=== PATIENT | female | born 1965 | race American Indian/Alaskan Native ===

== ENCOUNTER 2018-01-20 13:07 | Emergency (ER) | payer MEDICAID ==
[2018-01-20 13:16] VITALS: BP 120/81
--- NOTE | 2018-01-20 14:34 | Emergency Department Report ---
ED Recheck HPI - General Chief Complaint: Medical Clearance Stated Complaint: TRIMMERS/DIABETIC Time Seen by Provider: 01/20/18 14:18 Source: patient Mode of arrival: Ambulatory Limitations: No Limitations - History of Present Illness Initial Comments: This is a 52-year-old female who presents for medication refills. Past medical history is COPD, diabetes type 2, hypertension, and AMI. Patient states she ran out of medication and lost ID to follow-up with primary care provider. Patient states she is waiting on [facility] ID via mail. She is living in a assisted living facility and to follow-up in emergency room for refills. Patient denies suicidal ideation or homicidal ideation, chest pain, shortness of breath, visual changes, headache, or hearing voices. MD Complaint: medication refill request Onset/Timin -: days(s) Returns Today for: request for prescription Symptoms Since Prior Visit: no new symptoms Context: ran out of medication Associated Symptoms: none - Related Data Previous Rx's Medication Instructions Recorded Last Taken Type ALBUTEROL NEB's [Proventil 0.083% 2.5 mg IH Q4HRT PRN #30 nebu 12/25/17 Unknown Rx NEBS] Arformoterol Nebu [Brovana Nebu] 15 mcg IH Q12HRT #60 ml 12/25/17 Unknown Rx Budesonide [Pulmicort Respules] 0.5 mg IH Q12HRT #60 nebu 12/25/17 Unknown Rx Butalb/Acetamin/Caff 50-325-40 1 tab PO Q4H PRN #14 tablet 12/25/17 Unknown Rx [Fioricet] Ipratropium/Albuterol Sulfate 1 ampul IH Q6HRT #60 ampul.neb 12/25/17 Unknown Rx [DUONEB *Not for PRN Use*] Pantoprazole [Protonix TAB] 40 mg PO QDAY #30 tablet 12/25/17 Unknown Rx Prednisone [predniSONE 10 mg 10 mg PO .TAPER #1 tab.ds.pk 12/25/17 Unknown Rx (6-Day Pack, 21 Tabs)] FLUoxetine HCL [FLUoxetine] 60 mg PO QDAY #7 tablet 01/20/18 Unknown Rx FLUoxetine [PROzac] 10 mg PO QDAY #10 tablet 01/20/18 Unknown Rx metFORMIN [Glucophage] 500 mg PO BID #30 tablet 01/20/18 Unknown Rx risperiDONE [RisperDAL] 1 mg PO HS #7 tablet 01/20/18 Unknown Rx Allergies Allergy/AdvReac Type Severity Reaction Status Date / Time clonazepam [From Klonopin] Allergy Unknown Verified 12/07/17 20:27 quetiapine [From Seroquel] Allergy Unknown Verified 12/07/17 20:27 ED Review of Systems ROS: Stated complaint: TRIMMERS/DIABETIC Other details as noted in HPI Constitutional: denies: chills, fever Respiratory: denies: cough, shortness of breath, wheezing Cardiovascular: denies: chest pain, palpitations Gastrointestinal: denies: abdominal pain, nausea, diarrhea Neurological: denies: headache, weakness, paresthesias Psychiatric: denies: anxiety, depression Hematological/Lymphatic: denies: easy bleeding, easy bruising ED Past Medical Hx - Past Medical History Hx Hypertension: Yes Hx Heart Attack/AMI: Yes (No stents) Hx Congestive Heart Failure: No Hx Diabetes: Yes Hx Sickle Cell Disease: No Hx Asthma: No Hx COPD: Yes Hx HIV: No - Surgical History Additional Surgical History: heart, - Social History Smoking Status: Current Some Day Smoker Substance Use Type: None - Medications Home Medications: Home Medications Medication Instructions Recorded Confirmed Last Taken Type ALBUTEROL NEB's [Proventil 0.083% 2.5 mg IH Q4HRT PRN #30 nebu 12/25/17 Unknown Rx NEBS] Arformoterol Nebu [Brovana Nebu] 15 mcg IH Q12HRT #60 ml 12/25/17 Unknown Rx Budesonide [Pulmicort Respules] 0.5 mg IH Q12HRT #60 nebu 12/25/17 Unknown Rx Butalb/Acetamin/Caff 50-325-40 1 tab PO Q4H PRN #14 tablet 12/25/17 Unknown Rx [Fioricet] Ipratropium/Albuterol Sulfate 1 ampul IH Q6HRT #60 ampul.neb 12/25/17 Unknown Rx [DUONEB *Not for PRN Use*] Pantoprazole [Protonix TAB] 40 mg PO QDAY #30 tablet 12/25/17 Unknown Rx Prednisone [predniSONE 10 mg 10 mg PO .TAPER #1 tab.ds.pk 12/25/17 Unknown Rx (6-Day Pack, 21 Tabs)] FLUoxetine HCL [FLUoxetine] 60 mg PO QDAY #7 tablet 01/20/18 Unknown Rx FLUoxetine [PROzac] 10 mg PO QDAY #10 tablet 01/20/18 Unknown Rx metFORMIN [Glucophage] 500 mg PO BID #30 tablet 01/20/18 Unknown Rx risperiDONE [RisperDAL] 1 mg PO HS #7 tablet 01/20/18 Unknown Rx ED Physical Exam - General Limitations: No Limitations General appearance: alert, in no apparent distress - Cardiovascular Cardiovascular Exam: Present: regular rate, normal rhythm. Absent: systolic murmur, diastolic murmur, rubs, gallop - GI/Abdominal GI/Abdominal exam: Present: soft, normal bowel sounds - Neurological Exam Neurological exam: Present: alert, oriented X3 - Psychiatric Psychiatric exam: Present: normal affect, normal mood - Skin Skin exam: Present: warm, dry, intact, normal color. Absent: rash ED Course Vital Signs 01/20/18 13:09 Temperature 99.3 F Pulse Rate 113 H Respiratory 18 Rate Blood Pressure 120/81 O2 Sat by Pulse 98 Oximetry ED Recheck MDM - Differential Diagnosis Prescription Refill(s) - Medical Decision Making Patient was examined by this provider in fast track. Vitals are normal and patient is in no acute distress. Consulted with attending. Refilled Risperdal and Prozac for 7 days. Refilled metformin for 30 days. Referral to mental health for further management of Patient discharged home in stable condition. Follow up with PCP in 2-3 days. Critical care attestation.: If time is entered above; I have spent that time in minutes in the direct care of this critically ill patient, excluding procedure time. ED Disposition Clinical Impression: Mood disorder, Medication refill Diabetes type 2, controlled Qualifiers: Diabetes mellitus termite technician insulin use: without termite technician use Diabetes mellitus complication status: without complication Qualified Code(s): E11.9 - Type 2 diabetes mellitus without complications Disposition: DC-01 TO HOME OR SELFCARE Is pt being admited?: No Does the pt Need Aspirin: No Condition: Stable Instructions: Diabetes Mellitus Type 2 in Adults (ED) Additional Instructions: Follow up with your primary care provider for further refills. Follow up with [facility] for refills of mood disorder medication. Prescriptions: FLUoxetine [PROzac] 10 mg PO QDAY #10 tablet FLUoxetine HCL [FLUoxetine] 60 mg PO QDAY #7 tablet metFORMIN [Glucophage] 500 mg PO BID #30 tablet risperiDONE [RisperDAL] 1 mg PO HS #7 tablet Referrals: [facility] [Outside] - 3-5 Days [facility] [Outside] - 3-5 Days Time of Disposition: 14:50
== END 2018-01-20 15:06 | disposition home or self-care (01) ==
LOC: ED 13:07
DX: E11.9 Type 2 diabetes mellitus without complications (principal); F39 Unspecified mood [affective] disorder; Z76.0 Encounter for issue of repeat prescription; I10 Essential (primary) hypertension; J44.9 Chronic obstructive pulmonary disease, unspecified; F17.200 Nicotine dependence, unspecified, uncomplicated; I25.2 Old myocardial infarction; Z88.8 Allergy status to other drugs, medicaments and biological substances
CPT/HCPCS: 99283

== ENCOUNTER 2018-04-12 13:28 | Emergency (ER) | payer MEDICAID ==
[2018-04-12 13:47] VITALS: BP 132/80
[2018-04-12 14:13] LABS: Hematocrit 32.6 % (30.3-42.9); Hemoglobin 10.4 gm/dl (10.1-14.3); Mean Corpuscular HGB Conc 32 % (30-34); Mean Corpuscular Volume 80 fl (79-97); Platelet Count 367 K/mm3 (140-440); Red Cell Distribution Width 19.4 % (13.2-15.2)
[2018-04-12 14:30] LABS: Alanine Aminotransferase 13 units/L (7-56); Albumin 4.5 g/dL (3.9-5); BUN/Creatinine Ratio 47; Blood Urea Nitrogen 14 mg/dL (7-17); Calcium 9.4 mg/dL (8.4-10.2); Hemolysis Index 34
--- NOTE | 2018-04-12 15:08 | Emergency Department Report ---
ED General Adult HPI - General Chief complaint: Dyspnea/Respdistress Stated complaint: COPD/DIABETIC Time Seen by Provider: 04/12/18 14:44 Source: patient Mode of arrival: Ambulatory Limitations: No Limitations - History of Present Illness Initial comments: This is a 53-year-old female who presents with multiple complaints. Patient states her personal care provider is no longer allow her to wear home oxygen. Has a history of COPD, diabetes, and hypertension. She is currently complaining of shortness of breath and requesting refills of metformin. Patient states her living situation has changed over the past few weeks. The personal care provider has taken oxygen away for the past 3-4 days. She denies chest pain, fever, congestion, myalgia, cough, wheezing, diaphoresis, SI/HI. Onset/Timin -: days(s) Severity scale (0 -10): 4 Consistency: intermittent Improves with: none Worsens with: movement Associated Symptoms: shortness of breath. denies: confusion, chest pain, cough, diaphoresis, fever/chills, headaches, loss of appetite, malaise, nausea/vomi ting, rash, seizure, syncope, weakness Treatments Prior to Arrival: none - Related Data Home Medications Medication Instructions Recorded Confirmed Last Taken metFORMIN 500 mg PO DAILY 02/04/18 02/23/18 02/20/18 Previous Rx's Medication Instructions Recorded Last Taken Type ALBUTEROL NEB's [Proventil 0.083% 2.5 mg IH Q4HRT PRN #30 nebu 12/25/17 02/20/18 Rx NEBS] Arformoterol Nebu [Brovana Nebu] 15 mcg IH Q12HRT #60 ml 12/25/17 02/20/18 Rx Budesonide [Pulmicort Respules] 0.5 mg IH Q12HRT #60 nebu 12/25/17 02/20/18 Rx Butalb/Acetamin/Caff 50-325-40 1 tab PO Q4H PRN #14 tablet 12/25/17 Unknown Rx [Fioricet] Ipratropium/Albuterol Sulfate 1 ampul IH Q6HRT #60 ampul.neb 12/25/17 02/20/18 Rx [DUONEB *Not for PRN Use*] Pantoprazole [Protonix TAB] 40 mg PO QDAY #30 tablet 12/25/17 02/20/18 Rx FLUoxetine HCL [FLUoxetine] 60 mg PO QDAY #7 tablet 01/20/18 02/20/18 Rx risperiDONE [RisperDAL] 1 mg PO HS #7 tablet 01/20/18 02/20/18 Rx metFORMIN [Glucophage] 500 mg PO BID #60 tablet 04/12/18 Unknown Rx Allergies Allergy/AdvReac Type Severity Reaction Status Date / Time clonazepam [From Klonopin] Allergy Unknown Verified 12/07/17 20:27 quetiapine [From Seroquel] Allergy Unknown Verified 12/07/17 20:27 ED Review of Systems ROS: Stated complaint: COPD/DIABETIC Other details as noted in HPI Constitutional: denies: chills, fever ENT: denies: ear pain, throat pain Respiratory: SOB with exertion. denies: cough, wheezing Cardiovascular: denies: chest pain, palpitations Gastrointestinal: denies: abdominal pain, nausea, diarrhea Neurological: denies: headache, weakness, paresthesias Psychiatric: denies: anxiety, depression ED Past Medical Hx - Past Medical History Previous Medical History?: Yes Hx Hypertension: Yes Hx Heart Attack/AMI: Yes (No stents) Hx Congestive Heart Failure: No Hx Diabetes: Yes Hx Sickle Cell Disease: No Hx Asthma: No Hx COPD: Yes Hx HIV: No - Surgical History Additional Surgical History: heart, - Social History Smoking Status: Former Smoker Substance Use Type: None - Medications Home Medications: Home Medications Medication Instructions Recorded Confirmed Last Taken Type ALBUTEROL NEB's [Proventil 0.083% 2.5 mg IH Q4HRT PRN #30 nebu 12/25/17 02/23/18 02/20/18 Rx NEBS] Arformoterol Nebu [Brovana Nebu] 15 mcg IH Q12HRT #60 ml 12/25/17 02/23/1802/03 Rx Budesonide [Pulmicort Respules] 0.5 mg IH Q12HRT #60 nebu 12/25/17 02/23/18 02/20/18 Rx Butalb/Acetamin/Caff 50-325-40 1 tab PO Q4H PRN #14 tablet 12/25/17 02/23/18 Unknown Rx [Fioricet] Ipratropium/Albuterol Sulfate 1 ampul IH Q6HRT #60 ampul.neb 12/25/17 02/23/18 02/20/18 Rx [DUONEB *Not for PRN Use*] Pantoprazole [Protonix TAB] 40 mg PO QDAY #30 tablet 12/25/17 02/23/18 02/20/18 Rx FLUoxetine HCL [FLUoxetine] 60 mg PO QDAY #7 tablet 01/20/18 02/23/18 02/20/18 Rx risperiDONE [RisperDAL] 1 mg PO HS #7 tablet 01/20/18 02/23/18 02/20/18 Rx metFORMIN 500 mg PO DAILY 02/04/18 02/23/18 02/20/18 History metFORMIN [Glucophage] 500 mg PO BID #60 tablet 04/12/18 Unknown Rx ED Physical Exam - General Limitations: No Limitations General appearance: alert, in no apparent distress - Respiratory Respiratory exam: Present: normal lung sounds bilaterally. Absent: respiratory distress - Cardiovascular Cardiovascular Exam: Present: regular rate, normal rhythm. Absent: systolic murmur, diastolic murmur, rubs, gallop - GI/Abdominal GI/Abdominal exam: Present: soft, normal bowel sounds - Neurological Exam Neurological exam: Present: alert, oriented X3 - Psychiatric Psychiatric exam: Present: normal affect, normal mood - Skin Skin exam: Present: warm, dry, intact, normal color. Absent: rash ED Course Vital Signs 04/12/18 13:44 Temperature 98.9 F Pulse Rate 98 H Respiratory 22 Rate Blood Pressure 132/80 O2 Sat by Pulse 96 Oximetry ED Medical Decision Making - Lab Data Result diagrams: 04/12/18 13:54 04/12/18 13:54 Lab Results 04/12/18 04/12/18 04/12/18 Range/Units 13:38 13:54 13:54 WBC 7.8 (4.5-11.0) K/mm3 RBC 4.10 (3.65-5.03) M/mm3 Hgb 10.4 (10.1-14.3) gm/dl Hct 32.6 (30.3-42.9) % MCV 80 (79-97) fl MCH 26 L (28-32) pg MCHC 32 (30-34) % RDW 19.4 H (13.2-15.2) % Plt Count 367 (140-440) K/mm3 Sodium 143 (137-145) mmol/L Potassium 4.1 (3.6-5.0) mmol/L Chloride 101.8 (98-107) mmol/L Carbon Dioxide 29 (22-30) mmol/L Anion Gap 16 mmol/L BUN 14 (7-17) mg/dL Creatinine 0.3 L (0.7-1.2) mg/dL Estimated GFR > 60 ml/min BUN/Creatinine Ratio 47 % Glucose 111 H (65-100) mg/dL POC Glucose 78 (70-105) Calcium 9.4 (8.4-10.2) mg/dL Total Bilirubin < 0.20 (0.1-1.2) mg/dL AST 14 (5-40) units/L ALT 13 (7-56) units/L Alkaline Phosphatase 48 (35-129) units/L Total Protein 6.4 (6.3-8.2) g/dL Albumin 4.5 (3.9-5) g/dL Albumin/Globulin Ratio 2.4 % - Medical Decision Making Patient was examined by me. Vitals are normal and patient is in no acute distress. Obtained CMP and CBC. All labs are unremarkable. Patient is on home oxygen 3 L, currently on room air, sats 96%. 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 Patient informed of results. Start metformin 500 mg po bid x 30 days. Patient discharged home in stable condition. Follow up with PCP in 2-3 days. Critical care attestation.: If time is entered above; I have spent that time in minutes in the direct care of this critically ill patient, excluding procedure time. ED Disposition Clinical Impression: Shortness of breath Diabetes Qualifiers: Diabetes mellitus type: type 2 Diabetes mellitus alf insulin use: without alf use Diabetes mellitus complication status: without complication Qualified Code(s): E11.9 - Type 2 diabetes mellitus without complications Disposition: DC- TO HOME OR SELFCARE Is pt being admited?: No Does the pt Need Aspirin: No Condition: Stable Instructions: Diabetes Mellitus Type 2 in Adults (ED), Chronic Obstructive Pulmonary Disease (ED) Prescriptions: metFORMIN [Glucophage] 500 mg PO BID #60 tablet Referrals: [facility]] - 3-5 Days [facility] [Outside] - 3-5 Days [facility] [Outside] - 3-5 Days Time of Disposition: 16:19
== END 2018-04-12 16:50 | disposition home or self-care (01) ==
LOC: ED 13:28
DX: R06.02 Shortness of breath (principal); E11.9 Type 2 diabetes mellitus without complications; I10 Essential (primary) hypertension; J44.9 Chronic obstructive pulmonary disease, unspecified; I25.2 Old myocardial infarction; Z87.891 Personal history of nicotine dependence
CPT/HCPCS: 36415; 80053; 82962; 85027; 99283

== ENCOUNTER 2018-04-15 15:15 | Inpatient (IN) | payer MEDICAID ==
[2018-04-15] MEDS ORDERED: XANAX PO ONE (19:28)
[2018-04-15] MEDS ORDERED: NACL 0.9% 1000 ML 1,000 ML IV ONE ×2 (19:28→23:21)
--- NOTE | 2018-04-15 19:31 | Emergency Department Report ---
ED Anxiety HPI - General Chief Complaint: Anxiety Stated Complaint: ANXIETY Time Seen by Provider: 04/15/18 18:31 Source: patient, EMS Mode of arrival: Ambulatory - History of Present Illness MD Complaint: anxiety -: Sudden Symptoms: palpitations Place: home Previous History of Same: Yes Severity: mild Quality: constant Provoking factors: emotional stress Improves With: medication Worsens With: nothing Associated symptoms: palpitations - Related Data Home Medications: Home Medications Medication Instructions Recorded Confirmed Last Taken Butalb/Acetamin/Caff 50-325-40 1 each PO Q4H PRN 04/15/18 04/15/18 Unknown [Fioricet] metFORMIN [Glucophage] 1,000 mg PO QDAY 04/15/18 04/15/18 Unknown Previous Rx's Medication Instructions Recorded Last Taken Type Pantoprazole [Protonix TAB] 40 mg PO QDAY #30 tablet 12/25/17 02/20/18 Rx FLUoxetine HCL [FLUoxetine] 60 mg PO QDAY #7 tablet 01/20/18 02/20/18 Rx risperiDONE [RisperDAL] 1 mg PO HS #7 tablet 01/20/18 02/20/18 Rx Allergies/Adverse Reactions: Allergies Allergy/AdvReac Type Severity Reaction Status Date / Time clonazepam [From Klonopin] Allergy Unknown Verified 04/15/18 15:19 quetiapine [From Seroquel] Allergy Unknown Verified 04/15/18 15:19 ED Review of Systems ROS: Stated complaint: ANXIETY Other details as noted in HPI Comment: All other systems reviewed and negative Constitutional: denies: chills, fever Eyes: denies: eye pain, eye discharge, vision change ENT: denies: ear pain, throat pain Respiratory: shortness of breath, SOB with exertion. denies: cough, wheezing Cardiovascular: palpitations. denies: chest pain Endocrine: no symptoms reported Gastrointestinal: denies: abdominal pain, nausea, diarrhea Genitourinary: denies: urgency, dysuria, discharge Musculoskeletal: denies: back pain, joint swelling, arthralgia Skin: denies: rash, lesions Neurological: denies: headache, weakness, paresthesias Psychiatric: anxiety. denies: depression, auditory hallucinations, visual hallucinations, homicidal thoughts, suicidal thoughts Hematological/Lymphatic: denies: easy bleeding, easy bruising ED Past Medical Hx - Past Medical History Hx Hypertension: Yes Hx Heart Attack/AMI: Yes Hx Congestive Heart Failure: No Hx Diabetes: Yes Hx Sickle Cell Disease: No Hx Asthma: No Hx COPD: Yes Hx HIV: No - Surgical History Additional Surgical History: heart, - Social History Smoking Status: Never Smoker Substance Use Type: None - Medications Home Medications: Home Medications Medication Instructions Recorded Confirmed Last Taken Type Pantoprazole [Protonix TAB] 40 mg PO QDAY #30 tablet 12/25/17 04/15/18 02/20/18 Rx FLUoxetine HCL [FLUoxetine] 60 mg PO QDAY #7 tablet 01/20/18 04/15/18 02/20/18 Rx risperiDONE [RisperDAL] 1 mg PO HS #7 tablet 01/20/18 04/15/18 02/20/18 Rx Butalb/Acetamin/Caff 50-325-40 1 each PO Q4H PRN 04/15/18 04/15/18 Unknown History [Fioricet] metFORMIN [Glucophage] 1,000 mg PO QDAY 04/15/18 04/15/18 Unknown History ED Physical Exam - General Limitations: No Limitations General appearance: alert, in no apparent distress - Head Head exam: Present: atraumatic, normocephalic - Eye Eye exam: Present: normal appearance, PERRL, EOMI Pupils: Present: normal accommodation - ENT ENT exam: Present: normal exam, mucous membranes moist - Neck Neck exam: Present: normal inspection, tenderness, full ROM - Respiratory Respiratory exam: Present: normal lung sounds bilaterally. Absent: respiratory distress, wheezes, rales, rhonchi - Cardiovascular Cardiovascular Exam: Present: regular rate, tachycardia, normal heart sounds. Absent: systolic murmur, diastolic murmur, rubs, gallop - GI/Abdominal GI/Abdominal exam: Present: soft, normal bowel sounds - Extremities Exam Extremities exam: Present: normal inspection, full ROM, normal capillary refill. Absent: tenderness - Back Exam Back exam: Present: normal inspection, full ROM. Absent: tenderness - Neurological Exam Neurological exam: Present: alert, oriented X3, CN II-XII intact - Psychiatric Psychiatric exam: Present: normal affect, anxious - Skin Skin exam: Present: warm, dry, intact, normal color. Absent: rash ED Course Vital Signs 04/15/18 04/15/18 04/15/18 15:19 18:15 19:20 Temperature 98.6 F 98.9 F 98.8 F Pulse Rate 120 H 98 H 92 H Respiratory 20 18 18 Rate Blood Pressure 146/108 Blood Pressure 119/58 125/89 [Left] O2 Sat by Pulse 96 95 95 Oximetry 04/15/18 23:30 Temperature 97.7 F Pulse Rate 69 Respiratory 18 Rate Blood Pressure Blood Pressure 122/88 [Left] O2 Sat by Pulse 94 Oximetry - Consultations Consultation #1: 04/16/18 02:01 Dr Lucita Gunn to admit patient. ED Medical Decision Making - Lab Data Result diagrams: 04/15/18 19:36 04/15/18 19:36 Lab Results 04/15/18 04/15/18 04/15/18 Range/Units 19:36 19:36 19:36 WBC 7.1 (4.5-11.0) K/mm3 RBC 4.11 (3.65-5.03) M/mm3 Hgb 10.5 (10.1-14.3) gm/dl Hct 32.4 (30.3-42.9) % MCV 79 (79-97) fl MCH 26 L (28-32) pg MCHC 33 (30-34) % RDW 19.3 H (13.2-15.2) % Plt Count 399 (140-440) K/mm3 Lymph % (Auto) 19.4 (13.4-35.0) % [place] % (Auto) 7.3 (0.0-7.3) % Eos % (Auto) 2.9 (0.0-4.3) % Baso % (Auto) 0.8 (0.0-1.8) % Lymph # 1.4 (1.2-5.4) K/mm3 [place] # 0.5 (0.0-0.8) K/mm3 Eos # 0.2 (0.0-0.4) K/mm3 Baso # 0.1 (0.0-0.1) K/mm3 Seg Neutrophils % 69.6 (40.0-70.0) % Seg Neutrophils # 5.0 (1.8-7.7) K/mm3 Sodium 141 (137-145) mmol/L Potassium 4.0 (3.6-5.0) mmol/L Chloride 99.9 (98-107) mmol/L Carbon Dioxide 28 (22-30) mmol/L Anion Gap 17 mmol/L BUN 19 H (7-17) mg/dL Creatinine 0.5 L D (0.7-1.2) mg/dL Estimated GFR > 60 ml/min BUN/Creatinine Ratio 38 % Glucose 99 (65-100) mg/dL POC Glucose (70-105) Calcium 9.5 (8.4-10.2) mg/dL Total Bilirubin < 0.20 (0.1-1.2) mg/dL AST 15 (5-40) units/L ALT 13 (7-56) units/L Alkaline Phosphatase 49 (35-129) units/L Troponin T < 0.010 (0.00-0.029) ng/mL Total Protein 6.6 (6.3-8.2) g/dL Albumin 4.4 (3.9-5) g/dL Albumin/Globulin Ratio 2.0 % TSH 1.220 (0.270-4.200) mlU/mL Urine Color (Yellow) Urine Turbidity (Clear) Urine pH (5.0-7.0) Ur Specific [place] (1.003-1.030) Urine Protein (Negative) mg/dL Urine Glucose (UA) (Negative) mg/dL Urine Ketones (Negative) mg/dL Urine Blood (Negative) Urine Nitrite (Negative) Urine Bilirubin (Negative) Urine Urobilinogen (<2.0) mg/dL Ur Leukocyte Esterase (Negative) Urine WBC (Auto) (0.0-6.0) /HPF Urine RBC (Auto) (0.0-6.0) /HPF U Epithel Cells (Auto) (0-13.0) /HPF Urine Bacteria (Auto) (Negative) /HPF Urine WBC Clumps /HPF Urine Mucus /HPF Urine Yeast (Budding) /HPF Salicylates (2.8-20.0) mg/dL Urine Opiates Screen Urine Methadone Screen Acetaminophen (10.0-30.0) ug/mL Ur Barbiturates Screen Ur Phencyclidine Scrn Ur Amphetamines Screen U Benzodiazepines Scrn Urine Cocaine Screen U Marijuana (THC) Screen Drugs of Abuse Note Plasma/Serum Alcohol (0-0.07) % 04/15/18 04/15/18 04/15/18 Range/Units 19:36 19:36 19:36 WBC (4.5-11.0) K/mm3 RBC (3.65-5.03) M/mm3 Hgb (10.1-14.3) gm/dl Hct (30.3-42.9) % MCV (79-97) fl MCH (28-32) pg MCHC (30-34) % RDW (13.2-15.2) % Plt Count (140-440) K/mm3 Lymph % (Auto) (13.4-35.0) % [place] % (Auto) (0.0-7.3) % Eos % (Auto) (0.0-4.3) % Baso % (Auto) (0.0-1.8) % Lymph # (1.2-5.4) K/mm3 [place] # (0.0-0.8) K/mm3 Eos # (0.0-0.4) K/mm3 Baso # (0.0-0.1) K/mm3 Seg Neutrophils % (40.0-70.0) % Seg Neutrophils # (1.8-7.7) K/mm3 Sodium (137-145) mmol/L Potassium (3.6-5.0) mmol/L Chloride (98-107) mmol/L Carbon Dioxide (22-30) mmol/L Anion Gap mmol/L BUN (7-17) mg/dL Creatinine (0.7-1.2) mg/dL Estimated GFR ml/min BUN/Creatinine Ratio % Glucose (65-100) mg/dL POC Glucose (70-105) Calcium (8.4-10.2) mg/dL Total Bilirubin (0.1-1.2) mg/dL AST (5-40) units/L ALT (7-56) units/L Alkaline Phosphatase (35-129) units/L Troponin T (0.00-0.029) ng/mL Total Protein (6.3-8.2) g/dL Albumin (3.9-5) g/dL Albumin/Globulin Ratio % TSH (0.270-4.200) mlU/mL Urine Color (Yellow) Urine Turbidity (Clear) Urine pH (5.0-7.0) Ur Specific [place] (1.003-1.030) Urine Protein (Negative) mg/dL Urine Glucose (UA) (Negative) mg/dL Urine Ketones (Negative) mg/dL Urine Blood (Negative) Urine Nitrite (Negative) Urine Bilirubin (Negative) Urine Urobilinogen (<2.0) mg/dL Ur Leukocyte Esterase (Negative) Urine WBC (Auto) (0.0-6.0) /HPF Urine RBC (Auto) (0.0-6.0) /HPF U Epithel Cells (Auto) (0-13.0) /HPF Urine Bacteria (Auto) (Negative) /HPF Urine WBC Clumps /HPF Urine Mucus /HPF Urine Yeast (Budding) /HPF Salicylates < 0.3 L (2.8-20.0) mg/dL Urine Opiates Screen Urine Methadone Screen Acetaminophen < 5.0 L (10.0-30.0) ug/mL Ur Barbiturates Screen Ur Phencyclidine Scrn Ur Amphetamines Screen U Benzodiazepines Scrn Urine Cocaine Screen U Marijuana (THC) Screen Drugs of Abuse Note Plasma/Serum Alcohol < 0.01 (0-0.07) % 04/15/18 04/15/18 04/15/18 Range/Units 20:00 21:40 21:40 WBC (4.5-11.0) K/mm3 RBC (3.65-5.03) M/mm3 Hgb (10.1-14.3) gm/dl Hct (30.3-42.9) % MCV (79-97) fl MCH (28-32) pg MCHC (30-34) % RDW (13.2-15.2) % Plt Count (140-440) K/mm3 Lymph % (Auto) (13.4-35.0) % [place] % (Auto) (0.0-7.3) % Eos % (Auto) (0.0-4.3) % Baso % (Auto) (0.0-1.8) % Lymph # (1.2-5.4) K/mm3 [place] # (0.0-0.8) K/mm3 Eos # (0.0-0.4) K/mm3 Baso # (0.0-0.1) K/mm3 Seg Neutrophils % (40.0-70.0) % Seg Neutrophils # (1.8-7.7) K/mm3 Sodium (137-145) mmol/L Potassium (3.6-5.0) mmol/L Chloride (98-107) mmol/L Carbon Dioxide (22-30) mmol/L Anion Gap mmol/L BUN (7-17) mg/dL Creatinine (0.7-1.2) mg/dL Estimated GFR ml/min BUN/Creatinine Ratio % Glucose (65-100) mg/dL POC Glucose 91 (70-105) Calcium (8.4-10.2) mg/dL Total Bilirubin (0.1-1.2) mg/dL AST (5-40) units/L ALT (7-56) units/L Alkaline Phosphatase (35-129) units/L Troponin T (0.00-0.029) ng/mL Total Protein (6.3-8.2) g/dL Albumin (3.9-5) g/dL Albumin/Globulin Ratio % TSH (0.270-4.200) mlU/mL Urine Color Anya (Yellow) Urine Turbidity Turbid (Clear) Urine pH 5.0 (5.0-7.0) Ur Specific [place] 1.021 (1.003-1.030) Urine Protein 30 mg/dl (Negative) mg/dL Urine Glucose (UA) Neg (Negative) mg/dL Urine Ketones Neg (Negative) mg/dL Urine Blood Mod (Negative) Urine Nitrite Pos (Negative) Urine Bilirubin Neg (Negative) Urine Urobilinogen < 2.0 (<2.0) mg/dL Ur Leukocyte Esterase Lg (Negative) Urine WBC (Auto) > 182.0 H (0.0-6.0) /HPF Urine RBC (Auto) 175.0 (0.0-6.0) /HPF U Epithel Cells (Auto) 3.0 (0-13.0) /HPF Urine Bacteria (Auto) 2+ (Negative) /HPF Urine WBC Clumps 3+ /HPF Urine Mucus 1+ /HPF Urine Yeast (Budding) 3+ /HPF Salicylates (2.8-20.0) mg/dL Urine Opiates Screen Presumptive negative Urine Methadone Screen Presumptive negative Acetaminophen (10.0-30.0) ug/mL Ur Barbiturates Screen Presumptive negative Ur Phencyclidine Scrn Presumptive negative Ur Amphetamines Screen Presumptive negative U Benzodiazepines Scrn Presumptive negative Urine Cocaine Screen Presumptive negative U Marijuana (THC) Screen Presumptive negative Drugs of Abuse Note Disclamer Plasma/Serum Alcohol (0-0.07) % - Radiology Data Radiology results: report reviewed, image reviewed CT chest showed COPD, no PE or aneurysm. - Medical Decision Making COPD exacerbation. Hypoxia on room air. Patient will need home oxygen. Will admit for further management. Critical care attestation.: If time is entered above; I have spent that time in minutes in the direct care of this critically ill patient, excluding procedure time. ED Disposition Clinical Impression: COPD exacerbation, Hypoxia, Anxiety Dyspnea Qualifiers: Dyspnea type: shortness of breath Qualified Code(s): R06.02 - Shortness of nghia th Respiratory failure Qualifiers: Chronicity: acute on chronic Respiratory failure complication: hypoxia Qual ified Code(s): J96.21 - Acute and chronic respiratory failure with hypoxia Acute and chronic respiratory failure Qualifiers: Respiratory failure complication: hypoxia Qualified Code(s): J96.21 - Acute and chronic respiratory failure with hypoxia UTI (urinary tract infection) Qualifiers: Urinary tract infection type: acute cystitis Hematuria presence: without hematuria Qualified Code(s): N30.00 - Acute cystitis without hematuria Disposition: OP ADMIT IP TO THIS HOSP Is pt being admited?: Yes Does the pt Need Aspirin: No Condition: Stable Instructions: Chronic Obstructive Pulmonary Disease (ED) Referrals: PRIMARY CAREMD [Primary Care Provider] - 3-5 Days Time of Disposition: :02
[2018-04-15 20:12] LABS: Basophils # (Auto) 0.1 K/mm3 (0.0-0.1); Basophils % (Auto) 0.8 % (0.0-1.8); Eosinophils # (Auto) 0.2 K/mm3 (0.0-0.4); Eosinophils % (Auto) 2.9 % (0.0-4.3); Hematocrit 32.4 % (30.3-42.9); Hemoglobin 10.5 gm/dl (10.1-14.3); Lymphocytes # (Auto) 1.4 K/mm3 (1.2-5.4); Lymphocytes % (Auto) 19.4 % (13.4-35.0); Mean Corpuscular HGB Conc 33 % (30-34); Mean Corpuscular Volume 79 fl (79-97); Monocytes # (Auto) 0.5 K/mm3 (0.0-0.8); Monocytes % (Auto) 7.3 % (0.0-7.3); Platelet Count 399 K/mm3 (140-440); Red Blood Count 4.11 M/mm3 (3.65-5.03); Red Cell Distribution Width 19.3 % (13.2-15.2)
[2018-04-15 20:34] LABS: Alanine Aminotransferase 13 units/L (7-56); Albumin 4.4 g/dL (3.9-5); BUN/Creatinine Ratio 38; Blood Urea Nitrogen 19 mg/dL (7-17); Calcium 9.5 mg/dL (8.4-10.2); Hemolysis Index 10
--- NOTE | 2018-04-15 20:59 | XRay Report ---
FINAL REPORT EXAM: XR CHEST 1V AP HISTORY: Anxiety, hx htn, copd TECHNIQUE: Frontal portable view of the chest Comparison: Chest x-ray dated February 03, 2018 FINDINGS: There is no evidence of focal infiltrate, pneumothorax or pleural fluid collection. Cardiac silhouette appears to be normal size. There is the appearance of prominence of the ascending thoracic aorta which may represent aneurysmal dilatation of the ascending thoracic aorta. This appears to be increased in degree in the interval. The bony structures are osteopenic in appearance. Visualization detail of the thoracic spine is limit ed. There is deformity of the posterior aspect of the left 7th rib consistent with sequela of previous fr acture. IMPRESSION: 1. No plain film evidence of an acute pulmonary process. 2. Appearance of prominence of the ascending thoracic aorta which may represent aneurysmal dilatation of the ascending thoracic aorta. This appears to of increased in degree in the interval. CT chest would be helpful for further evaluation.
[2018-04-15 22:02] LABS: Bacteria,Urine 2+ /HPF (Negative); Bilirubin,Urine NEG (Negative); Blood,Urine MOD (Negative); Color,Urine Amber (Yellow); Mucus,Urine 1+ /HPF; Urobilinogen,Urine < 2.0 mg/dL (<2.0)
[2018-04-15 22:03] LABS: Amphetamine Screen,Urine PRESUMPTIVE NEGATIVE; Benzodiazepines Screen,Urine PRESUMPTIVE NEGATIVE; Cannabinoid Screen,Urine PRESUMPTIVE NEGATIVE; Cocaine Screen,Urine PRESUMPTIVE NEGATIVE; Methadone Screen,Urine PRESUMPTIVE NEGATIVE; Opiate Screen,Urine PRESUMPTIVE NEGATIVE; WBC,Urine > 182.0 /HPF (0.0-6.0)
[2018-04-15] MEDS ORDERED: ROCEPHIN/NS 1 GM/50 ML 1 GM/50 ML BAG IV ONE (22:21)
--- NOTE | 2018-04-16 01:26 | Cat Scan Report ---
FINAL REPORT EXAM: CT Chest w Contrast CLINICAL INDICATIONS: SOB FINDINGS: Contrast-enhanced CT angiography of the chest was performed and data was reformatted into the sagitta l and coronal planes. Comparison is made to the unenhanced CT of December 10, 2017. These images demonstrate no CT evidence of pulmonary thromboembolic disease. There is no aortic dissection. The ascending thoracic aorta is normal in size at 3.2 cm. There is COPD. There is no acute consolidative pulmonary infiltrate. There is some right upper lobe linear scarring. There are old compression fractures of T7, T8 and T9 unchanged from prior exam. There is a small pericardial effusion anterior to the heart, 0.9 cm, mildly increased from prior exam and measured 0.5 cm. No pleural effusion is seen. In the upper abdomen, the adrenal glands are within normal limits. The visualized portion of the diana er and spleen are unremarkable. IMPRESSION: NO CT EVIDENCE OF PULMONARY THROMBOEMBOLIC DISEASE COPD SMALL PERICARDIAL EFFUSION
[2018-04-16] MEDS ORDERED: SOLU-Medrol IV ONE (02:06)
[2018-04-16] MEDS ORDERED: DUONEB *Not for PRN Use IH ONE (02:06)
[2018-04-16 07:20] LABS: Creatine Kinase MB 3.3 ng/mL (0.0-4.0)
[2018-04-16 11:09] LABS: Creatine Kinase MB 3.7 ng/mL (0.0-4.0)
--- NOTE | 2018-04-16 12:07 | History and Physical Report ---
History of Present Illness Date of admission: 04/16/18 05:57 Chief complaint: sob and cp History of present illness: 53F who ran out of all her meds 4 days ago, she is c.o cp, anxiety, sob, wh eezing, and feeling very sad, she has been crying all day she denies Suicidal ideation -patient was crying and sobbing very hard, and was not able to explicate on her history. PAST MEDICAL HISTORY: COPD on home oxygen, coronary artery disease, hypertension, chronic hypoxic resp failure, schizoaffective disorder PAST SURGICAL HISTORY: None SOCIAL HISTORY: No alcohol, no drugs, + tobacco use FAMILY HISTORY: Hypertension Medications and Allergies Allergies Allergy/AdvReac Type Severity Reaction Status Date / Time clonazepam [From Klonopin] Allergy Unknown Verified 04/15/18 15:19 quetiapine [From Seroquel] Allergy Unknown Verified 04/15/18 15:19 Home Medications Medication Instructions Recorded Confirmed Last Taken Type Pantoprazole [Protonix TAB] 40 mg PO QDAY #30 tablet 12/25/17 04/15/18 02/20/18 Rx FLUoxetine HCL [FLUoxetine] 60 mg PO QDAY #7 tablet 01/20/18 04/15/18 02/20/18 Rx risperiDONE [RisperDAL] 1 mg PO HS #7 tablet 01/20/18 04/15/18 02/20/18 Rx Butalb/Acetamin/Caff 50-325-40 1 each PO Q4H PRN 04/15/18 04/15/18 Unknown History [Fioricet] metFORMIN [Glucophage] 1,000 mg PO QDAY 04/15/18 04/15/18 Unknown History Review of Systems All systems: negative Constitutional: no fatigue, no weakness Ears, nose, mouth and throat: no ear pain Breasts: no deferred Cardiovascular: chest pain Respiratory: no cough Gastrointestinal: no abdominal pain Genitourinary Female: no dyspareunia Rectal: no pain Musculoskeletal: no neck stiffness Integumentary: no rash Neurological: no head injury Endocrine: no cold intolerance Hematologic/Lymphatic: no easy bruising Allergic/Immunologic: no urticaria Exam - Constitutional Vitals: Temp Pulse Resp BP Pulse Ox 97.7 F 76 20 119/75 96 04/15/18 23:30 04/16/18 11:34 04/16/18 10:00 04/16/18 05:37 04/16/18 07:52 General appearance: Present: no acute distress, well-nourished - EENT Eyes: Present: PERRL ENT: hearing intact, clear oral mucosa - Neck Neck: Present: supple, normal ROM - Respiratory Respiratory effort: normal Respiratory: bilateral: diminished, wheezing - Cardiovascular Heart Sounds: Present: S1 & S2. Absent: rub, click - Extremities Extremities: pulses symmetrical, No edema Peripheral Pulses: within normal limits - Abdominal General gastrointestinal: Present: soft, non-tender, non-distended, normal bowel sounds Female genitourinary: Present: normal - Integumentary Integumentary: Present: clear, warm, dry - Musculoskeletal Musculoskeletal: gait normal, strength equal bilaterally - Psychiatric Psychiatric: no appropriate mood/affect (sobbing uncontrollably), intact judgment & insight - Neurologic Neurologic: CNII-XII intact, moves all extremities Results - Labs CBC & Chem 7: 04/15/18 19:36 04/15/18 19:36 Labs: Laboratory Last Values WBC 7.1 K/mm3 (4.5-11.0) 04/15/18 19:36 RBC 4.11 M/mm3 (3.65-5.03) 04/15/18 19:36 Hgb 10.5 gm/dl (10.1-14.3) 04/15/18 19:36 Hct 32.4 % (30.3-42.9) 04/15/18 19:36 MCV 79 fl (79-97) 04/15/18 19:36 MCH 26 pg (28-32) L 04/15/18 19:36 MCHC 33 % (30-34) 04/15/18 19:36 RDW 19.3 % (13.2-15.2) H 04/15/18 19:36 Plt Count 399 K/mm3 (140-440) 04/15/18 19:36 Lymph % (Auto) 19.4 % (13.4-35.0) 04/15/18 19:36 [place] % (Auto) 7.3 % (0.0-7.3) 04/15/18 19:36 Eos % (Auto) 2.9 % (0.0-4.3) 04/15/18 19:36 Baso % (Auto) 0.8 % (0.0-1.8) 04/15/18 19:36 Lymph # 1.4 K/mm3 (1.2-5.4) 04/15/18 19:36 [place] # 0.5 K/mm3 (0.0-0.8) 04/15/18 19:36 Eos # 0.2 K/mm3 (0.0-0.4) 04/15/18 19:36 Baso # 0.1 K/mm3 (0.0-0.1) 04/15/18 19:36 Seg Neutrophils % 69.6 % (40.0-70.0) 04/15/18 19:36 Seg Neutrophils # 5.0 K/mm3 (1.8-7.7) 04/15/18 19:36 POC ABG pH 7.294 (7.35-7.45) L 04/16/18 01:45 POC ABG pCO2 53.3 (35-45) H 04/16/18 01:45 POC ABG pO2 64 (80-105) L 04/16/18 01:45 POC ABG HCO3 25.9 04/16/18 01:45 POC ABG Total CO2 27 04/16/18 01:45 POC ABG O2 Sat 89 04/16/18 01:45 POC ABG Base Excess -1 04/16/18 01:45 FiO2 21 % 04/16/18 01:45 Sodium 141 mmol/L (137-145) 04/15/18 19:36 Potassium 4.0 mmol/L (3.6-5.0) 04/15/18 19:36 Chloride 99.9 mmol/L (98-107) 04/15/18 19:36 Carbon Dioxide 28 mmol/L (22-30) 04/15/18 19:36 Anion Gap 17 mmol/L 04/15/18 19:36 BUN 19 mg/dL (7-17) H 04/15/18 19:36 Creatinine 0.5 mg/dL (0.7-1.2) L D 04/15/18 19:36 Estimated GFR > 60 ml/min 04/15/18 19:36 BUN/Creatinine Ratio 38 % 04/15/18 19:36 Glucose 99 mg/dL (65-100) 04/15/18 19:36 POC Glucose 110 (70-105) H 04/16/18 07:49 Calcium 9.5 mg/dL (8.4-10.2) 04/15/18 19:36 Total Bilirubin < 0.20 mg/dL (0.1-1.2) 04/15/18 19:36 AST 15 units/L (5-40) 04/15/18 19:36 ALT 13 units/L (7-56) 04/15/18 19:36 Alkaline Phosphatase 49 units/L (35-129) 04/15/18 19:36 Total Creatine Kinase 95 units/L (30-135) 04/16/18 09:57 CK-MB (CK-2) 3.7 ng/mL (0.0-4.0) 04/16/18 09:57 CK-MB (CK-2) Rel Index 3.8 (0-4) 04/16/18 09:57 Troponin T < 0.010 ng/mL (0.00-0.029) 04/16/18 09:57 Total Protein 6.6 g/dL (6.3-8.2) 04/15/18 19:36 Albumin 4.4 g/dL (3.9-5) 04/15/18 19:36 Albumin/Globulin Ratio 2.0 % 04/15/18 19:36 TSH 1.220 mlU/mL (0.270-4.200) 04/15/18 19:36 Urine Color Anya (Yellow) 04/15/18 21:40 Urine Turbidity Turbid (Clear) 04/15/18 21:40 Urine pH 5.0 (5.0-7.0) 04/15/18 21:40 Ur Specific [place] 1.021 (1.003-1.030) 04/15/18 21:40 Urine Protein 30 mg/dl mg/dL (Negative) 04/15/18 21:40 Urine Glucose (UA) Neg mg/dL (Negative) 04/15/18 21:40 Urine Ketones Neg mg/dL (Negative) 04/15/18 21:40 Urine Blood Mod (Negative) 04/15/18 21:40 Urine Nitrite Pos (Negative) 04/15/18 21:40 Urine Bilirubin Neg (Negative) 04/15/18 21:40 Urine Urobilinogen < 2.0 mg/dL (<2.0) 04/15/18 21:40 Ur Leukocyte Esterase Lg (Negative) 04/15/18 21:40 Urine WBC (Auto) > 182.0 /HPF (0.0-6.0) H 04/15/18 21:40 Urine RBC (Auto) 175.0 /HPF (0.0-6.0) 04/15/18 21:40 U Epithel Cells (Auto) 3.0 /HPF (0-13.0) 04/15/18 21:40 Urine Bacteria (Auto) 2+ /HPF (Negative) 04/15/18 21:40 Urine WBC Clumps 3+ /HPF 04/15/18 21:40 Urine Mucus 1+ /HPF 04/15/18 21:40 Urine Yeast (Budding) 3+ /HPF 04/15/18 21:40 Salicylates < 0.3 mg/dL (2.8-20.0) L 04/15/18 19:36 Urine Opiates Screen Presumptive negative 04/15/18 21:40 Urine Methadone Screen Presumptive negative 04/15/18 21:40 Acetaminophen < 5.0 ug/mL (10.0-30.0) L 04/15/18 19:36 Ur Barbiturates Screen Presumptive negative 04/15/18 21:40 Ur Phencyclidine Scrn Presumptive negative 04/15/18 21:40 Ur Amphetamines Screen Presumptive negative 04/15/18 21:40 U Benzodiazepines Scrn Presumptive negative 04/15/18 21:40 Urine Cocaine Screen Presumptive negative 04/15/18 21:40 U Marijuana (THC) Screen Presumptive negative 04/15/18 21:40 Drugs of Abuse Note Disclamer 04/15/18 21:40 Plasma/Serum Alcohol < 0.01 % (0-0.07) 04/15/18 19:36 Assessment and Plan Assessment and plan: 53F who pw cp and sob after she ran out of her meds COPD exacerbation nebs, steroids and abx acute on chronic respiratory failure cont oxygen supplement CP, hx of cad, htn serial ce neg cardiology consult cont bp meds UTI cont abx, fup urine cx DM check a1c, hold metformin, SSI while in hospital , schizoaffective disorder MH consult, crying constantly, very sad cont home meds dvt ppx chemical
[2018-04-16] MEDS ORDERED: TYLENOL PO PRN (12:10)
[2018-04-16] MEDS ORDERED: SODIUM CHLORIDE FLUSH SYRINGE 10 ML IV PRN (12:10)
[2018-04-16] MEDS ORDERED: ZOFRAN IV PRN (12:10)
[2018-04-16] MEDS ORDERED: MORPHINE IV PRN (12:10)
[2018-04-16] MEDS ORDERED: D50W (25GM) Syringe IV PRN (12:10)
[2018-04-16] MEDS ORDERED: PROVENTIL IH PRN (12:10)
--- NOTE | 2018-04-16 12:58 | Consultation ---
Medications and Allergies Allergies Allergy/AdvReac Type Severity Reaction Status Date / Time clonazepam [From Klonopin] Allergy Unknown Verified 04/15/18 15:19 quetiapine [From Seroquel] Allergy Unknown Verified 04/15/18 15:19 Home Medications Medication Instructions Recorded Confirmed Last Taken Type Pantoprazole [Protonix TAB] 40 mg PO QDAY #30 tablet 12/25/17 04/15/18 02/20/18 Rx FLUoxetine HCL [FLUoxetine] 60 mg PO QDAY #7 tablet 01/20/18 04/15/18 02/20/18 Rx risperiDONE [RisperDAL] 1 mg PO HS #7 tablet 01/20/18 04/15/18 02/20/18 Rx Butalb/Acetamin/Caff 50-325-40 1 each PO Q4H PRN 04/15/18 04/15/18 Unknown History [Fioricet] metFORMIN [Glucophage] 1,000 mg PO QDAY 04/15/18 04/15/18 Unknown History Active Meds: Active Medications Acetaminophen (Tylenol) 650 mg PO Q4H PRN PRN Reason: Pain MILD(1-3)/Fever >100.5/GALLARDO Acetaminophen/Butalbital/Caffeine (Fioricet) 1 tab PO Q4H PRN PRN Reason: Headache Albuterol (Proventil) 2.5 mg IH Q4HRT PRN PRN Reason: Shortness Of Breath Albuterol/Ipratropium (Duoneb *Not For Prn Use*) 1 ampul IH Q6HRT [facility] Budesonide (Pulmicort) 0.5 mg IH Q12HRT [facility] Dextrose (D50w (25gm) Syringe) 50 ml IV PRN PRN PRN Reason: Hypoglycemia Ceftriaxone Sodium (Rocephin/Ns 1 Gm/50 Ml) 1 gm in 50 mls @ 100 mls/hr IV Q24HR [facility]; Protocol Insulin Human Lispro (Humalog) 0 unit SUB-Q ACHS [facility]; Protocol Methylprednisolone Sodium Succinate (Solu-Medrol) 40 mg IV Q8HR [facility] Miscellaneous Medication (Fluoxetine Hcl [Fluoxetine]) 60 mg PO QDAY [facility] Morphine Sulfate (Morphine) 2 mg IV Q4H PRN PRN Reason: Pain, Moderate (4-6) Ondansetron HCl (Zofran) 4 mg IV Q8H PRN PRN Reason: Nausea And Vomiting Oxycodone/Acetaminophen (Percocet 5/325) 1 tab PO Q6H PRN PRN Reason: Pain, Moderate (4-6) Pantoprazole Sodium (Protonix) 40 mg PO QDAY AJITH Risperidone (Risperdal) 1 mg PO HS AJITH Sodium Chloride (Sodium Chloride Flush Syringe 10 Ml) 10 ml IV BID AJITH Sodium Chloride (Sodium Chloride Flush Syringe 10 Ml) 10 ml IV PRN PRN PRN Reason: LINE FLUSH Physical Examination Vital signs: Vital Signs Temp Pulse Resp BP Pulse Ox 98.6 F 120 H 20 146/108 96 04/15/18 15:19 04/15/18 15:19 04/15/18 15:19 04/15/18 15:19 04/15/18 15:19 Results - Laboratory Findings CBC and BMP: 04/15/18 19:36 04/15/18 19:36 ABG POC ABG pH 7.294 (7.35-7.45) L 04/16/18 01:45 POC ABG pCO2 53.3 (35-45) H 04/16/18 01:45 POC ABG pO2 64 (80-105) L 04/16/18 01:45 POC ABG HCO3 25.9 04/16/18 01:45 POC ABG Total CO2 27 04/16/18 01:45 POC ABG O2 Sat 89 04/16/18 01:45 Abnormal lab findings: Abnormal Labs 04/15/18 04/15/18 04/15/18 19:36 19:36 19:36 MCH 26 L RDW 19.3 H POC ABG pH POC ABG pCO2 POC ABG pO2 BUN 19 H Creatinine 0.5 L D POC Glucose Urine WBC (Auto) Salicylates < 0.3 L Acetaminophen 04/15/18 04/15/18 04/16/18 19:36 21:40 01:45 MCH RDW POC ABG pH 7.294 L POC ABG pCO2 53.3 H POC ABG pO2 64 L BUN Creatinine POC Glucose Urine WBC (Auto) > 182.0 H Salicylates Acetaminophen < 5.0 L 04/16/18 04/16/18 07:49 11:52 MCH RDW POC ABG pH POC ABG pCO2 POC ABG pO2 BUN Creatinine POC Glucose 110 H 174 H Urine WBC (Auto) Salicylates Acetaminophen
[2018-04-16] MEDS: DUONEB *Not for PRN Use IH SCH ×2 (15:11→21:06)
[2018-04-16] MEDS: PERCOCET 5/325 PO PRN (17:29)
[2018-04-16] MEDS: SOLU-Medrol IV SCH ×2 (17:30→21:30)
[2018-04-16] MEDS: HumaLOG SUB-Q SCH ×2 (17:30→21:32)
[2018-04-16] MEDS: PULMICORT IH SCH (21:06)
[2018-04-16] MEDS: RisperDAL PO SCH (21:31)
[2018-04-16] MEDS: SODIUM CHLORIDE FLUSH SYRINGE 10 ML IV SCH (21:32)
[2018-04-17] MEDS: PERCOCET 5/325 PO PRN ×2 (02:21→21:04)
[2018-04-17 05:35] LABS: Basophils # (Auto) 0.1 K/mm3 (0.0-0.1); Basophils % (Auto) 1.9 % (0.0-1.8); Hemoglobin 10.4 gm/dl (10.1-14.3); Lymphocytes # (Auto) 0.8 K/mm3 (1.2-5.4); Lymphocytes % (Auto) 16.9 % (13.4-35.0); Mean Corpuscular HGB Conc 33 % (30-34); Mean Corpuscular Volume 79 fl (79-97); Monocytes # (Auto) 0.4 K/mm3 (0.0-0.8); Monocytes % (Auto) 8.1 % (0.0-7.3); Platelet Count 372 K/mm3 (140-440); Red Blood Count 4.07 M/mm3 (3.65-5.03); Red Cell Distribution Width 18.8 % (13.2-15.2)
[2018-04-17] MEDS: SOLU-Medrol IV SCH (05:55)
[2018-04-17 06:50] LABS: BUN/Creatinine Ratio 55; Blood Urea Nitrogen 11 mg/dL (7-17); Calcium 9.4 mg/dL (8.4-10.2); HDL Cholesterol 71 mg/dL (40-59); Hemolysis Index 30; LDL Cholesterol,Direct 72 mg/dL (50-130)
[2018-04-17] MEDS: PULMICORT IH SCH ×2 (08:01→19:16)
[2018-04-17] MEDS: DUONEB *Not for PRN Use IH SCH ×3 (08:01→19:16)
--- NOTE | 2018-04-17 10:37 | Progress Note ---
Assessment and Plan Assessment and plan: 53F who pw cp and sob after she ran out of her meds COPD exacerbation nebs, steroids and abx acute on chronic respiratory failure cont oxygen supplement CP, hx of cad, htn serial ce neg cardiology consult cont bp meds UTI cont abx, fup urine cx DM a1c 6.2, hold metformin, SSI while in hospital will dc back on home metformin 1000mg XL daily , schizoaffective disorder stable cont home meds dvt ppx chemical History Interval history: she feels much better today review of systems Constitutional: No fevers, no malaise, no joint pains CVS: No chest pain, no orthopnea, no dyspnea on exertion, no pedal edema GI: No abdominal pain, no diarrhea, no vomiting, no constipation Respiratory: Shortness of breath and wheezing is improved Hospitalist Physical - Physical exam Narrative exam: General appearance: Present: no acute distress, well-nourished - EENT Eyes: Present: PERRL ENT: hearing intact, clear oral mucosa - Neck Neck: Present: supple, normal ROM - Respiratory Respiratory effort: normal Respiratory: CTA BL - Cardiovascular Heart Sounds: Present: S1 & S2. Absent: rub, click - Extremities Extremities: pulses symmetrical, No edema Peripheral Pulses: within normal limits - Abdominal General gastrointestinal: Present: soft, non-tender, non-distended, normal bowel sounds Female genitourinary: Present: normal - Integumentary Integumentary: Present: clear, warm, dry - Musculoskeletal Musculoskeletal: gait normal, strength equal bilaterally - Psychiatric Psychiatric: calm and cooperative - Neurologic Neurologic: CNII-XII intact, moves all extremities - Constitutional Vitals: Temp Pulse Resp BP Pulse Ox 97.9 F 95 H 16 136/78 83 L 04/17/18 08:40 04/17/18 08:40 04/17/18 08:40 04/17/18 08:40 04/17/18 08:40 General appearance: Present: no acute distress, well-nourished Results - Labs CBC & Chem 7: 04/17/18 04:40 04/17/18 04:40 Labs: Laboratory Last Values WBC 4.6 K/mm3 (4.5-11.0) 04/17/18 04:40 RBC 4.07 M/mm3 (3.65-5.03) 04/17/18 04:40 Hgb 10.4 gm/dl (10.1-14.3) 04/17/18 04:40 Hct 32.0 % (30.3-42.9) 04/17/18 04:40 MCV 79 fl (79-97) 04/17/18 04:40 MCH 26 pg (28-32) L 04/17/18 04:40 MCHC 33 % (30-34) 04/17/18 04:40 RDW 18.8 % (13.2-15.2) H 04/17/18 04:40 Plt Count 372 K/mm3 (140-440) 04/17/18 04:40 Lymph % (Auto) 16.9 % (13.4-35.0) 04/17/18 04:40 [place] % (Auto) 8.1 % (0.0-7.3) H 04/17/18 04:40 Eos % (Auto) 0.0 % (0.0-4.3) 04/17/18 04:40 Baso % (Auto) 1.9 % (0.0-1.8) H 04/17/18 04:40 Lymph # 0.8 K/mm3 (1.2-5.4) L 04/17/18 04:40 [place] # 0.4 K/mm3 (0.0-0.8) 04/17/18 04:40 Eos # 0.0 K/mm3 (0.0-0.4) 04/17/18 04:40 Baso # 0.1 K/mm3 (0.0-0.1) 04/17/18 04:40 Seg Neutrophils % 73.1 % (40.0-70.0) H 04/17/18 04:40 Seg Neutrophils # 3.4 K/mm3 (1.8-7.7) 04/17/18 04:40 POC ABG pH 7.294 (7.35-7.45) L 04/16/18 01:45 POC ABG pCO2 53.3 (35-45) H 04/16/18 01:45 POC ABG pO2 64 (80-105) L 04/16/18 01:45 POC ABG HCO3 25.9 04/16/18 01:45 POC ABG Total CO2 27 04/16/18 01:45 POC ABG O2 Sat 89 04/16/18 01:45 POC ABG Base Excess -1 04/16/18 01:45 FiO2 21 % 04/16/18 01:45 Sodium 137 mmol/L (137-145) 04/17/18 04:40 Potassium 4.7 mmol/L (3.6-5.0) 04/17/18 04:40 Chloride 98.2 mmol/L (98-107) 04/17/18 04:40 Carbon Dioxide 28 mmol/L (22-30) 04/17/18 04:40 Anion Gap 16 mmol/L 04/17/18 04:40 BUN 11 mg/dL (7-17) 04/17/18 04:40 Creatinine 0.2 mg/dL (0.7-1.2) L D 04/17/18 04:40 Estimated GFR > 60 ml/min 04/17/18 04:40 BUN/Creatinine Ratio 55 % 04/17/18 04:40 Glucose 135 mg/dL (65-100) H 04/17/18 04:40 POC Glucose 98 (70-105) 04/17/18 06:15 Hemoglobin A1c 6.2 % (4-6) H 04/17/18 04:40 Calcium 9.4 mg/dL (8.4-10.2) 04/17/18 04:40 Total Bilirubin < 0.20 mg/dL (0.1-1.2) 04/15/18 19:36 AST 15 units/L (5-40) 04/15/18 19:36 ALT 13 units/L (7-56) 04/15/18 19:36 Alkaline Phosphatase 49 units/L (35-129) 04/15/18 19:36 Total Creatine Kinase 95 units/L (30-135) 04/16/18 09:57 CK-MB (CK-2) 3.7 ng/mL (0.0-4.0) 04/16/18 09:57 CK-MB (CK-2) Rel Index 3.8 (0-4) 04/16/18 09:57 Troponin T < 0.010 ng/mL (0.00-0.029) 04/16/18 09:57 Total Protein 6.6 g/dL (6.3-8.2) 04/15/18 19:36 Albumin 4.4 g/dL (3.9-5) 04/15/18 19:36 Albumin/Globulin Ratio 2.0 % 04/15/18 19:36 Triglycerides 65 mg/dL (2-149) 04/17/18 04:40 Cholesterol 142 mg/dL (50-199) 04/17/18 04:40 LDL Cholesterol Direct 72 mg/dL (50-130) 04/17/18 04:40 HDL Cholesterol 71 mg/dL (40-59) H 04/17/18 04:40 Cholesterol/HDL Ratio 2.00 % 04/17/18 04:40 TSH 1.220 mlU/mL (0.270-4.200) 04/15/18 19:36 Urine Color Anya (Yellow) 04/15/18 21:40 Urine Turbidity Turbid (Clear) 04/15/18 21:40 Urine pH 5.0 (5.0-7.0) 04/15/18 21:40 Ur Specific [place] 1.021 (1.003-1.030) 04/15/18 21:40 Urine Protein 30 mg/dl mg/dL (Negative) 04/15/18 21:40 Urine Glucose (UA) Neg mg/dL (Negative) 04/15/18 21:40 Urine Ketones Neg mg/dL (Negative) 04/15/18 21:40 Urine Blood Mod (Negative) 04/15/18 21:40 Urine Nitrite Pos (Negative) 04/15/18 21:40 Urine Bilirubin Neg (Negative) 04/15/18 21:40 Urine Urobilinogen < 2.0 mg/dL (<2.0) 04/15/18 21:40 Ur Leukocyte Esterase Lg (Negative) 04/15/18 21:40 Urine WBC (Auto) > 182.0 /HPF (0.0-6.0) H 04/15/18 21:40 Urine RBC (Auto) 175.0 /HPF (0.0-6.0) 04/15/18 21:40 U Epithel Cells (Auto) 3.0 /HPF (0-13.0) 04/15/18 21:40 Urine Bacteria (Auto) 2+ /HPF (Negative) 04/15/18 21:40 Urine WBC Clumps 3+ /HPF 04/15/18 21:40 Urine Mucus 1+ /HPF 04/15/18 21:40 Urine Yeast (Budding) 3+ /HPF 04/15/18 21:40 Salicylates < 0.3 mg/dL (2.8-20.0) L 04/15/18 19:36 Urine Opiates Screen Presumptive negative 04/15/18 21:40 Urine Methadone Screen Presumptive negative 04/15/18 21:40 Acetaminophen < 5.0 ug/mL (10.0-30.0) L 04/15/18 19:36 Ur Barbiturates Screen Presumptive negative 04/15/18 21:40 Ur Phencyclidine Scrn Presumptive negative 04/15/18 21:40 Ur Amphetamines Screen Presumptive negative 04/15/18 21:40 U Benzodiazepines Scrn Presumptive negative 04/15/18 21:40 Urine Cocaine Screen Presumptive negative 04/15/18 21:40 U Marijuana (THC) Screen Presumptive negative 04/15/18 21:40 Drugs of Abuse Note Disclamer 04/15/18 21:40 Plasma/Serum Alcohol < 0.01 % (0-0.07) 04/15/18 19:36
[2018-04-17] MEDS: ROCEPHIN/NS 1 GM/50 ML 1 GM/50 ML BAG IV SCH (11:18)
[2018-04-17] MEDS: PROzac PO SCH (11:18)
[2018-04-17] MEDS: FIORICET PO PRN (11:19)
[2018-04-17] MEDS: SODIUM CHLORIDE FLUSH SYRINGE 10 ML IV SCH ×2 (11:21→21:06)
[2018-04-17] MEDS: HumaLOG SUB-Q SCH ×4 (11:22→22:00)
[2018-04-17] MEDS: PROTONIX PO SCH (11:42)
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
--- NOTE | 2018-04-17 12:38 | Progress Note ---
Subjective Interval history: feels better Objective Vital Signs - 12hr 04/17/18 04/17/18 04/17/18 03:58 04:43 08:01 Temperature 97.0 F L Pulse Rate 82 72 Pulse Rate [ 94 H Bilateral Throughout] Respiratory 18 Rate Respiratory 16 Rate [Bilateral Throughout] Blood Pressure 125/91 O2 Sat by Pulse 90 Oximetry 04/17/18 04/17/18 04/17/18 08:03 08:09 08:40 Temperature 97.9 F Pulse Rate 95 H Pulse Rate [ 90 Bilateral Throughout] Respiratory 16 Rate Respiratory 16 Rate [Bilateral Throughout] Blood Pressure 136/78 O2 Sat by Pulse 97 83 L Oximetry Constitutional: no acute distress Eyes: non-icteric ENT: oropharynx moist Neck: supple Cardiovascular: regular rate and rhythm Gastrointestinal: normoactive bowel sounds Integumentary: normal Extremities: no cyanosis Neurologic: normal mental status Psychiatric: anxious CBC and BMP: 04/17/18 04:40 04/17/18 04:40 ABG, PT/INR, D-dimer: ABG POC ABG pH 7.294 (7.35-7.45) L 04/16/18 01:45 POC ABG pCO2 53.3 (35-45) H 04/16/18 01:45 POC ABG pO2 64 (80-105) L 04/16/18 01:45 POC ABG HCO3 25.9 04/16/18 01:45 POC ABG Total CO2 27 04/16/18 01:45 POC ABG O2 Sat 89 04/16/18 01:45 Abnormal lab findings: Abnormal Labs 04/15/18 04/15/18 04/15/18 19:36 19:36 19:36 MCH 26 L RDW 19.3 H [place] % (Auto) Baso % (Auto) Lymph # Seg Neutrophils % POC ABG pH POC ABG pCO2 POC ABG pO2 BUN 19 H Creatinine 0.5 L D Glucose POC Glucose Hemoglobin A1c HDL Cholesterol Urine WBC (Auto) Salicylates < 0.3 L Acetaminophen 04/15/18 04/15/18 04/16/18 19:36 21:40 01:45 MCH RDW [place] % (Auto) Baso % (Auto) Lymph # Seg Neutrophils % POC ABG pH 7.294 L POC ABG pCO2 53.3 H POC ABG pO2 64 L BUN Creatinine Glucose POC Glucose Hemoglobin A1c HDL Cholesterol Urine WBC (Auto) > 182.0 H Salicylates Acetaminophen < 5.0 L 04/16/18 04/16/18 04/16/18 07:49 11:52 16:21 MCH RDW [place] % (Auto) Baso % (Auto) Lymph # Seg Neutrophils % POC ABG pH POC ABG pCO2 POC ABG pO2 BUN Creatinine Glucose POC Glucose 110 H 174 H 145 H Hemoglobin A1c HDL Cholesterol Urine WBC (Auto) Salicylates Acetaminophen 04/16/18 04/17/18 04/17/18 21:04 04:40 04:40 MCH 26 L RDW 18.8 H [place] % (Auto) 8.1 H Baso % (Auto) 1.9 H Lymph # 0.8 L Seg Neutrophils % 73.1 H POC ABG pH POC ABG pCO2 POC ABG pO2 BUN Creatinine 0.2 L D Glucose 135 H POC Glucose 154 H Hemoglobin A1c HDL Cholesterol 71 H Urine WBC (Auto) Salicylates Acetaminophen 04/17/18 04:40 MCH RDW [place] % (Auto) Baso % (Auto) Lymph # Seg Neutrophils % POC ABG pH POC ABG pCO2 POC ABG pO2 BUN Creatinine Glucose POC Glucose Hemoglobin A1c 6.2 H HDL Cholesterol Urine WBC (Auto) Salicylates Acetaminophen Chest x-ray: report reviewed
--- NOTE | 2018-04-17 13:31 | Consultation ---
History of Present Illness Consult date: 04/17/18 Consult reason: shortness of breath History of present illness: This is a 53 year old woman with h/o COPD and schizoaffective disorder who presented to this hospital with reports of shortness of breath. Patient gives a history of COPD on home oxygen. She reports she stopped taking her anxiety medications several days ago and has been feeling very poorly since that time. Her medications have been restarted and she is now feeling better. She has not had any significant chest pain. She reports she quit smoking 3 months ago. ECG reveals SR, single PVC, otherwise unremarkable. Echocardiogram on 12/07/17 the last year revealed normal left ventricular systolic function, ejection fraction 50-55%. Past History Past Medical History: COPD Past Surgical History: No surgical history Social history: smoking (quit 3 months ago), other (Reside at a long term) Medications and Allergies Allergies Allergy/AdvReac Type Severity Reaction Status Date / Time clonazepam [From Klonopin] Allergy Unknown Verified 04/15/18 15:19 quetiapine [From Seroquel] Allergy Unknown Verified 04/15/18 15:19 Home Medications Medication Instructions Recorded Confirmed Last Taken Type Pantoprazole [Protonix TAB] 40 mg PO QDAY #30 tablet 12/25/17 04/15/18 02/20/18 Rx FLUoxetine HCL [FLUoxetine] 60 mg PO QDAY #7 tablet 01/20/18 04/15/18 02/20/18 Rx risperiDONE [RisperDAL] 1 mg PO HS #7 tablet 01/20/18 04/15/18 02/20/18 Rx Butalb/Acetamin/Caff 50-325-40 1 each PO Q4H PRN 04/15/18 04/15/18 Unknown History [Fioricet] metFORMIN [Glucophage] 1,000 mg PO QDAY 04/15/18 04/15/18 Unknown History Active Meds: Active Medications Acetaminophen (Tylenol) 650 mg PO Q4H PRN PRN Reason: Pain MILD(1-3)/Fever >100.5/[place] Acetaminophen/Butalbital/Caffeine (Fioricet) 1 tab PO Q4H PRN PRN Reason: Headache Last Admin: 04/17/18 11:19 Dose: 1 tab Documented by: Albuterol (Proventil) 2.5 mg IH Q4HRT PRN PRN Reason: Shortness Of Breath Albuterol/Ipratropium (Duoneb *Not For Prn Use*) 1 ampul IH TIDRT [facility] Last Admin: 04/17/18 08:01 Dose: 1 ampul Documented by: Budesonide (Pulmicort) 0.5 mg IH Q12HRT [facility] Last Admin: 04/17/18 08:01 Dose: 0.5 mg Documented by: Buspirone HCl (Buspar) 7.5 mg PO BID [facility] Dextrose (D50w (25gm) Syringe) 50 ml IV PRN PRN PRN Reason: Hypoglycemia Fluoxetine HCl (Prozac) 60 mg PO QDAY [facility] Last Admin: 04/17/18 11:18 Dose: 60 mg Documented by: Ceftriaxone Sodium (Rocephin/Ns 1 Gm/50 Ml) 1 gm in 50 mls @ 100 mls/hr IV Q24HR [facility]; Protocol Last Admin: 04/17/18 11:18 Dose: 100 mls/hr Documented by: Insulin Human Lispro (Humalog) 0 unit SUB-Q ACHS [facility]; Protocol Last Admin: 04/17/18 11:22 Dose: Not Given Documented by: Morphine Sulfate (Morphine) 2 mg IV Q4H PRN PRN Reason: Pain, Moderate (4-6) Ondansetron HCl (Zofran) 4 mg IV Q8H PRN PRN Reason: Nausea And Vomiting Oxycodone/Acetaminophen (Percocet 5/325) 1 tab PO Q6H PRN PRN Reason: Pain, Moderate (4-6) Last Admin: 04/17/18 02:21 Dose: 1 tab Documented by: Pantoprazole Sodium (Protonix) 40 mg PO QDAY [facility] Last Admin: 04/17/18 11:42 Dose: 40 mg Documented by: Prednisone (Deltasone) 20 mg PO QDAY [facility] Risperidone (Risperdal) 1 mg PO HS [facility] Last Admin: 04/16/18 21:31 Dose: 1 mg Documented by: Sodium Chloride (Sodium Chloride Flush Syringe 10 Ml) 10 ml IV BID [facility] Last Admin: 04/17/18 11:21 Dose: 10 ml Documented by: Sodium Chloride (Sodium Chloride Flush Syringe 10 Ml) 10 ml IV PRN PRN PRN Reason: LINE FLUSH Review of Systems All systems: negative (per hpi) Physical Examination Vital Signs Temp Pulse Resp BP Pulse Ox 98.6 F 120 H 20 146/108 96 04/15/18 15:19 04/15/18 15:19 04/15/18 15:19 04/15/18 15:19 04/15/18 15:19 General appearance: no acute distress HEENT: Positive: PERRL, EOMI Neck: Positive: neck supple Cardiac: Positive: Reg Rate and Rhythm Lungs: Positive: clear to auscultation, Normal Breath Sounds Neuro: Positive: Grossly Intact Abdomen: Positive: Soft, Active Bowel Sounds Extremities: Absent: edema Results 04/17/18 04:40 04/17/18 04:40 Cardiac Enzymes 04/15/18 04/15/18 04/15/18 Range/Units 19:36 19:36 19:36 WBC 7.1 (4.5-11.0) K/mm3 RBC 4.11 (3.65-5.03) M/mm3 Hgb 10.5 (10.1-14.3) gm/dl Hct 32.4 (30.3-42.9) % MCV 79 (79-97) fl MCH 26 L (28-32) pg MCHC 33 (30-34) % RDW 19.3 H (13.2-15.2) % Plt Count 399 (140-440) K/mm3 Lymph % (Auto) 19.4 (13.4-35.0) % [place] % (Auto) 7.3 (0.0-7.3) % Eos % (Auto) 2.9 (0.0-4.3) % Baso % (Auto) 0.8 (0.0-1.8) % Lymph # 1.4 (1.2-5.4) K/mm3 [place] # 0.5 (0.0-0.8) K/mm3 Eos # 0.2 (0.0-0.4) K/mm3 Baso # 0.1 (0.0-0.1) K/mm3 Seg Neutrophils % 69.6 (40.0-70.0) % Seg Neutrophils # 5.0 (1.8-7.7) K/mm3 POC ABG pH (7.35-7.45) POC ABG pCO2 (35-45) POC ABG pO2 (80-105) POC ABG HCO3 POC ABG Total CO2 POC ABG O2 Sat POC ABG Base Excess FiO2 % Sodium 141 (137-145) mmol/L Potassium 4.0 (3.6-5.0) mmol/L Chloride 99.9 (98-107) mmol/L Carbon Dioxide 28 (22-30) mmol/L Anion Gap 17 mmol/L BUN 19 H (7-17) mg/dL Creatinine 0.5 L D (0.7-1.2) mg/dL Estimated GFR > 60 ml/min BUN/Creatinine Ratio 38 % Glucose 99 (65-100) mg/dL POC Glucose (70-105) Hemoglobin A1c (4-6) % Calcium 9.5 (8.4-10.2) mg/dL Total Bilirubin < 0.20 (0.1-1.2) mg/dL ALT 13 (7-56) units/L Alkaline Phosphatase 49 (35-129) units/L Total Creatine Kinase (30-135) units/L CK-MB (CK-2) Rel Index (0-4) Troponin T < 0.010 (0.00-0.029) ng/mL Total Protein 6.6 (6.3-8.2) g/dL Albumin 4.4 (3.9-5) g/dL Albumin/Globulin Ratio 2.0 % Triglycerides (2-149) mg/dL Cholesterol (50-199) mg/dL LDL Cholesterol Direct (50-130) mg/dL HDL Cholesterol (40-59) mg/dL Cholesterol/HDL Ratio % TSH 1.220 (0.270-4.200) mlU/mL Urine Color (Yellow) Urine Turbidity (Clear) Urine pH (5.0-7.0) Ur Specific [place] (1.003-1.030) Urine Protein (Negative) mg/dL Urine Glucose (UA) (Negative) mg/dL Urine Ketones (Negative) mg/dL Urine Blood (Negative) Urine Nitrite (Negative) Urine Bilirubin (Negative) Urine Urobilinogen (<2.0) mg/dL Ur Leukocyte Esterase (Negative) Urine WBC (Auto) (0.0-6.0) /HPF Urine RBC (Auto) (0.0-6.0) /HPF U Epithel Cells (Auto) (0-13.0) /HPF Urine Bacteria (Auto) (Negative) /HPF Urine WBC Clumps /HPF Urine Mucus /HPF Urine Yeast (Budding) /HPF Salicylates (2.8-20.0) mg/dL Urine Opiates Screen Urine Methadone Screen Acetaminophen (10.0-30.0) ug/mL Ur Barbiturates Screen Ur Phencyclidine Scrn Ur Amphetamines Screen U Benzodiazepines Scrn Urine Cocaine Screen U Marijuana (THC) Screen Drugs of Abuse Note Plasma/Serum Alcohol (0-0.07) % 04/15/18 04/15/18 04/15/18 Range/Units 19:36 19:36 19:36 WBC (4.5-11.0) K/mm3 RBC (3.65-5.03) M/mm3 Hgb (10.1-14.3) gm/dl Hct (30.3-42.9) % MCV (79-97) fl MCH (28-32) pg MCHC (30-34) % RDW (13.2-15.2) % Plt Count (140-440) K/mm3 Lymph % (Auto) (13.4-35.0) % [place] % (Auto) (0.0-7.3) % Eos % (Auto) (0.0-4.3) % Baso % (Auto) (0.0-1.8) % Lymph # (1.2-5.4) K/mm3 [place] # (0.0-0.8) K/mm3 Eos # (0.0-0.4) K/mm3 Baso # (0.0-0.1) K/mm3 Seg Neutrophils % (40.0-70.0) % Seg Neutrophils # (1.8-7.7) K/mm3 POC ABG pH (7.35-7.45) POC ABG pCO2 (35-45) POC ABG pO2 (80-105) POC ABG HCO3 POC ABG Total CO2 POC ABG O2 Sat POC ABG Base Excess FiO2 % Sodium (137-145) mmol/L Potassium (3.6-5.0) mmol/L Chloride (98-107) mmol/L Carbon Dioxide (22-30) mmol/L Anion Gap mmol/L BUN (7-17) mg/dL Creatinine (0.7-1.2) mg/dL Estimated GFR ml/min BUN/Creatinine Ratio % Glucose (65-100) mg/dL POC Glucose (70-105) Hemoglobin A1c (4-6) % Calcium (8.4-10.2) mg/dL Total Bilirubin (0.1-1.2) mg/dL ALT (7-56) units/L Alkaline Phosphatase (35-129) units/L Total Creatine Kinase (30-135) units/L CK-MB (CK-2) Rel Index (0-4) Troponin T (0.00-0.029) ng/mL Total Protein (6.3-8.2) g/dL Albumin (3.9-5) g/dL Albumin/Globulin Ratio % Triglycerides (2-149) mg/dL Cholesterol (50-199) mg/dL LDL Cholesterol Direct (50-130) mg/dL HDL Cholesterol (40-59) mg/dL Cholesterol/HDL Ratio % TSH (0.270-4.200) mlU/mL Urine Color (Yellow) Urine Turbidity (Clear) Urine pH (5.0-7.0) Ur Specific [place] (1.003-1.030) Urine Protein (Negative) mg/dL Urine Glucose (UA) (Negative) mg/dL Urine Ketones (Negative) mg/dL Urine Blood (Negative) Urine Nitrite (Negative) Urine Bilirubin (Negative) Urine Urobilinogen (<2.0) mg/dL Ur Leukocyte Esterase (Negative) Urine WBC (Auto) (0.0-6.0) /HPF Urine RBC (Auto) (0.0-6.0) /HPF U Epithel Cells (Auto) (0-13.0) /HPF Urine Bacteria (Auto) (Negative) /HPF Urine WBC Clumps /HPF Urine Mucus /HPF Urine Yeast (Budding) /HPF Salicylates < 0.3 L (2.8-20.0) mg/dL Urine Opiates Screen Urine Methadone Screen Acetaminophen < 5.0 L (10.0-30.0) ug/mL Ur Barbiturates Screen Ur Phencyclidine Scrn Ur Amphetamines Screen U Benzodiazepines Scrn Urine Cocaine Screen U Marijuana (THC) Screen Drugs of Abuse Note Plasma/Serum Alcohol < 0.01 (0-0.07) % 04/15/18 04/15/18 04/15/18 Range/Units 20:00 21:40 21:40 WBC (4.5-11.0) K/mm3 RBC (3.65-5.03) M/mm3 Hgb (10.1-14.3) gm/dl Hct (30.3-42.9) % MCV (79-97) fl MCH (28-32) pg MCHC (30-34) % RDW (13.2-15.2) % Plt Count (140-440) K/mm3 Lymph % (Auto) (13.4-35.0) % [place] % (Auto) (0.0-7.3) % Eos % (Auto) (0.0-4.3) % Baso % (Auto) (0.0-1.8) % Lymph # (1.2-5.4) K/mm3 [place] # (0.0-0.8) K/mm3 Eos # (0.0-0.4) K/mm3 Baso # (0.0-0.1) K/mm3 Seg Neutrophils % (40.0-70.0) % Seg Neutrophils # (1.8-7.7) K/mm3 POC ABG pH (7.35-7.45) POC ABG pCO2 (35-45) POC ABG pO2 (80-105) POC ABG HCO3 POC ABG Total CO2 POC ABG O2 Sat POC ABG Base Excess FiO2 % Sodium (137-145) mmol/L Potassium (3.6-5.0) mmol/L Chloride (98-107) mmol/L Carbon Dioxide (22-30) mmol/L Anion Gap mmol/L BUN (7-17) mg/dL Creatinine (0.7-1.2) mg/dL Estimated GFR ml/min BUN/Creatinine Ratio % Glucose (65-100) mg/dL POC Glucose 91 (70-105) Hemoglobin A1c (4-6) % Calcium (8.4-10.2) mg/dL Total Bilirubin (0.1-1.2) mg/dL ALT (7-56) units/L Alkaline Phosphatase (35-129) units/L Total Creatine Kinase (30-135) units/L CK-MB (CK-2) Rel Index (0-4) Troponin T (0.00-0.029) ng/mL Total Protein (6.3-8.2) g/dL Albumin (3.9-5) g/dL Albumin/Globulin Ratio % Triglycerides (2-149) mg/dL Cholesterol (50-199) mg/dL LDL Cholesterol Direct (50-130) mg/dL HDL Cholesterol (40-59) mg/dL Cholesterol/HDL Ratio % TSH (0.270-4.200) mlU/mL Urine Color [place] (Yellow) Urine Turbidity Turbid (Clear) Urine pH 5.0 (5.0-7.0) Ur Specific [place] 1.021 (1.003-1.030) Urine Protein 30 mg/dl (Negative) mg/dL Urine Glucose (UA) Neg (Negative) mg/dL Urine Ketones Neg (Negative) mg/dL Urine Blood Mod (Negative) Urine Nitrite Pos (Negative) Urine Bilirubin Neg (Negative) Urine Urobilinogen < 2.0 (<2.0) mg/dL Ur Leukocyte Esterase Lg (Negative) Urine WBC (Auto) > 182.0 H (0.0-6.0) /HPF Urine RBC (Auto) 175.0 (0.0-6.0) /HPF U Epithel Cells (Auto) 3.0 (0-13.0) /HPF Urine Bacteria (Auto) 2+ (Negative) /HPF Urine WBC Clumps 3+ /HPF Urine Mucus 1+ /HPF Urine Yeast (Budding) 3+ /HPF Salicylates (2.8-20.0) mg/dL Urine Opiates Screen Presumptive negative Urine Methadone Screen Presumptive negative Acetaminophen (10.0-30.0) ug/mL Ur Barbiturates Screen Presumptive negative Ur Phencyclidine Scrn Presumptive negative Ur Amphetamines Screen Presumptive negative U Benzodiazepines Scrn Presumptive negative Urine Cocaine Screen Presumptive negative U Marijuana (THC) Screen Presumptive negative Drugs of Abuse Note Disclamer Plasma/Serum Alcohol (0-0.07) % 04/16/18 04/16/18 04/16/18 Range/Units 01:45 02:30 06:30 WBC (4.5-11.0) K/mm3 RBC (3.65-5.03) M/mm3 Hgb (10.1-14.3) gm/dl Hct (30.3-42.9) % MCV (79-97) fl MCH (28-32) pg MCHC (30-34) % RDW (13.2-15.2) % Plt Count (140-440) K/mm3 Lymph % (Auto) (13.4-35.0) % [place] % (Auto) (0.0-7.3) % Eos % (Auto) (0.0-4.3) % Baso % (Auto) (0.0-1.8) % Lymph # (1.2-5.4) K/mm3 [place] # (0.0-0.8) K/mm3 Eos # (0.0-0.4) K/mm3 Baso # (0.0-0.1) K/mm3 Seg Neutrophils % (40.0-70.0) % Seg Neutrophils # (1.8-7.7) K/mm3 POC ABG pH 7.294 L (7.35-7.45) POC ABG pCO2 53.3 H (35-45) POC ABG pO2 64 L (80-105) POC ABG HCO3 25.9 POC ABG Total CO2 27 POC ABG O2 Sat 89 POC ABG Base Excess -1 FiO2 21 % Sodium (137-145) mmol/L Potassium (3.6-5.0) mmol/L Chloride (98-107) mmol/L Carbon Dioxide (22-30) mmol/L Anion Gap mmol/L BUN (7-17) mg/dL Creatinine (0.7-1.2) mg/dL Estimated GFR ml/min BUN/Creatinine Ratio % Glucose (65-100) mg/dL POC Glucose 83 92 (70-105) Hemoglobin A1c (4-6) % Calcium (8.4-10.2) mg/dL Total Bilirubin (0.1-1.2) mg/dL ALT (7-56) units/L Alkaline Phosphatase (35-129) units/L Total Creatine Kinase (30-135) units/L CK-MB (CK-2) Rel Index (0-4) Troponin T (0.00-0.029) ng/mL Total Protein (6.3-8.2) g/dL Albumin (3.9-5) g/dL Albumin/Globulin Ratio % Triglycerides (2-149) mg/dL Cholesterol (50-199) mg/dL LDL Cholesterol Direct (50-130) mg/dL HDL Cholesterol (40-59) mg/dL Cholesterol/HDL Ratio % TSH (0.270-4.200) mlU/mL Urine Color (Yellow) Urine Turbidity (Clear) Urine pH (5.0-7.0) Ur Specific [place] (1.003-1.030) Urine Protein (Negative) mg/dL Urine Glucose (UA) (Negative) mg/dL Urine Ketones (Negative) mg/dL Urine Blood (Negative) Urine Nitrite (Negative) Urine Bilirubin (Negative) Urine Urobilinogen (<2.0) mg/dL Ur Leukocyte Esterase (Negative) Urine WBC (Auto) (0.0-6.0) /HPF Urine RBC (Auto) (0.0-6.0) /HPF U Epithel Cells (Auto) (0-13.0) /HPF Urine Bacteria (Auto) (Negative) /HPF Urine WBC Clumps /HPF Urine Mucus /HPF Urine Yeast (Budding) /HPF Salicylates (2.8-20.0) mg/dL Urine Opiates Screen Urine Methadone Screen Acetaminophen (10.0-30.0) ug/mL Ur Barbiturates Screen Ur Phencyclidine Scrn Ur Amphetamines Screen U Benzodiazepines Scrn Urine Cocaine Screen U Marijuana (THC) Screen Drugs of Abuse Note Plasma/Serum Alcohol (0-0.07) % 04/16/18 04/16/18 04/16/18 Range/Units 06:44 06:44 07:49 WBC (4.5-11.0) K/mm3 RBC (3.65-5.03) M/mm3 Hgb (10.1-14.3) gm/dl Hct (30.3-42.9) % MCV (79-97) fl MCH (28-32) pg MCHC (30-34) % RDW (13.2-15.2) % Plt Count (140-440) K/mm3 Lymph % (Auto) (13.4-35.0) % [place] % (Auto) (0.0-7.3) % Eos % (Auto) (0.0-4.3) % Baso % (Auto) (0.0-1.8) % Lymph # (1.2-5.4) K/mm3 [place] # (0.0-0.8) K/mm3 Eos # (0.0-0.4) K/mm3 Baso # (0.0-0.1) K/mm3 Seg Neutrophils % (40.0-70.0) % Seg Neutrophils # (1.8-7.7) K/mm3 POC ABG pH (7.35-7.45) POC ABG pCO2 (35-45) POC ABG pO2 (80-105) POC ABG HCO3 POC ABG Total CO2 POC ABG O2 Sat POC ABG Base Excess FiO2 % Sodium (137-145) mmol/L Potassium (3.6-5.0) mmol/L Chloride (98-107) mmol/L Carbon Dioxide (22-30) mmol/L Anion Gap mmol/L BUN (7-17) mg/dL Creatinine (0.7-1.2) mg/dL Estimated GFR ml/min BUN/Creatinine Ratio % Glucose (65-100) mg/dL POC Glucose 110 H (70-105) Hemoglobin A1c (4-6) % Calcium (8.4-10.2) mg/dL Total Bilirubin (0.1-1.2) mg/dL ALT (7-56) units/L Alkaline Phosphatase (35-129) units/L Total Creatine Kinase 86 (30-135) units/L CK-MB (CK-2) Rel Index 3.8 (0-4) Troponin T < 0.010 (0.00-0.029) ng/mL Total Protein (6.3-8.2) g/dL Albumin (3.9-5) g/dL Albumin/Globulin Ratio % Triglycerides (2-149) mg/dL Cholesterol (50-199) mg/dL LDL Cholesterol Direct (50-130) mg/dL HDL Cholesterol (40-59) mg/dL Cholesterol/HDL Ratio % TSH (0.270-4.200) mlU/mL Urine Color (Yellow) Urine Turbidity (Clear) Urine pH (5.0-7.0) Ur Specific [place] (1.003-1.030) Urine Protein (Negative) mg/dL Urine Glucose (UA) (Negative) mg/dL Urine Ketones (Negative) mg/dL Urine Blood (Negative) Urine Nitrite (Negative) Urine Bilirubin (Negative) Urine Urobilinogen (<2.0) mg/dL Ur Leukocyte Esterase (Negative) Urine WBC (Auto) (0.0-6.0) /HPF Urine RBC (Auto) (0.0-6.0) /HPF U Epithel Cells (Auto) (0-13.0) /HPF Urine Bacteria (Auto) (Negative) /HPF Urine WBC Clumps /HPF Urine Mucus /HPF Urine Yeast (Budding) /HPF Salicylates (2.8-20.0) mg/dL Urine Opiates Screen Urine Methadone Screen Acetaminophen (10.0-30.0) ug/mL Ur Barbiturates Screen Ur Phencyclidine Scrn Ur Amphetamines Screen U Benzodiazepines Scrn Urine Cocaine Screen U Marijuana (THC) Screen Drugs of Abuse Note Plasma/Serum Alcohol (0-0.07) % 04/16/18 04/16/18 04/16/18 Range/Units 09:57 09:57 11:52 WBC (4.5-11.0) K/mm3 RBC (3.65-5.03) M/mm3 Hgb (10.1-14.3) gm/dl Hct (30.3-42.9) % MCV (79-97) fl MCH (28-32) pg MCHC (30-34) % RDW (13.2-15.2) % Plt Count (140-440) K/mm3 Lymph % (Auto) (13.4-35.0) % [place] % (Auto) (0.0-7.3) % Eos % (Auto) (0.0-4.3) % Baso % (Auto) (0.0-1.8) % Lymph # (1.2-5.4) K/mm3 [place] # (0.0-0.8) K/mm3 Eos # (0.0-0.4) K/mm3 Baso # (0.0-0.1) K/mm3 Seg Neutrophils % (40.0-70.0) % Seg Neutrophils # (1.8-7.7) K/mm3 POC ABG pH (7.35-7.45) POC ABG pCO2 (35-45) POC ABG pO2 (80-105) POC ABG HCO3 POC ABG Total CO2 POC ABG O2 Sat POC ABG Base Excess FiO2 % Sodium (137-145) mmol/L Potassium (3.6-5.0) mmol/L Chloride (98-107) mmol/L Carbon Dioxide (22-30) mmol/L Anion Gap mmol/L BUN (7-17) mg/dL Creatinine (0.7-1.2) mg/dL Estimated GFR ml/min BUN/Creatinine Ratio % Glucose (65-100) mg/dL POC Glucose 174 H (70-105) Hemoglobin A1c (4-6) % Calcium (8.4-10.2) mg/dL Total Bilirubin (0.1-1.2) mg/dL ALT (7-56) units/L Alkaline Phosphatase (35-129) units/L Total Creatine Kinase 95 (30-135) units/L CK-MB (CK-2) Rel Index 3.8 (0-4) Troponin T < 0.010 (0.00-0.029) ng/mL Total Protein (6.3-8.2) g/dL Albumin (3.9-5) g/dL Albumin/Globulin Ratio % Triglycerides (2-149) mg/dL Cholesterol (50-199) mg/dL LDL Cholesterol Direct (50-130) mg/dL HDL Cholesterol (40-59) mg/dL Cholesterol/HDL Ratio % TSH (0.270-4.200) mlU/mL Urine Color (Yellow) Urine Turbidity (Clear) Urine pH (5.0-7.0) Ur Specific [place] (1.003-1.030) Urine Protein (Negative) mg/dL Urine Glucose (UA) (Negative) mg/dL Urine Ketones (Negative) mg/dL Urine Blood (Negative) Urine Nitrite (Negative) Urine Bilirubin (Negative) Urine Urobilinogen (<2.0) mg/dL Ur Leukocyte Esterase (Negative) Urine WBC (Auto) (0.0-6.0) /HPF Urine RBC (Auto) (0.0-6.0) /HPF U Epithel Cells (Auto) (0-13.0) /HPF Urine Bacteria (Auto) (Negative) /HPF Urine WBC Clumps /HPF Urine Mucus /HPF Urine Yeast (Budding) /HPF Salicylates (2.8-20.0) mg/dL Urine Opiates Screen Urine Methadone Screen Acetaminophen (10.0-30.0) ug/mL Ur Barbiturates Screen Ur Phencyclidine Scrn Ur Amphetamines Screen U Benzodiazepines Scrn Urine Cocaine Screen U Marijuana (THC) Screen Drugs of Abuse Note Plasma/Serum Alcohol (0-0.07) % 04/16/18 04/16/18 04/17/18 Range/Units 16:21 21:04 04:40 WBC 4.6 (4.5-11.0) K/mm3 RBC 4.07 (3.65-5.03) M/mm3 Hgb 10.4 (10.1-14.3) gm/dl Hct 32.0 (30.3-42.9) % MCV 79 (79-97) fl MCH 26 L (28-32) pg MCHC 33 (30-34) % RDW 18.8 H (13.2-15.2) % Plt Count 372 (140-440) K/mm3 Lymph % (Auto) 16.9 (13.4-35.0) % [place] % (Auto) 8.1 H (0.0-7.3) % Eos % (Auto) 0.0 (0.0-4.3) % Baso % (Auto) 1.9 H (0.0-1.8) % Lymph # 0.8 L (1.2-5.4) K/mm3 [place] # 0.4 (0.0-0.8) K/mm3 Eos # 0.0 (0.0-0.4) K/mm3 Baso # 0.1 (0.0-0.1) K/mm3 Seg Neutrophils % 73.1 H (40.0-70.0) % Seg Neutrophils # 3.4 (1.8-7.7) K/mm3 POC ABG pH (7.35-7.45) POC ABG pCO2 (35-45) POC ABG pO2 (80-105) POC ABG HCO3 POC ABG Total CO2 POC ABG O2 Sat POC ABG Base Excess FiO2 % Sodium (137-145) mmol/L Potassium (3.6-5.0) mmol/L Chloride (98-107) mmol/L Carbon Dioxide (22-30) mmol/L Anion Gap mmol/L BUN (7-17) mg/dL Creatinine (0.7-1.2) mg/dL Estimated GFR ml/min BUN/Creatinine Ratio % Glucose (65-100) mg/dL POC Glucose 145 H 154 H (70-105) Hemoglobin A1c (4-6) % Calcium (8.4-10.2) mg/dL Total Bilirubin (0.1-1.2) mg/dL ALT (7-56) units/L Alkaline Phosphatase (35-129) units/L Total Creatine Kinase (30-135) units/L CK-MB (CK-2) Rel Index (0-4) Troponin T (0.00-0.029) ng/mL Total Protein (6.3-8.2) g/dL Albumin (3.9-5) g/dL Albumin/Globulin Ratio % Triglycerides (2-149) mg/dL Cholesterol (50-199) mg/dL LDL Cholesterol Direct (50-130) mg/dL HDL Cholesterol (40-59) mg/dL Cholesterol/HDL Ratio % TSH (0.270-4.200) mlU/mL Urine Color (Yellow) Urine Turbidity (Clear) Urine pH (5.0-7.0) Ur Specific [place] (1.003-1.030) Urine Protein (Negative) mg/dL Urine Glucose (UA) (Negative) mg/dL Urine Ketones (Negative) mg/dL Urine Blood (Negative) Urine Nitrite (Negative) Urine Bilirubin (Negative) Urine Urobilinogen (<2.0) mg/dL Ur Leukocyte Esterase (Negative) Urine WBC (Auto) (0.0-6.0) /HPF Urine RBC (Auto) (0.0-6.0) /HPF U Epithel Cells (Auto) (0-13.0) /HPF Urine Bacteria (Auto) (Negative) /HPF Urine WBC Clumps /HPF Urine Mucus /HPF Urine Yeast (Budding) /HPF Salicylates (2.8-20.0) mg/dL Urine Opiates Screen Urine Methadone Screen Acetaminophen (10.0-30.0) ug/mL Ur Barbiturates Screen Ur Phencyclidine Scrn Ur Amphetamines Screen U Benzodiazepines Scrn Urine Cocaine Screen U Marijuana (THC) Screen Drugs of Abuse Note Plasma/Serum Alcohol (0-0.07) % 04/17/18 04/17/18 04/17/18 Range/Units 04:40 04:40 06:15 WBC (4.5-11.0) K/mm3 RBC (3.65-5.03) M/mm3 Hgb (10.1-14.3) gm/dl Hct (30.3-42.9) % MCV (79-97) fl MCH (28-32) pg MCHC (30-34) % RDW (13.2-15.2) % Plt Count (140-440) K/mm3 Lymph % (Auto) (13.4-35.0) % [place] % (Auto) (0.0-7.3) % Eos % (Auto) (0.0-4.3) % Baso % (Auto) (0.0-1.8) % Lymph # (1.2-5.4) K/mm3 [place] # (0.0-0.8) K/mm3 Eos # (0.0-0.4) K/mm3 Baso # (0.0-0.1) K/mm3 Seg Neutrophils % (40.0-70.0) % Seg Neutrophils # (1.8-7.7) K/mm3 POC ABG pH (7.35-7.45) POC ABG pCO2 (35-45) POC ABG pO2 (80-105) POC ABG HCO3 POC ABG Total CO2 POC ABG O2 Sat POC ABG Base Excess FiO2 % Sodium 137 (137-145) mmol/L Potassium 4.7 (3.6-5.0) mmol/L Chloride 98.2 (98-107) mmol/L Carbon Dioxide 28 (22-30) mmol/L Anion Gap 16 mmol/L BUN 11 (7-17) mg/dL Creatinine 0.2 L D (0.7-1.2) mg/dL Estimated GFR > 60 ml/min BUN/Creatinine Ratio 55 % Glucose 135 H (65-100) mg/dL POC Glucose 98 (70-105) Hemoglobin A1c 6.2 H (4-6) % Calcium 9.4 (8.4-10.2) mg/dL Total Bilirubin (0.1-1.2) mg/dL ALT (7-56) units/L Alkaline Phosphatase (35-129) units/L Total Creatine Kinase (30-135) units/L CK-MB (CK-2) Rel Index (0-4) Troponin T (0.00-0.029) ng/mL Total Protein (6.3-8.2) g/dL Albumin (3.9-5) g/dL Albumin/Globulin Ratio % Triglycerides 65 (2-149) mg/dL Cholesterol 142 (50-199) mg/dL LDL Cholesterol Direct 72 (50-130) mg/dL HDL Cholesterol 71 H (40-59) mg/dL Cholesterol/HDL Ratio 2.00 % TSH (0.270-4.200) mlU/mL Urine Color (Yellow) Urine Turbidity (Clear) Urine pH (5.0-7.0) Ur Specific [place] (1.003-1.030) Urine Protein (Negative) mg/dL Urine Glucose (UA) (Negative) mg/dL Urine Ketones (Negative) mg/dL Urine Blood (Negative) Urine Nitrite (Negative) Urine Bilirubin (Negative) Urine Urobilinogen (<2.0) mg/dL Ur Leukocyte Esterase (Negative) Urine WBC (Auto) (0.0-6.0) /HPF Urine RBC (Auto) (0.0-6.0) /HPF U Epithel Cells (Auto) (0-13.0) /HPF Urine Bacteria (Auto) (Negative) /HPF Urine WBC Clumps /HPF Urine Mucus /HPF Urine Yeast (Budding) /HPF Salicylates (2.8-20.0) mg/dL Urine Opiates Screen Urine Methadone Screen Acetaminophen (10.0-30.0) ug/mL Ur Barbiturates Screen Ur Phencyclidine Scrn Ur Amphetamines Screen U Benzodiazepines Scrn Urine Cocaine Screen U Marijuana (THC) Screen Drugs of Abuse Note Plasma/Serum Alcohol (0-0.07) % 04/17/18 Range/Units 12:44 WBC (4.5-11.0) K/mm3 RBC (3.65-5.03) M/mm3 Hgb (10.1-14.3) gm/dl Hct (30.3-42.9) % MCV (79-97) fl MCH (28-32) pg MCHC (30-34) % RDW (13.2-15.2) % Plt Count (140-440) K/mm3 Lymph % (Auto) (13.4-35.0) % [place] % (Auto) (0.0-7.3) % Eos % (Auto) (0.0-4.3) % Baso % (Auto) (0.0-1.8) % Lymph # (1.2-5.4) K/mm3 [place] # (0.0-0.8) K/mm3 Eos # (0.0-0.4) K/mm3 Baso # (0.0-0.1) K/mm3 Seg Neutrophils % (40.0-70.0) % Seg Neutrophils # (1.8-7.7) K/mm3 POC ABG pH (7.35-7.45) POC ABG pCO2 (35-45) POC ABG pO2 (80-105) POC ABG HCO3 POC ABG Total CO2 POC ABG O2 Sat POC ABG Base Excess FiO2 % Sodium (137-145) mmol/L Potassium (3.6-5.0) mmol/L Chloride (98-107) mmol/L Carbon Dioxide (22-30) mmol/L Anion Gap mmol/L BUN (7-17) mg/dL Creatinine (0.7-1.2) mg/dL Estimated GFR ml/min BUN/Creatinine Ratio % Glucose (65-100) mg/dL POC Glucose 180 H (70-105) Hemoglobin A1c (4-6) % Calcium (8.4-10.2) mg/dL Total Bilirubin (0.1-1.2) mg/dL ALT (7-56) units/L Alkaline Phosphatase (35-129) units/L Total Creatine Kinase (30-135) units/L CK-MB (CK-2) Rel Index (0-4) Troponin T (0.00-0.029) ng/mL Total Protein (6.3-8.2) g/dL Albumin (3.9-5) g/dL Albumin/Globulin Ratio % Triglycerides (2-149) mg/dL Cholesterol (50-199) mg/dL LDL Cholesterol Direct (50-130) mg/dL HDL Cholesterol (40-59) mg/dL Cholesterol/HDL Ratio % TSH (0.270-4.200) mlU/mL Urine Color (Yellow) Urine Turbidity (Clear) Urine pH (5.0-7.0) Ur Specific [place] (1.003-1.030) Urine Protein (Negative) mg/dL Urine Glucose (UA) (Negative) mg/dL Urine Ketones (Negative) mg/dL Urine Blood (Negative) Urine Nitrite (Negative) Urine Bilirubin (Negative) Urine Urobilinogen (<2.0) mg/dL Ur Leukocyte Esterase (Negative) Urine WBC (Auto) (0.0-6.0) /HPF Urine RBC (Auto) (0.0-6.0) /HPF U Epithel Cells (Auto) (0-13.0) /HPF Urine Bacteria (Auto) (Negative) /HPF Urine WBC Clumps /HPF Urine Mucus /HPF Urine Yeast (Budding) /HPF Salicylates (2.8-20.0) mg/dL Urine Opiates Screen Urine Methadone Screen Acetaminophen (10.0-30.0) ug/mL Ur Barbiturates Screen Ur Phencyclidine Scrn Ur Amphetamines Screen U Benzodiazepines Scrn Urine Cocaine Screen U Marijuana (THC) Screen Drugs of Abuse Note Plasma/Serum Alcohol (0-0.07) % Lipids 04/17/18 Range/Units 04:40 Triglycerides 65 (2-149) mg/dL Cholesterol 142 (50-199) mg/dL HDL Cholesterol 71 H (40-59) mg/dL Cholesterol/HDL Ratio 2.00 % CBC 04/17/18 Range/Units 04:40 WBC 4.6 (4.5-11.0) K/mm3 RBC 4.07 (3.65-5.03) M/mm3 Hgb 10.4 (10.1-14.3) gm/dl Hct 32.0 (30.3-42.9) % Plt Count 372 (140-440) K/mm3 Lymph # 0.8 L (1.2-5.4) K/mm3 [place] # 0.4 (0.0-0.8) K/mm3 Eos # 0.0 (0.0-0.4) K/mm3 Baso # 0.1 (0.0-0.1) K/mm3 Comprehensive Metabolic Panel 04/17/18 Range/Units 04:40 Sodium 137 (137-145) mmol/L Potassium 4.7 (3.6-5.0) mmol/L Chloride 98.2 (98-107) mmol/L Carbon Dioxide 28 (22-30) mmol/L BUN 11 (7-17) mg/dL Creatinine 0.2 L D (0.7-1.2) mg/dL Glucose 135 H (65-100) mg/dL Calcium 9.4 (8.4-10.2) mg/dL Assessment and Plan Shortness of breath: Likely related to COPD and anxiety COPD Schizoaffective disorder Anxiety disorder. Recommend: Continue current therapy including treatment of COPD and anxiety disorder.
[2018-04-17] MEDS: BUSPAR PO SCH ×2 (16:01→21:03)
[2018-04-17] MEDS: RisperDAL PO SCH (21:04)
[2018-04-18] MEDS: DUONEB *Not for PRN Use IH SCH ×2 (07:19→13:45)
[2018-04-18] MEDS: PULMICORT IH SCH (07:19)
[2018-04-18] MEDS: HumaLOG SUB-Q SCH ×3 (08:30→16:30)
--- NOTE | 2018-04-18 08:37 | Progress Note ---
Addendum entered and electronically signed by RADHA MONTES MD 04/18/18 12:08: Patient presented with shortness of breath due to COPD extubation. Cardiac status is stable, will follow on a when necessary basis. Original Note: Assessment and Plan Shortness of breath likely related to COPD and anxiety COPD on home oxygen Anxiety disorder Schizoaffective disorder Echocardiogram 12/2017: normal LVEF 50-55%. Conservative cardiac management. Subjective Date of service: 04/18/18 Interval history: Patient has no complaints. She reports her breathing is better. Objective Vital Signs Temp Pulse Pulse Pulse Pulse Pulse Resp 04/18/18 07:22 04/18/18 07:21 88 82 04/18/18 06:18 97.9 F 74 20 04/17/18 23:44 97.8 F 73 18 04/17/18 22:00 88 16 04/17/18 19:33 88 04/17/18 19:18 86 04/17/18 17:41 98.5 F 89 20 04/17/18 14:13 92 H 04/17/18 14:06 88 04/17/18 12:41 98.5 F 97 H 18 04/17/18 11:00 72 04/17/18 10:00 16 04/17/18 08:40 97.9 F 95 H 16 Resp Resp Resp BP Pulse Ox 04/18/18 07:22 97 04/18/18 07:21 16 16 04/18/18 06:18 127/85 92 04/17/18 23:44 126/83 97 04/17/18 22:00 04/17/18 19:33 18 04/17/18 19:18 18 97 04/17/18 17:41 125/84 96 04/17/18 14:13 18 04/17/18 14:06 18 04/17/18 12:41 124/75 96 04/17/18 11:00 04/17/18 10:00 96 04/17/18 08:40 136/78 83 L - Physical Examination General: No Apparent Distress HEENT: Positive: PERRL Neck: Positive: trachea midline Cardiac: Positive: Reg Rate and Rhythm Lungs: Positive: Decreased Breath Sounds Neuro: Positive: Grossly Intact Abdomen: Positive: Soft, Active Bowel Sounds Extremities: Absent: edema
[2018-04-18] MEDS ORDERED: DELTASONE PO SCH (10:00)
[2018-04-18] MEDS: PERCOCET 5/325 PO PRN (10:23)
[2018-04-18] MEDS: BUSPAR PO SCH (10:23)
[2018-04-18] MEDS: SODIUM CHLORIDE FLUSH SYRINGE 10 ML IV SCH (10:24)
[2018-04-18] MEDS: PROzac PO SCH (10:24)
[2018-04-18] MEDS: PROTONIX PO SCH (10:24)
[2018-04-18] MEDS: ROCEPHIN/NS 1 GM/50 ML 1 GM/50 ML BAG IV SCH (10:34)
--- NOTE | 2018-04-18 11:38 | Progress Note ---
Assessment and Plan 53 y/o female with COPD exacerbation and chronic respiratory failure. 1. Patient back on baseline O2 therapy. 2. Patient was started on Prednisone 20 by my partner. I think this is too large of a jump from 40q8 but if the patient remains asymptomatic can continue 3. Anxiety/depression therapy per Psych 4. Continue home COPD regimen Subjective Date of service: 04/18/18 Interval history: No acute events. Per patient feels better. Breathing is better. Wants prozac for anxiety/depression Objective Vital Signs - 12hr 04/17/18 04/18/18 04/18/18 23:44 06:18 07:21 Temperature 97.8 F 97.9 F Pulse Rate 73 74 Pulse Rate [ 88 Anterior Bilateral Throughout] Pulse Rate [ 82 Posterior Bilateral Throughout] Respiratory 18 20 Rate Respiratory 16 Rate [Anterior Bilateral Throughout] Respiratory 16 Rate [Posterior Bilateral Throughout] Blood Pressure 126/83 127/85 O2 Sat by Pulse 97 92 Oximetry 04/18/18 07:22 Temperature Pulse Rate Pulse Rate [ Anterior Bilateral Throughout] Pulse Rate [ Posterior Bilateral Throughout] Respiratory Rate Respiratory Rate [Anterior Bilateral Throughout] Respiratory Rate [Posterior Bilateral Throughout] Blood Pressure O2 Sat by Pulse 97 Oximetry Constitutional: no acute distress Eyes: non-icteric ENT: oropharynx moist Neck: supple Ascultation: Bilateral: clear, diminished breath sounds Cardiovascular: regular rate and rhythm Gastrointestinal: normoactive bowel sounds Integumentary: normal Extremities: no cyanosis Neurologic: normal mental status Psychiatric: anxious CBC and BMP: 04/17/18 04:40 04/17/18 04:40 ABG, PT/INR, D-dimer: ABG POC ABG pH 7.294 (7.35-7.45) L 04/16/18 01:45 POC ABG pCO2 53.3 (35-45) H 04/16/18 01:45 POC ABG pO2 64 (80-105) L 04/16/18 01:45 POC ABG HCO3 25.9 04/16/18 01:45 POC ABG Total CO2 27 04/16/18 01:45 POC ABG O2 Sat 89 04/16/18 01:45 Abnormal lab findings: Abnormal Labs 04/15/18 04/15/18 04/15/18 19:36 19:36 19:36 MCH 26 L RDW 19.3 H [place] % (Auto) Baso % (Auto) Lymph # Seg Neutrophils % POC ABG pH POC ABG pCO2 POC ABG pO2 BUN 19 H Creatinine 0.5 L D Glucose POC Glucose Hemoglobin A1c HDL Cholesterol Urine WBC (Auto) Salicylates < 0.3 L Acetaminophen 04/15/18 04/15/18 04/16/18 19:36 21:40 01:45 MCH RDW [place] % (Auto) Baso % (Auto) Lymph # Seg Neutrophils % POC ABG pH 7.294 L POC ABG pCO2 53.3 H POC ABG pO2 64 L BUN Creatinine Glucose POC Glucose Hemoglobin A1c HDL Cholesterol Urine WBC (Auto) > 182.0 H Salicylates Acetaminophen < 5.0 L 04/16/18 04/16/18 04/16/18 07:49 11:52 16:21 MCH RDW [place] % (Auto) Baso % (Auto) Lymph # Seg Neutrophils % POC ABG pH POC ABG pCO2 POC ABG pO2 BUN Creatinine Glucose POC Glucose 110 H 174 H 145 H Hemoglobin A1c HDL Cholesterol Urine WBC (Auto) Salicylates Acetaminophen 04/16/18 04/17/18 04/17/18 21:04 04:40 04:40 MCH 26 L RDW 18.8 H [place] % (Auto) 8.1 H Baso % (Auto) 1.9 H Lymph # 0.8 L Seg Neutrophils % 73.1 H POC ABG pH POC ABG pCO2 POC ABG pO2 BUN Creatinine 0.2 L D Glucose 135 H POC Glucose 154 H Hemoglobin A1c HDL Cholesterol 71 H Urine WBC (Auto) Salicylates Acetaminophen 04/17/18 04/17/18 04/17/18 04:40 12:44 16:08 MCH RDW [place] % (Auto) Baso % (Auto) Lymph # Seg Neutrophils % POC ABG pH POC ABG pCO2 POC ABG pO2 BUN Creatinine Glucose POC Glucose 180 H 116 H Hemoglobin A1c 6.2 H HDL Cholesterol Urine WBC (Auto) Salicylates Acetaminophen 04/17/18 21:23 MCH RDW [place] % (Auto) Baso % (Auto) Lymph # Seg Neutrophils % POC ABG pH POC ABG pCO2 POC ABG pO2 BUN Creatinine Glucose POC Glucose 134 H Hemoglobin A1c HDL Cholesterol Urine WBC (Auto) Salicylates Acetaminophen
--- NOTE | 2018-04-18 12:09 | Progress Note ---
Subjective - Reason for Consult Consult date: 04/18/18 Reason for consult: Psychiatry Follow-up - Chief Complaint Chief complaint: "I am doing well" 53 y.o. white female who presented to the ER for SOB and anxiety. This patient is known to me. Today the patient is calm and cooperative during the assessment. She stated that she is doing well and look forward to being discharged. She denies Si/HI's and AVH's. She denies any side effects of her medication. Mental Status Exam - Vital signs Last Vital Signs Temp 97.9 F 04/18/18 06:18 Pulse 88 04/18/18 07:21 Resp 16 04/18/18 07:21 BP 127/85 04/18/18 06:18 Pulse Ox 97 04/18/18 07:22 - Exam Narrative exam: MSE: Appearance: calm, cooperative Behavior: regular eye contact Speech: regular rate and tone Mood: "good" Affect: congruent to mood Thought Process: logical Thought Content: denies SI/HI's and AVH's Motor Activity: sitting up in bed Cognition: A/O x3 Insight: appropriate Judgment: appropriate Assessment and Plan Impression: Hx of Schizoaffective DO. Unspecified Anxiety DO. Today the patient is calm and cooperative during the assessment. Recommendation/Plan: Continue home medications Risperdal 1 mg PO HS and Prozac 60 mg PO daily. Continue Buspar 7.5 mg PO BID for anxiety. Discussed possible metabolic side effects of Risperdal with the patient. Also, discussed possible suicidality/medication induced sandra with the patient reference [email or web address] sign off. Dispo: The patient can follow up with [facility] for outpatient psy services. Stafedf with Dr. Vincenzo Giles.
--- NOTE | 2018-04-18 13:02 | Discharge Summary ---
Providers - Providers Date of Admission: 04/16/18 05:57 Attending physician: BILL MUÑIZ MD 04/16/18 12:10 Consult to Physician [CONS] Routine Comment: Consulting Provider: KRISS VERGARA Physician Instructions: Reason For Exam: chest pain Consult to Physician [CONS] Routine Comment: Consulting Provider: DARIEL MACK Physician Instructions: Reason For Exam: copd 04/16/18 15:12 Consult to Mental Health [CONS] Routine Reason For Exam: depressed, crying constantly Place consult to:: [facility] Notified:: MARIO GRAMAJO 04/17/18 13:30 Consult to Case Management [CONS] Routine Services Needed at Discharge: Other Notified:: cm Comment:: needs new assistent living facility Primary care physician: [facility] Hospitalization Condition: Stable Hospital course: 53F who pw cp and sob after she ran out of her meds for 4 days. She received nebulizer steroids and antibiotics for COPD exacerbation. She received oxygen supplementation also weaned off oxygen. She reported chest pain which is most likely due to COPD exacerbation and she was seen by cardiology who did not recommend any further workup or treatment. UTI was ruled out with negative urine cx. She was seen by mental health, her medications were optimized for schizoaffective disorder. Her home medications were continued for chronic conditions. Diagnosis COPD exacerbation acute on chronic respiratory failure CP, due to copd UTI ruled out, DM a1c 6.2 well controlled , schizoaffective disorder Hx of peptic ulcer, on PPI Disposition: DC/TX-70 ANOTHER TYPE HLTHCARE Time spent for discharge: 33 minutes Core Measure Documentation - Palliative Care Palliative Care/ Comfort Measures: Not Applicable - Core Measures Any of the following diagnoses?: none Exam - Constitutional Vitals: Temp Pulse Resp BP Pulse Ox 97.9 F 104 H 18 147/93 97 04/18/18 12:21 04/18/18 12:21 04/18/18 12:21 04/18/18 12:21 04/18/18 12:21 General appearance: Present: no acute distress, well-nourished - EENT Eyes: Present: PERRL ENT: hearing intact, clear oral mucosa - Neck Neck: Present: supple, normal ROM - Respiratory Respiratory effort: normal Respiratory: bilateral: CTA - Cardiovascular Heart Sounds: Present: S1 & S2. Absent: rub, click - Extremities Extremities: pulses symmetrical, No edema Peripheral Pulses: within normal limits - Abdominal General gastrointestinal: Present: soft, non-tender, non-distended, normal bowel sounds Female genitourinary: Present: normal - Integumentary Integumentary: Present: clear, warm, dry - Musculoskeletal Musculoskeletal: gait normal, strength equal bilaterally - Psychiatric Psychiatric: appropriate mood/affect, intact judgment & insight - Neurologic Neurologic: CNII-XII intact, moves all extremities Plan Follow up with: PRIMARY CARE, [Primary Care Provider] - 3-5 Days Prescriptions: busPIRone [Buspar] 7.5 mg PO BID 30 Days tablet Butalb/Acetamin/Caff 50-325-40 [Fioricet] 1 each PO Q4H PRN #30 tablet PRN Reason: Headache FLUoxetine HCL [FLUoxetine] 60 mg PO QDAY #30 tablet Metformin HCl [Metformin HCl ER] 1,000 mg PO DAILY #30 [id number] Pantoprazole [Protonix TAB] 40 mg PO QDAY #30 tablet predniSONE [Deltasone] 20 mg PO QDAY #3 tablet risperiDONE [RisperDAL] 1 mg PO HS #30 tablet
[2018-04-18] MEDS: FIORICET PO PRN (15:36)
[2018-04-18 17:11] VITALS: BP 136/97
== END 2018-04-18 18:20 | disposition home or self-care (01) | DRG 189 ==
LOC: ED 15:15 → 4A 04-16 05:57 → 3A 04-17 18:10
PROVIDERS: ADMIT Internal Medicine; ATTEND Internal Medicine
PROC: 4A033R1 Measurement of Arterial Saturation, Peripheral, Percutaneous Approach (ICD-10-PCS; principal; 2018-04-16)
DX: J96.21 Acute and chronic respiratory failure with hypoxia (principal); J44.1 Chronic obstructive pulmonary disease with (acute) exacerbation; E11.9 Type 2 diabetes mellitus without complications; F25.9 Schizoaffective disorder, unspecified; Z87.11 Personal history of peptic ulcer disease; F41.9 Anxiety disorder, unspecified; I25.10 Atherosclerotic heart disease of native coronary artery without angina pectoris; I10 Essential (primary) hypertension; Z82.49 Family history of ischemic heart disease and other diseases of the circulatory system; Z88.8 Allergy status to other drugs, medicaments and biological substances; J44.0 Chronic obstructive pulmonary disease with (acute) lower respiratory infection; J20.9 Acute bronchitis, unspecified
CPT/HCPCS: 36415; 71045; 71260; 80048; 80053; 80061; 80307; 80320; 81001; 82550; 82553; 82803; 82962; 83036; 84443; 84484; 85025; 87086; 93005; 93010; 94640; 94760; 96361; 96365; G0378; G0480; J0696; J1815; J2920; J2930; J7030; J7512; Q9967

== ENCOUNTER 2018-04-29 00:26 | Emergency (ER) | payer MEDICAID ==
[2018-04-29 00:40] VITALS: BP 128/87
--- NOTE | 2018-04-29 01:14 | Emergency Department Report ---
- General Chief Complaint: Dyspnea/Respdistress Stated Complaint: COPD FLARE UP Time Seen by Provider: 04/29/18 00:52 Source: patient Mode of arrival: Ambulatory Limitations: No Limitations - History of Present Illness Initial Comments: 53-year-old female history of COPD presents to ED with cough 3 days. Patient states cough is productive of greenish sputum. Patient denies fever. MD Complaint: cough -: days(s) (3) Severity: mild Consistency: intermittent Improves With: nothing Worsens With: nothing Associated Symptoms: denies: fever, chills, shortness of breath, nausea, vomiting - Related Data Previous Rx's Medication Instructions Recorded Last Taken Type ALBUTEROL Inhaler(NF) [VENTOLIN 1 puff IH Q4H PRN #1 inha 04/18/18 Unknown Rx Inhaler(NF)] Butalb/Acetamin/Caff 50-325-40 1 each PO Q4H PRN #30 tablet 04/18/18 Unknown Rx [Fioricet] FLUoxetine HCL [FLUoxetine] 60 mg PO QDAY #30 tablet 04/18/18 Unknown Rx Fluticasone/Salmeterol [Advair 1 each IH BID #1 blst.w.dev 04/18/18 Unknown Rx 100-50 Diskus] Metformin HCl [Metformin HCl ER] 1,000 mg PO DAILY #30 [id number] 04/18/18 Unknown Rx Pantoprazole [Protonix TAB] 40 mg PO QDAY #30 tablet 04/18/18 Unknown Rx busPIRone [Buspar] 7.5 mg PO BID 30 Days tablet 04/18/18 Unknown Rx predniSONE [Deltasone] 20 mg PO QDAY #3 tablet 04/18/18 Unknown Rx risperiDONE [RisperDAL] 1 mg PO HS #30 tablet 04/18/18 Unknown Rx ALBUTEROL Inhaler(NF) [VENTOLIN 1 puff IH Q4HR PRN #1 inha 04/29/18 Unknown Rx Inhaler(NF)] Benzonatate [Tessalon Perles] 100 mg PO Q8HR PRN #20 capsule 04/29/18 Unknown Rx predniSONE [Prednisone] 50 mg PO DAILY #5 tablet 04/29/18 Unknown Rx Allergies Allergy/AdvReac Type Severity Reaction Status Date / Time clonazepam [From Klonopin] Allergy Unknown Verified 04/15/18 15:19 quetiapine [From Seroquel] Allergy Unknown Verified 04/15/18 15:19 ED Review of Systems ROS: Stated complaint: COPD FLARE UP Other details as noted in HPI Constitutional: denies: chills, fever Respiratory: cough. denies: shortness of breath Cardiovascular: denies: chest pain ED Past Medical Hx - Past Medical History Previous Medical History?: Yes Hx Hypertension: Yes Hx Heart Attack/AMI: Yes Hx Congestive Heart Failure: No Hx Diabetes: Yes Hx Sickle Cell Disease: No Hx Asthma: No Hx COPD: Yes Hx HIV: No - Surgical History Past Surgical History?: Yes Additional Surgical History: heart, - Social History Smoking Status: Former Smoker Substance Use Type: None - Medications Home Medications: Home Medications Medication Instructions Recorded Confirmed Last Taken Type ALBUTEROL Inhaler(NF) [VENTOLIN 1 puff IH Q4H PRN #1 inha 04/18/18 Unknown Rx Inhaler(NF)] Butalb/Acetamin/Caff 50-325-40 1 each PO Q4H PRN #30 tablet 04/18/18 Unknown Rx [Fioricet] FLUoxetine HCL [FLUoxetine] 60 mg PO QDAY #30 tablet 04/18/18 Unknown Rx Fluticasone/Salmeterol [Advair 1 each IH BID #1 blst.w.dev 04/18/18 Unknown Rx 100-50 Diskus] Metformin HCl [Metformin HCl ER] 1,000 mg PO DAILY #30 [id number] 04/18/18 Unknown Rx Pantoprazole [Protonix TAB] 40 mg PO QDAY #30 tablet 04/18/18 Unknown Rx busPIRone [Buspar] 7.5 mg PO BID 30 Days tablet 04/18/18 Unknown Rx predniSONE [Deltasone] 20 mg PO QDAY #3 tablet 04/18/18 Unknown Rx risperiDONE [RisperDAL] 1 mg PO HS #30 tablet 04/18/18 Unknown Rx ALBUTEROL Inhaler(NF) [VENTOLIN 1 puff IH Q4HR PRN #1 inha 04/29/18 Unknown Rx Inhaler(NF)] Benzonatate [Tessalon Perles] 100 mg PO Q8HR PRN #20 capsule 04/29/18 Unknown Rx predniSONE [Prednisone] 50 mg PO DAILY #5 tablet 04/29/18 Unknown Rx ED Physical Exam - General Limitations: No Limitations General appearance: alert, in no apparent distress - Head Head exam: Present: atraumatic, normocephalic - Eye Eye exam: Present: normal appearance - ENT ENT exam: Present: mucous membranes moist - Neck Neck exam: Present: normal inspection - Respiratory Respiratory exam: Present: normal lung sounds bilaterally. Absent: respiratory distress, wheezes, rales, rhonchi - Cardiovascular Cardiovascular Exam: Present: regular rate, normal rhythm - GI/Abdominal GI/Abdominal exam: Present: soft. Absent: distended, tenderness - Extremities Exam Extremities exam: Absent: pedal edema - Neurological Exam Neurological exam: Present: alert, oriented X3 - Psychiatric Psychiatric exam: Present: normal affect, normal mood - Skin Skin exam: Present: warm, dry, intact, normal color ED Course Vital Signs 04/29/18 04/29/18 00:39 03:11 Temperature 97.8 F 97.8 F Pulse Rate 91 H 91 H Respiratory 18 Rate Blood Pressure 128/87 128/87 [Right] O2 Sat by Pulse 97 97 Oximetry ED Medical Decision Making - EKG Data -: EKG Interpreted by Me EKG shows normal: sinus rhythm, axis, intervals, QRS complexes, ST-T waves Rate: normal - Radiology Data Radiology results: report reviewed, image reviewed - Differential Diagnosis URI, pneumonia, COPD Critical care attestation.: If time is entered above; I have spent that time in minutes in the direct care of this critically ill patient, excluding procedure time. ED Disposition Clinical Impression: URI (upper respiratory infection) Disposition: TO HOME OR SELFCARE Is pt being admited?: No Condition: Stable Prescriptions: ALBUTEROL Inhaler(NF) [VENTOLIN Inhaler(NF)] 1 puff IH Q4HR PRN #1 inha PRN Reason: Wheezing Benzonatate [Tessalon Perles] 100 mg PO Q8HR PRN #20 capsule PRN Reason: Cough predniSONE [Prednisone] 50 mg PO DAILY #5 tablet Referrals: ETIENNE BENJAMIN DO [Primary Care Provider] - 3-5 Days Time of Disposition: 02:36
--- NOTE | 2018-04-29 02:28 | XRay Report ---
FINAL REPORT PROCEDURE: XR CHEST ROUTINE 2V TECHNIQUE: PA and lateral chest radiographs were obtained. CPT 23601 HISTORY: cough COMPARISON: 04/15/2018 FINDINGS: Heart: Normal. Mediastinum/Vessels: Normal. Lungs/Pleural space: Lungs are expanded. There are no infiltrates, effusions or pneumothoraces.. Bony thorax: There are dot fractures of the midportion of the thoracic spine with kyphosis.. Other: IMPRESSION: Lungs are expanded and clear. There are no infiltrates..
== END 2018-04-29 03:11 | disposition home or self-care (01) ==
LOC: ED 00:26
DX: J06.9 Acute upper respiratory infection, unspecified (principal); I10 Essential (primary) hypertension; E11.9 Type 2 diabetes mellitus without complications; J44.9 Chronic obstructive pulmonary disease, unspecified; Z88.8 Allergy status to other drugs, medicaments and biological substances; Z87.891 Personal history of nicotine dependence
CPT/HCPCS: 71046; 82962; 93005; 93010; 99283

== ENCOUNTER 2018-04-29 07:08 | Emergency (ER) | payer MEDICAID ==
[2018-04-29 08:20] LABS: Basophils % (Auto) 0.1 % (0.0-1.8); Eosinophils # (Auto) 0.1 K/mm3 (0.0-0.4); Eosinophils % (Auto) 0.8 % (0.0-4.3); Hematocrit 33.8 % (30.3-42.9); Hemoglobin 10.5 gm/dl (10.1-14.3); Lymphocytes # (Auto) 0.9 K/mm3 (1.2-5.4); Lymphocytes % (Auto) 8.5 % (13.4-35.0); Mean Corpuscular HGB Conc 31 % (30-34); Mean Corpuscular Volume 81 fl (79-97); Monocytes # (Auto) 0.7 K/mm3 (0.0-0.8); Monocytes % (Auto) 6.5 % (0.0-7.3); Platelet Count 331 K/mm3 (140-440); Red Blood Count 4.16 M/mm3 (3.65-5.03); Red Cell Distribution Width 19.4 % (13.2-15.2)
[2018-04-29 08:36] LABS: BUN/Creatinine Ratio 33; Blood Urea Nitrogen 10 mg/dL (7-17); Calcium 9.1 mg/dL (8.4-10.2); Hemolysis Index 3
[2018-04-29 11:01] LABS: Bacteria,Urine 1+ /HPF (Negative); Bilirubin,Urine NEG (Negative); Blood,Urine MOD (Negative); Color,Urine Yellow (Yellow); Protein,Urine <15 mg/dL mg/dL (Negative); Urobilinogen,Urine < 2.0 mg/dL (<2.0)
[2018-04-29 11:10] LABS: Amphetamine Screen,Urine PRESUMPTIVE NEGATIVE; Benzodiazepines Screen,Urine PRESUMPTIVE NEGATIVE; Cannabinoid Screen,Urine PRESUMPTIVE NEGATIVE; Cocaine Screen,Urine PRESUMPTIVE NEGATIVE; Methadone Screen,Urine PRESUMPTIVE NEGATIVE; Opiate Screen,Urine PRESUMPTIVE NEGATIVE
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
--- NOTE | 2018-04-29 12:33 | XRay Report ---
ABDOMINAL SERIES: History: Abdominal pain. Erect chest film shows no acute or significant changes involving the heart or lung carr[place]. There is mild hyperinflation suggesting underlying emphysema. There is no evidence of free air beneath the diaphragms. The gas pattern within the abdomen is unremarkable. There is no evidence of bowel dilatation, significant air-fluid levels, or masses. Organ shadows are unremarkable. IMPRESSION: Abdomen within normal limits. Hyperinflated lungs suggesting emphysema.
--- NOTE | 2018-04-30 09:26 | Consultation ---
History of Present Illness - Reason for Consult Consult date: 04/30/18 Reason for consult: Mental Health Evaluation Requesting physician: ROB CARRERO - Chief Complaint Chief complaint: "I don't like where I'm staying" - History of Present Psychiatric Illness 53-year-old female presented to the ER for feeling upset and scared. This patient is known to me. She stated that shavon is having an "horrible time" at her assisted. She stated that she came to ER for assistance with finding another residence. The patient has several personal bags with her. She stated that she have been compliant with her medications (Risperdal, Prozac, and Buspar). She denies SI/HI's and AVH's. She stated being anxious "a little" about her living arrangement at this time. She denies erratic sleep and a poor ap petite. She denies recreational drug use and alcohol consumption (etoh). Medications and Allergies Allergies Allergy/AdvReac Type Severity Reaction Status Date / Time clonazepam [From Klonopin] Allergy Unknown Verified 04/15/18 15:19 quetiapine [From Seroquel] Allergy Unknown Verified 04/15/18 15:19 Home Medications Medication Instructions Recorded Confirmed Last Taken Type ALBUTEROL Inhaler(NF) [VENTOLIN 1 puff IH Q4H PRN #1 inha 04/18/18 Unknown Rx Inhaler(NF)] Butalb/Acetamin/Caff 50-325-40 1 each PO Q4H PRN #30 tablet 04/18/18 Unknown Rx [Fioricet] FLUoxetine HCL [FLUoxetine] 60 mg PO QDAY #30 tablet 04/18/18 Unknown Rx Fluticasone/Salmeterol [Advair 1 each IH BID #1 blst.w.dev 04/18/18 Unknown Rx 100-50 Diskus] Metformin HCl [Metformin HCl ER] 1,000 mg PO DAILY #30 [id number] 04/18/18 Unknown Rx Pantoprazole [Protonix TAB] 40 mg PO QDAY #30 tablet 04/18/18 Unknown Rx busPIRone [Buspar] 7.5 mg PO BID 30 Days tablet 04/18/18 Unknown Rx predniSONE [Deltasone] 20 mg PO QDAY #3 tablet 04/18/18 Unknown Rx risperiDONE [RisperDAL] 1 mg PO HS #30 tablet 04/18/18 Unknown Rx ALBUTEROL Inhaler(NF) [VENTOLIN 1 puff IH Q4HR PRN #1 inha 04/29/18 Unknown Rx Inhaler(NF)] Benzonatate [Tessalon Perles] 100 mg PO Q8HR PRN #20 capsule 04/29/18 Unknown Rx predniSONE [Prednisone] 50 mg PO DAILY #5 tablet 04/29/18 Unknown Rx Past psychiatric history - Past Medical History Past Medical History: COPD Past Surgical History: No surgical history - past Psychiatric treatment and history psychiatric treatment history: Inpatient psy settings in the past. Denies a fam psy hx. - Social History Social history: other (Reside at a assisted) Mental Status Exam - Vital signs Last Vital Signs Temp 98.3 F 04/30/18 07:51 Pulse 97 H 04/30/18 07:51 Resp 18 04/30/18 07:51 BP 136/86 04/30/18 07:51 Pulse Ox 98 04/30/18 07:51 - Exam Narrative exam: MSE: Appearance: calm, cooperative Behavior: regular eye contact Speech: regular rate and tone Mood: "okay" Affect: congruent to mood Thought Process: circumstantial Thought Content: denies SI/HI's and AVH's Motor Activity: ambulatory Cognition: A/O x3 Insight: fair Judgment: fair Results Result Diagrams: 04/29/18 08:02 04/29/18 08:02 All other labs normal. Assessment and Plan Assessment and plan: Impression: No overt psychosis with the patient. Hx of Schizoaffective DO. Hx of Anxiety DO. Today the patient is calm and cooperative during the assessment. Recommendation/Plan: Start home medications Risperdal 1 mg PO HS, Prozac 40 mg PO daily, and Buspar 7.5 mg PO BID. Discussed possible metabolic side effects of Risperdal with the patient. Also, discussed possible suicidality/medication induced sandra with the patient reference Prozac. case mgmt involvement, the patient may need assistance with placement. Dispo: The patient can follow up with [facility] for outpatient psy services. Will staff with Dr Giles.
[2018-04-30] MEDS ORDERED: PROzac PO SCH (10:00)
[2018-04-30] MEDS: BUSPAR PO SCH ×2 (11:00→23:12)
[2018-04-30] MEDS ORDERED: RisperDAL PO SCH (22:00)
--- NOTE | 2018-05-01 07:52 | Progress Note ---
Subjective - Reason for Consult Consult date: 05/01/18 Reason for consult: Psychiatry Follow-up - Chief Complaint Chief complaint: "I'm doing well" 53-year-old female presented to the ER for feeling upset and scared. This patient is known to me. Today the patient is calm and cooperative during the assessment. She stated she is doing well. She stated that she waiting to speak with Case Mgmt. She denies SI/HI's and AVH's. She denies any side effects of her medications. Mental Status Exam - Vital signs Last Vital Signs Temp 98.3 F 05/01/18 01:55 Pulse 90 05/01/18 01:55 Resp 18 05/01/18 01:55 BP 131/71 05/01/18 01:55 Pulse Ox 94 05/01/18 01:55 - Exam Narrative exam: MSE: Appearance: calm, cooperative Behavior: regular eye contact Speech: regular rate and tone Mood: "okay" Affect: congruent to mood Thought Process: circumstantial Thought Content: denies SI/HI's and AVH's Motor Activity: ambulatory Cognition: A/O x3 Insight: appropriate Judgment: appropriate Assessment and Plan Impression: No overt psychosis with the patient. Hx of Schizoaffective DO. Hx of Anxiety DO. Today the patient is calm and cooperative during the assessment. Recommendation/Plan: Continue home medications Risperdal 1 mg PO HS, Prozac 40 mg PO daily, and Buspar 7.5 mg PO BID. Discussed possible metabolic side effects of Risperdal with the patient. Also, discussed possible suicidality/medication induced sandra with the patient reference Prozac. Case Mgmt involvement, the patient may need assistance with placement. Psy sign off. Dispo: The patient can follow up with [facility] for outpatient psy se rvices. Will staff with Dr Giles.
[2018-05-01 09:07] VITALS: BP 113/76
--- NOTE | 2018-05-01 09:34 | Emergency Department Report ---
Blank Doc - Documentation Documentation: I have reviewed recommendations by psychiatry team. Ms. Davenport will return to her personal intermediate. She is discharged.
== END 2018-05-01 09:57 | disposition home or self-care (01) ==
LOC: EEVIPCON 07:08 → ED 07:08
DX: F25.9 Schizoaffective disorder, unspecified (principal); F41.9 Anxiety disorder, unspecified; R46.89 Other symptoms and signs involving appearance and behavior; I10 Essential (primary) hypertension; I25.2 Old myocardial infarction; E11.9 Type 2 diabetes mellitus without complications; J44.9 Chronic obstructive pulmonary disease, unspecified; Z87.891 Personal history of nicotine dependence
CPT/HCPCS: 36415; 74022; 80048; 80307; 81001; 82962; 85025; 99284; G0480; 71046; 80320; 93005; 93010; 99283

== ENCOUNTER 2018-05-02 13:16 | Emergency (ER) | payer MEDICAID ==
[2018-05-02 13:30] VITALS: BP 123/104
--- NOTE | 2018-05-02 14:27 | Emergency Department Report ---
Minor Respiratory - HPI Chief Complaint: Upper Respiratory Infection Stated Complaint: COPD FLAIR UP Time Seen by Provider: 05/02/18 14:15 Duration: 3 Days Pain Location: Throat, Chest Severity: moderate Minor Respiratory: Yes Sore Throat (from coughing), Yes Able to Tolerate Fluids, Yes Cough (productive of yellow sputum), Yes Chest Pain (with cough only), No Rhinorrhea, No Ear Pain, No Sick Contacts, No Hemoptysis, No Shortness of Breath, No Fever ED Review of Systems ROS: Stated complaint: COPD FLAIR UP Other details as noted in HPI Comment: All other systems reviewed and negative ED Past Medical Hx - Past Medical History Previous Medical History?: Yes Hx Hypertension: Yes Hx Heart Attack/AMI: Yes Hx Congestive Heart Failure: No Hx Diabetes: Yes Hx Sickle Cell Disease: No Hx Asthma: No Hx COPD: Yes Hx HIV: No - Surgical History Past Surgical History?: Yes Additional Surgical History: heart. states a nelly put a garden snake down my throat with a computer - Social History Smoking Status: Never Smoker Substance Use Type: None - Medications Home Medications: Home Medications Medication Instructions Recorded Confirmed Last Taken Type ALBUTEROL Inhaler(NF) [VENTOLIN 1 puff IH Q4H PRN #1 inha 04/18/18 04/30/18 Unknown Rx Inhaler(NF)] Metformin HCl [Metformin HCl ER] 1,000 mg PO DAILY #30 [id number] 04/18/18 04/30/18 Unknown Rx Pantoprazole [Protonix TAB] 40 mg PO QDAY #30 tablet 04/18/18 04/30/18 Unknown Rx busPIRone [Buspar] 7.5 mg PO BID 30 Days tablet 04/18/18 04/30/18 Unknown Rx risperiDONE [RisperDAL] 1 mg PO HS #30 tablet 04/18/18 04/30/18 Unknown Rx FLUoxetine HCL [FLUoxetine] 40 mg PO QDAY 04/30/18 04/30/18 Unknown History ALBUTEROL Inhaler (OR & NICU) 2 puff IH QID PRN #1 inhalation 05/02/18 Unknown Rx [ProAir HFA Inhaler] Azithromycin [Zithromax Z-MARIO] 250 mg PO DAILY #6 tablet 05/02/18 Unknown Rx predniSONE [Deltasone] 20 mg PO QDAY #5 tab 05/02/18 Unknown Rx Minor Respiratory Exam - Exam General: Vital signs noted. No distress. Alert and acting appropriately. HEENT: Yes Moist Mucous Membranes, No Pharyngeal Erythema, No Pharyngeal Exudates, No Rhinorrhea, No Conjuctival Injection, No Frontal Tenderness, No Maxillary Tenderness Ear: Neither TM Bulge, Neither TM Erythema, Neither EAC Pain, Neither EAC Discharge Neck: Yes Supple, No Adenopathy Lungs: Yes Good Air Exchange, No Wheezes, No Ronchi, No Stridor, No Cough, No Labored Respirations, No Retractions, No Use of Accessory Muscles, No Other Abnormal Lung Sounds Heart: Yes Regular, No Murmur Abdomen: Yes Normal Bowel Sounds, No Tenderness, No Peritoneal Signs Skin: No Rash, No Edema Neurologic: Alert and oriented, no deficits. Musculoskeletal: Unremarkable. ED Course Vital Signs 05/02/18 13:28 Temperature 97.5 F L Pulse Rate 103 H Respiratory 16 Rate Blood Pressure 123/104 O2 Sat by Pulse 96 Oximetry ED Medical Decision Making - Medical Decision Making Patient has a history of COPD with a productive cough. Patient is not wheezing at this time and the O2 sat is 96%. Patient is not in respiratory distress. Patient to be started on meds for symptomatic relief as well as a short course of antibiotics. Advised given secondary to her comorbidity of COPD. Critical care attestation.: If time is entered above; I have spent that time in minutes in the direct care of this critically ill patient, excluding procedure time. ED Disposition Clinical Impression: Upper respiratory infection, Shortness of breath, COPD exacerbation Disposition: DC-01 TO HOME OR SELFCARE Is pt being admited?: No Does the pt Need Aspirin: No Condition: Stable Instructions: Chronic Obstructive Pulmonary Disease (ED) Time of Disposition: 14:27
[2018-05-02] MEDS ORDERED: ULTRAM PO ONE (14:44)
== END 2018-05-02 15:20 | disposition home or self-care (01) ==
LOC: ED 13:16
DX: J06.9 Acute upper respiratory infection, unspecified (principal); J44.1 Chronic obstructive pulmonary disease with (acute) exacerbation; I11.0 Hypertensive heart disease with heart failure; E11.9 Type 2 diabetes mellitus without complications
CPT/HCPCS: 99282

== ENCOUNTER 2018-05-02 17:16 | Emergency (ER) | payer MEDICAID ==
--- NOTE | 2018-05-02 18:04 | Emergency Department Report ---
ED Psych HPI - General Chief Complaint: Anxiety Stated Complaint: ALLERGIC REACTION Time Seen by Provider: 05/02/18 17:47 Source: patient Mode of arrival: Wheelchair - History of Present Illness Initial Comments: Patient is 53 years old female with history of schizoaffective disorder, depression and COPD. Patient presented to the ER stating that she is not feeling well. Upon further questioning patient stated that she is very depressed and feels like life is not good for her and she thinking about killing herself by jumping from a higher building. She stated that she lost a lot of weight to the point that when she looked in the shower she started looking at herself and now she stopped taking shower because of that. She stated that she has somebody that started dating and she cannot continue with his him because of her body image. Patient stated that her life is completely upside down now. Patient denied any auditory or visual hallucination. No homicidal ideation. MD Complaint: suicidal ideation, feels depressed -: week(s) Associated Psychiatric Symptoms: depression, suicidal ideation History of same: Yes Quality: constant Associated Symptoms: denies other symptoms Treatments Prior to Arrival: none If Self Harm: admits thoughts of, has plan, self-inflicted trauma - Related Data Home Medications Medication Instructions Recorded Confirmed Last Taken FLUoxetine HCL [FLUoxetine] 40 mg PO QDAY 04/30/18 04/30/18 Unknown Previous Rx's Medication Instructions Recorded Last Taken Type ALBUTEROL Inhaler(NF) [VENTOLIN 1 puff IH Q4H PRN #1 inha 04/18/18 Unknown Rx Inhaler(NF)] Metformin HCl [Metformin HCl ER] 1,000 mg PO DAILY #30 [id number] 04/18/18 Unknown Rx Pantoprazole [Protonix TAB] 40 mg PO QDAY #30 tablet 04/18/18 Unknown Rx busPIRone [Buspar] 7.5 mg PO BID 30 Days tablet 04/18/18 Unknown Rx risperiDONE [RisperDAL] 1 mg PO HS #30 tablet 04/18/18 Unknown Rx ALBUTEROL Inhaler (OR & NICU) 2 puff IH QID PRN #1 inhalation 05/02/18 Unknown Rx [ProAir HFA Inhaler] Azithromycin [Zithromax Z-MARIO] 250 mg PO DAILY #6 tablet 05/02/18 Unknown Rx predniSONE [Deltasone] 20 mg PO QDAY #5 tab 05/02/18 Unknown Rx Allergies Allergy/AdvReac Type Severity Reaction Status Date / Time clonazepam [From Klonopin] Allergy Unknown Verified 04/15/18 15:19 quetiapine [From Seroquel] Allergy Unknown Verified 04/15/18 15:19 ED Review of Systems ROS: Stated complaint: ALLERGIC REACTION Other details as noted in HPI Comment: All other systems reviewed and negative Constitutional: denies: chills, fever Respiratory: denies: cough, orthopnea, shortness of breath, SOB with exertion, SOB at rest, wheezing Cardiovascular: palpitations. denies: chest pain, dyspnea on exertion, orthopnea Gastrointestinal: denies: abdominal pain, nausea, vomiting, diarrhea, hematemesis, melena, hematochezia Neurological: denies: headache, weakness, numbness, paresthesias, confusion, abnormal gait Psychiatric: anxiety, depression, suicidal thoughts. denies: auditory hallucinations, visual hallucinations, homicidal thoughts ED Past Medical Hx - Past Medical History Previous Medical History?: Yes Hx Hypertension: Yes Hx Heart Attack/AMI: Yes Hx Congestive Heart Failure: No Hx Diabetes: Yes Hx Sickle Cell Disease: No Hx Asthma: No Hx COPD: Yes Hx HIV: No - Surgical History Past Surgical History?: Yes Additional Surgical History: heart. states a nelly put a garden snake down my throat with a computer - Social History Smoking Status: Never Smoker Substance Use Type: None - Medications Home Medications: Home Medications Medication Instructions Recorded Confirmed Last Taken Type ALBUTEROL Inhaler(NF) [VENTOLIN 1 puff IH Q4H PRN #1 inha 04/18/18 04/30/18 Unknown Rx Inhaler(NF)] Metformin HCl [Metformin HCl ER] 1,000 mg PO DAILY #30 [id number] 04/18/18 04/30/18 Unknown Rx Pantoprazole [Protonix TAB] 40 mg PO QDAY #30 tablet 04/18/18 04/30/18 Unknown Rx busPIRone [Buspar] 7.5 mg PO BID 30 Days tablet 04/18/18 04/30/18 Unknown Rx risperiDONE [RisperDAL] 1 mg PO HS #30 tablet 04/18/18 04/30/18 Unknown Rx FLUoxetine HCL [FLUoxetine] 40 mg PO QDAY 04/30/18 04/30/18 Unknown History ALBUTEROL Inhaler (OR & NICU) 2 puff IH QID PRN #1 inhalation 05/02/18 Unknown Rx [ProAir HFA Inhaler] Azithromycin [Zithromax Z-MARIO] 250 mg PO DAILY #6 tablet 05/02/18 Unknown Rx predniSONE [Deltasone] 20 mg PO QDAY #5 tab 05/02/18 Unknown Rx ED Physical Exam - General Limitations: No Limitations General appearance: alert, anxious, other (tearful) - Head Head exam: Present: atraumatic, normocephalic, normal inspection - Eye Eye exam: Present: normal appearance, PERRL - ENT ENT exam: Present: normal exam, normal orophraynx, mucous membranes moist - Neck Neck exam: Present: normal inspection, full ROM. Absent: tenderness, meningismus, lymphadenopathy, thyromegaly - Respiratory Respiratory exam: Present: normal lung sounds bilaterally. Absent: respiratory distress, wheezes, rales, rhonchi, stridor, chest wall tenderness, accessory muscle use, decreased breath sounds, prolonged expiratory - Cardiovascular Cardiovascular Exam: Present: tachycardia - GI/Abdominal GI/Abdominal exam: Present: soft, normal bowel sounds. Absent: distended, tenderness, guarding, rebound, rigid, organomegaly, mass, bruit, pulsatile mass, hernia - Extremities Exam Extremities exam: Present: normal inspection, full ROM, normal capillary refill. Absent: pedal edema, calf tenderness - Back Exam Back exam: Present: normal inspection, full ROM. Absent: tenderness, CVA tenderness (R), CVA tenderness (L), muscle spasm, paraspinal tenderness, vertebral tenderness - Neurological Exam Neurological exam: Present: alert, oriented X3, CN II-XII intact, normal gait, reflexes normal - Psychiatric Psychiatric exam: Present: depressed, anxious. Absent: flat affect, manic, homicidal ideation, suicidal ideation - Skin Skin exam: Present: warm, intact, normal color ED Course Vital Signs 05/02/18 17:24 Temperature 98.8 F Pulse Rate 126 H Respiratory 20 Rate Blood Pressure 121/77 O2 Sat by Pulse 94 Oximetry Critical care attestation.: If time is entered above; I have spent that time in minutes in the direct care of this critically ill patient, excluding procedure time. ED Disposition Clinical Impression: Depression, Suicidal ideation Disposition: DC/TX-65 PSY HOSP/PSY UNIT Is pt being admited?: No Condition: Stable
[2018-05-02 18:13] LABS: Basophils % (Auto) 0.3 % (0.0-1.8); Eosinophils # (Auto) 0.2 K/mm3 (0.0-0.4); Eosinophils % (Auto) 1.8 % (0.0-4.3); Hematocrit 31.3 % (30.3-42.9); Hemoglobin 10.1 gm/dl (10.1-14.3); Lymphocytes # (Auto) 1.3 K/mm3 (1.2-5.4); Lymphocytes % (Auto) 14.9 % (13.4-35.0); Mean Corpuscular HGB Conc 32 % (30-34); Mean Corpuscular Volume 80 fl (79-97); Monocytes # (Auto) 1.1 K/mm3 (0.0-0.8); Monocytes % (Auto) 12.6 % (0.0-7.3); Platelet Count 419 K/mm3 (140-440); Red Blood Count 3.92 M/mm3 (3.65-5.03); Red Cell Distribution Width 19.4 % (13.2-15.2)
[2018-05-02 18:25] LABS: BUN/Creatinine Ratio 43; Blood Urea Nitrogen 13 mg/dL (7-17); Calcium 9.3 mg/dL (8.4-10.2); Hemolysis Index 2
[2018-05-02 21:19] LABS: Bilirubin,Urine NEG (Negative); Blood,Urine NEG (Negative); Color,Urine Straw (Yellow); Protein,Urine <15 mg/dL mg/dL (Negative); Urobilinogen,Urine < 2.0 mg/dL (<2.0); WBC,Urine < 1.0 /HPF (0.0-6.0)
[2018-05-02 21:41] LABS: Amphetamine Screen,Urine PRESUMPTIVE NEGATIVE; Benzodiazepines Screen,Urine PRESUMPTIVE NEGATIVE; Cannabinoid Screen,Urine PRESUMPTIVE NEGATIVE; Cocaine Screen,Urine PRESUMPTIVE NEGATIVE; Methadone Screen,Urine PRESUMPTIVE NEGATIVE; Opiate Screen,Urine PRESUMPTIVE NEGATIVE
[2018-05-02] MEDS: CEPACOL X STRENGTH MM PRN (21:55)
[2018-05-03] MEDS: CEPACOL X STRENGTH MM PRN (01:34)
[2018-05-03 03:07] VITALS: BP 121/74
== END 2018-05-03 05:15 ==
LOC: ED 17:16
DX: F32.9 Major depressive disorder, single episode, unspecified (principal); I10 Essential (primary) hypertension; I25.2 Old myocardial infarction; E11.9 Type 2 diabetes mellitus without complications; J44.9 Chronic obstructive pulmonary disease, unspecified; F25.9 Schizoaffective disorder, unspecified
CPT/HCPCS: 36415; 80048; 80307; 81001; 82962; 85025; 99285; G0480; 80320; 99282

== ENCOUNTER 2018-05-18 22:22 | Emergency (ER) | payer MEDICAID ==
--- NOTE | 2018-05-18 22:33 | Emergency Department Report ---
Blank Doc - Documentation Documentation: This is a 53-year-old female that presents with shortness of breathe. Denies any chest pain. Denies any other complaints. PMH: COPD, DM, HTN This initial assessment diagnostic orders/clinical plan/treatment(s) is/are subject to change based on patient's health status, clinical progression and re- assessment by fellow clinical providers in the ED. Further treatment and workup at subsequent clinical providers discretion. Patient/guardians urged not to elope from ED s their condition may be serious if not clinically assessed and managed. Initial orders include: 1-Patient sent to main ED for further evaluation and treatment. 2- Labs obtained 3- chest xray
[2018-05-18 23:02] VITALS: BP 122/78
[2018-05-18] MEDS ORDERED: SOLU-Medrol IV ONE (23:06)
[2018-05-18] MEDS ORDERED: PROVENTIL IH ONE (23:06)
[2018-05-18] MEDS ORDERED: ATROVENT IH ONE (23:06)
--- NOTE | 2018-05-18 23:33 | XRay Report ---
FINAL REPORT EXAM: XR CHEST ROUTINE 2V HISTORY: sob TECHNIQUE: PA and lateral views of the chest Comparison: Chest x-ray dated April 29, [address] chest dated April 16, 2018 FINDINGS: There is prominence of the interstitial markings in both lungs similar in appearance to the previous study. There is hyperinflation consistent with COPD. There is no evidence of focal infiltrate, pneumothorax or pleural fluid collection. The cardiac silhouette is upper limits of normal size. The thoracic aorta is unremarkable. The bony structures are notable for angular kyphosis of the thoracic spine secondary to multiple mid thoracic compression fractures similar in appearance to the previous studies IMPRESSION: 1. COPD. 2. No evidence of an acute pulmonary process. 3. Angular kyphosis secondary to chronic compression fractures mid thoracic vertebra.
[2018-05-18 23:41] LABS: Eosinophils # (Auto) 0.1 K/mm3 (0.0-0.4); Eosinophils % (Auto) 1.5 % (0.0-4.3); Hematocrit 24.4 % (30.3-42.9); Lymphocytes # (Auto) 1.3 K/mm3 (1.2-5.4); Lymphocytes % (Auto) 24.6 % (13.4-35.0); Mean Corpuscular HGB Conc 33 % (30-34); Mean Corpuscular Volume 77 fl (79-97); Monocytes # (Auto) 0.6 K/mm3 (0.0-0.8); Platelet Count 507 K/mm3 (140-440); Red Blood Count 3.19 M/mm3 (3.65-5.03); Red Cell Distribution Width 18.4 % (13.2-15.2)
[2018-05-19] LABS: BUN/Creatinine Ratio 42; Blood Urea Nitrogen 21 mg/dL (7-17); Calcium 8.6 mg/dL (8.4-10.2); Hemolysis Index 0
--- NOTE | 2018-05-19 02:27 | Emergency Department Report ---
ED Shortness of Breath HPI - General Chief Complaint: Dyspnea/Respdistress Stated Complaint: BRUNA Time Seen by Provider: 05/18/18 22:30 Source: patient Mode of arrival: Ambulatory Limitations: No Limitations - History of Present Illness Initial Comments: Patient is a 53-year-old female with past medical history of diabetes and COPD who states the last 3 weeks she has not been using her oxygen. Patient states that the dial on her tank is broken. Patient also states that the snf she states that the ulna does not like her to have her oxygen on. Patient states that she's had mild cough for last 3 days that is nonproductive. She den ies any fevers chills nausea vomiting headache at this time. MD Complaint: shortness of breath - Related Data Home Medications Medication Instructions Recorded Confirmed Last Taken FLUoxetine HCL [FLUoxetine] 40 mg PO QDAY 04/30/18 05/02/18 Unknown Previous Rx's Medication Instructions Recorded Last Taken Type ALBUTEROL Inhaler(NF) [VENTOLIN 1 puff IH Q4H PRN #1 inha 04/18/18 Unknown Rx Inhaler(NF)] Metformin HCl [Metformin HCl ER] 1,000 mg PO DAILY #30 [id number] 04/18/18 Unknown Rx Pantoprazole [Protonix TAB] 40 mg PO QDAY #30 tablet 04/18/18 Unknown Rx busPIRone [Buspar] 7.5 mg PO BID 30 Days tablet 04/18/18 Unknown Rx risperiDONE [RisperDAL] 1 mg PO HS #30 tablet 04/18/18 Unknown Rx ALBUTEROL Inhaler (OR & NICU) 2 puff IH QID PRN #1 inhalation 05/02/18 Unknown Rx [ProAir HFA Inhaler] Azithromycin [Zithromax Z-MARIO] 250 mg PO DAILY #6 tablet 05/02/18 Unknown Rx predniSONE [Deltasone] 20 mg PO QDAY #5 tab 05/02/18 Unknown Rx Allergies Allergy/AdvReac Type Severity Reaction Status Date / Time clonazepam [From Klonopin] Allergy Unknown Verified 04/15/18 15:19 quetiapine [From Seroquel] Allergy Unknown Verified 04/15/18 15:19 ED Review of Systems ROS: Stated complaint: BRUNA Other details as noted in HPI Comment: All other systems reviewed and negative ED Past Medical Hx - Past Medical History Hx Hypertension: Yes Hx Heart Attack/AMI: Yes Hx Congestive Heart Failure: No Hx Diabetes: Yes Hx Sickle Cell Disease: No Hx Asthma: No Hx COPD: Yes Hx HIV: No - Surgical History Past Surgical History?: No Additional Surgical History: heart. states a nelly put a garden snake down my throat with a computer - Social History Smoking Status: Never Smoker Substance Use Type: None - Medications Home Medications: Home Medications Medication Instructions Recorded Confirmed Last Taken Type ALBUTEROL Inhaler(NF) [VENTOLIN 1 puff IH Q4H PRN #1 inha 04/18/18 05/02/18 Unknown Rx Inhaler(NF)] Metformin HCl [Metformin HCl ER] 1,000 mg PO DAILY #30 [id number] 04/18/18 05/02/18 Unknown Rx Pantoprazole [Protonix TAB] 40 mg PO QDAY #30 tablet 04/18/18 05/02/18 Unknown Rx busPIRone [Buspar] 7.5 mg PO BID 30 Days tablet 04/18/18 05/02/18 Unknown Rx risperiDONE [RisperDAL] 1 mg PO HS #30 tablet 04/18/18 05/02/18 Unknown Rx FLUoxetine HCL [FLUoxetine] 40 mg PO QDAY 04/30/18 05/02/18 Unknown History ALBUTEROL Inhaler (OR & NICU) 2 puff IH QID PRN #1 inhalation 05/02/18 05/02/18 Unknown Rx [ProAir HFA Inhaler] Azithromycin [Zithromax Z-MARIO] 250 mg PO DAILY #6 tablet 05/02/18 05/02/18 Unknown Rx predniSONE [Deltasone] 20 mg PO QDAY #5 tab 05/02/18 05/02/18 Unknown Rx ED Physical Exam - General Limitations: No Limitations General appearance: alert, in no apparent distress - Head Head exam: Present: atraumatic, normocephalic - Eye Eye exam: Present: normal appearance - ENT ENT exam: Present: mucous membranes moist - Neck Neck exam: Present: normal inspection - Respiratory Respiratory exam: Present: normal lung sounds bilaterally, wheezes (mild). Absent: respiratory distress, rales, rhonchi - Cardiovascular Cardiovascular Exam: Present: regular rate, normal rhythm. Absent: systolic murmur, diastolic murmur, rubs, gallop - GI/Abdominal GI/Abdominal exam: Present: soft, normal bowel sounds - Extremities Exam Extremities exam: Present: normal inspection - Back Exam Back exam: Present: normal inspection - Neurological Exam Neurological exam: Present: alert, oriented X3 - Psychiatric Psychiatric exam: Present: normal affect, normal mood - Skin Skin exam: Present: warm, dry, intact, normal color. Absent: rash ED Course Vital Signs 05/18/18 05/18/18 05/19/18 22:31 23:01 00:12 Temperature 97.9 F Pulse Rate 105 H 94 H Pulse Rate [ Anterior Bilateral Throughout] Respiratory 20 18 24 Rate Respiratory Rate [Anterior Bilateral Throughout] Blood Pressure 107/70 Blood Pressure 122/78 [Left] O2 Sat by Pulse 94 88 98 Oximetry 05/19/18 00:14 Temperature Pulse Rate Pulse Rate [ 97 H Anterior Bilateral Throughout] Respiratory Rate Respiratory 16 Rate [Anterior Bilateral Throughout] Blood Pressure Blood Pressure [Left] O2 Sat by Pulse Oximetry ED Medical Decision Making - Lab Data Result diagrams: 05/18/18 23:17 05/18/18 23:17 - Medical Decision Making Patient was to be discharged out of the patient's got up and left before receiving her discharge paperwork. Patient wheezes at baseline and most likely that her baseline. Vital signs are within normal limits. Patient likely with a viral respiratory infection. Critical care attestation.: If time is entered above; I have spent that time in minutes in the direct care of this critically ill patient, excluding procedure time. ED Disposition Clinical Impression: Upper respiratory infection, COPD exacerbation Disposition: DC-01 TO HOME OR SELFCARE Is pt being admited?: No Does the pt Need Aspirin: No Condition: Stable Instructions: Chronic Obstructive Pulmonary Disease (ED) Referrals: PRIMARY CARE, [Primary Care Provider] - 3-5 Days Forms: AMA Form Time of Disposition: 02:28
== END 2018-05-19 02:29 | disposition home or self-care (01) ==
LOC: ED 22:22
DX: J44.1 Chronic obstructive pulmonary disease with (acute) exacerbation (principal); J06.9 Acute upper respiratory infection, unspecified; I10 Essential (primary) hypertension; I25.2 Old myocardial infarction; E11.9 Type 2 diabetes mellitus without complications; Z88.8 Allergy status to other drugs, medicaments and biological substances
CPT/HCPCS: 36415; 71046; 80048; 83880; 85025; 93005; 93010; 94640; 96374; 99284; J2930

== ENCOUNTER 2018-05-26 19:03 | Emergency (ER) | payer MEDICAID ==
[2018-05-26 19:53] VITALS: BP 137/88
--- NOTE | 2018-05-26 20:01 | Emergency Department Report ---
Blank Doc - Documentation Documentation: This is a 53-year-old female that presents shortness of breathe x5 days. Patient stated she is out of her albuterol inhaler and is requesting for refill. Patient has history of COPD. Denies any chest pain. Patient is nontoxic in apperance. No signs of distress noted. This initial assessment diagnostic orders/clinical plan/treatment(s) is/are subject to change based on patient's health status, clinical progression and re- assessment by fellow clinical providers in the ED. Further treatment and workup at subsequent clinical providers discretion. Patient/guardians urged not to elope from ED s their condition may be serious if not clinically assessed and managed. Initial orders include: 1-Patient sent to MAIN ED for further evaluation and treatment 2- CXR 3- EKG 4- Labs
[2018-05-26 21:17] LABS: Basophils % (Auto) 0.3 % (0.0-1.8); Eosinophils # (Auto) 0.4 K/mm3 (0.0-0.4); Eosinophils % (Auto) 4.9 % (0.0-4.3); Hematocrit 31.2 % (30.3-42.9); Hemoglobin 9.6 gm/dl (10.1-14.3); Lymphocytes # (Auto) 1.7 K/mm3 (1.2-5.4); Lymphocytes % (Auto) 19.5 % (13.4-35.0); Mean Corpuscular HGB Conc 31 % (30-34); Mean Corpuscular Volume 79 fl (79-97); Monocytes % (Auto) 11.2 % (0.0-7.3); Platelet Count 634 K/mm3 (140-440); Red Blood Count 3.96 M/mm3 (3.65-5.03); Red Cell Distribution Width 18.9 % (13.2-15.2)
--- NOTE | 2018-05-26 21:21 | XRay Report ---
FINAL REPORT EXAM: XR CHEST ROUTINE 2V HISTORY: cough TECHNIQUE: 2 views of the chest. PRIORS: 05/18/2018 FINDINGS: The cardiomediastinal silhouette appears normal. The lungs are clear. There are 3 stable mid thoracic vertebral compression fractures. IMPRESSION: No evidence of acute cardiopulmonary disease Three stable mid thoracic vertebral compression fractures
[2018-05-26 22:02] LABS: Alanine Aminotransferase 30 units/L (7-56); Albumin 4.1 g/dL (3.9-5); BUN/Creatinine Ratio 45; Blood Urea Nitrogen 9 mg/dL (7-17); Calcium 9.4 mg/dL (8.4-10.2); Hemolysis Index 11
[2018-05-26] MEDS ORDERED: DELTASONE PO ONE (22:57)
[2018-05-26] MEDS ORDERED: PROVENTIL IH ONE (22:57)
--- NOTE | 2018-05-26 23:20 | Emergency Department Report ---
ED General Adult HPI - General Chief complaint: Dyspnea/Respdistress Stated complaint: COPD Time Seen by Provider: 05/26/18 19:56 Source: patient Mode of arrival: Ambulatory Limitations: No Limitations - History of Present Illness Initial comments: 3-year-old female with a history of depression and COPD presents with the complaint of shortness of breath for the past 5 hours. Patient states that she is about a steroids and is currently not on oxygen therapy. Patient denies any fever. Patient states she's had a dry cough. Patient states that she has no chest pain at the current time. Severity scale (0 -10): 0 - Related Data Home Medications Medication Instructions Recorded Confirmed Last Taken FLUoxetine HCL [FLUoxetine] 40 mg PO QDAY 04/30/18 05/02/18 Unknown Previous Rx's Medication Instructions Recorded Last Taken Type ALBUTEROL Inhaler(NF) [VENTOLIN 1 puff IH Q4H PRN #1 inha 04/18/18 Unknown Rx Inhaler(NF)] Metformin HCl [Metformin HCl ER] 1,000 mg PO DAILY #30 [id number] 04/18/18 Unknown Rx Pantoprazole [Protonix TAB] 40 mg PO QDAY #30 tablet 04/18/18 Unknown Rx busPIRone [Buspar] 7.5 mg PO BID 30 Days tablet 04/18/18 Unknown Rx risperiDONE [RisperDAL] 1 mg PO HS #30 tablet 04/18/18 Unknown Rx ALBUTEROL Inhaler (OR & NICU) 2 puff IH QID PRN #1 inhalation 05/02/18 Unknown Rx [ProAir HFA Inhaler] Azithromycin [Zithromax Z-MARIO] 250 mg PO DAILY #6 tablet 05/02/18 Unknown Rx predniSONE [Deltasone] 20 mg PO QDAY #5 tab 05/02/18 Unknown Rx ALBUTEROL Inhaler(NF) [VENTOLIN 1 puff IH BID #1 inha 05/26/18 Unknown Rx Inhaler(NF)] Azithromycin [Zithromax Z-MARIO] 250 mg PO DAILY #6 tablet 05/26/18 Unknown Rx Fluticasone/Salmeterol [Advair 1 puff IH BID #1 disk.w.dev 05/26/18 Unknown Rx Diskus 500-50 mcg] predniSONE [Deltasone] 40 mg PO QDAY #10 tab 05/26/18 Unknown Rx Allergies Allergy/AdvReac Type Severity Reaction Status Date / Time clonazepam [From Klonopin] Allergy Unknown Verified 04/15/18 15:19 quetiapine [From Seroquel] Allergy Unknown Verified 04/15/18 15:19 ED Review of Systems ROS: Stated complaint: COPD Other details as noted in HPI Constitutional: denies: chills, fever Eyes: denies: eye pain, eye discharge, vision change ENT: denies: ear pain, throat pain Respiratory: cough, SOB at rest Cardiovascular: denies: chest pain, palpitations Endocrine: no symptoms reported Gastrointestinal: denies: abdominal pain, nausea, diarrhea Genitourinary: denies: urgency, dysuria, discharge Musculoskeletal: denies: back pain, joint swelling, arthralgia Skin: denies: rash, lesions Neurological: denies: headache, weakness, paresthesias Psychiatric: denies: anxiety, depression Hematological/Lymphatic: denies: easy bleeding, easy bruising ED Past Medical Hx - Past Medical History Hx Hypertension: Yes Hx Heart Attack/AMI: Yes Hx Congestive Heart Failure: No Hx Diabetes: Yes Hx Sickle Cell Disease: No Hx Asthma: No Hx COPD: Yes Hx HIV: No - Surgical History Additional Surgical History: heart - Social History Smoking Status: Former Smoker Substance Use Type: None - Medications Home Medications: Home Medications Medication Instructions Recorded Confirmed Last Taken Type ALBUTEROL Inhaler(NF) [VENTOLIN 1 puff IH Q4H PRN #1 inha 04/18/18 05/02/18 Unknown Rx Inhaler(NF)] Metformin HCl [Metformin HCl ER] 1,000 mg PO DAILY #30 [id number] 04/18/18 05/02/18 Unknown Rx Pantoprazole [Protonix TAB] 40 mg PO QDAY #30 tablet 04/18/18 05/02/18 Unknown Rx busPIRone [Buspar] 7.5 mg PO BID 30 Days tablet 04/18/18 05/02/18 Unknown Rx risperiDONE [RisperDAL] 1 mg PO HS #30 tablet 04/18/18 05/02/18 Unknown Rx FLUoxetine HCL [FLUoxetine] 40 mg PO QDAY 04/30/18 05/02/18 Unknown History ALBUTEROL Inhaler (OR & NICU) 2 puff IH QID PRN #1 inhalation 05/02/18 05/02/18 Unknown Rx [ProAir HFA Inhaler] Azithromycin [Zithromax Z-MARIO] 250 mg PO DAILY #6 tablet 05/02/18 05/02/18 Unknown Rx predniSONE [Deltasone] 20 mg PO QDAY #5 tab 05/02/18 05/02/18 Unknown Rx ALBUTEROL Inhaler(NF) [VENTOLIN 1 puff IH BID #1 inha 05/26/18 Unknown Rx Inhaler(NF)] Azithromycin [Zithromax Z-MARIO] 250 mg PO DAILY #6 tablet 05/26/18 Unknown Rx Fluticasone/Salmeterol [Advair 1 puff IH BID #1 disk.w.dev 05/26/18 Unknown Rx Diskus 500-50 mcg] predniSONE [Deltasone] 40 mg PO QDAY #10 tab 05/26/18 Unknown Rx ED Physical Exam - General Limitations: No Limitations General appearance: alert, in no apparent distress - Head Head exam: Present: atraumatic, normocephalic - Eye Eye exam: Present: normal appearance - ENT ENT exam: Present: mucous membranes moist - Neck Neck exam: Present: normal inspection - Respiratory Respiratory exam: Present: wheezes (faint wheezing appreciated in bases of lungs). Absent: respiratory distress, accessory muscle use - Cardiovascular Cardiovascular Exam: Present: normal rhythm, tachycardia. Absent: systolic murmur, diastolic murmur, rubs, gallop - GI/Abdominal GI/Abdominal exam: Present: soft, normal bowel sounds - Extremities Exam Extremities exam: Present: normal inspection - Back Exam Back exam: Present: normal inspection - Neurological Exam Neurological exam: Present: alert, oriented X3 - Psychiatric Psychiatric exam: Present: normal affect, normal mood - Skin Skin exam: Present: warm, dry, intact, normal color. Absent: rash ED Course Vital Signs 05/26/18 05/26/18 19:48 19:56 Temperature 97.9 F 97.9 F Pulse Rate 111 H 117 H Respiratory 22 22 Rate Blood Pressure 137/88 137/88 O2 Sat by Pulse 92 94 Oximetry ED Medical Decision Making - Lab Data Result diagrams: 05/26/18 20:26 05/26/18 20:26 - Medical Decision Making Patient received prednisone therapy as well as 5 of albuterol while here in the emergency department. Patient appears comfortable patient be discharged with steroid therapy as well as albuterol MDI and Advair Diskus. Patient also to be discharged with Z-Mario and treated for bronchitis. - Differential Diagnosis Pneumonia; bronchitis; Dehydration; COPD exacerbation Critical care attestation.: If time is entered above; I have spent that time in minutes in the direct care of this critically ill patient, excluding procedure time. ED Disposition Clinical Impression: COPD exacerbation Disposition: DC-01 TO HOME OR SELFCARE Is pt being admited?: No Condition: Stable Instructions: Chronic Obstructive Pulmonary Disease (ED) Prescriptions: ALBUTEROL Inhaler(NF) [VENTOLIN Inhaler(NF)] 1 puff IH BID #1 inha Azithromycin [Zithromax Z-MARIO] 250 mg PO DAILY #6 tablet Fluticasone/Salmeterol [Advair Diskus 500-50 mcg] 1 puff IH BID #1 disk.w.dev predniSONE [Deltasone] 40 mg PO QDAY #10 tab Referrals: ADELITA PRECIADO [Primary Care Provider] - 3-5 Days Time of Disposition: 23:20 Print Language: IRISH
== END 2018-05-27 00:44 | disposition home or self-care (01) ==
LOC: ED 19:03
DX: J44.1 Chronic obstructive pulmonary disease with (acute) exacerbation (principal); I10 Essential (primary) hypertension; E11.9 Type 2 diabetes mellitus without complications; Z88.8 Allergy status to other drugs, medicaments and biological substances
CPT/HCPCS: 36415; 71046; 80053; 84484; 85025; 93005; 93010; 94640; 99284; J7512

== ENCOUNTER 2018-06-01 09:27 | Emergency (ER) | payer MEDICAID ==
[2018-06-01] MEDS ORDERED: NACL 0.9% 1000 ML 1,000 ML IV ONE ×2 (10:02→11:29)
[2018-06-01] MEDS ORDERED: ZOFRAN IV ONE (10:02)
[2018-06-01] MEDS ORDERED: MORPHINE IV ONE (10:02)
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
--- NOTE | 2018-06-01 10:17 | XRay Report ---
AP CHEST: HISTORY: chest pain The lungs are hyperinflated but clear. Heart size and pulmonary vessels are borderline. No pleural effusion or pneumothorax. The bony structures are grossly intact. No overwhelming change since 05/26/18. IMPRESSION: Hyperinflation. Borderline heart size.
[2018-06-01 10:31] LABS: Basophils # (Auto) 0.1 K/mm3 (0.0-0.1); Basophils % (Auto) 0.4 % (0.0-1.8); Eosinophils # (Auto) 0.1 K/mm3 (0.0-0.4); Eosinophils % (Auto) 0.8 % (0.0-4.3); Hematocrit 27.1 % (30.3-42.9); Hemoglobin 8.7 gm/dl (10.1-14.3); Lymphocytes # (Auto) 1.3 K/mm3 (1.2-5.4); Lymphocytes % (Auto) 9.3 % (13.4-35.0); Mean Corpuscular HGB Conc 32 % (30-34); Mean Corpuscular Volume 77 fl (79-97); Monocytes % (Auto) 7.6 % (0.0-7.3); Platelet Count 470 K/mm3 (140-440); Red Blood Count 3.53 M/mm3 (3.65-5.03); Red Cell Distribution Width 18.9 % (13.2-15.2)
[2018-06-01 10:47] LABS: BUN/Creatinine Ratio 90; Blood Urea Nitrogen 18 mg/dL (7-17); Calcium 8.6 mg/dL (8.4-10.2); Hemolysis Index 28
[2018-06-01] MEDS ORDERED: BUSPAR PO ONE (11:14)
--- NOTE | 2018-06-01 13:03 | Cat Scan Report ---
CTA CHEST: HISTORY: Tachycardia. COMPARISON: none. TECHNIQUE: Helical CT in 1.25mm intervals following IV contrast. Pulmonary embolus protocol. Sagittal and coronal reformatted images. Rotational MIP images. FINDINGS: Contrast bolus is satisfactory. No pulmonary embolus is identified. Thyroid gland: Normal. Tracheobronchial tree: Normal. Esophagus: Normal. Heart: Normal. Pericardium: Normal. Mediastinum: Normal. Lung Jaeger: Moderate to severe centrilobular emphysematous changes are identified bilaterally. No suspicious nodule or mass. Pleural Spaces: Normal. Musculoskeletal: Anterior wedge deformities are identified at T8 and T9 which appear chronic. The bony structures are mildly demineralized. No acute fracture is identified. IMPRESSION: No evidence for pulmonary embolus. Emphysema. Chronic anterior wedge fractures at T8 and T9.
[2018-06-01] MEDS ORDERED: PULMICORT 1 MG, BROVANA NEBU 15 MCG IH ONE (13:14)
[2018-06-01] MEDS ORDERED: DUONEB *Not for PRN Use IH ONE (13:14)
[2018-06-01 13:20] VITALS: BP 112/85
[2018-06-01] MEDS ORDERED: PULMICORT IH ONE (13:22)
[2018-06-01] MEDS ORDERED: BROVANA NEBU IH ONE (13:22)
[2018-06-01] MEDS ORDERED: GLUCOPHAGE PO ONE (14:19)
== END 2018-06-01 14:27 | disposition home or self-care (01) ==
LOC: ED 09:27
DX: J44.1 Chronic obstructive pulmonary disease with (acute) exacerbation (principal); R09.02 Hypoxemia; F41.9 Anxiety disorder, unspecified; I10 Essential (primary) hypertension; I25.2 Old myocardial infarction; E11.9 Type 2 diabetes mellitus without complications; F17.200 Nicotine dependence, unspecified, uncomplicated; Z88.4 Allergy status to anesthetic agent
CPT/HCPCS: 36415; 71045; 71275; 80048; 84484; 85025; 87040; 93005; 93010; 94640; 96374; 96375; 99285; J2270; J2405; J7030; Q9967

== ENCOUNTER 2018-06-10 21:52 | Inpatient (IN) | payer MEDICAID ==
[2018-06-11] MEDS ORDERED: NACL 0.9% 1000 ML 1,000 ML IV ONE (00:38)
[2018-06-11] MEDS ORDERED: ATIVAN IV STA (00:38)
[2018-06-11] MEDS ORDERED: ATIVAN IM PRN (00:38)
[2018-06-11] MEDS ORDERED: HALDOL IM PRN (00:38)
--- NOTE | 2018-06-11 00:40 | Emergency Department Report ---
ED General Adult HPI - General Chief complaint: Psych Stated complaint: MH Time Seen by Provider: 06/11/18 00:24 Source: patient, RN notes reviewed, old records reviewed Mode of arrival: Ambulatory Limitations: No Limitations - History of Present Illness Initial comments: Past medical history: COPD, not currently on home oxygen, endoscopically diagnosed ulcer, hypertension, psychiatric disease This is a 53-year-old female. 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 The patient reports that she called the police because she was feeling suicidal. She reports that she might want to walk into traffic. She does not have hallucinations and she does not have access to guns or firearms. The patient endorses a few months of unintentional weight loss. She denies hematemesis, bright red blood per rectum, she initially admits to dysuria, and then subsequently denies it. On review of systems, she also admits to "panic chest pain", which has been going on for the past 24 hours. However, this is a chronic thing. The panic chest pain is central, does not radiate to the back, arms and neck, and there is no associated vomiting, diaphoresis or new or different shortness of breath. She may have taken aspirin recently, she is not certain. She also endorses anxiety, and feeling panicked. -: Gradual, days(s) Location: chest Radiation: non-radiation Severity scale (0 -10): 0 Consistency: intermittent Improves with: none Worsens with: none Associated Symptoms: chest pain, loss of appetite, malaise, weakness. denies: confusion, cough, diaphoresis, fever/chills, headaches, nausea/vomiting, rash, seizure, syncope - Related Data Home Medications Medication Instructions Recorded Confirmed Last Taken metFORMIN [Glucophage] 500 mg PO BID 06/11/18 06/11/18 Unknown Allergies Allergy/AdvReac Type Severity Reaction Status Date / Time clonazepam [From Klonopin] Allergy Unknown Verified 06/10/18 22:32 quetiapine [From Seroquel] Allergy Unknown Verified 06/10/18 22:32 ED Review of Systems ROS: Stated complaint: MH Other details as noted in HPI Constitutional: malaise. denies: fever Eyes: denies: vision change ENT: denies: epistaxis Respiratory: denies: cough Cardiovascular: chest pain Gastrointestinal: abdominal pain Genitourinary: dysuria Musculoskeletal: denies: back pain Skin: denies: lesions Neurological: weakness Psychiatric: anxiety, depression, suicidal thoughts. denies: auditory hallucinations, visual hallucinations, homicidal thoughts ED Past Medical Hx - Past Medical History Hx Hypertension: Yes Hx Heart Attack/AMI: Yes Hx Congestive Heart Failure: No Hx Diabetes: Yes Hx Sickle Cell Disease: No Hx Asthma: No Hx COPD: Yes Hx HIV: No - Surgical History Additional Surgical History: heart - Social History Smoking Status: Former Smoker Substance Use Type: None - Medications Home Medications: Home Medications Medication Instructions Recorded Confirmed Last Taken Type metFORMIN [Glucophage] 500 mg PO BID 06/11/18 06/11/18 Unknown History ED Physical Exam - General Limitations: No Limitations General appearance: alert, anxious - Head Head exam: Present: atraumatic, normocephalic - Eye Eye exam: Present: normal appearance, EOMI. Absent: nystagmus - ENT ENT exam: Present: normal exam, normal orophraynx, mucous membranes moist, normal external ear exam - Neck Neck exam: Present: normal inspection, full ROM. Absent: tenderness, meningismus - Respiratory Respiratory exam: Present: normal lung sounds bilaterally. Absent: respiratory distress - Cardiovascular Cardiovascular Exam: Present: normal rhythm, tachycardia, normal heart sounds. Absent: systolic murmur, diastolic murmur, rubs, gallop - GI/Abdominal GI/Abdominal exam: Present: soft. Absent: distended, tenderness, guarding, rebound, rigid, pulsatile mass - Extremities Exam Extremities exam: Present: normal inspection, full ROM, other (2+ pulses noted in the bilateral upper, lower extremities. Compartments soft. No long bony tenderness. The pelvis is stable.). Absent: pedal edema, joint swelling, calf tenderness - Back Exam Back exam: Present: normal inspection, full ROM. Absent: tenderness, CVA tenderness (R), paraspinal tenderness, vertebral tenderness - Neurological Exam Neurological exam: Present: alert, oriented X3, CN II-XII intact, normal gait, other (Extraocular movements intact. Tongue midline. No facial droop. Facial sensation intact to light touch in the V1, V2, V3 distribution bilaterally. 5 and 5 strength in 4 extremities.. Sensation is intact to light touch in 4 extremities.). Absent: motor sensory deficit - Psychiatric Psychiatric exam: Present: anxious, suicidal ideation. Absent: homicidal ideation - Skin Skin exam: Present: warm, dry, intact, normal color. Absent: rash ED Course Vital Signs 06/10/18 06/11/18 06/11/18 22:00 00:37 01:12 Temperature 98.5 F 97.7 F Pulse Rate 127 H 117 H Respiratory 18 18 Rate Blood Pressure 108/64 Blood Pressure 118/78 [Left] O2 Sat by Pulse 96 97 97 Oximetry 06/11/18 06/11/18 03:00 04:00 Temperature Pulse Rate 108 H 98 H Respiratory 21 19 Rate Blood Pressure 115/73 103/68 Blood Pressure [Left] O2 Sat by Pulse 97 98 Oximetry - Reevaluation(s) Reevaluation #1: 06/11/18 01:06 Differential diagnosis, including but not limited to, GERD, gastritis, hiatal hernia, pneumonia, pulmonary embolus, acute coronary syndrome, anxiety, de pression, suicidality, medical clearance for psychiatric placement Assessment and plan: 53-year-old female with a primary complaint of suicidality and depression. The patient is afebrile with reassuring vital signs with the exception of tachycardia. She is placed on a 1013, and appropriate screening laboratory studies will be obtained. Psychiatric consultation is requested. She is tachycardic but this is likely secondary to anxiety, as she is not hypoxic, and she denies DVT, pulmonary embolus risk factors. I find the patient to be low risk by the heart score. We will obtain d-dimer, EKG 2, troponin 2, x-ray of the chest, she reports that she can tolerate Ativan, and she will be given IV fluids. We will reassess once her data points have resulted. Reevaluation #2: 06/11/18 03:22 Screening laboratory studies unremarkable. Troponin negative 1. Repeat EKG normalized, tachycardia resolved, otherwise unchanged, patient appears quite comfortable. Reevaluation #3: 06/11/18 04:57 Resting heart rate in the low 90s. Troponin negative 2. Patient sleeping comfortably, and in no acute distress. Repeat EKG unremarkable. At this point time, there does not appear to be in immediate medical contraindication to psychiatric admission, evaluation, consultation. ED Medical Decision Making - Lab Data Result diagrams: 06/11/18 00:58 06/11/18 00:58 Vital Signs 06/10/18 22:00 Temperature 98.5 F Pulse Rate 127 H Blood Pressure 108/64 O2 Sat by Pulse 96 Oximetry - EKG Data EKG shows normal: sinus rhythm Rate: tachycardia - EKG Data When compared to previous EKG there are: no significant change 06/11/18 01:07 Sinus tachycardia, 120 bpm, normal axis, QTC prolonged, or Atrial enlargement, abnormal EKG, not consistent with STEMI, unchanged from prior EKG from 06/01/2018. - Radiology Data Radiology results: pending, report reviewed, image reviewed X-ray of the chest is negative for acute disease. Critical care attestation.: If time is entered above; I have spent that time in minutes in the direct care of this critically ill patient, excluding procedure time. ED Disposition Clinical Impression: Suicidal ideation Disposition: [id number]/TX-65 PSY HOSP/PSY UNIT Is pt being admited?: No Does the pt Need Aspirin: No Condition: Good Referrals: PATY LOFTON MD [Primary Care Provider] - 3-5 Days
[2018-06-11 01:15] LABS: Hematocrit 24.6 % (30.3-42.9); Hemoglobin 7.7 gm/dl (10.1-14.3); Mean Corpuscular HGB Conc 32 % (30-34); Mean Corpuscular Volume 79 fl (79-97); Platelet Count 448 K/mm3 (140-440); Red Blood Count 3.11 M/mm3 (3.65-5.03)
[2018-06-11 01:16] LABS: Red Cell Distribution Width 21.1 % (13.2-15.2)
[2018-06-11 01:33] LABS: BUN/Creatinine Ratio 22; Blood Urea Nitrogen 11 mg/dL (7-17); Calcium 8.5 mg/dL (8.4-10.2); Hemolysis Index 7
--- NOTE | 2018-06-11 01:44 | XRay Report ---
PROCEDURE: XR CHEST ROUTINE 2V TECHNIQUE: PA and lateral chest radiographs were obtained. HISTORY: cp COMPARISONS: 05/26/2018. FINDINGS: Heart: Normal. Mediastinum/Vessels: Normal. Lungs/Pleural space: There is COPD. There are no infiltrates, effusions or masses.. Bony thorax: There are chronic compression deformities of the mid thoracic spine with kyphosis.. IMPRESSION: There is no acute cardiopulmonary abnormality.. This document is electronically signed by Nabeel Ocampo MD., June 11 2018 01:42:51 AM ET
[2018-06-11] MEDS ORDERED: PROVENTIL IH PRN (20:01)
[2018-06-11] MEDS ORDERED: ZOFRAN ODT PO PRN (20:01)
[2018-06-11] MEDS: GLUCOPHAGE PO SCH (22:12)
--- NOTE | 2018-06-11 22:18 | Consultation ---
History of Present Illness - Reason for Consult Consult date: 06/11/18 Reason for consult: psychiatric evaluation - Chief Complaint Chief complaint: "I'm depressed." This is a 53-year-old female. The patient presents to the emergency department with a police commanding officer. The patient reports that she called the police because she was feeling suicidal. She is now on 1013 for SI. She reports that she might want to walk into traffic. She denies AVH. She wants to continue her home meds of prolixin, buspar, and prozac. She is easily distracted in the interview and asked for coffee more than once. According to the ER physician: On review of systems, she also admits to "panic chest pain", which has been going on for the past 24 hours. However, this is a chronic thing. The panic chest pain is central, does not radiate to the back, arms and neck, and there is no associated vomiting, diaphoresis or new or different shortness of breath. She may have taken aspirin recently, she is not certain. The patient endorses a few months of unintentional weight loss. She denies hematemesis, bright red blood per rectum. She has been to the ER 9 times this year for medical and mental health reasons. Medications and Allergies Allergies Allergy/AdvReac Type Severity Reaction Status Date / Time clonazepam [From Klonopin] Allergy Unknown Verified 06/10/18 22:32 quetiapine [From Seroquel] Allergy Unknown Verified 06/10/18 22:32 Home Medications Medication Instructions Recorded Confirmed Last Taken Type metFORMIN [Glucophage] 500 mg PO BID 06/11/18 06/11/18 Unknown History Active Meds: Active Medications Acetaminophen (Tylenol) 650 mg PO Q6HR PRN PRN Reason: Pain , Severe (7-10) Albuterol (Proventil) 2.5 mg IH Q4HRT PRN PRN Reason: Shortness Of Breath Haloperidol Lactate (Haldol) 5 mg IM Q6HR PRN PRN Reason: Agitation Lorazepam (Ativan) 2 mg IM Q4HR PRN PRN Reason: Agitation Metformin HCl (Glucophage) 500 mg PO BID AJITH Last Admin: 06/11/18 22:12 Dose: 500 mg Documented by: Ondansetron HCl (Zofran Odt) 4 mg PO Q6HR PRN PRN Reason: Nausea Past psychiatric history - Past Medical History Past Medical History: COPD, diabetes, other ( COPD, not currently on home oxygen, endoscopically diagnosed ulcer, hypertension) - past Psychiatric treatment and history Psych: Depression, Panic, Schizophrenia Mental Status Exam - Vital signs Last Vital Signs Temp 97.7 F 06/11/18 19:15 Pulse 100 H 06/11/18 19:15 Resp 19 06/11/18 19:15 BP 112/76 06/11/18 19:15 Pulse Ox 99 06/11/18 19:15 - Exam Orientation: time, place, person Affect: depressed, anxious Mood: congruent with affect Thought content: paranoia Thought Process: Circumstantial Perceptions: other (would not discuss) Speech: normal rate and pattern Concentration: distractible Motor activity: restless Level of consciousness: alert Memory: Intact Sleep Symptoms: Difficulty Falling Asleep Appetite: decreased Interaction: irritable Results Result Diagrams: 06/11/18 00:58 06/11/18 00:58 Abnormal lab results 06/11/18 06/11/18 06/11/18 Range/Units 00:58 00:58 00:58 RBC 3.11 L (3.65-5.03) M/mm3 Hgb 7.7 L (10.1-14.3) gm/dl Hct 24.6 L (30.3-42.9) % MCH 25 L (28-32) pg RDW 21.1 H (13.2-15.2) % Plt Count 448 H (140-440) K/mm3 Creatinine 0.5 L (0.7-1.2) mg/dL POC Glucose (70-105) Salicylates < 0.3 L (2.8-20.0) mg/dL Acetaminophen (10.0-30.0) ug/mL 06/11/18 06/11/18 Range/Units 00:58 22:12 RBC (3.65-5.03) M/mm3 Hgb (10.1-14.3) gm/dl Hct (30.3-42.9) % MCH (28-32) pg RDW (13.2-15.2) % Plt Count (140-440) K/mm3 Creatinine (0.7-1.2) mg/dL POC Glucose 286 H (70-105) Salicylates (2.8-20.0) mg/dL Acetaminophen < 5.0 L (10.0-30.0) ug/mL All other labs normal. Assessment and Plan Assessment and plan: Impression: No overt psychosis. She reports suicidal ideation with a plan. Hx of Schizoaffective DO. Hx of Anxiety DO. She has multiple medical co-morbidities. Recommendation/Plan: Start home medications Prolixin 5mg PO HS, Prozac 40 mg PO daily, and Buspar 5mg tid. She states she is aware of potential side effects. Dispo:continue 1013 and once medically cleared, transfer to inpatient psychia tric facility staffed with Dr. Antonio.
[2018-06-11] MEDS: PROLIXIN HCL PO SCH (23:20)
[2018-06-12] MEDS: TYLENOL PO PRN ×3 (01:36→14:33)
[2018-06-12 05:47] LABS: Bilirubin,Urine NEG (Negative); Blood,Urine NEG (Negative); Color,Urine Straw (Yellow); Protein,Urine <15 mg/dL mg/dL (Negative); RBC,Urine < 1.0 /HPF (0.0-6.0); Urobilinogen,Urine < 2.0 mg/dL (<2.0)
[2018-06-12 05:59] LABS: Amphetamine Screen,Urine PRESUMPTIVE NEGATIVE; Benzodiazepines Screen,Urine PRESUMPTIVE NEGATIVE; Cannabinoid Screen,Urine PRESUMPTIVE NEGATIVE; Cocaine Screen,Urine PRESUMPTIVE NEGATIVE; Methadone Screen,Urine PRESUMPTIVE NEGATIVE; Opiate Screen,Urine PRESUMPTIVE NEGATIVE
[2018-06-12] MEDS: BUSPAR PO SCH ×3 (08:56→19:41)
[2018-06-12] MEDS: PROzac PO SCH (10:17)
[2018-06-12] MEDS: GLUCOPHAGE PO SCH ×2 (10:17→22:26)
[2018-06-12] MEDS: PROLIXIN HCL PO SCH (22:26)
[2018-06-12 22:52] LABS: Hemoglobin 7.5 gm/dl (10.1-14.3); Mean Corpuscular HGB Conc 31 % (30-34); Mean Corpuscular Volume 78 fl (79-97); Platelet Count 477 K/mm3 (140-440); Red Blood Count 3.07 M/mm3 (3.65-5.03)
[2018-06-12 22:54] LABS: Red Cell Distribution Width 21.1 % (13.2-15.2)
[2018-06-12 23:26] LABS: Anisocytosis 1+; Band Neutrophils # (Manual) 0.1 K/mm3; Basophils % (Manual) 0 % (0.0-1.8); Hypochromasia 2+; Total Cells Counted 100
[2018-06-12 23:27] LABS: Large Platelets Few; Ovalocytes 1+; Platelet Estimate Consistent w Auto
[2018-06-13] MEDS: PROzac PO SCH (09:00)
[2018-06-13] MEDS: BUSPAR PO SCH ×3 (09:00→21:16)
--- NOTE | 2018-06-13 10:28 | Progress Note ---
Subjective - Reason for Consult Consult date: 06/13/18 Reason for consult: Psychiatry Follow-up - Chief Complaint Chief complaint: "I've done some thinking" 53 y.o. white female who presented to the ER for chest pain and SI's. This patient is known to me. Today the patient is calm and cooperative during the assessment. She stated that she have done some thinking and feels like she could have handled her internal crisis in a better way. She stated that she called 911 because she felt suicidal prior to coming to the ER. She stated, "I actually felt better mentally once I arrived to the ER." She stated that she will follow up with [facility] for outpatient psy services once discharged. She denies being depressed, SI/HI's and AVH's. She denies any side effects of her medications. Mental Status Exam - Vital signs Last Vital Signs Temp 98.7 F 06/13/18 08:00 Pulse 116 H 06/13/18 08:00 Resp 12 06/13/18 08:00 BP 139/83 06/13/18 08:00 Pulse Ox 100 06/13/18 08:00 - Exam Narrative exam: MSE: Appearance: calm, cooperative Behavior: regular eye contact Speech: regular rate and loud tone Mood: "okay" Affect: congruent to mood Thought Process: linear Thought Content: denies SI/HI's and AVH's Motor Activity: sitting up in the bed Cognition: A/O x3 Insight: fair Judgment: appropriate Assessment and Plan Impression: Hx of Schizoaffective DO. Unspecified Anxiety DO. Today the patient is calm and cooperative during the assessment. The patient is no threat to self. Recommendation/Plan: Rescind 1013 and continue home medications Prolixin 5 mg PO HS, Prozac 40 mg PO daily and Buspar 5 mg PO TID. Discussed possible suicidality/medication induced sandra with the patient reference Prozac. Discussed generalized coping skills with the patient. Dispo: The patient can follow up with [facility] for outpatient psy services. Will staff with Dr Vincenzo Antonio.
[2018-06-13] MEDS: GLUCOPHAGE PO SCH (11:12)
[2018-06-13] MEDS ORDERED: TYLENOL PO PRN (15:20)
[2018-06-13] MEDS ORDERED: ZOFRAN IV PRN (15:20)
[2018-06-13] MEDS ORDERED: SODIUM CHLORIDE FLUSH SYRINGE 10 ML IV PRN (15:20)
[2018-06-13] MEDS ORDERED: PROVENTIL IH PRN (15:20)
--- NOTE | 2018-06-13 15:20 | History and Physical Report ---
History of Present Illness Chief complaint: I cant breathe, and I keep coughing, History of present illness: 53 YO Female with Severe Malnutrition, COPD, DM, [place], HTN, Chronic Respiratory Failure presents to ED for evaluation. Pt initially presented with SI and was placed on psychiatric hold in ED. Pt subsequently complains of increased productive cough with yellow sputum, shortness of breath. Pt currently denies fe jaylen, chills, CP, palpitations, NVD, Trauma, BRBPR, Skin rash, or recent ill contacts. Pt see and evaluated in ED and found to have symptoms consistent with COPD Exacerbation, and Acute on Chronic Respiratory Failure. Pt admitted to medical floor and initiated on IV steroid therapy. Psychiatry consulted in ED. Past History Past Medical History: acute TN, COPD, diabetes, hypertension, other ( COPD, not currently on home oxygen, endoscopically diagnosed ulcer, hypertension) Past Surgical History: Other (cardiac) Social history: single, lives with family. denies: smoking, alcohol abuse, prescription drug abuse Family history: diabetes, hypertension Medications and Allergies Allergies Allergy/AdvReac Type Severity Reaction Status Date / Time clonazepam [From Klonopin] Allergy Unknown Verified 06/10/18 22:32 quetiapine [From Seroquel] Allergy Unknown Verified 06/10/18 22:32 Home Medications Medication Instructions Recorded Confirmed Last Taken Type metFORMIN [Glucophage] 500 mg PO BID 06/11/18 06/11/18 Unknown History Active Meds: Active Medications Acetaminophen (Tylenol) 650 mg PO Q6HR PRN PRN Reason: Pain , Severe (7-10) Last Admin: 06/12/18 14:33 Dose: 650 mg Documented by: Albuterol (Proventil) 2.5 mg IH Q4HRT PRN PRN Reason: Shortness Of Breath Last Admin: 06/12/18 14:32 Dose: 2.5 mg Documented by: Buspirone HCl (Buspar) 5 mg PO TID [facility] Last Admin: 06/13/18 09:00 Dose: 5 mg Documented by: Ferrous Sulfate (Feosol) 325 mg PO BID AJITH Fluoxetine HCl (Prozac) 40 mg PO QAM [facility] Last Admin: 06/13/18 09:00 Dose: 40 mg Documented by: Fluphenazine HCl (Prolixin Hcl) 5 mg PO HS [facility] Last Admin: 06/12/18 22:26 Dose: 5 mg Documented by: Haloperidol Lactate (Haldol) 5 mg IM Q6HR PRN PRN Reason: Agitation Lorazepam (Ativan) 2 mg IM Q4HR PRN PRN Reason: Agitation Metformin HCl (Glucophage) 500 mg PO BID AJITH Last Admin: 06/13/18 11:12 Dose: 500 mg Documented by: Ondansetron HCl (Zofran Odt) 4 mg PO Q6HR PRN PRN Reason: Nausea Review of Systems Constitutional: no weight loss, no weight gain, no fever, no chills Ears, nose, mouth and throat: no ear pain, no ear discharge, no tinnitis, no decreased hearing, no nose pain Breasts: no change in shape, no swelling, no mass Cardiovascular: no chest pain, no orthopnea, no palpitations, no rapid/irregular heart beat, no edema Respiratory: cough, cough with sputum, excessive sputum, shortness of breath, no congestion, no wheezing, no pleurisy Gastrointestinal: no nausea, no vomiting, no diarrhea, no constipation Genitourinary Female: no pelvic pain, no flank pain, no menorrhagia, no dysuria, no urinary frequency, no urgency Rectal: no pain, no incontinence, no bleeding Musculoskeletal: no neck stiffness, no neck pain, no shooting arm pain, no arm numbness/tingling, no low back pain Integumentary: no rash, no pruritis, no redness, no sores, no wounds Neurological: no transient paralysis, no paralysis, no parathesias, no numbness, no tingling, no seizures Psychiatric: no anxiety, no memory loss, no change in sleep habits, no sleep dis turbances, no insomnia, no hypersomnia Endocrine: no cold intolerance, no heat intolerance, no polyphagia, no excessive thirst, no polydipsia, no polyuria Hematologic/Lymphatic: no easy bruising, no easy bleeding, no lymphadenopathy, no lymphedema Allergic/Immunologic: no urticaria, no allergic rhinitis, no wheezing, no per sistent infections, no anaphylaxis, no angioedema Exam - Constitutional Vitals: Temp Pulse Resp BP Pulse Ox 97.9 F 110 H 12 127/87 95 06/13/18 12:14 06/13/18 12:14 06/13/18 12:14 06/13/18 12:14 03/11/19 12:14 General appearance: Present: mild distress - EENT Eyes: Present: PERRL ENT: hearing intact, clear oral mucosa - Neck Neck: Present: supple, normal ROM - Respiratory Respiratory effort: labored Respiratory: bilateral: diminished, rhonchi - Cardiovascular Heart Sounds: Present: S1 & S2. Absent: rub, click - Extremities Extremities: pulses symmetrical, No edema Peripheral Pulses: within normal limits - Abdominal General gastrointestinal: Present: soft, non-tender, non-distended, normal bowel sounds Female genitourinary: Present: normal - Integumentary Integumentary: Present: clear, warm, dry - Musculoskeletal Musculoskeletal: gait normal, strength equal bilaterally - Psychiatric Psychiatric: appropriate mood/affect, intact judgment & insight - Neurologic Neurologic: CNII-XII intact, moves all extremities Results - Labs CBC & Chem 7: 06/12/18 22:39 06/11/18 00:58 Labs: Abnormal lab results 06/12/18 Range/Units 22:39 RBC 3.07 L (3.65-5.03) M/mm3 Hgb 7.5 L (10.1-14.3) gm/dl Hct 24.0 L (30.3-42.9) % MCV 78 L (79-97) fl MCH 24 L (28-32) pg RDW 21.1 H (13.2-15.2) % Plt Count 477 H (140-440) K/mm3 Monocytes % (Manual) 9.0 H (0.0-7.3) % Assessment and Plan - Patient Problems (1) Acute and chronic respiratory failure Current Visit: No Status: Acute Qualifiers: Respiratory failure complication: hypoxia Qualified Code(s): J96.21 - Acute and chronic respiratory failure with hypoxia Plan to address problem: Supplemental oxygen, nebulizer therapy, chest x ray, NIPPV as clinically indicated, ddimer, pulse oximetry (2) COPD exacerbation Current Visit: No Status: Acute Plan to address problem: Supplemental oxygen, nebulizer therapy, NIPPV as clinically indicated, IV steroid therapy, pulse oximetry. (3) Mood disorder Current Visit: No Status: Acute Plan to address problem: Phychiatry consulted, continue current therapy, (4) Malnutrition Current Visit: Yes Status: Acute Qualifiers: Protein-calorie malnutrition severity: severe Plan to address problem: Moderate-Severe: Encourage increased protein intake, balanced diet. (5) Diabetes Current Visit: Yes Status: Acute Plan to address problem: ADA diet, insulin, accu check (6) HTN (hypertension) Current Visit: Yes Status: Acute Qualifiers: Hypertension type: essential hypertension Qualified Code(s): I10 - Essential (primary) hypertension Plan to address problem: Monitor bp q shift, continue medical management. (7) DVT prophylaxis Current Visit: Yes Status: Acute Plan to address problem: SCD to BLE while in bed
[2018-06-13] MEDS ORDERED: D50W (25GM) Syringe IV PRN (15:22)
[2018-06-13] MEDS: FEOSOL PO SCH ×2 (15:37→21:16)
[2018-06-13] MEDS: HumaLOG SUB-Q SCH ×2 (16:30→22:39)
[2018-06-13] MEDS: ROCEPHIN/NS 1 GM/50 ML 1 GM/50 ML BAG IV SCH (17:51)
[2018-06-13] MEDS: SOLU-Medrol IV SCH (17:51)
[2018-06-13] MEDS ORDERED: SOLU-Medrol ONE (17:55)
[2018-06-13] MEDS ORDERED: ROCEPHIN/NS 1 GM/50 ML 1 GM/50 ML BAG IV ONE (17:55)
[2018-06-13] MEDS: PROLIXIN HCL PO SCH (21:16)
[2018-06-13] MEDS: SODIUM CHLORIDE FLUSH SYRINGE 10 ML IV SCH (21:17)
[2018-06-14] MEDS: SOLU-Medrol IV SCH ×2 (04:58→15:17)
[2018-06-14] MEDS: HumaLOG SUB-Q SCH ×4 (07:38→21:12)
[2018-06-14] MEDS: BUSPAR PO SCH ×3 (08:00→21:06)
[2018-06-14 08:12] LABS: Basophils % (Auto) 0.1 % (0.0-1.8); Hematocrit 28.4 % (30.3-42.9); Hemoglobin 8.8 gm/dl (10.1-14.3); Lymphocytes # (Auto) 0.9 K/mm3 (1.2-5.4); Lymphocytes % (Auto) 12.5 % (13.4-35.0); Mean Corpuscular HGB Conc 31 % (30-34); Mean Corpuscular Volume 78 fl (79-97); Monocytes # (Auto) 0.1 K/mm3 (0.0-0.8); Monocytes % (Auto) 1.5 % (0.0-7.3); Platelet Count 641 K/mm3 (140-440); Red Blood Count 3.66 M/mm3 (3.65-5.03)
[2018-06-14 08:19] LABS: BUN/Creatinine Ratio 37; Blood Urea Nitrogen 11 mg/dL (7-17); Calcium 8.8 mg/dL (8.4-10.2); Hemolysis Index 3
[2018-06-14] MEDS: SODIUM CHLORIDE FLUSH SYRINGE 10 ML IV SCH ×2 (09:50→21:14)
[2018-06-14] MEDS: FEOSOL PO SCH ×2 (09:50→21:06)
[2018-06-14] MEDS: PROzac PO SCH (09:50)
[2018-06-14] MEDS ORDERED: PULMICORT 1 MG, BROVANA NEBU 15 MCG IH SCH (11:00)
--- NOTE | 2018-06-14 11:49 | Progress Note ---
Subjective - Reason for Consult Consult date: 06/14/18 Reason for consult: Psychiatry Follow-up - Chief Complaint Chief complaint: "I want to get better" 53 y.o. white female who presented to the ER for chest pain and SI's. This patient is known to me. Today the patient is calm and cooperative during the assessment. She stated that she want to get better. She stated that her feelings can stress her out and cause her to be suicidal. She could not confirm or deny SI's. She denies HI's and AVH's. She denies any side effects of her medications. Mental Status Exam - Vital signs Last Vital Signs Temp 98.7 F 06/14/18 01:07 Pulse 87 06/14/18 01:07 Resp 18 06/14/18 01:07 BP 124/69 06/14/18 01:07 Pulse Ox 99 06/14/18 10:32 - Exam Narrative exam: MSE: Appearance: calm, cooperative Behavior: regular eye contact Speech: regular rate and loud tone Mood: "okay" Affect: congruent to mood Thought Process: circumstantial Thought Content: denies HI's and AVH's Motor Activity: sitting up in the bed Cognition: A/O x3 Insight: variable to fair Judgment: variable Assessment and Plan Impression: Hx of Schizoaffective DO. Unspecified Anxiety DO. Today the patient is calm and cooperative during the assessment. Recommendation/Plan: Continue 1013, Prolixin 5 mg PO HS, Prozac 40 mg PO daily and Buspar 5 mg PO TID. Discussed possible suicidality/medication induced sandra with the patient reference Prozac. Discussed generalized coping skills with the patient. Dispo: Continue to asses the patient daily, once she is medically clear, proper dispo will be determined. Will staff with Dr Олег Antonio.
[2018-06-14] MEDS: FIORICET PO PRN ×2 (12:44→21:06)
--- NOTE | 2018-06-14 14:26 | Progress Note ---
Assessment and Plan Assessment and plan: 53 YO Female with Severe Malnutrition, COPD, DM, [place], HTN, Chronic Respiratory Failure presents to ED for evaluation. Pt initially presented with SI and was placed on psychiatric hold in ED. Pt subsequently complains of increased productive cough with yellow sputum, shortness of breath. Pt currently denies fever, chills, CP, palpitations, NVD, Trauma, BRBPR, Skin rash, or recent ill contacts. Pt see and evaluated in ED and found to have symptoms consistent with COPD Exacerbation, and Acute on Chronic Respiratory Failure. Pt admitted to medical floor and initiated on IV steroid therapy. Psychiatry consulted in ED. (1) Acute and chronic respiratory failure Current Visit: No Status: Acute Qualifiers: Respiratory failure complication: hypoxia Qualified Code(s): J96.21 - Acute and chronic respiratory failure with hypoxia Plan to address problem: Supplemental oxygen, nebulizer therapy, chest x ray, NIPPV as clinically indicated, pulse oximetry (2) COPD exacerbation Current Visit: No Status: Acute Plan to address problem: Supplemental oxygen, nebulizer therapy, NIPPV as clinically indicated, IV steroid therapy, pulse oximetry. Anticipate switch to PO steroids. start on Advair (3) Mood disorder Current Visit: No Status: Acute Plan to address problem: Psychiatry consulted, continue current therapy, Input noted, continued on 1013 (4) Malnutrition Current Visit: Yes Status: Acute Qualifiers: Protein-calorie malnutrition severity: severe Plan to address problem: Moderate-Severe: Encourage increased protein intake, balanced diet. (5) Diabetes Current Visit: Yes Status: Acute Plan to address problem: ADA diet, insulin, accu check (6) HTN (hypertension) Current Visit: Yes Status: Acute Qualifiers: Hypertension type: essential hypertension Qualified Code(s): I10 - Essential (primary) hypertension Plan to address problem: Monitor bp q shift, continue medical management. (7) Headache start back on fiorecet except contraindicated by Psych (8) DVT prophylaxis Current Visit: Yes Status: Acute Plan to address problem: SCD to BLE while in bed History Interval history: Patient seen and examined, no acute distress. no adverse event reported overnight. Hospitalist Physical - Physical exam Narrative exam: General appearance: Present: mild distress - EENT Eyes: Present: PERRL ENT: hearing intact, clear oral mucosa - Neck Neck: Present: supple, normal ROM - Respiratory Respiratory effort: labored Respiratory: bilateral: diminished, rhonchi - Cardiovascular Heart Sounds: Present: S1 & S2. Absent: rub, click - Extremities Extremities: pulses symmetrical, No edema Peripheral Pulses: within normal limits - Abdominal General gastrointestinal: Present: soft, non-tender, non-distended, normal bowel sounds Female genitourinary: Present: normal - Integumentary Integumentary: Present: clear, warm, dry - Musculoskeletal Musculoskeletal: gait normal, strength equal bilaterally - Psychiatric Psychiatric: CONFUSED - Neurologic Neurologic: CNII-XII intact, moves all extremities - Constitutional Vitals: Temp Pulse Resp BP Pulse Ox 98.7 F 111 H 18 127/84 89 06/14/18 05:43 06/14/18 11:27 06/14/18 05:43 06/14/18 05:43 06/14/18 11:27 General appearance: Present: mild distress Results - Labs CBC & Chem 7: 06/14/18 07:33 06/14/18 07:33 Labs: Laboratory Last Values WBC 7.5 K/mm3 (4.5-11.0) 06/14/18 07:33 RBC 3.66 M/mm3 (3.65-5.03) 06/14/18 07:33 Hgb 8.8 gm/dl (10.1-14.3) L 06/14/18 07:33 Hct 28.4 % (30.3-42.9) L 06/14/18 07:33 MCV 78 fl (79-97) L 06/14/18 07:33 MCH 24 pg (28-32) L 06/14/18 07:33 MCHC 31 % (30-34) 06/14/18 07:33 RDW 21.0 % (13.2-15.2) H 06/14/18 07:33 Plt Count 641 K/mm3 (140-440) H 06/14/18 07:33 Lymph % (Auto) 12.5 % (13.4-35.0) L 06/14/18 07:33 [place] % (Auto) 1.5 % (0.0-7.3) 06/14/18 07:33 Eos % (Auto) 0.0 % (0.0-4.3) 06/14/18 07:33 Baso % (Auto) 0.1 % (0.0-1.8) 06/14/18 07:33 Lymph # 0.9 K/mm3 (1.2-5.4) L 06/14/18 07:33 [place] # 0.1 K/mm3 (0.0-0.8) 06/14/18 07:33 Eos # 0.0 K/mm3 (0.0-0.4) 06/14/18 07:33 Baso # 0.0 K/mm3 (0.0-0.1) 06/14/18 07:33 Add Manual Diff Complete 06/12/18 22:39 Total Counted 100 06/12/18 22:39 Seg Neutrophils % 85.9 % (40.0-70.0) H 06/14/18 07:33 Seg Neuts % (Manual) 59.0 % (40.0-70.0) 06/12/18 22:39 Band Neutrophils % 1.0 % 06/12/18 22:39 Lymphocytes % (Manual) 26.0 % (13.4-35.0) 06/12/18 22:39 Reactive Lymphs % (Man) 1.0 % 06/12/18 22:39 Monocytes % (Manual) 9.0 % (0.0-7.3) H 06/12/18 22:39 Eosinophils % (Manual) 4.0 % (0.0-4.3) 06/12/18 22:39 Basophils % (Manual) 0 % (0.0-1.8) 06/12/18 22:39 Metamyelocytes % 0 % 06/12/18 22:39 Myelocytes % 0 % 06/12/18 22:39 Promyelocytes % 0 % 06/12/18 22:39 Blast Cells % 0 % 06/12/18 22:39 Nucleated RBC % Not Reportable 06/12/18 22:39 Seg Neutrophils # 6.4 K/mm3 (1.8-7.7) 06/14/18 07:33 Seg Neutrophils # Man 3.3 K/mm3 (1.8-7.7) 06/12/18 22:39 Band Neutrophils # 0.1 K/mm3 06/12/18 22:39 Lymphocytes # (Manual) 1.5 K/mm3 (1.2-5.4) 06/12/18 22:39 Abs React Lymphs (Man) 0.1 K/mm3 06/12/18 22:39 Monocytes # (Manual) 0.5 K/mm3 (0.0-0.8) 06/12/18 22:39 Eosinophils # (Manual) 0.2 K/mm3 (0.0-0.4) 06/12/18 22:39 Basophils # (Manual) 0.0 K/mm3 (0.0-0.1) 06/12/18 22:39 Metamyelocytes # 0.0 K/mm3 06/12/18 22:39 Myelocytes # 0.0 K/mm3 06/12/18 22:39 Promyelocytes # 0.0 K/mm3 06/12/18 22:39 Blast Cells # 0.0 K/mm3 06/12/18 22:39 WBC Morphology Not Reportable 06/12/18 22:39 Hypersegmented Neuts Not Reportable 06/12/18 22:39 Hyposegmented Neuts Not Reportable 06/12/18 22:39 Hypogranular Neuts Not Reportable 06/12/18 22:39 Smudge Cells Not Reportable 06/12/18 22:39 Toxic Granulation Not Reportable 06/12/18 22:39 Toxic Vacuolation Not Reportable 06/12/18 22:39 Dohle Bodies Not Reportable 06/12/18 22:39 Pelger-Huet Anomaly Not Reportable 06/12/18 22:39 Musa Rods Not Reportable 06/12/18 22:39 Platelet Estimate Consistent w auto 06/12/18 22:39 Clumped Platelets Not Reportable 06/12/18 22:39 Plt Clumps, EDTA Not Reportable 06/12/18 22:39 Large Platelets Few 06/12/18 22:39 Giant Platelets Not Reportable 06/12/18 22:39 Platelet Satelliting Not Reportable 06/12/18 22:39 Plt Morphology Comment Not Reportable 06/12/18 22:39 RBC Morphology Not Reportable 06/12/18 22:39 Dimorphic RBCs Not Reportable 06/12/18 22:39 Polychromasia Not Reportable 06/12/18 22:39 Hypochromasia 2+ 06/12/18 22:39 Poikilocytosis Not Reportable 06/12/18 22:39 Anisocytosis 1+ 06/12/18 22:39 Microcytosis 1+ 06/12/18 22:39 Macrocytosis Not Reportable 06/12/18 22:39 Spherocytes Not Reportable 06/12/18 22:39 Pappenheimer Bodies Not Reportable 06/12/18 22:39 Sickle Cells Not Reportable 06/12/18 22:39 Target Cells Not Reportable 06/12/18 22:39 Tear Drop Cells Not Reportable 06/12/18 22:39 Ovalocytes 1+ 06/12/18 22:39 Helmet Cells Not Reportable 06/12/18 22:39 Gautam-[place] Bodies Not Reportable 06/12/18 22:39 [place] Rings Not Reportable 06/12/18 22:39 [place] Cells Not Reportable 06/12/18 22:39 Bite Cells Not Reportable 06/12/18 22:39 Crenated Cell Not Reportable 06/12/18 22:39 Elliptocytes Not Reportable 06/12/18 22:39 Acanthocytes (Spur) Not Reportable 06/12/18 22:39 Rouleaux Not Reportable 06/12/18 22:39 Hemoglobin C Crystals Not Reportable 06/12/18 22:39 Schistocytes Not Reportable 06/12/18 22:39 Malaria parasites Not Reportable 06/12/18 22:39 Remi Bodies Not Reportable 06/12/18 22:39 Hem Pathologist Commnt No 06/12/18 22:39 D-Dimer 205.37 ng/mlDDU (0-234) 06/11/18 00:58 Sodium 140 mmol/L (137-145) 06/14/18 07:33 Potassium 4.7 mmol/L (3.6-5.0) D 06/14/18 07:33 Chloride 98.7 mmol/L (98-107) 06/14/18 07:33 Carbon Dioxide 31 mmol/L (22-30) H 06/14/18 07:33 Anion Gap 15 mmol/L 06/14/18 07:33 BUN 11 mg/dL (7-17) 06/14/18 07:33 Creatinine 0.3 mg/dL (0.7-1.2) L 06/14/18 07:33 Estimated GFR > 60 ml/min 06/14/18 07:33 BUN/Creatinine Ratio 37 % 06/14/18 07:33 Glucose 169 mg/dL (65-100) H 06/14/18 07:33 POC Glucose 98 (70-105) 06/12/18 20:47 Calcium 8.8 mg/dL (8.4-10.2) 06/14/18 07:33 Troponin T < 0.010 ng/mL (0.00-0.029) 06/11/18 03:35 Urine Color Straw (Yellow) 06/12/18 04:36 Urine Turbidity Clear (Clear) 06/12/18 04:36 Urine pH 5.0 (5.0-7.0) 06/12/18 04:36 Ur Specific [place] 1.008 (1.003-1.030) 06/12/18 04:36 Urine Protein <15 mg/dl mg/dL (Negative) 06/12/18 04:36 Urine Glucose (UA) Neg mg/dL (Negative) 06/12/18 04:36 Urine Ketones Neg mg/dL (Negative) 06/12/18 04:36 Urine Blood Neg (Negative) 06/12/18 04:36 Urine Nitrite Neg (Negative) 06/12/18 04:36 Urine Bilirubin Neg (Negative) 06/12/18 04:36 Urine Urobilinogen < 2.0 mg/dL (<2.0) 06/12/18 04:36 Ur Leukocyte Esterase Neg (Negative) 06/12/18 04:36 Urine WBC (Auto) 1.0 /HPF (0.0-6.0) 06/12/18 04:36 Urine RBC (Auto) < 1.0 /HPF (0.0-6.0) 06/12/18 04:36 U Epithel Cells (Auto) < 1.0 /HPF (0-13.0) 06/12/18 04:36 Salicylates < 0.3 mg/dL (2.8-20.0) L 06/11/18 00:58 Urine Opiates Screen Presumptive negative 06/12/18 04:36 Urine Methadone Screen Presumptive negative 06/12/18 04:36 Acetaminophen < 5.0 ug/mL (10.0-30.0) L 06/11/18 00:58 Ur Barbiturates Screen Presumptive negative 06/12/18 04:36 Ur Phencyclidine Scrn Presumptive negative 06/12/18 04:36 Ur Amphetamines Screen Presumptive negative 06/12/18 04:36 U Benzodiazepines Scrn Presumptive negative 06/12/18 04:36 Urine Cocaine Screen Presumptive negative 06/12/18 04:36 U Marijuana (THC) Screen Presumptive negative 06/12/18 04:36 Drugs of Abuse Note Disclamer 06/12/18 04:36 Plasma/Serum Alcohol < 0.01 % (0-0.07) 06/11/18 00:58 - Imaging and Cardiology Chest x-ray: image reviewed (no acute process noted)
[2018-06-14] MEDS: BROVANA NEBU IH SCH ×2 (14:47→19:56)
[2018-06-14] MEDS: PULMICORT IH SCH ×2 (14:47→19:56)
[2018-06-14] MEDS: ROCEPHIN/NS 1 GM/50 ML 1 GM/50 ML BAG IV SCH (15:31)
[2018-06-14] MEDS: PROLIXIN HCL PO SCH (21:07)
[2018-06-15] MEDS: FIORICET PO PRN ×4 (05:30→19:07)
[2018-06-15] MEDS: SODIUM CHLORIDE FLUSH SYRINGE 10 ML IV SCH ×3 (05:31→22:11)
[2018-06-15] MEDS: SOLU-Medrol IV SCH ×2 (05:31→15:35)
[2018-06-15] MEDS: HumaLOG SUB-Q SCH ×4 (07:30→22:41)
[2018-06-15] MEDS: PULMICORT IH SCH ×2 (07:37→20:04)
[2018-06-15] MEDS: BROVANA NEBU IH SCH ×2 (07:37→20:04)
[2018-06-15] MEDS: PROzac PO SCH (10:17)
[2018-06-15] MEDS: FEOSOL PO SCH ×2 (10:17→22:10)
[2018-06-15] MEDS: BUSPAR PO SCH ×3 (10:17→22:10)
--- NOTE | 2018-06-15 12:08 | Progress Note ---
Assessment and Plan Assessment and plan: 53 YO Female with Severe Malnutrition, COPD, DM, [place], HTN, Chronic Respiratory Failure presents to ED for evaluation. Pt initially presented with SI and was placed on psychiatric hold in ED. Pt subsequently complains of increased productive cough with yellow sputum, shortness of breath. Pt currently denies fever, chills, CP, palpitations, NVD, Trauma, BRBPR, Skin rash, or recent ill contacts. Pt see and evaluated in ED and found to have symptoms consistent with COPD Exacerbation, and Acute on Chronic Respiratory Failure. Pt admitted to medical floor and initiated on IV steroid therapy. Psychiatry consulted in ED. (1) Acute and chronic respiratory failure Current Visit: No Status: Acute Qualifiers: Respiratory failure complication: hypoxia Qualified Code(s): J96.21 - Acute and chronic respiratory failure with hypoxia Plan to address problem: Supplemental oxygen, nebulizer therapy, chest x ray, NIPPV as clinically indicated, pulse oximetry (2) COPD exacerbation Current Visit: No Status: Acute Plan to address problem: Supplemental oxygen, nebulizer therapy, NIPPV as clinically indicated, IV steroid therapy, pulse oximetry. Anticipate switch to PO steroids. start on Advair (3) Mood disorder Current Visit: No Status: Acute Plan to address problem: Psychiatry consulted, continue current therapy, Input noted, continued on 1013 Medicl (4) Malnutrition Current Visit: Yes Status: Acute Qualifiers: Protein-calorie malnutrition severity: severe Plan to address problem: Moderate-Severe: Encourage increased protein intake, balanced diet. (5) Diabetes Current Visit: Yes Status: Acute Plan to address problem: ADA diet, insulin, accu check (6) HTN (hypertension) Current Visit: Yes Status: Acute Qualifiers: Hypertension type: essential hypertension Qualified Code(s): I10 - Essential (primary) hypertension Plan to address problem: Monitor bp q shift, continue medical management. (7) Headache start back on fiorecet except contraindicated by Psych (8) Anemia Stable (9)DVT prophylaxis Current Visit: Yes Status: Acute Plan to address problem: SCD to BLE while in bed Patient is medically stable for discharge when ok with Pschy History Interval history: Patient seen and examined, no acute distress. no adverse event reported overnight.resting comfortable, headache is resolved Hospitalist Physical - Physical exam Narrative exam: General appearance: Present: mild distress - EENT Eyes: Present: PERRL ENT: hearing intact, clear oral mucosa - Neck Neck: Present: supple, normal ROM - Respiratory Respiratory effort: labored Respiratory: bilateral: diminished, rhonchi - Cardiovascular Heart Sounds: Present: S1 & S2. Absent: rub, click - Extremities Extremities: pulses symmetrical, No edema Peripheral Pulses: within normal limits - Abdominal General gastrointestinal: Present: soft, non-tender, non-distended, normal bowel sounds Female genitourinary: Present: normal - Integumentary Integumentary: Present: clear, warm, dry - Musculoskeletal Musculoskeletal: gait normal, strength equal bilaterally - Psychiatric Psychiatric: CONFUSED - Neurologic Neurologic: CNII-XII intact, moves all extremities - Constitutional Vitals: Temp Pulse Resp BP Pulse Ox 97.3 F L 94 H 18 114/81 96 06/15/18 05:35 06/15/18 07:50 06/15/18 07:50 06/15/18 05:35 06/15/18 07:41 General appearance: Present: mild distress Results - Labs CBC & Chem 7: 06/14/18 07:33 06/14/18 07:33 Labs: Laboratory Last Values WBC 7.5 K/mm3 (4.5-11.0) 06/14/18 07:33 RBC 3.66 M/mm3 (3.65-5.03) 06/14/18 07:33 Hgb 8.8 gm/dl (10.1-14.3) L 06/14/18 07:33 Hct 28.4 % (30.3-42.9) L 06/14/18 07:33 MCV 78 fl (79-97) L 06/14/18 07:33 MCH 24 pg (28-32) L 06/14/18 07:33 MCHC 31 % (30-34) 06/14/18 07:33 RDW 21.0 % (13.2-15.2) H 06/14/18 07:33 Plt Count 641 K/mm3 (140-440) H 06/14/18 07:33 Lymph % (Auto) 12.5 % (13.4-35.0) L 06/14/18 07:33 [place] % (Auto) 1.5 % (0.0-7.3) 06/14/18 07:33 Eos % (Auto) 0.0 % (0.0-4.3) 06/14/18 07:33 Baso % (Auto) 0.1 % (0.0-1.8) 06/14/18 07:33 Lymph # 0.9 K/mm3 (1.2-5.4) L 06/14/18 07:33 [place] # 0.1 K/mm3 (0.0-0.8) 06/14/18 07:33 Eos # 0.0 K/mm3 (0.0-0.4) 06/14/18 07:33 Baso # 0.0 K/mm3 (0.0-0.1) 06/14/18 07:33 Add Manual Diff Complete 06/12/18 22:39 Total Counted 100 06/12/18 22:39 Seg Neutrophils % 85.9 % (40.0-70.0) H 06/14/18 07:33 Seg Neuts % (Manual) 59.0 % (40.0-70.0) 06/12/18 22:39 Band Neutrophils % 1.0 % 06/12/18 22:39 Lymphocytes % (Manual) 26.0 % (13.4-35.0) 06/12/18 22:39 Reactive Lymphs % (Man) 1.0 % 06/12/18 22:39 Monocytes % (Manual) 9.0 % (0.0-7.3) H 06/12/18 22:39 Eosinophils % (Manual) 4.0 % (0.0-4.3) 06/12/18 22:39 Basophils % (Manual) 0 % (0.0-1.8) 06/12/18 22:39 Metamyelocytes % 0 % 06/12/18 22:39 Myelocytes % 0 % 06/12/18 22:39 Promyelocytes % 0 % 06/12/18 22:39 Blast Cells % 0 % 06/12/18 22:39 Nucleated RBC % Not Reportable 06/12/18 22:39 Seg Neutrophils # 6.4 K/mm3 (1.8-7.7) 06/14/18 07:33 Seg Neutrophils # Man 3.3 K/mm3 (1.8-7.7) 06/12/18 22:39 Band Neutrophils # 0.1 K/mm3 06/12/18 22:39 Lymphocytes # (Manual) 1.5 K/mm3 (1.2-5.4) 06/12/18 22:39 Abs React Lymphs (Man) 0.1 K/mm3 06/12/18 22:39 Monocytes # (Manual) 0.5 K/mm3 (0.0-0.8) 06/12/18 22:39 Eosinophils # (Manual) 0.2 K/mm3 (0.0-0.4) 06/12/18 22:39 Basophils # (Manual) 0.0 K/mm3 (0.0-0.1) 06/12/18 22:39 Metamyelocytes # 0.0 K/mm3 06/12/18 22:39 Myelocytes # 0.0 K/mm3 06/12/18 22:39 Promyelocytes # 0.0 K/mm3 06/12/18 22:39 Blast Cells # 0.0 K/mm3 06/12/18 22:39 WBC Morphology Not Reportable 06/12/18 22:39 Hypersegmented Neuts Not Reportable 06/12/18 22:39 Hyposegmented Neuts Not Reportable 06/12/18 22:39 Hypogranular Neuts Not Reportable 06/12/18 22:39 Smudge Cells Not Reportable 06/12/18 22:39 Toxic Granulation Not Reportable 06/12/18 22:39 Toxic Vacuolation Not Reportable 06/12/18 22:39 Dohle Bodies Not Reportable 06/12/18 22:39 Pelger-Huet Anomaly Not Reportable 06/12/18 22:39 Musa Rods Not Reportable 06/12/18 22:39 Platelet Estimate Consistent w auto 06/12/18 22:39 Clumped Platelets Not Reportable 06/12/18 22:39 Plt Clumps, EDTA Not Reportable 06/12/18 22:39 Large Platelets Few 06/12/18 22:39 Giant Platelets Not Reportable 06/12/18 22:39 Platelet Satelliting Not Reportable 06/12/18 22:39 Plt Morphology Comment Not Reportable 06/12/18 22:39 RBC Morphology Not Reportable 06/12/18 22:39 Dimorphic RBCs Not Reportable 06/12/18 22:39 Polychromasia Not Reportable 06/12/18 22:39 Hypochromasia 2+ 06/12/18 22:39 Poikilocytosis Not Reportable 06/12/18 22:39 Anisocytosis 1+ 06/12/18 22:39 Microcytosis 1+ 06/12/18 22:39 Macrocytosis Not Reportable 06/12/18 22:39 Spherocytes Not Reportable 06/12/18 22:39 Pappenheimer Bodies Not Reportable 06/12/18 22:39 Sickle Cells Not Reportable 06/12/18 22:39 Target Cells Not Reportable 06/12/18 22:39 Tear Drop Cells Not Reportable 06/12/18 22:39 Ovalocytes 1+ 06/12/18 22:39 Helmet Cells Not Reportable 06/12/18 22:39 Gautam-[place] Bodies Not Reportable 06/12/18 22:39 [place] Rings Not Reportable 06/12/18 22:39 [place] Cells Not Reportable 06/12/18 22:39 Bite Cells Not Reportable 06/12/18 22:39 Crenated Cell Not Reportable 06/12/18 22:39 Elliptocytes Not Reportable 06/12/18 22:39 Acanthocytes (Spur) Not Reportable 06/12/18 22:39 Rouleaux Not Reportable 06/12/18 22:39 Hemoglobin C Crystals Not Reportable 06/12/18 22:39 Schistocytes Not Reportable 06/12/18 22:39 Malaria parasites Not Reportable 06/12/18 22:39 Remi Bodies Not Reportable 06/12/18 22:39 Hem Pathologist Commnt No 06/12/18 22:39 D-Dimer 205.37 ng/mlDDU (0-234) 06/11/18 00:58 Sodium 140 mmol/L (137-145) 06/14/18 07:33 Potassium 4.7 mmol/L (3.6-5.0) D 06/14/18 07:33 Chloride 98.7 mmol/L (98-107) 06/14/18 07:33 Carbon Dioxide 31 mmol/L (22-30) H 06/14/18 07:33 Anion Gap 15 mmol/L 06/14/18 07:33 BUN 11 mg/dL (7-17) 06/14/18 07:33 Creatinine 0.3 mg/dL (0.7-1.2) L 06/14/18 07:33 Estimated GFR > 60 ml/min 06/14/18 07:33 BUN/Creatinine Ratio 37 % 06/14/18 07:33 Glucose 169 mg/dL (65-100) H 06/14/18 07:33 POC Glucose 98 (70-105) 06/12/18 20:47 Calcium 8.8 mg/dL (8.4-10.2) 06/14/18 07:33 Troponin T < 0.010 ng/mL (0.00-0.029) 06/11/18 03:35 Urine Color Straw (Yellow) 06/12/18 04:36 Urine Turbidity Clear (Clear) 06/12/18 04:36 Urine pH 5.0 (5.0-7.0) 06/12/18 04:36 Ur Specific [place] 1.008 (1.003-1.030) 06/12/18 04:36 Urine Protein <15 mg/dl mg/dL (Negative) 06/12/18 04:36 Urine Glucose (UA) Neg mg/dL (Negative) 06/12/18 04:36 Urine Ketones Neg mg/dL (Negative) 06/12/18 04:36 Urine Blood Neg (Negative) 06/12/18 04:36 Urine Nitrite Neg (Negative) 06/12/18 04:36 Urine Bilirubin Neg (Negative) 06/12/18 04:36 Urine Urobilinogen < 2.0 mg/dL (<2.0) 06/12/18 04:36 Ur Leukocyte Esterase Neg (Negative) 06/12/18 04:36 Urine WBC (Auto) 1.0 /HPF (0.0-6.0) 06/12/18 04:36 Urine RBC (Auto) < 1.0 /HPF (0.0-6.0) 06/12/18 04:36 U Epithel Cells (Auto) < 1.0 /HPF (0-13.0) 06/12/18 04:36 Salicylates < 0.3 mg/dL (2.8-20.0) L 06/11/18 00:58 Urine Opiates Screen Presumptive negative 06/12/18 04:36 Urine Methadone Screen Presumptive negative 06/12/18 04:36 Acetaminophen < 5.0 ug/mL (10.0-30.0) L 06/11/18 00:58 Ur Barbiturates Screen Presumptive negative 06/12/18 04:36 Ur Phencyclidine Scrn Presumptive negative 06/12/18 04:36 Ur Amphetamines Screen Presumptive negative 06/12/18 04:36 U Benzodiazepines Scrn Presumptive negative 06/12/18 04:36 Urine Cocaine Screen Presumptive negative 06/12/18 04:36 U Marijuana (THC) Screen Presumptive negative 06/12/18 04:36 Drugs of Abuse Note Disclamer 06/12/18 04:36 Plasma/Serum Alcohol < 0.01 % (0-0.07) 06/11/18 00:58
--- NOTE | 2018-06-15 12:21 | Discharge Summary ---
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 Pt initially presented with SI and was placed on psychiatric hold in ED. Pt subsequently complains of increased productive cough with yellow sputum, shortness of breath. Pt currently denies fever, chills, CP, palpitations, NVD, Trauma, BRBPR, Skin rash, or recent ill contacts. Pt see and evaluated in ED and found to have symptoms consistent with COPD Exacerbation, and Acute on Chronic Respiratory Failure. Pt admitted to medical floor and initiated on IV steroid therapy. Psychiatry consulted in ED. (1) Acute and chronic respiratory failure Current Visit: No Status: Acute Qualifiers: Respiratory failure complication: hypoxia Qualified Code(s): J96.21 - Acute and chronic respiratory failure with hypoxia Plan to address problem: Treated with oxygen, and steroids and today is at baseline [facility] no wheezing (2) COPD exacerbation Current Visit: No Status: Acute Plan to address problem: As noted above start on Advair- at home dose (3) Mood disorder Current Visit: No Status: Acute Plan to address problem: Psychiatry consulted, and will continue with psych outpatient if 1013 removed (4) Malnutrition Current Visit: Yes Status: Acute Qualifiers: Protein-calorie malnutrition severity: severe Plan to address problem: Moderate-Severe: Encourage increased protein intake, balanced diet. (5) Diabetes Current Visit: Yes Status: Acute Plan to address problem: ADA diet, insulin, accu check (6) HTN (hypertension) Current Visit: Yes Status: Acute Qualifiers: Hypertension type: essential hypertension Qualified Code(s): I10 - Es sential (primary) hypertension Plan to address problem: stable Disposition: - TO HOME OR SELFCARE Time spent for discharge: 35 mins Core Measure Documentation - Palliative Care Palliative Care/ Comfort Measures: Not Applicable - Core Measures Any of the following diagnoses?: none Exam - Physical Exam Narrative exam: General appearance: Present: no distress - EENT Eyes: Present: PERRL ENT: hearing intact, clear oral mucosa - Neck Neck: Present: supple, normal ROM - Respiratory Respiratory effort: normal Respiratory: bilateral: diminished at bases, but good air entry at rishabh apex - Cardiovascular Heart Sounds: Present: S1 & S2. Absent: rub, click - Extremities Extremities: pulses symmetrical, No edema Peripheral Pulses: within normal limits - Abdominal General gastrointestinal: Present: soft, non-tender, non-distended, normal bowel sounds Female genitourinary: Present: normal - Integumentary Integumentary: Present: clear, warm, dry - Musculoskeletal Musculoskeletal: gait normal, strength equal bilaterally - Psychiatric Psychiatric: CONFUSED - Neurologic Neurologic: CNII-XII intact, moves all extremities - Constitutional Vitals: Temp Pulse Resp BP Pulse Ox 97.3 F L 94 H 18 114/81 96 06/15/18 05:35 06/15/18 07:50 06/15/18 07:50 06/15/18 05:35 06/15/18 07:41 Plan Activity: advance as tolerated, fall precautions Diet: diabetic Special Instructions: record daily weights, record daily BP diary, record blood sugar diary, smoking cessation Follow up with: PATY LOFTON MD [Primary Care Provider] - 3-5 Days DARIEL MACK MD [Staff Physician] - 7 Days [facility] [Outside] - 7 Days
--- NOTE | 2018-06-15 13:52 | Progress Note ---
Subjective - Reason for Consult Consult date: 06/15/18 Reason for consult: Psychiatric Follow-up Evaluation - Chief Complaint Chief complaint: "I feel much better" Patient is a 53 y.o. white female who presented to the ER for chest pain and SI's. This patient is known to me. Today the patient is calm and cooperative during the assessment. She reports "initially I was suicidal but I'm not anymore." Today is patient's first day of not being suicidal . She denies SI/HI's, A/VH's, and delusions. She reports appropriate sleep and appetite. Patient is medication compliant. She denies any side effects of medications. Per sitter patient is cheeking/disposing medications. Mental Status Exam - Vital signs Last Vital Signs Temp 97.3 F L 06/15/18 05:35 Pulse 94 H 06/15/18 07:50 Resp 18 06/15/18 07:50 BP 114/81 06/15/18 05:35 Pulse Ox 96 06/15/18 07:41 - Exam Narrative exam: Mental Status Exam Appearance: calm, cooperative Behavior: regular eye contact Speech: regular rate and loud tone Mood: "I feel much better" Affect: congruent to mood Thought Process: circumstantial Thought Content: denies SI/HI's and AVH's Motor Activity: sitting up in the bed Cognition: A/O x3 Insight: variable to fair Judgment: variable Assessment and Plan Impression: Hx of Schizoaffective DO. Unspecified Anxiety DO. Today the patient is calm and cooperative during the assessment. She denies SI/HI's, A/VH's, and delusions. Recommendation/Plan: 1. Continue 1013. 2. Continue Prolixin 5 mg PO HS, Prozac 40 mg PO daily and Buspar 5 mg PO TID. Discussed possible suicidality/medication induced sandra with the patient reference Prozac. Discussed generalized coping skills with the patient. Disposition: Continue to asses the patient daily, once she is medically clear, proper disposition will be determined. Will staff with Dr. Vincenzo Antonio.
[2018-06-15] MEDS: ROCEPHIN/NS 1 GM/50 ML 1 GM/50 ML BAG IV SCH (16:00)
[2018-06-15] MEDS: PROLIXIN HCL PO SCH (22:11)
[2018-06-16] MEDS: SOLU-Medrol IV SCH (05:19)
[2018-06-16] MEDS: HumaLOG SUB-Q SCH ×2 (07:30→13:00)
[2018-06-16 08:22] VITALS: BP 127/86
[2018-06-16] MEDS: BUSPAR PO SCH (08:56)
[2018-06-16] MEDS: FIORICET PO PRN (08:56)
--- NOTE | 2018-06-16 10:12 | Progress Note ---
Subjective - Reason for Consult Consult date: 06/16/18 Reason for consult: Psychiatry Follow-up - Chief Complaint Chief complaint: "Amy" Patient is a 53 y.o. white female who presented to the ER for chest pain and SI's. This patient is known to me. Today the patient is calm and cooperative during the assessment. She stated that her feelings of "sadness" has ended. She denies SI/HI's and AVH's. She was asked about cheeking her medications, she stated, "I am taking my meds." She denies any side effects of her medications. Mental Status Exam - Vital signs Last Vital Signs Temp 98.3 F 06/16/18 08:00 Pulse 94 H 06/16/18 08:19 Resp 18 06/16/18 08:00 BP 127/86 06/16/18 08:00 Pulse Ox 90 06/16/18 08:19 - Exam Narrative exam: MSE: Appearance: calm, cooperative Behavior: regular eye contact Speech: regular rate and loud tone Mood: "okay" Affect: congruent to mood Thought Process: linear Thought Content: denies SI/HI's and AVH's Motor Activity: sitting up in the bed Cognition: A/O x3 Insight: fair Judgment: fair Assessment and Plan Impression: Hx of Schizoaffective DO. Unspecified Anxiety DO. Today the patient is calm and cooperative during the assessment. The patient is no threat to self. Recommendation/Plan: Rescind 1013 and continue Prolixin 5 mg PO HS, Prozac 40 mg PO daily and Buspar 5 mg PO TID. Discussed possible suicidality/medication induced sandra with the patient reference Prozac. Discussed generalized coping skills with the patient. Dispo: The patient can follow up with [facility] for outpatient psy services. Will staff with Dr Giles.
[2018-06-16] MEDS: BROVANA NEBU IH SCH (10:25)
[2018-06-16] MEDS: PULMICORT IH SCH (10:25)
[2018-06-16] MEDS: FEOSOL PO SCH (10:37)
[2018-06-16] MEDS: PROzac PO SCH (10:37)
== END 2018-06-16 14:30 | disposition home or self-care (01) | DRG 189 ==
LOC: ED 21:52 → 3A 06-13 15:20
PROVIDERS: ADMIT Internal Medicine; ATTEND Internal Medicine
DX: J96.21 Acute and chronic respiratory failure with hypoxia (principal); J44.1 Chronic obstructive pulmonary disease with (acute) exacerbation; E43 Unspecified severe protein-calorie malnutrition; R45.851 Suicidal ideations; D64.9 Anemia, unspecified; R00.0 Tachycardia, unspecified; F41.9 Anxiety disorder, unspecified; F25.9 Schizoaffective disorder, unspecified; J44.9 Chronic obstructive pulmonary disease, unspecified; I12.9 Hypertensive chronic kidney disease with stage 1 through stage 4 chronic kidney disease, or unspecified chronic kidney disease; N18.9 Chronic kidney disease, unspecified; F39 Unspecified mood [affective] disorder; R51 Headache; I25.2 Old myocardial infarction; Z68.1 Body mass index [BMI] 19.9 or less, adult; Z87.891 Personal history of nicotine dependence; Z79.84 Long term (current) use of oral hypoglycemic drugs; Z88.8 Allergy status to other drugs, medicaments and biological substances
CPT/HCPCS: 36415; 71046; 80048; 80307; 80320; 81001; 82962; 84484; 85007; 85025; 85027; 85379; 94640; 94760; 96374; G0378; G0480; J0696; J1815; J2060; J2920; J7030

== ENCOUNTER 2018-06-17 21:03 | Emergency (ER) | payer MEDICAID ==
[2018-06-17 21:13] VITALS: BP 143/84
[2018-06-17 23:28] LABS: Bilirubin,Urine NEG (Negative); Blood,Urine NEG (Negative); Color,Urine Straw (Yellow); Protein,Urine <15 mg/dL mg/dL (Negative); Urobilinogen,Urine < 2.0 mg/dL (<2.0); WBC,Urine < 1.0 /HPF (0.0-6.0)
--- NOTE | 2018-06-18 00:08 | Emergency Department Report ---
ED Medical Clearance HPI - General Chief complaint: Urogenital-Female Stated complaint: VAGINAL PAIN Time Seen by Provider: 06/17/18 23:57 Source: patient, family Mode of arrival: Ambulatory - History of Present Illness Initial comments: 53-year-old female who is seen here multiple times this month comes in reporting she has vaginal pain for 4 days. When interview patient patient reports that she needs her metformin a refill of this feels that her vaginal pain is due to her being out of of her metformin. Patient denies any vaginal discharge vaginal bleeding no urinary urgency urinary frequency no fever no chills. Patient does have a past medical history suicidal ideation, COPD, diabetes Alledged Intoxication: No Compliant with Home Medications: Yes Traumatic Symptoms: denies traumatic injury Treatments Prior to Arrival: none Home medications: Previous Rx's Medication Instructions Recorded Last Taken Type ALBUTEROL Inhaler(NF) [VENTOLIN 1 puff IH Q4H PRN 30 Days inha 06/15/18 Unknown Rx Inhaler(NF)] Butalb/Acetamin/Caff 50-325-40 1 tab PO Q4H PRN #14 tablet 06/15/18 Unknown Rx [Fioricet] FLUoxetine [PROzac] 40 mg PO QAM #30 capsule 06/15/18 Unknown Rx Ferrous Sulfate [Feosol 325 MG tab] 325 mg PO BID #60 tablet 06/15/18 Unknown Rx Fluticasone/Salmeterol [Advair 1 puff IH BID #1 disk.w.dev 06/15/18 Unknown Rx Diskus 250-50 mcg] Prednisone [predniSONE 10 mg 10 mg PO .TAPER #1 tab.ds.pk 06/15/18 Unknown Rx (6-Day Pack, 21 Tabs)] busPIRone [Buspar] 5 mg PO TID #30 tablet 06/15/18 Unknown Rx fluPHENAZine HCl [Prolixin] 5 mg PO HS #30 tablet 06/15/18 Unknown Rx metFORMIN [Glucophage] 500 mg PO BID #60 tablet 06/18/18 Unknown Rx Allergies/Adverse reactions: Allergies Allergy/AdvReac Type Severity Reaction Status Date / Time clonazepam [From Klonopin] Allergy Unknown Verified 06/10/18 22:32 quetiapine [From Seroquel] Allergy Unknown Verified 06/10/18 22:32 ED Review of Systems ROS: Stated complaint: VAGINAL PAIN Other details as noted in HPI Comment: All other systems reviewed and negative ED Past Medical Hx - Past Medical History Hx Hypertension: Yes Hx Heart Attack/AMI: Yes Hx Congestive Heart Failure: No Hx Diabetes: Yes Hx Sickle Cell Disease: No Hx Asthma: No Hx COPD: Yes Hx HIV: No - Surgical History Additional Surgical History: heart - Social History Smoking Status: Never Smoker Substance Use Type: None - Medications Home Medications: Home Medications Medication Instructions Recorded Confirmed Last Taken Type ALBUTEROL Inhaler(NF) [VENTOLIN 1 puff IH Q4H PRN 30 Days inha 06/15/18 Unknown Rx Inhaler(NF)] Butalb/Acetamin/Caff 50-325-40 1 tab PO Q4H PRN #14 tablet 06/15/18 Unknown Rx [Fioricet] FLUoxetine [PROzac] 40 mg PO QAM #30 capsule 06/15/18 Unknown Rx Ferrous Sulfate [Feosol 325 MG tab] 325 mg PO BID #60 tablet 06/15/18 Unknown Rx Fluticasone/Salmeterol [Advair 1 puff IH BID #1 disk.w.dev 06/15/18 Unknown Rx Diskus 250-50 mcg] Prednisone [predniSONE 10 mg 10 mg PO .TAPER #1 tab.ds.pk 06/15/18 Unknown Rx (6-Day Pack, 21 Tabs)] busPIRone [Buspar] 5 mg PO TID #30 tablet 06/15/18 Unknown Rx fluPHENAZine HCl [Prolixin] 5 mg PO HS #30 tablet 06/15/18 Unknown Rx metFORMIN [Glucophage] 500 mg PO BID #60 tablet 06/18/18 Unknown Rx ED Physical Exam - General Limitations: No Limitations General appearance: alert, in no apparent distress - Head Head exam: Present: atraumatic, normocephalic - Eye Eye exam: Present: normal appearance - ENT ENT exam: Present: mucous membranes moist - Neck Neck exam: Present: normal inspection - Respiratory Respiratory exam: Present: normal lung sounds bilaterally. Absent: respiratory distress - Back Exam Back exam: Present: normal inspection - Neurological Exam Neurological exam: Present: alert, oriented X3 - Psychiatric Psychiatric exam: Present: normal affect, normal mood - Skin Skin exam: Present: warm, dry, intact, normal color. Absent: rash ED Course Vital Signs 06/17/18 06/17/18 21:10 21:50 Temperature 97.8 F 97.8 F Pulse Rate 126 H 118 H Respiratory 18 16 Rate Blood Pressure 143/84 143/84 O2 Sat by Pulse 95 96 Oximetry ED Disposition Clinical Impression: Medication refill Diabetes Qualifiers: Diabetes mellitus type: type 2 Diabetes mellitus complication status: with unspecified complications Disposition: DC-01 TO HOME OR SELFCARE Is pt being admited?: No Does the pt Need Aspirin: No Condition: Stable Instructions: Diabetes Mellitus Type 2 in Adults (ED) Additional Instructions: Please take your chronic medications as prescribed. It's very important for you to keep her appointment for 07/06/2018 at 0945 with [facility]. Prescriptions: metFORMIN [Glucophage] 500 mg PO BID #60 tablet Referrals: [facility] [Provider Group] - 3-5 Days
== END 2018-06-18 00:17 | disposition home or self-care (01) ==
LOC: ED 21:03
DX: R10.2 Pelvic and perineal pain (principal); Z76.0 Encounter for issue of repeat prescription; E11.9 Type 2 diabetes mellitus without complications; I10 Essential (primary) hypertension; J44.9 Chronic obstructive pulmonary disease, unspecified; Z88.8 Allergy status to other drugs, medicaments and biological substances
CPT/HCPCS: 81001; 82962; 99284

== ENCOUNTER 2018-06-19 23:00 | Inpatient (IN) | payer MEDICAID ==
--- NOTE | 2018-06-20 01:09 | Emergency Department Report ---
ED Shortness of Breath HPI - General Chief Complaint: Urogenital-Female Stated Complaint: URINARY INCONTINENCE Time Seen by Provider: 06/20/18 00:49 Source: patient Mode of arrival: Stretcher Limitations: No Limitations, Altered Mental Status - History of Present Illness Initial Comments: Mrs. Davenport is a 53 yo female with hx of COPD (oxygen dependent), schizoaffective disorder, hypertension, diabetes who presented with report of urinary incontinence. However due to severe lethargy. I'm unable to fully awaken the patient. She just mumbles while attempting to sleep. With history of respiratory failure concern for hypercapnia. MD Complaint: shortness of breath -: unknown Known History Of: COPD - Related Data Previous Rx's Medication Instructions Recorded Last Taken Type ALBUTEROL Inhaler(NF) [VENTOLIN 1 puff IH Q4H PRN 30 Days inha 06/15/18 Unknown Rx Inhaler(NF)] Butalb/Acetamin/Caff 50-325-40 1 tab PO Q4H PRN #14 tablet 06/15/18 Unknown Rx [Fioricet] FLUoxetine [PROzac] 40 mg PO QAM #30 capsule 06/15/18 Unknown Rx Ferrous Sulfate [Feosol 325 MG tab] 325 mg PO BID #60 tablet 06/15/18 Unknown Rx Fluticasone/Salmeterol [Advair 1 puff IH BID #1 disk.w.dev 06/15/18 Unknown Rx Diskus 250-50 mcg] Prednisone [predniSONE 10 mg 10 mg PO .TAPER #1 tab.ds.pk 06/15/18 Unknown Rx (6-Day Pack, 21 Tabs)] busPIRone [Buspar] 5 mg PO TID #30 tablet 06/15/18 Unknown Rx fluPHENAZine HCl [Prolixin] 5 mg PO HS #30 tablet 06/15/18 Unknown Rx metFORMIN [Glucophage] 500 mg PO BID #60 tablet 06/18/18 Unknown Rx Allergies Allergy/AdvReac Type Severity Reaction Status Date / Time clonazepam [From Klonopin] Allergy Unknown Verified 06/10/18 22:32 quetiapine [From Seroquel] Allergy Unknown Verified 06/10/18 22:32 ED Review of Systems ROS: Stated complaint: URINARY INCONTINENCE Other details as noted in HPI Comment: Unobtainable due to pts medical conditions (altered mental status lethargy) ED Past Medical Hx - Past Medical History Previous Medical History?: Yes Hx Hypertension: Yes Hx Heart Attack/AMI: Yes Hx Congestive Heart Failure: No Hx Diabetes: Yes Hx Sickle Cell Disease: No Hx Asthma: No Hx COPD: Yes Hx HIV: No - Surgical History Past Surgical History?: Yes Additional Surgical History: heart - Social History Smoking Status: Former Smoker Substance Use Type: None - Medications Home Medications: Home Medications Medication Instructions Recorded Confirmed Last Taken Type ALBUTEROL Inhaler(NF) [VENTOLIN 1 puff IH Q4H PRN 30 Days inha 06/15/18 Unknown Rx Inhaler(NF)] Butalb/Acetamin/Caff 50-325-40 1 tab PO Q4H PRN #14 tablet 06/15/18 Unknown Rx [Fioricet] FLUoxetine [PROzac] 40 mg PO QAM #30 capsule 06/15/18 Unknown Rx Ferrous Sulfate [Feosol 325 MG tab] 325 mg PO BID #60 tablet 06/15/18 Unknown Rx Fluticasone/Salmeterol [Advair 1 puff IH BID #1 disk.w.dev 06/15/18 Unknown Rx Diskus 250-50 mcg] Prednisone [predniSONE 10 mg 10 mg PO .TAPER #1 tab.ds.pk 06/15/18 Unknown Rx (6-Day Pack, 21 Tabs)] busPIRone [Buspar] 5 mg PO TID #30 tablet 06/15/18 Unknown Rx fluPHENAZine HCl [Prolixin] 5 mg PO HS #30 tablet 06/15/18 Unknown Rx metFORMIN [Glucophage] 500 mg PO BID #60 tablet 06/18/18 Unknown Rx ED Physical Exam - General Limitations: No Limitations General appearance: lethargic, in distress (respiratory distress) - Head Head exam: Present: atraumatic, normocephalic - Eye Eye exam: Present: normal appearance, PERRL - ENT ENT exam: Present: mucous membranes moist - Neck Neck exam: Present: normal inspection, full ROM. Absent: tenderness, meningismus - Respiratory Respiratory exam: Present: accessory muscle use, decreased breath sounds, prolonged expiratory - Cardiovascular Cardiovascular Exam: Present: normal rhythm, tachycardia, normal heart sounds. Absent: systolic murmur, diastolic murmur - GI/Abdominal GI/Abdominal exam: Present: soft. Absent: distended, tenderness, guarding, r ebound - Neurological Exam Neurological exam: Present: altered (lethargic) - Psychiatric Psychiatric exam: Present: flat affect - Skin Skin exam: Present: warm, dry, intact, normal color ED Course Vital Signs 06/19/18 06/19/18 06/20/18 23:06 23:18 01:16 Temperature 97.4 F L 97.4 F L Pulse Rate 108 H 113 H 103 H Respiratory 18 18 20 Rate Blood Pressure 149/91 149/91 122/80 O2 Sat by Pulse 78 L 79 L 100 Oximetry 06/20/18 06/20/18 01:25 01:30 Temperature Pulse Rate 104 H 108 H Respiratory 21 21 Rate Blood Pressure 122/80 107/68 O2 Sat by Pulse 97 Oximetry ED Medical Decision Making - Lab Data Result diagrams: 06/20/18 01:17 06/20/18 01:17 Laboratory Results - last 24 hr 06/20/18 06/20/18 06/20/18 00:50 01:17 01:17 WBC 13.1 H RBC 3.54 L Hgb 9.1 L Hct 29.6 L MCV 83 MCH 26 L MCHC 31 RDW 22.6 H Plt Count 691 H Lymph % (Auto) 14.6 [place] % (Auto) 7.9 H Eos % (Auto) 2.4 Baso % (Auto) 0.5 Lymph # 1.9 [place] # 1.0 H Eos # 0.3 Baso # 0.1 Seg Neutrophils % 74.6 H Seg Neutrophils # 9.8 H POC ABG pH POC ABG pO2 POC ABG HCO3 POC ABG Total CO2 POC ABG O2 Sat POC ABG Base Excess FiO2 Sodium 139 Potassium 3.9 Chloride 95.8 L Carbon Dioxide 34 H Anion Gap 13 BUN 13 Creatinine 0.4 L Estimated GFR > 60 BUN/Creatinine Ratio 33 Glucose 112 H POC Glucose Calcium 8.5 Urine Color Yellow Urine Turbidity Cloudy Urine pH 5.0 Ur Specific [place] 1.031 H Urine Protein <15 mg/dl Urine Glucose (UA) Neg Urine Ketones Neg Urine Blood Mod Urine Nitrite Neg Urine Bilirubin Neg Urine Urobilinogen < 2.0 Ur Leukocyte Esterase Mod Urine WBC (Auto) 10.0 H Urine RBC (Auto) 19.0 U Epithel Cells (Auto) 1.0 Urine Bacteria (Auto) 2+ Amorphous Crystals Few Urine Mucus Few Acetaminophen Phenytoin Carbamazepine [place] Plasma/Serum Alcohol 06/20/18 06/20/18 06/20/18 01:20 01:33 02:13 WBC RBC Hgb Hct MCV MCH MCHC RDW Plt Count Lymph % (Auto) [place] % (Auto) Eos % (Auto) Baso % (Auto) Lymph # [place] # Eos # Baso # Seg Neutrophils % Seg Neutrophils # POC ABG pH 7.283 L POC ABG pO2 98 POC ABG HCO3 36.4 POC ABG Total CO2 39 POC ABG O2 Sat 96 POC ABG Base Excess 10 FiO2 28 Sodium Potassium Chloride Carbon Dioxide Anion Gap BUN Creatinine Estimated GFR BUN/Creatinine Ratio Glucose POC Glucose 120 H Calcium Urine Color Urine Turbidity Urine pH Ur Specific [place] Urine Protein Urine Glucose (UA) Urine Ketones Urine Blood Urine Nitrite Urine Bilirubin Urine Urobilinogen Ur Leukocyte Esterase Urine WBC (Auto) Urine RBC (Auto) U Epithel Cells (Auto) Urine Bacteria (Auto) Amorphous Crystals Urine Mucus Acetaminophen Phenytoin 0.8 L Carbamazepine 2.0 L [place] 0.1 Plasma/Serum Alcohol 06/20/18 06/20/18 02:13 02:13 WBC RBC Hgb Hct MCV MCH MCHC RDW Plt Count Lymph % (Auto) [place] % (Auto) Eos % (Auto) Baso % (Auto) Lymph # [place] # Eos # Baso # Seg Neutrophils % Seg Neutrophils # POC ABG pH POC ABG pO2 POC ABG HCO3 POC ABG Total CO2 POC ABG O2 Sat POC ABG Base Excess FiO2 Sodium Potassium Chloride Carbon Dioxide Anion Gap BUN Creatinine Estimated GFR BUN/Creatinine Ratio Glucose POC Glucose Calcium Urine Color Urine Turbidity Urine pH Ur Specific [place] Urine Protein Urine Glucose (UA) Urine Ketones Urine Blood Urine Nitrite Urine Bilirubin Urine Urobilinogen Ur Leukocyte Esterase Urine WBC (Auto) Urine RBC (Auto) U Epithel Cells (Auto) Urine Bacteria (Auto) Amorphous Crystals Urine Mucus Acetaminophen < 5.0 L Phenytoin Carbamazepine [place] Plasma/Serum Alcohol < 0.01 - Medical Decision Making I consider bedside once patient was placed in a room. I was concerned for respiratory failure with obvious work of breathing and lethargy. Had a difficult time awakening patient. I immediately requested respiratory therapy with ABG. Respiratory therapist apply BiPAP. ABG did confirm hypercapnia. After a period time with noninvasive positive pressure ventilation, mental status improved. Ms. Davenport did become more alert. With history of mental illness concern for polypharmacy leading to sedated state. Will be admitted to the hospital service in fair condition. Critical Care Time: Yes Critical care time in (mins) excluding proc time.: 40 Critical care attestation.: If time is entered above; I have spent that time in minutes in the direct care of this critically ill patient, excluding procedure time. 40 minutes of critical care time excluding procedures were used in the care of the patient. Patient required multiple assessments and interventions. I reviewed the electronic medical record. I spoke with consultants involved in the care of the patient. ED Disposition Clinical Impression: COPD exacerbation, Acute and chronic respiratory failure, Schizoaffective disorder Disposition: OP ADMIT IP TO THIS HOSP Is pt being admited?: Yes Does the pt Need Aspirin: No Condition: Stable
[2018-06-20] MEDS ORDERED: NARCAN 0.4 MG/1 ML IV ONE (01:19)
[2018-06-20 01:33] LABS: Basophils # (Auto) 0.1 K/mm3 (0.0-0.1); Basophils % (Auto) 0.5 % (0.0-1.8); Eosinophils # (Auto) 0.3 K/mm3 (0.0-0.4); Eosinophils % (Auto) 2.4 % (0.0-4.3); Hematocrit 29.6 % (30.3-42.9); Hemoglobin 9.1 gm/dl (10.1-14.3); Lymphocytes # (Auto) 1.9 K/mm3 (1.2-5.4); Lymphocytes % (Auto) 14.6 % (13.4-35.0); Mean Corpuscular HGB Conc 31 % (30-34); Mean Corpuscular Volume 83 fl (79-97); Monocytes % (Auto) 7.9 % (0.0-7.3); Platelet Count 691 K/mm3 (140-440); Red Blood Count 3.54 M/mm3 (3.65-5.03)
[2018-06-20 01:36] LABS: Red Cell Distribution Width 22.6 % (13.2-15.2)
[2018-06-20 01:42] LABS: Amorphous Crystals,Urine Few; Bacteria,Urine 2+ /HPF (Negative); Bilirubin,Urine NEG (Negative); Blood,Urine MOD (Negative); Color,Urine Yellow (Yellow); Mucus,Urine FEW /HPF; Protein,Urine <15 mg/dL mg/dL (Negative); Urobilinogen,Urine < 2.0 mg/dL (<2.0)
[2018-06-20] MEDS ORDERED: NACL 0.9% 1000 ML 1,000 ML IV ONE (01:57)
[2018-06-20] MEDS ORDERED: LEVAQUIN 750MG/150ML 750 MG/150 ML BAG IV ONE (01:58)
[2018-06-20] MEDS ORDERED: SOLU-Medrol IV ONE (01:58)
[2018-06-20] MEDS ORDERED: MAGNESIUM SULFATE 2GM/50ML 2 GM/50 ML BAG IV ONE (01:59)
[2018-06-20 02:00] LABS: BUN/Creatinine Ratio 33; Blood Urea Nitrogen 13 mg/dL (7-17); Calcium 8.5 mg/dL (8.4-10.2); Hemolysis Index 6
[2018-06-20] MEDS ORDERED: D50W (25GM) Syringe IV PRN (04:00)
[2018-06-20 04:03] LABS: HCG Qualitative,Urine Negative (Negative)
[2018-06-20] MEDS ORDERED: ZOFRAN IV PRN (04:06)
[2018-06-20 04:07] LABS: Amphetamine Screen,Urine PRESUMPTIVE NEGATIVE; Benzodiazepines Screen,Urine PRESUMPTIVE NEGATIVE; Cannabinoid Screen,Urine PRESUMPTIVE NEGATIVE; Cocaine Screen,Urine PRESUMPTIVE NEGATIVE; Methadone Screen,Urine PRESUMPTIVE NEGATIVE; Opiate Screen,Urine PRESUMPTIVE NEGATIVE
[2018-06-20] MEDS ORDERED: TYLENOL PO PRN (04:07)
--- NOTE | 2018-06-20 04:46 | XRay Report ---
PROCEDURE: XR CHEST 1V AP TECHNIQUE: A portable upright view of the chest was obtained. HISTORY: dyspnea COMPARISONS: 06/11/2018 FINDINGS: The lungs are slightly hyperinflated. There are no infiltrates or effusions. The heart size is normal . The skeletal structures do not show any acute changes. IMPRESSION: COPD. No acute process in the chest.. This document is electronically signed by Trent Turner MD., June 20 2018 04:43:43 AM ET
--- NOTE | 2018-06-20 05:03 | History and Physical Report ---
CHIEF COMPLAINT: Urinary incontinence. OTHER COMPLAINT: Include lethargy and difficulty breathing. HISTORY OF PRESENTING ILLNESS: The patient is a 53-year-old female with past medical history of COPD, home O2 dependent, schizoaffective disorder, hypertension and diabetes, presenting with urinary incontinence. Also, the patient has a history of shortness of breath and lethargy. There is no history of fever, no history of chest pain. No history of nausea or vomiting. The patient presented for evaluation. PAST MEDICAL HISTORY: Pertinent for hypertension, coronary artery disease, status post myocardial infarction, diabetes mellitus, COPD, home O2 dependent. PAST SURGICAL HISTORY: Pertinent for heart surgery that is not well defined. FAMILY HISTORY: Family history is noncontributory. SOCIAL HISTORY: The patient is a former cigarette smoker. Does not smoke currently, does not drink alcohol and does not use illicit drugs. MEDICATIONS: The patient's home medications include albuterol inhaler one puff every 4 hours. Also, the patient is on Advair Diskus 250/50 one puff by inhalation twice daily, metformin 500 mg by mouth twice daily. Prednisone pack 10 mg, 6-day pack, it is not clear whether the patient is still taking this medication. Buspirone 5 mg by mouth 3 times daily, Fioricet tablet one by mouth every 4 hours, ferrous sulfate 325 mg by mouth twice daily, Prozac 40 mg by mouth every morning, fluphenazine or Prolixin 5 mg by mouth at bedtime. ALLERGIES: THE PATIENT IS ALLERGIC TO CLONAZEPAM WITH QUETIAPINE. REVIEW OF SYSTEMS: CONSTITUTIONAL: There is no fever, no chills, no diaphoresis. HEENT: There is no headache or sore throat. CARDIOVASCULAR SYSTEM: There is no chest pain or orthopnea. RESPIRATORY SYSTEM: Shortness of breath present. No cough. GASTROINTESTINAL SYSTEM: There is no nausea, no vomiting, no abdominal pain, diarrhea or constipation. NEUROLOGICAL SYSTEM: Lethargy present and change in mental status noted. MUSCULOSKELETAL SYSTEM: There is no joint pain or swelling. DERMATOLOGICAL SYSTEM: There is no skin rash or itching. GENITOURINARY SYSTEM: There is urinary incontinence and no hematuria or flank pain. Rest of system review is normal. PHYSICAL EXAMINATION: GENERAL: At the time of exam, the patient was found to be lethargic, yet arousable and not in acute distress. VITAL SIGNS: At the initial time of presentation show temperature of 97.4 degrees Fahrenheit, pulse of 108, respiration 18, blood pressure 149/91, O2 sat of 78% on room air, which went up to 97% to 100% with oxygen. HEENT: Showed pupils to be equal, round, reactive to light and accommodating. Extraocular muscles are intact. NECK: Neck is supple with no JVD or carotid bruit. CARDIOVASCULAR SYSTEM: Showed normal first and second heart sounds with no gallops or murmurs. RESPIRATORY SYSTEM: Showed reduced air entry on both sides of the lungs with no abnormal breath sounds. GASTROINTESTINAL SYSTEM: Show abdomen to be full, soft, nontender with no organomegaly or rigidity. NEUROLOGICAL: Neuro exam shows the patient to be lethargic, arousable with no focal neurological deficit elicited. MUSCULOSKELETAL SYSTEM: Show no joint swelling or tenderness. DERMATOLOGICAL SYSTEM: Show no skin rash. GENITOURINARY SYSTEM: Showing no costovertebral angle tenderness. PERTINENT LABORATORY AND IMAGING STUDIES: The patient has CBC done with elevated white count of 13,100, low hemoglobin of 9.1 and low hematocrit of 29.6 with elevated platelet count of 691. The patient's CBC differential show elevated monocyte count of 7.9 and elevated neutrophil count of 74.6. The patient's ABG showed low pH of 7.28 with pCO2 level pending and pO2 level of 98% and O2 sat of 96% with FiO2 of 28. The patient's chemistry show normal sodium, normal potassium, with low chloride of 95.8 and elevated CO2 of 34 with unremarkable renal function test. The patient's urinalysis shows yellow color, cloudy urine with elevated specific gravity of 1.031, moderate urine leukocyte esterase and elevated urine WBC of 10 as well as elevated urine RBC of 19 with 2+ bacteria. The patient's toxicology screen was unremarkable except for low valproic acid level of 2.8 and low carbamazepine level of 2.0. DIAGNOSES: 1. Chronic obstructive pulmonary disease exacerbation. 2. Urinary tract infection. PLAN OF CARE: 1. The patient will be admitted to telemetry. 2. The patient will continue BiPAP started in the Emergency Room until the patient's breathing and oxygenation improved. 3. The patient will be on Accu-Chek a.c. and at bedtime, followed by low-dose sliding scale using regular insulin coverage. 4. The patient will be on consistent carbohydrate, low sodium diet. 5. The patient will be on IV Solu-Medrol 60 mg q. 8 and will be on IV Levaquin 750 mg daily. 6. The patient will be on duo nebulizer q.i.d. 7. The patient will be on heparin 5000 units subcutaneous q. 12 for DVT prophylaxis. 8. The patient will be on IV Zofran 4 mg every 8 hours for nausea and vomiting and Tylenol 650 mg by mouth every 4 hours for fever and headache. 9. The patient will have cardiac enzymes involving troponin, total CK and CK-MB check q. 6 hours x 2 more levels. 10. The patient's home medications will be started as shown in the medication reconciliation section. JOB# [id number] OCN/VANI
[2018-06-20] MEDS: HEPARIN SUB-Q SCH ×2 (06:43→18:20)
[2018-06-20] MEDS ORDERED: DUONEB *Not for PRN Use IH ONE (08:43)
[2018-06-20] MEDS: DUONEB *Not for PRN Use IH SCH ×4 (08:52→20:37)
[2018-06-20] MEDS: HumuLIN R SUB-Q SCH ×4 (08:54→22:00)
--- NOTE | 2018-06-20 13:12 | Event Note ---
Date: 06/20/18 Patient with acute on chronic resp failure due to COPD exacerbation. Also has UTI. I have seen and examined her. Will consult Pulmonology.
[2018-06-20] MEDS: PROzac PO SCH (13:37)
[2018-06-20] MEDS: SOLU-Medrol IV SCH ×2 (13:38→18:20)
[2018-06-20] MEDS: FEOSOL PO SCH ×2 (13:38→21:37)
[2018-06-20] MEDS: BUSPAR PO SCH ×2 (14:00→21:37)
[2018-06-20] MEDS: FIORICET PO PRN (18:50)
[2018-06-20] MEDS: PROLIXIN HCL PO SCH (21:37)
[2018-06-21] MEDS: FIORICET PO PRN ×2 (00:43→20:23)
[2018-06-21] MEDS: SOLU-Medrol IV SCH ×2 (01:39→10:15)
[2018-06-21] MEDS: LEVAQUIN 750MG/150ML 750 MG/150 ML BAG IV SCH (06:14)
[2018-06-21] MEDS: HEPARIN SUB-Q SCH (06:15)
[2018-06-21] MEDS: HumuLIN R SUB-Q SCH ×4 (07:17→22:00)
[2018-06-21] MEDS: BUSPAR PO SCH ×3 (08:45→20:23)
[2018-06-21] MEDS: FEOSOL PO SCH ×2 (09:46→22:57)
[2018-06-21] MEDS: PROzac PO SCH (09:46)
[2018-06-21 10:07] LABS: Hematocrit 26.4 % (30.3-42.9); Hemoglobin 8.4 gm/dl (10.1-14.3); Mean Corpuscular HGB Conc 32 % (30-34); Mean Corpuscular Volume 82 fl (79-97); Platelet Count 572 K/mm3 (140-440); Red Blood Count 3.23 M/mm3 (3.65-5.03)
[2018-06-21] MEDS: DUONEB *Not for PRN Use IH SCH ×4 (10:08→23:37)
[2018-06-21 10:16] LABS: Red Cell Distribution Width 23.8 % (13.2-15.2)
[2018-06-21 10:24] LABS: BUN/Creatinine Ratio 27; Blood Urea Nitrogen 8 mg/dL (7-17); Calcium 8.7 mg/dL (8.4-10.2); Hemolysis Index 5
--- NOTE | 2018-06-21 14:53 | Progress Note ---
Assessment and Plan - Patient Problems (1) T2DM (type 2 diabetes mellitus) Current Visit: Yes Status: Acute (2) Acute and chronic respiratory failure Current Visit: Yes Status: Acute (3) COPD exacerbation Current Visit: Yes Status: Acute (4) DVT prophylaxis Current Visit: No Status: Acute Subjective Date of service: 06/21/18 Principal diagnosis: Resp failure COPD exacerbation Interval history: Still SOB and wheezing Objective - Constitutional Vitals: Vital Signs - 12hr 06/21/18 06/21/18 06/21/18 04:40 07:46 10:11 Temperature 98.1 F Pulse Rate 99 H 124 H Pulse Rate [ 94 H Anterior Bilateral Throughout] Pulse Rate [ 95 H Bilateral] Respiratory 18 18 Rate Respiratory 18 Rate [Anterior Bilateral Throughout] Respiratory 18 Rate [Bilateral ] Blood Pressure 137/85 100/69 O2 Sat by Pulse 97 93 Oximetry 06/21/18 12:16 Temperature 97.9 F Pulse Rate 91 H Pulse Rate [ Anterior Bilateral Throughout] Pulse Rate [ Bilateral] Respiratory 18 Rate Respiratory Rate [Anterior Bilateral Throughout] Respiratory Rate [Bilateral ] Blood Pressure 107/70 O2 Sat by Pulse 96 Oximetry General appearance: Present: no acute distress, well-nourished - EENT Eyes: PERRL, EOM intact ENT: hearing intact, clear oral mucosa Ears: bilateral: normal - Neck Neck: supple, normal ROM - Respiratory Respiratory effort: normal Respiratory: bilateral: CTA, rhonchi, wheezing - Breasts Breasts: normal - Cardiovascular Heart rate: 78 Rhythm: regular Heart Sounds: Present: S1 & S2. Absent: gallop, rub Extremities: no ischemia, pulses intact, No edema, normal color, Full ROM - Gastrointestinal General gastrointestinal: Present: soft, non-tender, non-distended, normal bowel sounds - Genitourinary Female genitourinary: normal - Integumentary Integumentary: clear, warm, dry - Musculoskeletal Musculoskeletal: 1, strength equal bilaterally - Neurologic Neurologic: moves all extremities - Psychiatric Psychiatric: memory intact, appropriate mood/affect, intact judgment & insight - Labs CBC & Chem 7: 06/21/18 09:52 06/21/18 09:52 Labs: Abnormal lab results 06/20/18 06/20/18 06/21/18 Range/Units 18:37 20:37 07:48 RBC (3.65-5.03) M/mm3 Hgb (10.1-14.3) gm/dl Hct (30.3-42.9) % MCH (28-32) pg RDW (13.2-15.2) % Plt Count (140-440) K/mm3 POC ABG pCO2 57.0 H (35-45) POC ABG pO2 73 L (80-105) Chloride (98-107) mmol/L Carbon Dioxide (22-30) mmol/L Creatinine (0.7-1.2) mg/dL Glucose (65-100) mg/dL POC Glucose 151 H 117 H (70-105) 06/21/18 06/21/18 Range/Units 09:52 09:52 RBC 3.23 L (3.65-5.03) M/mm3 Hgb 8.4 L (10.1-14.3) gm/dl Hct 26.4 L (30.3-42.9) % MCH 26 L (28-32) pg RDW 23.8 H (13.2-15.2) % Plt Count 572 H (140-440) K/mm3 POC ABG pCO2 (35-45) POC ABG pO2 (80-105) Chloride 97.6 L (98-107) mmol/L Carbon Dioxide 33 H (22-30) mmol/L Creatinine 0.3 L (0.7-1.2) mg/dL Glucose 160 H (65-100) mg/dL POC Glucose (70-105)
--- NOTE | 2018-06-21 16:49 | Consultation ---
History of Present Illness Consult date: 06/21/18 Requesting physician: KARLY COLES Reason for consult: dyspnea History of present illness: 53 yo with COPD presents w/ increased SOB, wheezing, cough, congestion. States quit smoking a few weeks ago. No fevers, chills, chest pain. Active Medications Acetaminophen (Tylenol) 650 mg PO Q4H PRN PRN Reason: Fever >101 Acetaminophen/Butalbital/Caffeine (Fioricet) 1 tab PO Q4H PRN PRN Reason: Headache Last Admin: 06/21/18 00:43 Dose: 1 tab Documented by: Albuterol/Ipratropium (Duoneb *Not For Prn Use*) 1 ampul IH QIDRT [facility] Last Admin: 06/21/18 15:32 Dose: 1 ampul Documented by: Buspirone HCl (Buspar) 5 mg PO TID [facility] Last Admin: 06/21/18 14:12 Dose: 5 mg Documented by: Dextrose (D50w (25gm) Syringe) 50 ml IV PRN PRN PRN Reason: Hypoglycemia Ferrous Sulfate (Feosol) 325 mg PO BID [facility] Last Admin: 06/21/18 09:46 Dose: 325 mg Documented by: Fluoxetine HCl (Prozac) 40 mg PO QAM [facility] Last Admin: 06/21/18 09:46 Dose: 40 mg Documented by: Fluphenazine HCl (Prolixin Hcl) 5 mg PO HS [facility] Last Admin: 06/20/18 21:37 Dose: 5 mg Documented by: Heparin Sodium (Porcine) (Heparin) 5,000 unit SUB-Q Q12HR@0600,1800 [facility] Last Admin: 06/21/18 06:15 Dose: 5,000 unit Documented by: Levofloxacin/Dextrose (Levaquin 750mg/150ml) 750 mg in 150 mls @ 100 mls/hr IV Q24H [facility]; Protocol Last Admin: 06/21/18 06:14 Dose: 100 mls/hr Documented by: Insulin Human Regular (Humulin R) 0 units SUB-Q AC [facility]; Protocol Last Admin: 06/20/18 18:00 Dose: Not Given Documented by: Insulin Human Regular (Humulin R) 0 units SUB-Q QHS [facility]; Protocol Last Admin: 06/20/18 22:00 Dose: Not Given Documented by: Methylprednisolone Sodium Succinate (Solu-Medrol) 60 mg IV Q8H [facility] Last Admin: 06/21/18 10:15 Dose: 60 mg Documented by: Ondansetron HCl (Zofran) 4 mg IV Q8H PRN PRN Reason: Nausea And Vomiting Past History Past Medical History: other (COPD, Chronic respiratory failure) Social history: smoking, full code. denies: alcohol abuse, prescription drug abuse, IV drug use Family history: other (No pulm issues reported) Medications and Allergies Allergies Allergy/AdvReac Type Severity Reaction Status Date / Time clonazepam [From Klonopin] Allergy Unknown Verified 06/10/18 22:32 quetiapine [From Seroquel] Allergy Unknown Verified 06/10/18 22:32 Home Medications Medication Instructions Recorded Confirmed Last Taken Type ALBUTEROL Inhaler(NF) [VENTOLIN 1 puff IH Q4H PRN 30 Days inha 06/15/18 06/20/18 Unknown Rx Inhaler(NF)] Butalb/Acetamin/Caff 50-325-40 1 tab PO Q4H PRN #14 tablet 06/15/18 06/20/18 Unknown Rx [Fioricet] FLUoxetine [PROzac] 40 mg PO QAM #30 capsule 06/15/18 06/20/18 Unknown Rx Ferrous Sulfate [Feosol 325 MG tab] 325 mg PO BID #60 tablet 06/15/18 06/20/18 Unknown Rx Fluticasone/Salmeterol [Advair 1 puff IH BID #1 disk.w.dev 06/15/18 06/20/18 Unknown Rx Diskus 250-50 mcg] Prednisone [predniSONE 10 mg 10 mg PO .TAPER #1 tab.ds.pk 06/15/18 06/20/18 Unknown Rx (6-Day Pack, 21 Tabs)] busPIRone [Buspar] 5 mg PO TID #30 tablet 06/15/18 06/20/18 Unknown Rx fluPHENAZine HCl [Prolixin] 5 mg PO HS #30 tablet 06/15/18 06/20/18 Unknown Rx metFORMIN [Glucophage] 500 mg PO BID #60 tablet 06/18/18 06/20/18 Unknown Rx Active Meds: Active Medications Acetaminophen (Tylenol) 650 mg PO Q4H PRN PRN Reason: Fever >101 Acetaminophen/Butalbital/Caffeine (Fioricet) 1 tab PO Q4H PRN PRN Reason: Headache Last Admin: 06/21/18 00:43 Dose: 1 tab Documented by: Albuterol/Ipratropium (Duoneb *Not For Prn Use*) 1 ampul IH QIDRT [facility] Last Admin: 06/21/18 15:32 Dose: 1 ampul Documented by: Buspirone HCl (Buspar) 5 mg PO TID [facility] Last Admin: 06/21/18 14:12 Dose: 5 mg Documented by: Dextrose (D50w (25gm) Syringe) 50 ml IV PRN PRN PRN Reason: Hypoglycemia Ferrous Sulfate (Feosol) 325 mg PO BID [facility] Last Admin: 06/21/18 09:46 Dose: 325 mg Documented by: Fluoxetine HCl (Prozac) 40 mg PO QAM [facility] Last Admin: 06/21/18 09:46 Dose: 40 mg Documented by: Fluphenazine HCl (Prolixin Hcl) 5 mg PO HS [facility] Last Admin: 06/20/18 21:37 Dose: 5 mg Documented by: Heparin Sodium (Porcine) (Heparin) 5,000 unit SUB-Q Q12HR@0600,1800 [facility] Last Admin: 06/21/18 06:15 Dose: 5,000 unit Documented by: Levofloxacin/Dextrose (Levaquin 750mg/150ml) 750 mg in 150 mls @ 100 mls/hr IV Q24H [facility]; Protocol Last Admin: 06/21/18 06:14 Dose: 100 mls/hr Documented by: Insulin Human Regular (Humulin R) 0 units SUB-Q AC [facility]; Protocol Last Admin: 06/20/18 18:00 Dose: Not Given Documented by: Insulin Human Regular (Humulin R) 0 units SUB-Q QHS [facility]; Protocol Last Admin: 06/20/18 22:00 Dose: Not Given Documented by: Methylprednisolone Sodium Succinate (Solu-Medrol) 60 mg IV Q8H [facility] Last Admin: 06/21/18 10:15 Dose: 60 mg Documented by: Ondansetron HCl (Zofran) 4 mg IV Q8H PRN PRN Reason: Nausea And Vomiting Review of Systems All systems: negative Physical Examination Vital signs: Vital Signs Temp Pulse Resp BP Pulse Ox 97.4 F L 108 H 18 149/91 78 L 06/19/18 23:06 03/17/19 23:06 06/19/18 23:06 06/19/18 23:06 06/19/18 23:06 General appearance: no acute distress, alert Eyes: non-icteric ENT: oropharynx moist Neck: supple Effort: normal Ascultation: Bilateral: diminished breath sounds Cardiovascular: regular rate and rhythm (no mrg) Gastrointestinal: normoactive bowel sounds, soft, non-tender, non-distended Integumentary: normal Extremities: no cyanosis, no edema, pink and warm Musculoskeletal: no deformities normal mental status, non-focal exam, pupils equal and round mood appropriate, affect normal Results - Laboratory Findings CBC and BMP: 06/21/18 09:52 06/21/18 09:52 ABG POC ABG pH 7.377 (7.35-7.45) 06/20/18 18:37 POC ABG pCO2 57.0 (35-45) H 06/20/18 18:37 POC ABG pO2 73 (80-105) L 06/20/18 18:37 POC ABG HCO3 33.5 (22-26 mml/L) 06/20/18 18:37 POC ABG Total CO2 35 (23-27mmol/L) 06/20/18 18:37 POC ABG O2 Sat 94 06/20/18 18:37 Abnormal lab findings: Abnormal Labs 06/20/18 06/20/18 06/20/18 00:50 01:17 01:17 WBC 13.1 H RBC 3.54 L Hgb 9.1 L Hct 29.6 L MCH 26 L RDW 22.6 H Plt Count 691 H [place] % (Auto) 7.9 H [place] # 1.0 H Seg Neutrophils % 74.6 H Seg Neutrophils # 9.8 H POC ABG pH POC ABG pCO2 POC ABG pO2 Chloride 95.8 L Carbon Dioxide 34 H Creatinine 0.4 L Glucose 112 H POC Glucose Ur Specific [place] 1.031 H Urine WBC (Auto) 10.0 H Salicylates Acetaminophen Phenytoin Valproic Acid Carbamazepine 06/20/18 06/20/18 06/20/18 01:20 01:33 02:13 WBC RBC Hgb Hct MCH RDW Plt Count [place] % (Auto) [place] # Seg Neutrophils % Seg Neutrophils # POC ABG pH 7.283 L POC ABG pCO2 POC ABG pO2 Chloride Carbon Dioxide Creatinine Glucose POC Glucose 120 H Ur Specific [place] Urine WBC (Auto) Salicylates < 0.3 L Acetaminophen Phenytoin 0.8 L Valproic Acid < 2.8 L Carbamazepine 2.0 L 06/20/18 06/20/18 06/20/18 02:13 05:02 08:56 WBC RBC Hgb Hct MCH RDW Plt Count [place] % (Auto) [place] # Seg Neutrophils % Seg Neutrophils # POC ABG pH 7.330 L POC ABG pCO2 63.5 H POC ABG pO2 70 L Chloride Carbon Dioxide Creatinine Glucose POC Glucose 137 H Ur Specific [place] Urine WBC (Auto) Salicylates Acetaminophen < 5.0 L Phenytoin Valproic Acid Carbamazepine 06/20/18 06/20/18 06/20/18 13:24 18:37 20:37 WBC RBC Hgb Hct MCH RDW Plt Count [place] % (Auto) [place] # Seg Neutrophils % Seg Neutrophils # POC ABG pH POC ABG pCO2 57.0 H POC ABG pO2 73 L Chloride Carbon Dioxide Creatinine Glucose POC Glucose 181 H 151 H Ur Specific [place] Urine WBC (Auto) Salicylates Acetaminophen Phenytoin Valproic Acid Carbamazepine 06/21/18 06/21/18 06/21/18 07:48 09:52 09:52 WBC RBC 3.23 L Hgb 8.4 L Hct 26.4 L MCH 26 L RDW 23.8 H Plt Count 572 H [place] % (Auto) [place] # Seg Neutrophils % Seg Neutrophils # POC ABG pH POC ABG pCO2 POC ABG pO2 Chloride 97.6 L Carbon Dioxide 33 H Creatinine 0.3 L Glucose 160 H POC Glucose 117 H Ur Specific [place] Urine WBC (Auto) Salicylates Acetaminophen Phenytoin Valproic Acid Carbamazepine - Diagnostic Findings Chest x-ray: report reviewed, image reviewed (clear lungs) Assessment and Plan Imp: 1. Centriobular emphysema, probably severe given chronic CO2 retention 2. COPD exac. 3. Chronic nicotine dependence, cigarettes 4. A/C respiratory failure, hypoxia 5. Chronic respiratory failure, hypercapnea Rec: 1. Prednisone taper at d/c 2. Stop smoking counseled 3. States her O2 has either been lost or broken; would try to get it set back up for her if she qualifies 4. At d/c recommend new Rx's for Advair 250/50 1 puff BID, Spiriva Respimat 2.5mcg 2 puffs daily 5. Needs to f/u with me in 1 week post-discharge Plan of care reviewed w/ patient, she understands/agrees Thanks for the consult.
[2018-06-21] MEDS: PROLIXIN HCL PO SCH (22:57)
[2018-06-22] MEDS: SOLU-Medrol IV SCH ×3 (01:16→18:47)
[2018-06-22] MEDS: FIORICET PO PRN ×2 (01:17→09:47)
[2018-06-22] MEDS: LEVAQUIN 750MG/150ML 750 MG/150 ML BAG IV SCH (05:38)
[2018-06-22] MEDS: HEPARIN SUB-Q SCH ×2 (05:39→18:47)
[2018-06-22] MEDS: DUONEB *Not for PRN Use IH SCH ×4 (07:56→20:29)
[2018-06-22] MEDS: BUSPAR PO SCH ×3 (09:07→22:29)
[2018-06-22] MEDS: PROzac PO SCH (09:07)
[2018-06-22] MEDS: FEOSOL PO SCH ×2 (09:07→22:29)
[2018-06-22] MEDS: HumuLIN R SUB-Q SCH ×4 (09:08→22:31)
--- NOTE | 2018-06-22 12:45 | Progress Note ---
Assessment and Plan Imp: 1. Centriobular emphysema, probably severe given chronic CO2 retention 2. COPD exac. 3. Chronic nicotine dependence, cigarettes 4. A/C respiratory failure, hypoxia 5. Chronic respiratory failure, hypercapnea Rec: 1. Prednisone taper at d/c 2. Stop smoking counseled 3. States her O2 has either been lost or broken; would try to get it set back up for her if she qualifies 4. At d/c recommend new Rx's for Advair 250/50 1 puff BID, Spiriva Respimat 2.5mcg 2 puffs daily 5. Needs to f/u with me in 1 week post-discharge; can go home pulm-frazier Plan of care reviewed w/ patient, she understands/agrees Subjective Date of service: 06/22/18 Principal diagnosis: COPD Interval history: SOB better. No wheezing currently. On O2. C/o eye pain. Wants an eye patch. Active Medications Acetaminophen (Tylenol) 650 mg PO Q4H PRN PRN Reason: Fever >101 Acetaminophen/Butalbital/Caffeine (Fioricet) 1 tab PO Q4H PRN PRN Reason: Headache Last Admin: 06/22/18 09:47 Dose: 1 tab Documented by: Albuterol/Ipratropium (Duoneb *Not For Prn Use*) 1 ampul IH QIDRT [facility] Last Admin: 06/22/18 15:53 Dose: 1 ampul Documented by: Buspirone HCl (Buspar) 5 mg PO TID [facility] Last Admin: 06/22/18 13:03 Dose: 5 mg Documented by: Dextrose (D50w (25gm) Syringe) 50 ml IV PRN PRN PRN Reason: Hypoglycemia Diphenhydramine HCl (Benadryl) 25 mg PO Q6H PRN PRN Reason: Itching Ferrous Sulfate (Feosol) 325 mg PO BID [facility] Last Admin: 06/22/18 09:07 Dose: 325 mg Documented by: Fluoxetine HCl (Prozac) 40 mg PO QAM [facility] Last Admin: 06/22/18 09:07 Dose: 40 mg Documented by: Fluphenazine HCl (Prolixin Hcl) 5 mg PO HS [facility] Last Admin: 06/21/18 22:57 Dose: 5 mg Documented by: Heparin Sodium (Porcine) (Heparin) 5,000 unit SUB-Q Q12HR@0600,1800 [facility] Last Admin: 06/22/18 05:39 Dose: 5,000 unit Documented by: Levofloxacin/Dextrose (Levaquin 750mg/150ml) 750 mg in 150 mls @ 100 mls/hr IV Q24H [facility]; Protocol Last Admin: 06/22/18 05:38 Dose: 100 mls/hr Documented by: Insulin Human Regular (Humulin R) 0 units SUB-Q AC [facility]; Protocol Last Admin: 06/22/18 12:43 Dose: Not Given Documented by: Insulin Human Regular (Humulin R) 0 units SUB-Q QHS [facility]; Protocol Last Admin: 06/21/18 22:00 Dose: Not Given Documented by: Methylprednisolone Sodium Succinate (Solu-Medrol) 40 mg IV Q12H [facility] Ondansetron HCl (Zofran) 4 mg IV Q8H PRN PRN Reason: Nausea And Vomiting Objective Vital Signs - 12hr 06/22/18 06/22/18 06/22/18 01:17 02:17 07:56 Temperature Pulse Rate Pulse Rate [ 94 H Bilateral] Respiratory 19 18 Rate Respiratory 18 Rate [Bilateral ] Blood Pressure O2 Sat by Pulse Oximetry 06/22/18 06/22/18 06/22/18 08:06 09:25 11:54 Temperature 98.4 F Pulse Rate 72 Pulse Rate [ 96 H Bilateral] Respiratory 16 Rate Respiratory 18 Rate [Bilateral ] Blood Pressure 118/71 O2 Sat by Pulse 99 97 Oximetry Constitutional: no acute distress, alert Eyes: non-icteric ENT: oropharynx moist Neck: supple Effort: normal Ascultation: Bilateral: clear Cardiovascular: regular rate and rhythm (no mrg) Gastrointestinal: normoactive bowel sounds, soft, non-tender, non-distended Integumentary: normal Extremities: no cyanosis, no edema, pink and warm Neurologic: normal mental status, non-focal exam, pupils equal and round Psychiatric: mood appropriate, affect normal CBC and BMP: 06/21/18 09:52 06/21/18 09:52 ABG, PT/INR, D-dimer: ABG POC ABG pH 7.377 (7.35-7.45) 06/20/18 18:37 POC ABG pCO2 57.0 (35-45) H 06/20/18 18:37 POC ABG pO2 73 (80-105) L 06/20/18 18:37 POC ABG HCO3 33.5 (22-26 mml/L) 06/20/18 18:37 POC ABG Total CO2 35 (23-27mmol/L) 06/20/18 18:37 POC ABG O2 Sat 94 06/20/18 18:37 Abnormal lab findings: Abnormal Labs 06/20/18 06/20/18 06/20/18 00:50 01:17 01:17 WBC 13.1 H RBC 3.54 L Hgb 9.1 L Hct 29.6 L MCH 26 L RDW 22.6 H Plt Count 691 H [place] % (Auto) 7.9 H [place] # 1.0 H Seg Neutrophils % 74.6 H Seg Neutrophils # 9.8 H POC ABG pH POC ABG pCO2 POC ABG pO2 Chloride 95.8 L Carbon Dioxide 34 H Creatinine 0.4 L Glucose 112 H POC Glucose Ur Specific [place] 1.031 H Urine WBC (Auto) 10.0 H Salicylates Acetaminophen Phenytoin Valproic Acid Carbamazepine 06/20/18 06/20/18 06/20/18 01:20 01:33 02:13 WBC RBC Hgb Hct MCH RDW Plt Count [place] % (Auto) [place] # Seg Neutrophils % Seg Neutrophils # POC ABG pH 7.283 L POC ABG pCO2 POC ABG pO2 Chloride Carbon Dioxide Creatinine Glucose POC Glucose 120 H Ur Specific [place] Urine WBC (Auto) Salicylates < 0.3 L Acetaminophen Phenytoin 0.8 L Valproic Acid < 2.8 L Carbamazepine 2.0 L 06/20/18 06/20/18 06/20/18 02:13 05:02 08:56 WBC RBC Hgb Hct MCH RDW Plt Count [place] % (Auto) [place] # Seg Neutrophils % Seg Neutrophils # POC ABG pH 7.330 L POC ABG pCO2 63.5 H POC ABG pO2 70 L Chloride Carbon Dioxide Creatinine Glucose POC Glucose 137 H Ur Specific [place] Urine WBC (Auto) Salicylates Acetaminophen < 5.0 L Phenytoin Valproic Acid Carbamazepine 06/20/18 06/20/18 06/20/18 13:24 18:37 20:37 WBC RBC Hgb Hct MCH RDW Plt Count [place] % (Auto) [place] # Seg Neutrophils % Seg Neutrophils # POC ABG pH POC ABG pCO2 57.0 H POC ABG pO2 73 L Chloride Carbon Dioxide Creatinine Glucose POC Glucose 181 H 151 H Ur Specific [place] Urine WBC (Auto) Salicylates Acetaminophen Phenytoin Valproic Acid Carbamazepine 06/21/18 06/21/18 06/21/18 07:48 09:52 09:52 WBC RBC 3.23 L Hgb 8.4 L Hct 26.4 L MCH 26 L RDW 23.8 H Plt Count 572 H [place] % (Auto) [place] # Seg Neutrophils % Seg Neutrophils # POC ABG pH POC ABG pCO2 POC ABG pO2 Chloride 97.6 L Carbon Dioxide 33 H Creatinine 0.3 L Glucose 160 H POC Glucose 117 H Ur Specific [place] Urine WBC (Auto) Salicylates Acetaminophen Phenytoin Valproic Acid Carbamazepine 06/21/18 06/21/18 06/22/18 16:49 21:45 07:25 WBC RBC Hgb Hct MCH RDW Plt Count [place] % (Auto) [place] # Seg Neutrophils % Seg Neutrophils # POC ABG pH POC ABG pCO2 POC ABG pO2 Chloride Carbon Dioxide Creatinine Glucose POC Glucose 154 H 132 H 132 H Ur Specific [place] Urine WBC (Auto) Salicylates Acetaminophen Phenytoin Valproic Acid Carbamazepine Chest x-ray: report reviewed, image reviewed
--- NOTE | 2018-06-22 17:04 | Progress Note ---
Assessment and Plan (1) T2DM (type 2 diabetes mellitus) Current Visit: Yes Status: Acute (2) Acute and chronic respiratory failure Current Visit: Yes Status: Acute (3) COPD exacerbation Current Visit: Yes Status: Acute (4) DVT prophylaxis Current Visit: No Status: Acute Subjective Date of service: 06/22/18 Principal diagnosis: Copd exacerbation Interval history: Still SOB and wheezing Objective - Constitutional Vitals: Vital Signs - 12hr 06/22/18 06/22/18 06/22/18 07:56 08:06 09:25 Temperature Pulse Rate Pulse Rate [ 94 H 96 H Bilateral] Respiratory Rate Respiratory 18 18 Rate [Bilateral ] Blood Pressure O2 Sat by Pulse 99 Oximetry 06/22/18 06/22/18 06/22/18 11:54 12:52 13:01 Temperature 98.4 F Pulse Rate 72 Pulse Rate [ 92 H 94 H Bilateral] Respiratory 16 Rate Respiratory 18 18 Rate [Bilateral ] Blood Pressure 118/71 O2 Sat by Pulse 97 Oximetry 06/22/18 06/22/18 06/22/18 15:53 16:03 16:07 Temperature 99.2 F Pulse Rate 118 H Pulse Rate [ 99 H 100 H Bilateral] Respiratory 16 Rate Respiratory 18 18 Rate [Bilateral ] Blood Pressure 117/76 O2 Sat by Pulse 93 Oximetry General appearance: Present: no acute distress, well-nourished - EENT Eyes: PERRL, EOM intact ENT: hearing intact, clear oral mucosa Ears: bilateral: normal - Neck Neck: supple, normal ROM - Respiratory Respiratory effort: normal Respiratory: bilateral: CTA - Breasts Breasts: normal - Cardiovascular Rhythm: regular Heart Sounds: Present: S1 & S2. Absent: gallop, rub Extremities: pulses intact, No edema, normal color, Full ROM - Gastrointestinal General gastrointestinal: Present: soft, non-tender, non-distended, normal bowel sounds - Genitourinary Female genitourinary: normal - Integumentary Integumentary: clear, warm, dry - Musculoskeletal Musculoskeletal: 1, strength equal bilaterally - Neurologic Neurologic: moves all extremities - Psychiatric Psychiatric: memory intact, appropriate mood/affect, intact judgment & insight - Labs CBC & Chem 7: 06/21/18 09:52 06/21/18 09:52 Labs: Abnormal lab results 06/21/18 06/22/18 06/22/18 Range/Units 21:45 07:25 16:09 POC Glucose 132 H 132 H 113 H (70-105)
[2018-06-22] MEDS: BENADRYL PO PRN (18:46)
[2018-06-22] MEDS: PROLIXIN HCL PO SCH (22:29)
[2018-06-23] MEDS: LEVAQUIN 750MG/150ML 750 MG/150 ML BAG IV SCH (05:35)
[2018-06-23] MEDS: HEPARIN SUB-Q SCH (05:36)
[2018-06-23] MEDS: SOLU-Medrol IV SCH (05:36)
[2018-06-23] MEDS: BENADRYL PO PRN ×2 (06:06→14:43)
[2018-06-23] MEDS: DUONEB *Not for PRN Use IH SCH ×2 (07:45→12:42)
[2018-06-23] MEDS: HumuLIN R SUB-Q SCH ×2 (08:38→12:20)
[2018-06-23] MEDS: FIORICET PO PRN ×2 (08:38→12:27)
[2018-06-23] MEDS: PROzac PO SCH (09:45)
[2018-06-23] MEDS: FEOSOL PO SCH (09:45)
[2018-06-23] MEDS: BUSPAR PO SCH (09:45)
--- NOTE | 2018-06-23 12:50 | Progress Note ---
Assessment and Plan Imp: 1. Centriobular emphysema, probably severe given chronic CO2 retention 2. COPD exac. 3. Chronic nicotine dependence, cigarettes 4. A/C respiratory failure, hypoxia 5. Chronic respiratory failure, hypercapnea Rec: 1. Prednisone taper at d/c 2. Stop smoking counseled 3. Ambulatory sats on RA okay so does not require home O2 4. At d/c recommend new Rx's for Advair 250/50 1 puff BID, Spiriva Respimat 2.5mcg 2 puffs daily 5. Needs to f/u with me in 1 week post-discharge; can go home pulm-frazier; we will sign off Plan of care reviewed w/ patient, she understands/agrees Subjective Date of service: 06/23/18 Principal diagnosis: COPD Interval history: SOB better. No wheezing currently. On RA. No new complaints. Active Medications Acetaminophen (Tylenol) 650 mg PO Q4H PRN PRN Reason: Fever >101 Acetaminophen/Butalbital/Caffeine (Fioricet) 1 tab PO Q4H PRN PRN Reason: Headache Last Admin: 06/23/18 12:27 Dose: 1 tab Documented by: Albuterol/Ipratropium (Duoneb *Not For Prn Use*) 1 ampul IH QIDRT [facility] Last Admin: 06/23/18 12:42 Dose: 1 ampul Documented by: Buspirone HCl (Buspar) 5 mg PO TID [facility] Last Admin: 06/23/18 09:45 Dose: 5 mg Documented by: Dextrose (D50w (25gm) Syringe) 50 ml IV PRN PRN PRN Reason: Hypoglycemia Diphenhydramine HCl (Benadryl) 25 mg PO Q6H PRN PRN Reason: Itching Last Admin: 06/23/18 06:06 Dose: 25 mg Documented by: Ferrous Sulfate (Feosol) 325 mg PO BID [facility] Last Admin: 06/23/18 09:45 Dose: 325 mg Documented by: Fluoxetine HCl (Prozac) 40 mg PO QAM [facility] Last Admin: 06/23/18 09:45 Dose: 40 mg Documented by: Fluphenazine HCl (Prolixin Hcl) 5 mg PO HS [facility] Last Admin: 06/22/18 22:29 Dose: 5 mg Documented by: Heparin Sodium (Porcine) (Heparin) 5,000 unit SUB-Q Q12HR@0600,1800 [facility] Last Admin: 06/23/18 05:36 Dose: 5,000 unit Documented by: Levofloxacin/Dextrose (Levaquin 750mg/150ml) 750 mg in 150 mls @ 100 mls/hr IV Q24H [facility]; Protocol Last Admin: 06/23/18 05:35 Dose: 100 mls/hr Documented by: Insulin Human Regular (Humulin R) 0 units SUB-Q AC [facility]; Protocol Last Admin: 06/23/18 12:20 Dose: Not Given Documented by: Insulin Human Regular (Humulin R) 0 units SUB-Q QHS [facility]; Protocol Last Admin: 06/22/18 22:31 Dose: Not Given Documented by: Methylprednisolone Sodium Succinate (Solu-Medrol) 40 mg IV Q12H [facility] Last Admin: 06/23/18 05:36 Dose: 40 mg Documented by: Ondansetron HCl (Zofran) 4 mg IV Q8H PRN PRN Reason: Nausea And Vomiting Objective Vital Signs - 12hr 06/23/18 06/23/18 06/23/18 06:03 07:45 07:55 Temperature 98.3 F Pulse Rate 101 H Pulse Rate [ 99 H 100 H Bilateral] Respiratory 20 Rate Respiratory 18 18 Rate [Bilateral ] Blood Pressure 143/93 Blood Pressure [Right] O2 Sat by Pulse 90 Oximetry 06/23/18 06/23/18 06/23/18 08:34 11:46 12:42 Temperature 98.1 F Pulse Rate 89 Pulse Rate [ 116 H Bilateral] Respiratory 18 Rate Respiratory 20 Rate [Bilateral ] Blood Pressure Blood Pressure 111/64 [Right] O2 Sat by Pulse 98 90 Oximetry Constitutional: no acute distress, alert Eyes: non-icteric ENT: oropharynx moist Neck: supple Effort: normal Ascultation: Bilateral: clear Cardiovascular: regular rate and rhythm (no mrg) Gastrointestinal: normoactive bowel sounds, soft, non-tender, non-distended Integumentary: normal Extremities: no cyanosis, no edema, pink and warm Neurologic: normal mental status, non-focal exam, pupils equal and round Psychiatric: mood appropriate, affect normal CBC and BMP: 06/21/18 09:52 06/21/18 09:52 ABG, PT/INR, D-dimer: ABG POC ABG pH 7.377 (7.35-7.45) 06/20/18 18:37 POC ABG pCO2 57.0 (35-45) H 06/20/18 18:37 POC ABG pO2 73 (80-105) L 06/20/18 18:37 POC ABG HCO3 33.5 (22-26 mml/L) 06/20/18 18:37 POC ABG Total CO2 35 (23-27mmol/L) 06/20/18 18:37 POC ABG O2 Sat 94 06/20/18 18:37 Abnormal lab findings: Abnormal Labs 06/20/18 06/20/18 06/20/18 00:50 01:17 01:17 WBC 13.1 H RBC 3.54 L Hgb 9.1 L Hct 29.6 L MCH 26 L RDW 22.6 H Plt Count 691 H [place] % (Auto) 7.9 H [place] # 1.0 H Seg Neutrophils % 74.6 H Seg Neutrophils # 9.8 H POC ABG pH POC ABG pCO2 POC ABG pO2 Chloride 95.8 L Carbon Dioxide 34 H Creatinine 0.4 L Glucose 112 H POC Glucose Ur Specific [place] 1.031 H Urine WBC (Auto) 10.0 H Salicylates Acetaminophen Phenytoin Valproic Acid Carbamazepine 06/20/18 06/20/18 06/20/18 01:20 01:33 02:13 WBC RBC Hgb Hct MCH RDW Plt Count [place] % (Auto) [place] # Seg Neutrophils % Seg Neutrophils # POC ABG pH 7.283 L POC ABG pCO2 POC ABG pO2 Chloride Carbon Dioxide Creatinine Glucose POC Glucose 120 H Ur Specific [place] Urine WBC (Auto) Salicylates < 0.3 L Acetaminophen Phenytoin 0.8 L Valproic Acid < 2.8 L Carbamazepine 2.0 L 06/20/18 06/20/18 06/20/18 02:13 05:02 08:56 WBC RBC Hgb Hct MCH RDW Plt Count [place] % (Auto) [place] # Seg Neutrophils % Seg Neutrophils # POC ABG pH 7.330 L POC ABG pCO2 63.5 H POC ABG pO2 70 L Chloride Carbon Dioxide Creatinine Glucose POC Glucose 137 H Ur Specific [place] Urine WBC (Auto) Salicylates Acetaminophen < 5.0 L Phenytoin Valproic Acid Carbamazepine 06/20/18 06/20/18 06/20/18 13:24 18:37 20:37 WBC RBC Hgb Hct MCH RDW Plt Count [place] % (Auto) [place] # Seg Neutrophils % Seg Neutrophils # POC ABG pH POC ABG pCO2 57.0 H POC ABG pO2 73 L Chloride Carbon Dioxide Creatinine Glucose POC Glucose 181 H 151 H Ur Specific [place] Urine WBC (Auto) Salicylates Acetaminophen Phenytoin Valproic Acid Carbamazepine 06/21/18 06/21/18 06/21/18 07:48 09:52 09:52 WBC RBC 3.23 L Hgb 8.4 L Hct 26.4 L MCH 26 L RDW 23.8 H Plt Count 572 H [place] % (Auto) [place] # Seg Neutrophils % Seg Neutrophils # POC ABG pH POC ABG pCO2 POC ABG pO2 Chloride 97.6 L Carbon Dioxide 33 H Creatinine 0.3 L Glucose 160 H POC Glucose 117 H Ur Specific [place] Urine WBC (Auto) Salicylates Acetaminophen Phenytoin Valproic Acid Carbamazepine 06/21/18 06/21/18 06/22/18 16:49 21:45 07:25 WBC RBC Hgb Hct MCH RDW Plt Count [place] % (Auto) [place] # Seg Neutrophils % Seg Neutrophils # POC ABG pH POC ABG pCO2 POC ABG pO2 Chloride Carbon Dioxide Creatinine Glucose POC Glucose 154 H 132 H 132 H Ur Specific [place] Urine WBC (Auto) Salicylates Acetaminophen Phenytoin Valproic Acid Carbamazepine 06/22/18 06/22/18 06/23/18 16:09 21:22 12:02 WBC RBC Hgb Hct MCH RDW Plt Count [place] % (Auto) [place] # Seg Neutrophils % Seg Neutrophils # POC ABG pH POC ABG pCO2 POC ABG pO2 Chloride Carbon Dioxide Creatinine Glucose POC Glucose 113 H 143 H 108 H Ur Specific [place] Urine WBC (Auto) Salicylates Acetaminophen Phenytoin Valproic Acid Carbamazepine Chest x-ray: report reviewed, image reviewed
[2018-06-23 14:39] VITALS: BP 127/76
--- NOTE | 2018-08-01 10:41 | Discharge Summary ---
HOSPITAL COURSE: The patient was admitted for COPD exacerbation and acute respiratory failure. Also, type 2 diabetes. The patient was initiated on DVT prophylaxis. The patient did well with nebulizer treatments, antibiotics, IV Solu-Medrol. Solu-Medrol was tapered down and in 72 hours, the patient had great improvement. The patient was discharged on 06/23/2018 on oral prednisone, oral antibiotics, and nebulizer treatments. Also, Advair 250/50 one puff b.i.d., Spiriva Respimat 2 puffs daily. DISCHARGE DIAGNOSES: 1. Acute respiratory failure. 2. Chronic obstructive pulmonary disease exacerbation. 3. Type 2 diabetes. JOB# [id number] MATEO/VANI
== END 2018-06-23 16:13 | disposition home or self-care (01) | DRG 189 ==
LOC: ED 23:00 → 4A 06-20 03:59 → 3A 06-21 20:42
PROVIDERS: ADMIT Internal Medicine; ATTEND Internal Medicine
PROC: 4A033R1 Measurement of Arterial Saturation, Peripheral, Percutaneous Approach (ICD-10-PCS; principal; 2018-06-20)
PROC: 5A09357 Assistance with Respiratory Ventilation, Less than 24 Consecutive Hours, Continuous Positive Airway Pressure (ICD-10-PCS; 2018-06-20)
DX: J96.21 Acute and chronic respiratory failure with hypoxia (principal); J44.1 Chronic obstructive pulmonary disease with (acute) exacerbation; J96.12 Chronic respiratory failure with hypercapnia; F17.210 Nicotine dependence, cigarettes, uncomplicated; E11.9 Type 2 diabetes mellitus without complications; N39.0 Urinary tract infection, site not specified; F25.9 Schizoaffective disorder, unspecified; I10 Essential (primary) hypertension; I25.10 Atherosclerotic heart disease of native coronary artery without angina pectoris; Z71.6 Tobacco abuse counseling; Z79.899 Other long term (current) drug therapy; I25.2 Old myocardial infarction; Z99.81 Dependence on supplemental oxygen
CPT/HCPCS: 36415; 36600; 71045; 80048; 80156; 80164; 80178; 80185; 80307; 80320; 81001; 81025; 82803; 82962; 85025; 85027; 94640; 94760; G0378; G0480; J1644; J1956; J2310; J2930; J3475; J7030

== ENCOUNTER 2018-06-23 20:19 | Emergency (ER) | payer MEDICAID ==
[2018-06-23 20:56] VITALS: BP 127/81
--- NOTE | 2018-06-23 20:59 | Emergency Department Report ---
Blank Doc - Documentation Documentation: This is a 53-year-old female that presents with diarrhea x3 days. Patient is a poor historian. This initial assessment/diagnostic orders/clinical plan/treatment(s) is/are subject to change based on patient's health status, clinical progression and re- assessment by fellow clinical providers in the ED. Further treatment and workup at subsequent clinical providers discretion. Patient/guardians urged not to elope from the ED as their condition may be serious if not clinically assessed and managed. Initial orders include: 1- Patient sent to [facility] for further evaluation and treatment 2- labs
[2018-06-23 21:33] LABS: Hematocrit 31.2 % (30.3-42.9); Hemoglobin 10.4 gm/dl (10.1-14.3); Mean Corpuscular HGB Conc 33 % (30-34); Mean Corpuscular Volume 86 fl (79-97); Platelet Count 571 K/mm3 (140-440); Red Blood Count 3.64 M/mm3 (3.65-5.03); Red Cell Distribution Width 32.3 % (13.2-15.2)
[2018-06-23 21:54] LABS: BUN/Creatinine Ratio 26; Blood Urea Nitrogen 13 mg/dL (7-17); Calcium 10.3 mg/dL (8.4-10.2); Hemolysis Index 16
[2018-06-23 22:07] LABS: Basophils % (Manual) 0 % (0.0-1.8); Eosinophils % (Manual) 0 % (0.0-4.3); Total Cells Counted 100
[2018-06-23 22:08] LABS: Anisocytosis 1+; Ovalocytes 1+; Platelet Estimate Consistent w Auto; Poikilocytosis 1+; Target Cells 1+
--- NOTE | 2018-06-24 03:19 | Emergency Department Report ---
<WILL PAEZ - Last Filed: 06/28/18 00:58> ED General Adult HPI - General Chief complaint: Nausea/Vomiting/Diarrhea Stated complaint: BOWEL PROBLEMS Time Seen by Provider: 06/23/18 20:57 Source: patient, RN notes reviewed, old records reviewed Mode of arrival: Ambulatory Limitations: Language Barrier - History of Present Illness Initial comments: 53-year-old female who was discharged on 06/22/18. She was admitted from 06/11/18 to 06/22/18. Patient comes in today reporting that she cannot afford her medication she is asking for insulin states that she thinks her blood sugars are elevated, she also requesting for prednisone then she reports that her rectum hurts. Patient reports that she's had diarrhea for the last 3 days the patient has been inpatient for the last 2 days. She was here in the emergency room for suicidal ideation and was cleared to be admitted to the inpatient unit. She was discharged home on 06/22/2018 with approximately 11 medications including her diabetic medication her psychiatric medications her asthma medications and her COPD medications. -: days(s) (3) Location: buttocks Severity scale (0 -10): 0 Improves with: none Worsens with: none Associated Symptoms: other (diarrhea) Treatments Prior to Arrival: none - Related Data Home Medications Medication Instructions Recorded Confirmed Last Taken busPIRone [Buspar] 5 mg PO BID 06/27/18 06/27/18 Unknown Previous Rx's Medication Instructions Recorded Last Taken Type ALBUTEROL Inhaler(NF) [VENTOLIN 1 puff IH Q4H PRN 30 Days #1 inha 06/22/18 Unknown Rx Inhaler(NF)] Butalb/Acetamin/Caff 50-325-40 1 tab PO Q4H PRN #30 tablet 06/22/18 Unknown Rx [Fioricet] FLUoxetine [PROzac] 40 mg PO QAM #30 capsule 06/22/18 Unknown Rx Ferrous Sulfate [Feosol 325 MG tab] 325 mg PO QDAY #30 tablet 06/22/18 06/26/18 Rx Fluticasone/Salmeterol [Advair 1 puff IH BID #1 disk.w.dev 06/22/18 06/26/18 Rx Diskus 250-50 mcg] Ipratropium/Albuterol Sulfate 1 ampul IH QIDRT #100 ampul.neb 06/22/18 06/26/18 Rx [DUONEB *Not for PRN Use*] Prednisone [predniSONE 10 mg 10 mg PO .TAPER #1 tab.ds.pk 06/22/18 Unknown Rx (6-Day Pack, 21 Tabs)] fluPHENAZine HCl [Prolixin] 5 mg PO HS #30 tablet 06/22/18 Unknown Rx glipiZIDE [Glipizide] 5 mg PO QDAY #30 tablet 06/22/18 06/26/18 Rx metFORMIN [Glucophage] 500 mg PO BID 60 Days #60 tablet 06/22/18 Unknown Rx Allergies Allergy/AdvReac Type Severity Reaction Status Date / Time clonazepam [From Klonopin] Allergy Unknown Verified 06/10/18 22:32 quetiapine [From Seroquel] Allergy Unknown Verified 06/10/18 22:32 ED Past Medical Hx - Past Medical History Previous Medical History?: Yes Hx Hypertension: Yes Hx Heart Attack/AMI: Yes Hx Congestive Heart Failure: No Hx Diabetes: Yes Hx Sickle Cell Disease: No Hx Asthma: No Hx COPD: Yes Hx HIV: No - Surgical History Past Surgical History?: Yes Additional Surgical History: heart - Social History Smoking Status: Former Smoker Substance Use Type: None - Medications Home Medications: Home Medications Medication Instructions Recorded Confirmed Last Taken Type ALBUTEROL Inhaler(NF) [VENTOLIN 1 puff IH Q4H PRN 30 Days #1 inha 06/22/18 06/27/18 Unknown Rx Inhaler(NF)] Butalb/Acetamin/Caff 50-325-40 1 tab PO Q4H PRN #30 tablet 06/22/18 06/27/18 Unknown Rx [Fioricet] FLUoxetine [PROzac] 40 mg PO QAM #30 capsule 06/22/18 06/27/18 Unknown Rx Ferrous Sulfate [Feosol 325 MG tab] 325 mg PO QDAY #30 tablet 06/22/18 06/27/18 06/26/18 Rx Fluticasone/Salmeterol [Advair 1 puff IH BID #1 disk.w.dev 06/22/18 06/27/18 06/26/18 Rx Diskus 250-50 mcg] Ipratropium/Albuterol Sulfate 1 ampul QIDRT #100 ampul.neb 06/22/18 06/27/18 06/26/18 Rx [DUONEB *Not for PRN Use*] Prednisone [predniSONE 10 mg 10 mg PO .TAPER #1 tab.ds.pk 06/22/18 06/27/18 Unknown Rx (6-Day Pack, 21 Tabs)] fluPHENAZine HCl [Prolixin] 5 mg PO HS #30 tablet 06/22/18 06/27/18 Unknown Rx glipiZIDE [Glipizide] 5 mg PO QDAY #30 tablet 06/22/18 06/28/18 06/26/18 Rx metFORMIN [Glucophage] 500 mg PO BID 60 Days #60 tablet 06/22/18 06/27/18 Unknown Rx busPIRone [Buspar] 5 mg PO BID 06/27/18 06/27/18 Unknown History ED Physical Exam - General Limitations: Language Barrier General appearance: alert, in no apparent distress - Head Head exam: Present: atraumatic, normocephalic - Eye Eye exam: Present: normal appearance - ENT ENT exam: Present: mucous membranes moist - Neck Neck exam: Present: normal inspection - Respiratory Respiratory exam: Present: normal lung sounds bilaterally. Absent: respiratory distress - Cardiovascular Cardiovascular Exam: Present: regular rate, normal rhythm. Absent: systolic murmur, diastolic murmur, rubs, gallop - GI/Abdominal GI/Abdominal exam: Present: soft, normal bowel sounds - Extremities Exam Extremities exam: Present: normal inspection - Back Exam Back exam: Present: normal inspection - Neurological Exam Neurological exam: Present: alert, oriented X3 - Psychiatric Psychiatric exam: Present: normal affect, normal mood - Skin Skin exam: Present: warm, dry, intact, normal color. Absent: rash ED Medical Decision Making - Lab Data Result diagrams: 06/23/18 21:11 06/23/18 21:11 - Medical Decision Making Patient has been evaluated by this provider in [facility]. Patient has been ordered ibuprofen for pain management. Discussed the patient and she needs to fill her prescriptions that she received on 06/22/2017 and follow up with her restless that was listed on her discharge paperwork from be an inpatient. Patient verbalizes understanding ED Disposition Clinical Impression: Non compliance w medication regimen Disposition: - TO HOME OR SELFCARE Is pt being admited?: No Does the pt Need Aspirin: No Condition: Stable Additional Instructions: Please fill your prescriptions that was given to you on discharge on 06/22/2018. Follow up with the providers that she will referred to primary discharge summary. You can take Tylenol or Motrin for your pain management. Referrals: ADELITA PRECIADO MD [Primary Care Provider] - 3-5 Days <PRAKASHROMÁN SHEARER - Last Filed: 07/04/18 19:54> ED Review of Systems ROS: Stated complaint: BOWEL PROBLEMS Other details as noted in HPI ED Course Vital Signs 06/23/18 06/24/18 20:55 04:30 Temperature 97.8 F Pulse Rate 142 H 89 Respiratory 16 16 Rate Blood Pressure 127/81 O2 Sat by Pulse 96 96 Oximetry ED Medical Decision Making - Lab Data Result diagrams: 06/23/18 21:11 06/23/18 21:11 Critical care attestation.: If time is entered above; I have spent that time in minutes in the direct care of this critically ill patient, excluding procedure time. ED Disposition Is pt being admited?: No Does the pt Need Aspirin: No
[2018-06-24] MEDS ORDERED: IBUPROFEN PO ONE (03:23)
== END 2018-06-24 04:30 | disposition home or self-care (01) ==
LOC: ED 20:19
DX: Z91.14 Patient's other noncompliance with medication regimen (principal); E11.65 Type 2 diabetes mellitus with hyperglycemia; I10 Essential (primary) hypertension; J44.9 Chronic obstructive pulmonary disease, unspecified; Z88.8 Allergy status to other drugs, medicaments and biological substances; Z87.891 Personal history of nicotine dependence
CPT/HCPCS: 36415; 80048; 82962; 83690; 85007; 85025; 99283

== ENCOUNTER 2018-06-27 00:19 | Inpatient (IN) | payer MEDICAID ==
[2018-06-27] MEDS ORDERED: ASPIRIN PO ONE (00:45)
[2018-06-27 01:56] LABS: Hematocrit 31.8 % (30.3-42.9); Hemoglobin 9.9 gm/dl (10.1-14.3); Mean Corpuscular HGB Conc 31 % (30-34); Mean Corpuscular Volume 87 fl (79-97); Platelet Count 469 K/mm3 (140-440); Red Blood Count 3.64 M/mm3 (3.65-5.03)
[2018-06-27 01:59] LABS: Red Cell Distribution Width 31.3 % (13.2-15.2)
[2018-06-27] MEDS ORDERED: NACL 0.9% 1000 ML IV ONE (02:15)
--- NOTE | 2018-06-27 02:28 | XRay Report ---
PROCEDURE: XR CHEST 1V AP TECHNIQUE: Chest radiograph single view. HISTORY: Chest Pain COMPARISONS: 06/20/2018 . FINDINGS: Heart: Normal. Mediastinum/Vessels: Normal. Lungs/Pleural space: Mild COPD. No acute consolidation or effusion. Bony thorax: No acute osseous abnormality. Life support devices: None. IMPRESSION: Mild COPD. No acute consolidation or effusion. This document is electronically signed by Fernanda Gardner DO., June 27 2018 02:26:58 AM ET
[2018-06-27 02:29] LABS: BUN/Creatinine Ratio 105; Blood Urea Nitrogen 21 mg/dL (7-17); Calcium 8.3 mg/dL (8.4-10.2); Hemolysis Index 22
--- NOTE | 2018-06-27 02:29 | Emergency Department Report ---
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 units/L Total Creatine Kinase (30-135) units/L CK-MB (CK-2) (0.0-4.0) ng/mL CK-MB (CK-2) Rel Index (0-4) Troponin T < 0.010 (0.00-0.029) ng/mL Total Protein (6.3-8.2) g/dL Albumin (3.9-5) g/dL Albumin/Globulin Ratio % Lipase (13-60) units/L TSH (0.270-4.200) mlU/mL Free T4 (0.76-1.46) ng/dL Urine Color (Yellow) Urine Turbidity (Clear) Urine pH (5.0-7.0) Ur Specific [place] (1.003-1.030) Urine Protein (Negative) mg/dL Urine Glucose (UA) (Negative) mg/dL Urine Ketones (Negative) mg/dL Urine Blood (Negative) Urine Nitrite (Negative) Urine Bilirubin (Negative) Urine Urobilinogen (<2.0) mg/dL Ur Leukocyte Esterase (Negative) Urine WBC (Auto) (0.0-6.0) /HPF Urine RBC (Auto) (0.0-6.0) /HPF U Epithel Cells (Auto) (0-13.0) /HPF Urine Mucus /HPF Salicylates (2.8-20.0) mg/dL Urine Opiates Screen Urine Methadone Screen Acetaminophen (10.0-30.0) ug/mL Ur Barbiturates Screen Ur Phencyclidine Scrn Ur Amphetamines Screen U Benzodiazepines Scrn Urine Cocaine Screen U Marijuana (THC) Screen Drugs of Abuse Note Plasma/Serum Alcohol (0-0.07) % 06/27/18 06/27/18 06/27/18 Range/Units 02:30 02:47 02:47 WBC (4.5-11.0) K/mm3 RBC (3.65-5.03) M/mm3 Hgb (10.1-14.3) gm/dl Hct (30.3-42.9) % MCV (79-97) fl MCH (28-32) pg MCHC (30-34) % RDW (13.2-15.2) % Plt Count (140-440) K/mm3 Add Manual Diff Total Counted Seg Neuts % (Manual) (40.0-70.0) % Band Neutrophils % % Lymphocytes % (Manual) (13.4-35.0) % Reactive Lymphs % (Man) % Monocytes % (Manual) (0.0-7.3) % Eosinophils % (Manual) (0.0-4.3) % Basophils % (Manual) (0.0-1.8) % Metamyelocytes % % Myelocytes % % Promyelocytes % % Blast Cells % % Nucleated RBC % Seg Neutrophils # Man (1.8-7.7) K/mm3 Band Neutrophils # K/mm3 Lymphocytes # (Manual) (1.2-5.4) K/mm3 Abs React Lymphs (Man) K/mm3 Monocytes # (Manual) (0.0-0.8) K/mm3 Eosinophils # (Manual) (0.0-0.4) K/mm3 Basophils # (Manual) (0.0-0.1) K/mm3 Metamyelocytes # K/mm3 Myelocytes # K/mm3 Promyelocytes # K/mm3 Blast Cells # K/mm3 WBC Morphology Hypersegmented Neuts Hyposegmented Neuts Hypogranular Neuts Smudge Cells Toxic Granulation Toxic Vacuolation Dohle Bodies Pelger-Huet Anomaly [place] Rods Platelet Estimate Clumped Platelets Plt Clumps, EDTA Large Platelets Giant Platelets Platelet Satelliting Plt Morphology Comment RBC Morphology Dimorphic RBCs Polychromasia Hypochromasia Poikilocytosis Anisocytosis Microcytosis Macrocytosis Spherocytes Pappenheimer Bodies Sickle Cells Target Cells Tear Drop Cells Ovalocytes Helmet Cells [place] Bodies [place] Rings Ric[place]le Cells Bite Cells Crenated Cell Elliptocytes Acanthocytes (Spur) Rouleaux Hemoglobin C Crystals Schistocytes Malaria parasites Remi Bodies Hem Pathologist Commnt PT (12.2-14.9) Sec. INR (0.87-1.13) D-Dimer (0-234) ng/mlDDU POC ABG pH 7.222 L (7.35-7.45) POC ABG pO2 93 (80-105) POC ABG HCO3 34.3 (22-26 mml/L) POC ABG Total CO2 37 (23-27mmol/L) POC ABG O2 Sat 95 POC ABG Base Excess 7 ((-2) - (+3)mmol/L) VBG pH (7.320-7.420) FiO2 40 % Sodium (137-145) mmol/L Potassium (3.6-5.0) mmol/L Chloride (98-107) mmol/L Carbon Dioxide (22-30) mmol/L Anion Gap mmol/L BUN (7-17) mg/dL Creatinine (0.7-1.2) mg/dL Estimated GFR ml/min BUN/Creatinine Ratio % Glucose (65-100) mg/dL POC Glucose (70-105) Lactic Acid (0.7-2.0) mmol/L Calcium (8.4-10.2) mg/dL Total Bilirubin (0.1-1.2) mg/dL Direct Bilirubin (0-0.2) mg/dL Indirect Bilirubin mg/dL AST (5-40) units/L ALT (7-56) units/L Alkaline Phosphatase (35-129) units/L Total Creatine Kinase (30-135) units/L CK-MB (CK-2) (0.0-4.0) ng/mL CK-MB (CK-2) Rel Index (0-4) Troponin T (0.00-0.029) ng/mL Total Protein (6.3-8.2) g/dL Albumin (3.9-5) g/dL Albumin/Globulin Ratio % Lipase (13-60) units/L TSH (0.270-4.200) mlU/mL Free T4 (0.76-1.46) ng/dL Urine Color Yellow (Yellow) Urine Turbidity Clear (Clear) Urine pH 5.0 (5.0-7.0) Ur Specific [place] 1.032 H (1.003-1.030) Urine Protein <15 mg/dl (Negative) mg/dL Urine Glucose (UA) Neg (Negative) mg/dL Urine Ketones Neg (Negative) mg/dL Urine Blood Neg (Negative) Urine Nitrite Neg (Negative) Urine Bilirubin Neg (Negative) Urine Urobilinogen < 2.0 (<2.0) mg/dL Ur Leukocyte Esterase Tr (Negative) Urine WBC (Auto) 14.0 H (0.0-6.0) /HPF Urine RBC (Auto) 3.0 (0.0-6.0) /HPF U Epithel Cells (Auto) 2.0 (0-13.0) /HPF Urine Mucus Few /HPF Salicylates (2.8-20.0) mg/dL Urine Opiates Screen Presumptive negative Urine Methadone Screen Presumptive negative Acetaminophen (10.0-30.0) ug/mL Ur Barbiturates Screen Presumptive positive Ur Phencyclidine Scrn Presumptive negative Ur Amphetamines Screen Presumptive negative U Benzodiazepines Scrn Presumptive negative Urine Cocaine Screen Presumptive negative U Marijuana (THC) Screen Presumptive negative Drugs of Abuse Note Disclamer Plasma/Serum Alcohol (0-0.07) % 06/27/18 06/27/18 06/27/18 Range/Units 03:06 03:06 03:06 WBC (4.5-11.0) K/mm3 RBC (3.65-5.03) M/mm3 Hgb (10.1-14.3) gm/dl Hct (30.3-42.9) % MCV (79-97) fl MCH (28-32) pg MCHC (30-34) % RDW (13.2-15.2) % Plt Count (140-440) K/mm3 Add Manual Diff Total Counted Seg Neuts % (Manual) (40.0-70.0) % Band Neutrophils % % Lymphocytes % (Manual) (13.4-35.0) % Reactive Lymphs % (Man) % Monocytes % (Manual) (0.0-7.3) % Eosinophils % (Manual) (0.0-4.3) % Basophils % (Manual) (0.0-1.8) % Metamyelocytes % % Myelocytes % % Promyelocytes % % Blast Cells % % Nucleated RBC % Seg Neutrophils # Man (1.8-7.7) K/mm3 Band Neutrophils # K/mm3 Lymphocytes # (Manual) (1.2-5.4) K/mm3 Abs React Lymphs (Man) K/mm3 Monocytes # (Manual) (0.0-0.8) K/mm3 Eosinophils # (Manual) (0.0-0.4) K/mm3 Basophils # (Manual) (0.0-0.1) K/mm3 Metamyelocytes # K/mm3 Myelocytes # K/mm3 Promyelocytes # K/mm3 Blast Cells # K/mm3 WBC Morphology Hypersegmented Neuts Hyposegmented Neuts Hypogranular Neuts Smudge Cells Toxic Granulation Toxic Vacuolation Dohle Bodies Pelger-Huet Anomaly [place] Rods Platelet Estimate Clumped Platelets Plt Clumps, EDTA Large Platelets Giant Platelets Platelet Satelliting Plt Morphology Comment RBC Morphology Dimorphic RBCs Polychromasia Hypochromasia Poikilocytosis Anisocytosis Microcytosis Macrocytosis Spherocytes Pappenheimer Bodies Sickle Cells Target Cells Tear Drop Cells Ovalocytes Helmet Cells [place] Bodies [place] Rings [place]le Cells Bite Cells Crenated Cell Elliptocytes Acanthocytes (Spur) Rouleaux Hemoglobin C Crystals Schistocytes Malaria parasites Remi Bodies Hem Pathologist Commnt PT 11.1 L (12.2-14.9) Sec. INR 0.76 L (0.87-1.13) D-Dimer < 135 (0-234) ng/mlDDU POC ABG pH (7.35-7.45) POC ABG pO2 (80-105) POC ABG HCO3 (22-26 mml/L) POC ABG Total CO2 (23-27mmol/L) POC ABG O2 Sat POC ABG Base Excess ((-2) - (+3)mmol/L) VBG pH (7.320-7.420) FiO2 % Sodium (137-145) mmol/L Potassium (3.6-5.0) mmol/L Chloride (98-107) mmol/L Carbon Dioxide (22-30) mmol/L Anion Gap mmol/L BUN (7-17) mg/dL Creatinine (0.7-1.2) mg/dL Estimated GFR ml/min BUN/Creatinine Ratio % Glucose (65-100) mg/dL POC Glucose (70-105) Lactic Acid (0.7-2.0) mmol/L Calcium (8.4-10.2) mg/dL Total Bilirubin (0.1-1.2) mg/dL Direct Bilirubin (0-0.2) mg/dL Indirect Bilirubin mg/dL AST (5-40) units/L ALT (7-56) units/L Alkaline Phosphatase (35-129) units/L Total Creatine Kinase 93 (30-135) units/L CK-MB (CK-2) 10.4 H (0.0-4.0) ng/mL CK-MB (CK-2) Rel Index 11.1 H (0-4) Troponin T < 0.010 (0.00-0.029) ng/mL Total Protein (6.3-8.2) g/dL Albumin (3.9-5) g/dL Albumin/Globulin Ratio % Lipase (13-60) units/L TSH (0.270-4.200) mlU/mL Free T4 (0.76-1.46) ng/dL Urine Color (Yellow) Urine Turbidity (Clear) Urine pH (5.0-7.0) Ur Specific [place] (1.003-1.030) Urine Protein (Negative) mg/dL Urine Glucose (UA) (Negative) mg/dL Urine Ketones (Negative) mg/dL Urine Blood (Negative) Urine Nitrite (Negative) Urine Bilirubin (Negative) Urine Urobilinogen (<2.0) mg/dL Ur Leukocyte Esterase (Negative) Urine WBC (Auto) (0.0-6.0) /HPF Urine RBC (Auto) (0.0-6.0) /HPF U Epithel Cells (Auto) (0-13.0) /HPF Urine Mucus /HPF Salicylates (2.8-20.0) mg/dL Urine Opiates Screen Urine Methadone Screen Acetaminophen (10.0-30.0) ug/mL Ur Barbiturates Screen Ur Phencyclidine Scrn Ur Amphetamines Screen U Benzodiazepines Scrn Urine Cocaine Screen U Marijuana (THC) Screen Drugs of Abuse Note Plasma/Serum Alcohol (0-0.07) % 06/27/18 06/27/18 06/27/18 Range/Units 03:06 03:06 03:06 WBC (4.5-11.0) K/mm3 RBC (3.65-5.03) M/mm3 Hgb (10.1-14.3) gm/dl Hct (30.3-42.9) % MCV (79-97) fl MCH (28-32) pg MCHC (30-34) % RDW (13.2-15.2) % Plt Count (140-440) K/mm3 Add Manual Diff Total Counted Seg Neuts % (Manual) (40.0-70.0) % Band Neutrophils % % Lymphocytes % (Manual) (13.4-35.0) % Reactive Lymphs % (Man) % Monocytes % (Manual) (0.0-7.3) % Eosinophils % (Manual) (0.0-4.3) % Basophils % (Manual) (0.0-1.8) % Metamyelocytes % % Myelocytes % % Promyelocytes % % Blast Cells % % Nucleated RBC % Seg Neutrophils # Man (1.8-7.7) K/mm3 Band Neutrophils # K/mm3 Lymphocytes # (Manual) (1.2-5.4) K/mm3 Abs React Lymphs (Man) K/mm3 Monocytes # (Manual) (0.0-0.8) K/mm3 Eosinophils # (Manual) (0.0-0.4) K/mm3 Basophils # (Manual) (0.0-0.1) K/mm3 Metamyelocytes # K/mm3 Myelocytes # K/mm3 Promyelocytes # K/mm3 Blast Cells # K/mm3 WBC Morphology Hypersegmented Neuts Hyposegmented Neuts Hypogranular Neuts Smudge Cells Toxic Granulation Toxic Vacuolation Dohle Bodies Pelger-Huet Anomaly [place] Rods Platelet Estimate Clumped Platelets Plt Clumps, EDTA Large Platelets Giant Platelets Platelet Satelliting Plt Morphology Comment RBC Morphology Dimorphic RBCs Polychromasia Hypochromasia Poikilocytosis Anisocytosis Microcytosis Macrocytosis Spherocytes Pappenheimer Bodies Sickle Cells Target Cells Tear Drop Cells Ovalocytes Helmet Cells [place] Bodies [place] Rings [place]le Cells Bite Cells Crenated Cell Elliptocytes Acanthocytes (Spur) Rouleaux Hemoglobin C Crystals Schistocytes Malaria parasites Remi Bodies Hem Pathologist Commnt PT (12.2-14.9) Sec. INR (0.87-1.13) D-Dimer (0-234) ng/mlDDU POC ABG pH (7.35-7.45) POC ABG pO2 (80-105) POC ABG HCO3 (22-26 mml/L) POC ABG Total CO2 (23-27mmol/L) POC ABG O2 Sat POC ABG Base Excess ((-2) - (+3)mmol/L) VBG pH (7.320-7.420) FiO2 % Sodium (137-145) mmol/L Potassium (3.6-5.0) mmol/L Chloride (98-107) mmol/L Carbon Dioxide (22-30) mmol/L Anion Gap mmol/L BUN (7-17) mg/dL Creatinine (0.7-1.2) mg/dL Estimated GFR ml/min BUN/Creatinine Ratio % Glucose (65-100) mg/dL POC Glucose (70-105) Lactic Acid (0.7-2.0) mmol/L Calcium (8.4-10.2) mg/dL Total Bilirubin (0.1-1.2) mg/dL Direct Bilirubin (0-0.2) mg/dL Indirect Bilirubin mg/dL AST (5-40) units/L ALT (7-56) units/L Alkaline Phosphatase (35-129) units/L Total Creatine Kinase (30-135) units/L CK-MB (CK-2) (0.0-4.0) ng/mL CK-MB (CK-2) Rel Index (0-4) Troponin T (0.00-0.029) ng/mL Total Protein (6.3-8.2) g/dL Albumin (3.9-5) g/dL Albumin/Globulin Ratio % Lipase (13-60) units/L TSH 0.859 (0.270-4.200) mlU/mL Free T4 1.22 (0.76-1.46) ng/dL Urine Color (Yellow) Urine Turbidity (Clear) Urine pH (5.0-7.0) Ur Specific [place] (1.003-1.030) Urine Protein (Negative) mg/dL Urine Glucose (UA) (Negative) mg/dL Urine Ketones (Negative) mg/dL Urine Blood (Negative) Urine Nitrite (Negative) Urine Bilirubin (Negative) Urine Urobilinogen (<2.0) mg/dL Ur Leukocyte Esterase (Negative) Urine WBC (Auto) (0.0-6.0) /HPF Urine RBC (Auto) (0.0-6.0) /HPF U Epithel Cells (Auto) (0-13.0) /HPF Urine Mucus /HPF Salicylates < 0.3 L (2.8-20.0) mg/dL Urine Opiates Screen Urine Methadone Screen Acetaminophen < 5.0 L (10.0-30.0) ug/mL Ur Barbiturates Screen Ur Phencyclidine Scrn Ur Amphetamines Screen U Benzodiazepines Scrn Urine Cocaine Screen U Marijuana (THC) Screen Drugs of Abuse Note Plasma/Serum Alcohol (0-0.07) % 06/27/18 06/27/18 06/27/18 Range/Units 03:06 03:06 03:06 WBC (4.5-11.0) K/mm3 RBC (3.65-5.03) M/mm3 Hgb (10.1-14.3) gm/dl Hct (30.3-42.9) % MCV (79-97) fl MCH (28-32) pg MCHC (30-34) % RDW (13.2-15.2) % Plt Count (140-440) K/mm3 Add Manual Diff Total Counted Seg Neuts % (Manual) (40.0-70.0) % Band Neutrophils % % Lymphocytes % (Manual) (13.4-35.0) % Reactive Lymphs % (Man) % Monocytes % (Manual) (0.0-7.3) % Eosinophils % (Manual) (0.0-4.3) % Basophils % (Manual) (0.0-1.8) % Metamyelocytes % % Myelocytes % % Promyelocytes % % Blast Cells % % Nucleated RBC % Seg Neutrophils # Man (1.8-7.7) K/mm3 Band Neutrophils # K/mm3 Lymphocytes # (Manual) (1.2-5.4) K/mm3 Abs React Lymphs (Man) K/mm3 Monocytes # (Manual) (0.0-0.8) K/mm3 Eosinophils # (Manual) (0.0-0.4) K/mm3 Basophils # (Manual) (0.0-0.1) K/mm3 Metamyelocytes # K/mm3 Myelocytes # K/mm3 Promyelocytes # K/mm3 Blast Cells # K/mm3 WBC Morphology Hypersegmented Neuts Hyposegmented Neuts Hypogranular Neuts Smudge Cells Toxic Granulation Toxic Vacuolation Dohle Bodies Pelger-Huet Anomaly [place] Rods Platelet Estimate Clumped Platelets Plt Clumps, EDTA Large Platelets Giant Platelets Platelet Satelliting Plt Morphology Comment RBC Morphology Dimorphic RBCs Polychromasia Hypochromasia Poikilocytosis Anisocytosis Microcytosis Macrocytosis Spherocytes Pappenheimer Bodies Sickle Cells Target Cells Tear Drop Cells Ovalocytes Helmet Cells [place] Bodies [place] Rings [place] Cells Bite Cells Crenated Cell Elliptocytes Acanthocytes (Spur) Rouleaux Hemoglobin C Crystals Schistocytes Malaria parasites Remi Bodies Hem Pathologist Commnt PT (12.2-14.9) Sec. INR (0.87-1.13) D-Dimer (0-234) ng/mlDDU POC ABG pH (7.35-7.45) POC ABG pO2 (80-105) POC ABG HCO3 (22-26 mml/L) POC ABG Total CO2 (23-27mmol/L) POC ABG O2 Sat POC ABG Base Excess ((-2) - (+3)mmol/L) VBG pH 7.282 L (7.320-7.420) FiO2 % Sodium (137-145) mmol/L Potassium (3.6-5.0) mmol/L Chloride (98-107) mmol/L Carbon Dioxide (22-30) mmol/L Anion Gap mmol/L BUN (7-17) mg/dL Creatinine (0.7-1.2) mg/dL Estimated GFR ml/min BUN/Creatinine Ratio % Glucose (65-100) mg/dL POC Glucose (70-105) Lactic Acid 0.70 (0.7-2.0) mmol/L Calcium (8.4-10.2) mg/dL Total Bilirubin (0.1-1.2) mg/dL Direct Bilirubin (0-0.2) mg/dL Indirect Bilirubin mg/dL AST (5-40) units/L ALT (7-56) units/L Alkaline Phosphatase (35-129) units/L Total Creatine Kinase (30-135) units/L CK-MB (CK-2) (0.0-4.0) ng/mL CK-MB (CK-2) Rel Index (0-4) Troponin T (0.00-0.029) ng/mL Total Protein (6.3-8.2) g/dL Albumin (3.9-5) g/dL Albumin/Globulin Ratio % Lipase (13-60) units/L TSH (0.270-4.200) mlU/mL Free T4 (0.76-1.46) ng/dL Urine Color (Yellow) Urine Turbidity (Clear) Urine pH (5.0-7.0) Ur Specific [place] (1.003-1.030) Urine Protein (Negative) mg/dL Urine Glucose (UA) (Negative) mg/dL Urine Ketones (Negative) mg/dL Urine Blood (Negative) Urine Nitrite (Negative) Urine Bilirubin (Negative) Urine Urobilinogen (<2.0) mg/dL Ur Leukocyte Esterase (Negative) Urine WBC (Auto) (0.0-6.0) /HPF Urine RBC (Auto) (0.0-6.0) /HPF U Epithel Cells (Auto) (0-13.0) /HPF Urine Mucus /HPF Salicylates (2.8-20.0) mg/dL Urine Opiates Screen Urine Methadone Screen Acetaminophen (10.0-30.0) ug/mL Ur Barbiturates Screen Ur Phencyclidine Scrn Ur Amphetamines Screen U Benzodiazepines Scrn Urine Cocaine Screen U Marijuana (THC) Screen Drugs of Abuse Note Plasma/Serum Alcohol < 0.01 (0-0.07) % 06/27/ Range/Units 03:06 WBC (4.5-11.0) K/mm3 RBC (3.65-5.03) M/mm3 Hgb (10.1-14.3) gm/dl Hct (30.3-42.9) % MCV (79-97) fl MCH (28-32) pg MCHC (30-34) % RDW (13.2-15.2) % Plt Count (140-440) K/mm3 Add Manual Diff Total Counted Seg Neuts % (Manual) (40.0-70.0) % Band Neutrophils % % Lymphocytes % (Manual) (13.4-35.0) % Reactive Lymphs % (Man) % Monocytes % (Manual) (0.0-7.3) % Eosinophils % (Manual) (0.0-4.3) % Basophils % (Manual) (0.0-1.8) % Metamyelocytes % % Myelocytes % % Promyelocytes % % Blast Cells % % Nucleated RBC % Seg Neutrophils # Man (1.8-7.7) K/mm3 Band Neutrophils # K/mm3 Lymphocytes # (Manual) (1.2-5.4) K/mm3 Abs React Lymphs (Man) K/mm3 Monocytes # (Manual) (0.0-0.8) K/mm3 Eosinophils # (Manual) (0.0-0.4) K/mm3 Basophils # (Manual) (0.0-0.1) K/mm3 Metamyelocytes # K/mm3 Myelocytes # K/mm3 Promyelocytes # K/mm3 Blast Cells # K/mm3 WBC Morphology Hypersegmented Neuts Hyposegmented Neuts Hypogranular Neuts Smudge Cells Toxic Granulation Toxic Vacuolation Dohle Bodies Pelger-Huet Anomaly [place] Rods Platelet Estimate Clumped Platelets Plt Clumps, EDTA Large Platelets Giant Platelets Platelet Satelliting Plt Morphology Comment RBC Morphology Dimorphic RBCs Polychromasia Hypochromasia Poikilocytosis Anisocytosis Microcytosis Macrocytosis Spherocytes Pappenheimer Bodies Sickle Cells Target Cells Tear Drop Cells Ovalocytes Helmet Cells [place] Bodies [place] Rings [place] Cells Bite Cells Crenated Cell Elliptocytes Acanthocytes (Spur) Rouleaux Hemoglobin C Crystals Schistocytes Malaria parasites Remi Bodies Hem Pathologist Commnt PT (12.2-14.9) Sec. INR (0.87-1.13) D-Dimer (0-234) ng/mlDDU POC ABG pH (7.35-7.45) POC ABG pO2 (80-105) POC ABG HCO3 (22-26 mml/L) POC ABG Total CO2 (23-27mmol/L) POC ABG O2 Sat POC ABG Base Excess ((-2) - (+3)mmol/L) VBG pH (7.320-7.420) FiO2 % Sodium (137-145) mmol/L Potassium (3.6-5.0) mmol/L Chloride (98-107) mmol/L Carbon Dioxide (22-30) mmol/L Anion Gap mmol/L BUN (7-17) mg/dL Creatinine (0.7-1.2) mg/dL Estimated GFR ml/min BUN/Creatinine Ratio % Glucose (65-100) mg/dL POC Glucose (70-105) Lactic Acid (0.7-2.0) mmol/L Calcium (8.4-10.2) mg/dL Total Bilirubin < 0.20 (0.1-1.2) mg/dL Direct Bilirubin < 0.2 (0-0.2) mg/dL Indirect Bilirubin 0.0 mg/dL AST 22 (5-40) units/L ALT 24 (7-56) units/L Alkaline Phosphatase 31 L (35-129) units/L Total Creatine Kinase (30-135) units/L CK-MB (CK-2) (0.0-4.0) ng/mL CK-MB (CK-2) Rel Index (0-4) Troponin T (0.00-0.029) ng/mL Total Protein 6.0 L (6.3-8.2) g/dL Albumin 4.1 (3.9-5) g/dL Albumin/Globulin Ratio 2.2 % Lipase 43 (13-60) units/L TSH (0.270-4.200) mlU/mL Free T4 (0.76-1.46) ng/dL Urine Color (Yellow) Urine Turbidity (Clear) Urine pH (5.0-7.0) Ur Specific [place] (1.003-1.030) Urine Protein (Negative) mg/dL Urine Glucose (UA) (Negative) mg/dL Urine Ketones (Negative) mg/dL Urine Blood (Negative) Urine Nitrite (Negative) Urine Bilirubin (Negative) Urine Urobilinogen (<2.0) mg/dL Ur Leukocyte Esterase (Negative) Urine WBC (Auto) (0.0-6.0) /HPF Urine RBC (Auto) (0.0-6.0) /HPF U Epithel Cells (Auto) (0-13.0) /HPF Urine Mucus /HPF Salicylates (2.8-20.0) mg/dL Urine Opiates Screen Urine Methadone Screen Acetaminophen (10.0-30.0) ug/mL Ur Barbiturates Screen Ur Phencyclidine Scrn Ur Amphetamines Screen U Benzodiazepines Scrn Urine Cocaine Screen U Marijuana (THC) Screen Drugs of Abuse Note Plasma/Serum Alcohol (0-0.07) % - EKG Data -: EKG Interpreted by Me EKG shows normal: sinus rhythm, axis (qrs), QRS complexes, ST-T waves (no stemi/t inv) Rate: tachycardia (121) - Radiology Data Radiology results: report reviewed (cxr: mild copd, no infiltrate, effusion) - Medical Decision Making Patient has multiple recent ER visits and hospitalizations. Today she presents with CO2 retention requiring intubation. Leukocytosis also noted and patient was treated with Zosyn empirically while infection workup was in progress. Chest x-ray reviewed of COPD. D-dimer, EKG, and enzymes unremarkable. Pt in tubated after BIPAP failure. Patient requires admission to the ICU ct head and ct abd/pelvic pending pt s/o to DR Richards to notify Hospitalist for admission after ct results. DR Joseph informed that pt is pending ICU admissiona and to expect call once ct's result - Differential Diagnosis psychosis, CO2 retention, encephalopathy, UTI, abdominal infection, pneumon Critical Care Time: Yes Critical care time in (mins) excluding proc time.: 35 Critical care attestation.: If time is entered above; I have spent that time in minutes in the direct care of this critically ill patient, excluding procedure time. ED Disposition Is pt being admited?: Yes Time of Disposition: 06:00 (hospitalist)
[2018-06-27] MEDS ORDERED: ZOSYN/NS 4.5GM/100ML 4.5 GM/100 ML VIAL IV ONE (02:39)
[2018-06-27] MEDS ORDERED: MAGNESIUM SULFATE 2GM/50ML 2 GM/50 ML BAG IV ONE (02:46)
[2018-06-27] MEDS ORDERED: SOLU-Medrol IV ONE (02:46)
[2018-06-27 03:29] LABS: INR 0.76 (0.87-1.13)
[2018-06-27 03:39] LABS: Amphetamine Screen,Urine PRESUMPTIVE NEGATIVE; Benzodiazepines Screen,Urine PRESUMPTIVE NEGATIVE; Cannabinoid Screen,Urine PRESUMPTIVE NEGATIVE; Cocaine Screen,Urine PRESUMPTIVE NEGATIVE; Methadone Screen,Urine PRESUMPTIVE NEGATIVE; Opiate Screen,Urine PRESUMPTIVE NEGATIVE
[2018-06-27 03:41] LABS: Alanine Aminotransferase 24 units/L (7-56); Albumin 4.1 g/dL (3.9-5)
[2018-06-27 03:42] LABS: Bilirubin,Direct < 0.2 mg/dL (0-0.2)
[2018-06-27 03:44] LABS: Creatine Kinase MB 10.4 ng/mL (0.0-4.0)
[2018-06-27 03:51] LABS: Free T4 (Free Thyroxine) 1.22 ng/dL (0.76-1.46)
[2018-06-27 04:13] LABS: Bilirubin,Urine NEG (Negative); Blood,Urine NEG (Negative); Color,Urine Yellow (Yellow); Mucus,Urine FEW /HPF; Protein,Urine <15 mg/dL mg/dL (Negative); Urobilinogen,Urine < 2.0 mg/dL (<2.0)
[2018-06-27] MEDS ORDERED: DIPRIVAN 10 MG/ML 1,000 MG/100 ML BOTTLE IV ONE ×3 (04:17→22:33)
[2018-06-27] MEDS ORDERED: ARTIFICIAL TEARS OPHTH OINT OU PRN (04:20)
[2018-06-27] MEDS ORDERED: VASELINE LIP THERAPY TP PRN (04:20)
[2018-06-27] MEDS ORDERED: ATROVENT IH ONE ×2 (04:31→07:08)
[2018-06-27] MEDS ORDERED: PROVENTIL IH ONE ×2 (04:31→07:08)
[2018-06-27] MEDS: DIPRIVAN 10 MG/ML 1,000 MG/100 ML BOTTLE IV SCH ×2 (05:10→11:56)
[2018-06-27] MEDS ORDERED: ZEMURON IV ONE (05:15)
[2018-06-27 05:19] LABS: Myelocytes # (Manual) 0.2 K/mm3; Total Cells Counted 100
[2018-06-27 05:20] LABS: Anisocytosis 1+; Basophils % (Manual) 0 % (0.0-1.8); Platelet Estimate Consistent w Auto; Poikilocytosis 1+; Target Cells 1+
--- NOTE | 2018-06-27 05:51 | XRay Report ---
PROCEDURE: XR CHEST 1V AP HISTORY: post intubation COMPARISONS: X-ray dated 06/27/2018 0157 hours. Findings: Normal cardiomediastinal silhouette. No focal airspace consolidation or pleural effusion. No pleural effusion. A feeding tube catheter courses towards the left upper abdomen, however tip is not seen on this study . ET catheter tip is 1.9 cm above the cel[place]. Multiple old left posterior rib fractures. Lungs are hyperinflated. IMPRESSION: 1. Clear lungs. 2. Multiple old left posterior rib fractures. This document is electronically signed by Kylee Hernandez MD., June 27 2018 05:48:57 AM ET
--- NOTE | 2018-06-27 07:09 | Cat Scan Report ---
PROCEDURE: CT ABDOMEN PELVIS W CON TECHNIQUE: Enhanced axial images were obtained through the lower lung bases through the pelvis after the uneventful administration of IV contrast. HISTORY: diarhea, leukocytosis COMPARISONS: Acute abdomen series x-ray dated 04/29/2018 FINDINGS: Visualized lower thorax: No active air space consolidation. COPD changes. Anterior pericardial effusion measures 1 cm in thickness. Liver: The liver measures 20 cm in length coronal dimension. Spleen: Normal size and attenuation. Gallbladder and biliary system: Normal. Pancreas: Normal. Adrenals: Normal. Kidneys: Normal. GI tract: Feeding tube catheter tip within the stomach body. Moderate to large amount of stool throughout the large bowel loops and rectum. Lymph nodes and mesentery: Normal. Vasculature: Normal.. Bladder: Bray catheter within a decompressed urinary bladder. Reproductive organs: Normal. Peritoneum: Free fluid in the deep pelvis. Musculoskeletal structures: No significant abnormality. Other: None . IMPRESSION: 1. No bowel obstruction 2. Moderate to large amount of stool throughout the large bowel loops and rectum. This document is electronically signed by Kylee Hernandez MD., June 27 2018 07:07:40 AM ET
--- NOTE | 2018-06-27 07:20 | Cat Scan Report ---
PROCEDURE: CT HEAD/BRAIN WO CON TECHNIQUE: Nonenhanced axial images were obtained of the cerebrum and posterior fossa. HISTORY: ams vs psychosis COMPARISONS: CT head study dated 12/23/2017 FINDINGS: Normal can-white matter differentiation. No acute intra-axial or extra-axial fluid collections. The ventricles are midline. No midline shift, mass effect or herniation. No cerebral edema or discernible mass within the brain. Unremarkable calvarium and paranasal sinuses. Partially imaged feeding tube and endotracheal catheters. IMPRESSION: 1. No acute intracranial abnormality. This document is electronically signed by Kylee Hernandez MD., June 27 2018 07:18:45 AM ET
[2018-06-27] MEDS ORDERED: VANCOMYCIN 1,000 MG in NACL 0.9% 500 ML 500 ML IV ONE (07:52)
--- NOTE | 2018-06-27 09:26 | History and Physical Report ---
History of Present Illness Date of examination: 06/27/18 Date of admission: 06/27/18 07:25 Chief complaint: Altered Mental status and shortness of breath History of present illness: Patient is a 53-year-old female with past medical history of schizoaffective disorder, anxiety, COPD with 2 L oxygen dependence, diabetes on insulin, CAD, and hypertension presents via [facility] who brought her to the hospital with notation that she was having chest pain shortness of breath. Also admission of altered sensorium. According to nursing documentation reviewed sin ce the patient is currently intubated I cannot obtain any history from her the " patient is rambling and speaking of hackers attacking and raping her. Denies chest pain, states she feels like she is having an anxiety attack. Patient appears to be short of breath. Arrived with 2 L NC, patient placed on bipap upon arrival to the room." Per ED documentation, the patient who is known to have a hx of CO2 retention was altered and despite adjustment to BIPAP had increased distress and "More lethargic..... AND Less responsive prompting intubation. Review of other documents shows that the patient was recently evaluated for Diarrhea. The timeline is not clear to me at this time. The patient has had many hospital visits and has an active psych hx and hx of non compliance. Initial labs on admission shows acidosis with PH of 7.222, anemia at 9.9 and leukocytosis at >20 with no fever Past History Past Medical History: COPD, diabetes, GERD, hypertension, hyperlipidemia, other (schizoaffective disorder) Social history: full code, other (leaves at [employer]) Medications and Allergies Allergies Allergy/AdvReac Type Severity Reaction Status Date / Time clonazepam [From Klonopin] Allergy Unknown Verified 06/10/18 22:32 quetiapine [From Seroquel] Allergy Unknown Verified 06/10/18 22:32 Home Medications Medication Instructions Recorded Confirmed Last Taken Type ALBUTEROL Inhaler(NF) [VENTOLIN 1 puff IH Q4H PRN 30 Days #1 inha 06/22/18 Unknown Rx Inhaler(NF)] Butalb/Acetamin/Caff 50-325-40 1 tab PO Q4H PRN #30 tablet 06/22/18 Unknown Rx [Fioricet] FLUoxetine [PROzac] 40 mg PO QAM #30 capsule 06/22/18 Unknown Rx Ferrous Sulfate [Feosol 325 MG tab] 325 mg PO QDAY #30 tablet 06/22/18 Unknown Rx Fluticasone/Salmeterol [Advair 1 puff IH BID #1 disk.w.dev 06/22/18 Unknown Rx Diskus 250-50 mcg] Ipratropium/Albuterol Sulfate 1 ampul IH QIDRT #100 ampul.neb 06/22/18 Unknown Rx [DUONEB *Not for PRN Use*] Prednisone [predniSONE 10 mg 10 mg PO .TAPER #1 tab.ds.pk 06/22/18 Unknown Rx (6-Day Pack, 21 Tabs)] busPIRone [Buspar] 15 mg PO BID #30 tablet 06/22/18 Unknown Rx fluPHENAZine HCl [Prolixin] 5 mg PO HS #30 tablet 06/22/18 Unknown Rx glipiZIDE [Glipizide] 5 mg PO QDAY #30 tablet 06/22/18 Unknown Rx metFORMIN [Glucophage] 500 mg PO BID 60 Days #60 tablet 06/22/18 Unknown Rx Active Meds: Active Medications Dextrose (D50w (25gm) Syringe) 50 ml IV PRN PRN PRN Reason: Hypoglycemia Hydrophilic Ointment (Vaseline Lip Therapy) 1 applic TP Q2HR PRN PRN Reason: Dry Lips Propofol (Diprivan 10 Mg/Ml) 1,000 mg in 100 mls @ 1.47 mls/hr IV TITR AJITH; Protocol Last Admin: 06/27/18 05:10 Dose: 30 mcg/kg/min, 8.818 mls/hr Documented by: Cefepime HCl (Maxipime/Ns 2 Gm/100 Ml) 2 gm in 100 mls @ 200 mls/hr IV Q8HR SC H; Protocol Vancomycin HCl (Vancomycin/Ns 1 Gm/250 Ml) 1 gm in 250 mls @ 167.007 mls/hr IV ONCE ONE Stop: 06/27/18 11:29 Insulin Human Lispro (Humalog) 0 unit SUB-Q QHS AJITH; Protocol Multi-Ingred Cream/Lotion/Oil/Oint (Artificial Tears Ophth Oint) 1 applic OU Q4HR PRN PRN Reason: Dry Eye(s) Exam - Physical Exam Narrative exam: VITAL SIGNS: Reviewed. GENERAL: The patient appeared well nourished and normally developed, otherwise on Mechanical ventilatory support. Vital signs as documented. HEAD: No signs of head trauma. EYES: Pupils are equal. EARS: UNABLE TO ASSESS MOUTH: Oropharynx is normal except noted ETT in place. NECK: No adenopathy, no JVD. CHEST: Chest with clear breath sounds bilaterally. No wheezes, rales, or rhonchi. CARDIAC: Regular rate and rhythm. S1 and S2, without murmurs, gallops, or rubs. VASCULAR: No Edema. Peripheral pulses normal and equal in all extremities. ABDOMEN: Soft, non tender and non distended. No rebound or guarding, and no masses palpated. Bowel Sounds normal. MUSCULOSKELETAL: Good range of motion of all major joints. Extremities without clubbing, cyanosis or edema. NEUROLOGIC EXAM: UNABLE TO ASSESS PSYCHIATRIC: UNABLE TO ASSESS SKIN:Some noted echymosis - Constitutional Vitals: Temp Pulse Resp BP Pulse Ox 97.9 F 103 H 20 92/60 100 06/27/18 00:42 06/27/18 07:38 06/27/18 07:19 06/27/18 07:38 06/27/18 07:38 Results - Labs CBC & Chem 7: 06/27/18 01:28 06/27/18 01:28 Labs: Laboratory Last Values WBC 20.0 K/mm3 (4.5-11.0) H 06/27/18 01:28 RBC 3.64 M/mm3 (3.65-5.03) L 06/27/18 01:28 Hgb 9.9 gm/dl (10.1-14.3) L 06/27/18 01:28 Hct 31.8 % (30.3-42.9) 06/27/18 01:28 MCV 87 fl (79-97) 06/27/18 01:28 MCH 27 pg (28-32) L 06/27/18 01:28 MCHC 31 % (30-34) 06/27/18 01:28 RDW 31.3 % (13.2-15.2) H 06/27/18 01:28 Plt Count 469 K/mm3 (140-440) H 06/27/18 01:28 Add Manual Diff Complete 06/27/18 01:28 Total Counted 100 06/27/18 01:28 Seg Neuts % (Manual) 83.0 % (40.0-70.0) H 06/27/18 01:28 Band Neutrophils % 0 % 06/27/18 01:28 Lymphocytes % (Manual) 9.0 % (13.4-35.0) L 06/27/18 01:28 Reactive Lymphs % (Man) 0 % 06/27/18 01:28 Monocytes % (Manual) 6.0 % (0.0-7.3) 06/27/18 01:28 Eosinophils % (Manual) 1.0 % (0.0-4.3) 06/27/18 01:28 Basophils % (Manual) 0 % (0.0-1.8) 06/27/18 01:28 Metamyelocytes % 0 % 06/27/18 01:28 Myelocytes % 1.0 % 06/27/18 01:28 Promyelocytes % 0 % 06/27/18 01:28 Blast Cells % 0 % 06/27/18 01:28 Nucleated RBC % Not Reportable 06/27/18 01:28 Seg Neutrophils # Man 16.6 K/mm3 (1.8-7.7) H 06/27/18 01:28 Band Neutrophils # 0.0 K/mm3 06/27/18 01:28 Lymphocytes # (Manual) 1.8 K/mm3 (1.2-5.4) 06/27/18 01:28 Abs React Lymphs (Man) 0.0 K/mm3 06/27/18 01:28 Monocytes # (Manual) 1.2 K/mm3 (0.0-0.8) H 06/27/18 01:28 Eosinophils # (Manual) 0.2 K/mm3 (0.0-0.4) 06/27/18 01:28 Basophils # (Manual) 0.0 K/mm3 (0.0-0.1) 06/27/18 01:28 Metamyelocytes # 0.0 K/mm3 06/27/18 01:28 Myelocytes # 0.2 K/mm3 06/27/18 01:28 Promyelocytes # 0.0 K/mm3 06/27/18 01:28 Blast Cells # 0.0 K/mm3 06/27/18 01:28 WBC Morphology Not Reportable 06/27/18 01:28 Hypersegmented Neuts Not Reportable 06/27/18 01:28 Hyposegmented Neuts Not Reportable 06/27/18 01:28 Hypogranular Neuts Not Reportable 06/27/18 01:28 Smudge Cells Not Reportable 06/27/18 01:28 Toxic Granulation Not Reportable 06/27/18 01:28 Toxic Vacuolation Not Reportable 06/27/18 01:28 Dohle Bodies Not Reportable 06/27/18 01:28 Pelger-Huet Anomaly Not Reportable 06/27/18 01:28 Musa Rods Not Reportable 06/27/18 01:28 Platelet Estimate Consistent w auto 06/27/18 01:28 Clumped Platelets Not Reportable 06/27/18 01:28 Plt Clumps, EDTA Not Reportable 06/27/18 01:28 Large Platelets Not Reportable 06/27/18 01:28 Giant Platelets Not Reportable 06/27/18 01:28 Platelet Satelliting Not Reportable 06/27/18 01:28 Plt Morphology Comment Not Reportable 06/27/18 01:28 RBC Morphology Not Reportable 06/27/18 01:28 Dimorphic RBCs Not Reportable 06/27/18 01:28 Polychromasia Not Reportable 06/27/18 01:28 Hypochromasia Not Reportable 06/27/18 01:28 Poikilocytosis 1+ 06/27/18 01:28 Anisocytosis 1+ 06/27/18 01:28 Microcytosis Not Reportable 06/27/18 01:28 Macrocytosis Not Reportable 06/27/18 01:28 Spherocytes Not Reportable 06/27/18 01:28 Pappenheimer Bodies Not Reportable 06/27/18 01:28 Sickle Cells Not Reportable 06/27/18 01:28 Target Cells 1+ 06/27/18 01:28 Tear Drop Cells Not Reportable 06/27/18 01:28 Ovalocytes Not Reportable 06/27/18 01:28 Helmet Cells Not Reportable 06/27/18 01:28 [place] Bodies Not Reportable 06/27/18 01:28 [place] Rings Not Reportable 06/27/18 01:28 Richelle Cells Not Reportable 06/27/18 01:28 Bite Cells Not Reportable 06/27/18 01:28 Crenated Cell Not Reportable 06/27/18 01:28 Elliptocytes Few 06/27/18 01:28 Acanthocytes (Spur) Not Reportable 06/27/18 01:28 Rouleaux Not Reportable 06/27/18 01:28 Hemoglobin C Crystals Not Reportable 06/27/18 01:28 Schistocytes Not Reportable 06/27/18 01:28 Malaria parasites Not Reportable 06/27/18 01:28 Remi Bodies Not Reportable 06/27/18 01:28 Hem Pathologist Commnt No 06/27/18 01:28 PT 11.1 Sec. (12.2-14.9) L 06/27/18 03:06 INR 0.76 (0.87-1.13) L 06/27/18 03:06 D-Dimer < 135 ng/mlDDU (0-234) 06/27/18 03:06 POC ABG pH 7.314 (7.35-7.45) L 06/27/18 06:49 POC ABG pCO2 64.6 (35-45) H 06/27/18 06:49 POC ABG pO2 244 (80-105) H 06/27/18 06:49 POC ABG HCO3 32.9 (22-26 mml/L) 06/27/18 06:49 POC ABG Total CO2 35 (23-27mmol/L) 06/27/18 06:49 POC ABG O2 Sat 100 06/27/18 06:49 POC ABG Base Excess 7 ((-2) - (+3)mmol/L) 06/27/18 06:49 VBG pH 7.282 (7.320-7.420) L 06/27/18 03:06 FiO2 50 % 06/27/18 06:49 Sodium 136 mmol/L (137-145) L 06/27/18 01:28 Potassium 4.8 mmol/L (3.6-5.0) D 06/27/18 01:28 Chloride 94.8 mmol/L (98-107) L 06/27/18 01:28 Carbon Dioxide 30 mmol/L (22-30) 06/27/18 01:28 Anion Gap 16 mmol/L 06/27/18 01:28 BUN 21 mg/dL (7-17) H 06/27/18 01:28 Creatinine 0.2 mg/dL (0.7-1.2) L D 06/27/18 01:28 Estimated GFR > 60 ml/min 06/27/18 01:28 BUN/Creatinine Ratio 105 % 06/27/18 01:28 Glucose 130 mg/dL (65-100) H 06/27/18 01:28 POC Glucose 128 (70-105) H 06/27/18 02:24 Lactic Acid 1.50 mmol/L (0.7-2.0) 06/27/18 08:09 Calcium 8.3 mg/dL (8.4-10.2) L D 06/27/18 01:28 Total Bilirubin < 0.20 mg/dL (0.1-1.2) 06/27/18 03:06 Direct Bilirubin < 0.2 mg/dL (0-0.2) 06/27/18 03:06 Indirect Bilirubin 0.0 mg/dL 06/27/18 03:06 AST 22 units/L (5-40) 06/27/18 03:06 ALT 24 units/L (7-56) 06/27/18 03:06 Alkaline Phosphatase 31 units/L (35-129) L 06/27/18 03:06 Total Creatine Kinase 93 units/L (30-135) 06/27/18 03:06 CK-MB (CK-2) 10.4 ng/mL (0.0-4.0) H 06/27/18 03:06 CK-MB (CK-2) Rel Index 11.1 (0-4) H 06/27/18 03:06 Troponin T < 0.010 ng/mL (0.00-0.029) 06/27/18 07:16 Total Protein 6.0 g/dL (6.3-8.2) L 06/27/18 03:06 Albumin 4.1 g/dL (3.9-5) 06/27/18 03:06 Albumin/Globulin Ratio 2.2 % 06/27/18 03:06 Lipase 43 units/L (13-60) 06/27/18 03:06 TSH 0.859 mlU/mL (0.270-4.200) 06/27/18 03:06 Free T4 1.22 ng/dL (0.76-1.46) 06/27/18 03:06 Urine Color Yellow (Yellow) 06/27/18 02:47 Urine Turbidity Clear (Clear) 06/27/18 02:47 Urine pH 5.0 (5.0-7.0) 06/27/18 02:47 Ur Specific [place] 1.032 (1.003-1.030) H 06/27/18 02:47 Urine Protein <15 mg/dl mg/dL (Negative) 06/27/18 02:47 Urine Glucose (UA) Neg mg/dL (Negative) 06/27/18 02:47 Urine Ketones Neg mg/dL (Negative) 06/27/18 02:47 Urine Blood Neg (Negative) 06/27/18 02:47 Urine Nitrite Neg (Negative) 06/27/18 02:47 Urine Bilirubin Neg (Negative) 06/27/18 02:47 Urine Urobilinogen < 2.0 mg/dL (<2.0) 06/27/18 02:47 Ur Leukocyte Esterase Tr (Negative) 06/27/18 02:47 Urine WBC (Auto) 14.0 /HPF (0.0-6.0) H 06/27/18 02:47 Urine RBC (Auto) 3.0 /HPF (0.0-6.0) 06/27/18 02:47 U Epithel Cells (Auto) 2.0 /HPF (0-13.0) 06/27/18 02:47 Urine Mucus Few /HPF 06/27/18 02:47 Salicylates < 0.3 mg/dL (2.8-20.0) L 06/27/18 03:06 Urine Opiates Screen Presumptive negative 06/27/18 02:47 Urine Methadone Screen Presumptive negative 06/27/18 02:47 Acetaminophen < 5.0 ug/mL (10.0-30.0) L 06/27/18 03:06 Ur Barbiturates Screen Presumptive positive 06/27/18 02:47 Ur Phencyclidine Scrn Presumptive negative 06/27/18 02:47 Ur Amphetamines Screen Presumptive negative 06/27/18 02:47 U Benzodiazepines Scrn Presumptive negative 06/27/18 02:47 Urine Cocaine Screen Presumptive negative 06/27/18 02:47 U Marijuana (THC) Screen Presumptive negative 06/27/18 02:47 Drugs of Abuse Note Disclamer 06/27/18 02:47 Plasma/Serum Alcohol < 0.01 % (0-0.07) 06/27/18 03:06 Blood Type A POSITIVE 06/27/18 08:09 Antibody Screen Negative 06/27/18 08:09 Assessment and Plan Assessment and plan: Patient is a 53-year-old female with past medical history of schizoaffective disorder, anxiety, COPD with 2 L oxygen dependence, diabetes on insulin, CAD, and hypertension presents via [facility] who brought her to the hospital with notation that she was having chest pain shortness of breath. Also admission of altered sensorium. According to nursing documentation reviewed since the patient is currently intubated I cannot obtain any history from her the " patient is rambling and speaking of hackers attacking and raping her. Denies chest pain, states she feels like she is having an anxiety attack. Patient appears to be short of breath. Arrived with 2 L NC, patient placed on bipap upon arrival to the room." Per ED documentation, the patient who is known to have a hx of CO2 retention was altered and despite adjustment to BIPAP had increased distress and "More lethargic..... AND Less responsive prompting intubation. Review of other documents shows that the patient was recently evaluated for Diarrhea. The timeline is not clear to me at this time. The patient has had many hospital visits and has an active psych hx and hx of non compliance. Initial labs on admission shows acidosis with PH of 7.222, anemia at 9.9 and leukocytosis at >20 with no fever CTAP: IMPRESSION: 1. No bowel obstruction. 2. Moderate to large amount of stool throughout the large bowel loops and rectum. CT HEAD: IMPRESSION: 1. No acute intracranial abnormality. CXR: IMPRESSION: Mild COPD. No acute consolidation or effusion. Assessment Acute Metabolic Encephalopathy with visual hallucinations, likely secondary to Hypercapenia VS Drugs withdrawals SIRS with no organ dysfunction, Monitor for Developing sepsis Acute on chronic Hypercapenia Respiratory failure now on Mechanical Ventilation Diarrhea -POA. eval for C.diff Leukocytosis Anemia of chronic disease Schizoaffective disorder/Mood disorder COPD with acute exacerbation Postive UDS-Barbiturates Chronic Hypoxia, on Home o2 Diabetes Mellitus CAD HTN [place] Tract Resident Plan Admit to ICU, Law Office Assistant consult VAP Bundle Wean From vent when possible Send stool for C.diff toxin KUB to ensure resultion of large stool burden noted on CTAP Mental health consult for medication management Empiric antibiotics and descalate based on clinical progress Case management to assist in understanding patients condition prior to this admission considering recurrent admission to the hospital Appropriate home meds once medication reconciled. Insulin slidding scale q 6 Dowel Pin Worker consult dvt/GI prophy No family present at this time The high probability of a clinically significant, sudden or life threatening deterioration of the [pulmonary] system(s) required my full and direct attention, intervention and personal management. The aggregate critical care time was [45] minutes. This time is in addition to time spent performing reported procedures but includes the following: [x] Data Review and interpretation [x] Patient assessment and monitoring of vital signs [x] Documentation [x] Medication orders and management Advance Directives: Yes Plan of care discussed with patient/family: Yes
[2018-06-27] MEDS ORDERED: VANCOMYCIN/NS 1 GM/250 ML 1 GM/250 ML BAG IV ONE (10:00)
[2018-06-27] MEDS ORDERED: VANCOMYCIN PHARMACY TO DOSE IV SCH (10:00)
[2018-06-27] MEDS ORDERED: D50W (25GM) Syringe IV PRN (10:00)
[2018-06-27] MEDS: NACL 0.9% 1000 ML 1,000 ML IV SCH ×2 (10:23→10:24)
[2018-06-27] MEDS: MAXIPIME/NS 2 GM/100 ML 2 GM/100 ML BAG IV SCH ×3 (10:25→22:03)
--- NOTE | 2018-06-27 11:51 | Consultation ---
History of Present Illness Consult date: 06/27/18 Requesting physician: AUGUST FREEMAN Reason for consult: hypoxemia History of present illness: 53 y/o female intubated and sedated. Currently not able to obtain any history and no family at bedside. Past History Past Medical History: COPD, diabetes, GERD, hypertension, hyperlipidemia, other (schizoaffective disorder) Social history: full code, other (leaves at [employer]) Medications and Allergies Allergies Allergy/AdvReac Type Severity Reaction Status Date / Time clonazepam [From Klonopin] Allergy Unknown Verified 06/10/18 22:32 quetiapine [From Seroquel] Allergy Unknown Verified 06/10/18 22:32 Home Medications Medication Instructions Recorded Confirmed Last Taken Type Prednisone [predniSONE 10 mg 10 mg PO .TAPER #1 tab.ds.pk 06/22/18 06/27/18 Unknown Rx (6-Day Pack, 21 Tabs)] ALBUTEROL Inhaler(NF) [VENTOLIN 1 puff IH Q4H PRN 30 Days #1 inha 07/06/18 Unknown Rx Inhaler(NF)] Acyclovir [Acyclovir Ointment] 1 applic TP 5XD #1 tube 07/06/18 Unknown Rx FLUoxetine [PROzac] 20 mg PO QAM #30 capsule 07/06/18 Unknown Rx Famotidine [Pepcid] 20 mg PO BID #60 tablet 07/06/18 Unknown Rx Fluticasone/Salmeterol [Advair 1 puff IH BID #1 disk.w.dev 07/06/18 Unknown Rx Diskus 250-50 mcg] Ipratropium/Albuterol Sulfate 1 ampul IH QIDRT #100 ampul.neb 07/06/18 Unknown Rx [DUONEB *Not for PRN Use*] glipiZIDE [Glipizide] 5 mg PO QDAY #30 tablet 07/06/18 Unknown Rx metFORMIN [Glucophage] 500 mg PO BID 60 Days #60 tablet 07/06/18 Unknown Rx predniSONE [Deltasone] 40 mg PO QDAY #5 tablet 07/06/18 Unknown Rx risperiDONE [RisperDAL] 1 mg PO QHS #30 tablet 07/06/18 Unknown Rx Active Meds: Active Medications Dextrose (D50w (25gm) Syringe) 50 ml IV PRN PRN PRN Reason: Hypoglycemia Hydrophilic Ointment (Vaseline Lip Therapy) 1 applic TP Q2HR PRN PRN Reason: Dry Lips Propofol (Diprivan 10 Mg/Ml) 1,000 mg in 100 mls @ 1.47 mls/hr IV TITR AJITH; Protocol Last Admin: 06/27/18 05:10 Dose: 30 mcg/kg/min, 8.818 mls/hr Documented by: Cefepime HCl (Maxipime/Ns 2 Gm/100 Ml) 2 gm in 100 mls @ 200 mls/hr IV Q8HR AJITH; Protocol Last Admin: 06/27/18 10:25 Dose: 200 mls/hr Documented by: Sodium Chloride (Nacl 0.9% 1000 Ml) 1,000 mls @ 0 mls/hr IV ONCE AJITH Stop: 06/28/18 10:01 Last Admin: 06/27/18 10:24 Dose: 999 mls/hr Documented by: Vancomycin HCl 750 mg/ Sodium (Chloride) 265 mls @ 166.667 mls/hr IV Q12H AJITH Insulin Human Lispro (Humalog) 0 unit SUB-Q QHS AJITH; Protocol Multi-Ingred Cream/Lotion/Oil/Oint (Artificial Tears Ophth Oint) 1 applic OU Q4HR PRN PRN Reason: Dry Eye(s) Physical Examination Vital signs: Vital Signs Temp Pulse BP 97.9 F 132 H 163/47 06/27/18 00:42 06/27/18 00:42 06/27/18 00:42 Results - Laboratory Findings CBC and BMP: 07/06/18 07:43 07/06/18 07:43 ABG POC ABG pH 7.314 (7.35-7.45) L 06/27/18 06:49 POC ABG pCO2 64.6 (35-45) H 06/27/18 06:49 POC ABG pO2 244 (80-105) H 06/27/18 06:49 POC ABG HCO3 32.9 (22-26 mml/L) 06/27/18 06:49 POC ABG Total CO2 35 (23-27mmol/L) 06/27/18 06:49 POC ABG O2 Sat 100 06/27/18 06:49 PT/INR, D-dimer PT 11.1 Sec. (12.2-14.9) L 06/27/18 03:06 INR 0.76 (0.87-1.13) L 06/27/18 03:06 D-Dimer < 135 ng/mlDDU (0-234) 06/27/18 03:06 Abnormal lab findings: Abnormal Labs 06/27/18 06/27/18 06/27/18 01:28 01:28 02:24 WBC 20.0 H RBC 3.64 L Hgb 9.9 L MCH 27 L RDW 31.3 H Plt Count 469 H Seg Neuts % (Manual) 83.0 H Lymphocytes % (Manual) 9.0 L Seg Neutrophils # Man 16.6 H Monocytes # (Manual) 1.2 H PT INR POC ABG pH POC ABG pCO2 POC ABG pO2 VBG pH Sodium 136 L Chloride 94.8 L BUN 21 H Creatinine 0.2 L D Glucose 130 H POC Glucose 128 H Calcium 8.3 L D Alkaline Phosphatase CK-MB (CK-2) CK-MB (CK-2) Rel Index Total Protein Ur Specific Ruth Urine WBC (Auto) Salicylates Acetaminophen 06/27/18 06/27/18 06/27/18 02:30 02:47 03:06 WBC RBC Hgb MCH RDW Plt Count Seg Neuts % (Manual) Lymphocytes % (Manual) Seg Neutrophils # Man Monocytes # (Manual) PT 11.1 L INR 0.76 L POC ABG pH 7.222 L POC ABG pCO2 POC ABG pO2 VBG pH Sodium Chloride BUN Creatinine Glucose POC Glucose Calcium Alkaline Phosphatase CK-MB (CK-2) CK-MB (CK-2) Rel Index Total Protein Ur Specific Ruth 1.032 H Urine WBC (Auto) 14.0 H Salicylates Acetaminophen 06/27/18 06/27/18 06/27/18 03:06 03:06 03:06 WBC RBC Hgb MCH RDW Plt Count Seg Neuts % (Manual) Lymphocytes % (Manual) Seg Neutrophils # Man Monocytes # (Manual) PT INR POC ABG pH POC ABG pCO2 POC ABG pO2 VBG pH Sodium Chloride BUN Creatinine Glucose POC Glucose Calcium Alkaline Phosphatase CK-MB (CK-2) 10.4 H CK-MB (CK-2) Rel Index 11.1 H Total Protein Ur Specific Ruth Urine WBC (Auto) Salicylates < 0.3 L Acetaminophen < 5.0 L 06/27/18 06/27/18 06/27/18 03:06 03:06 06:49 WBC RBC Hgb MCH RDW Plt Count Seg Neuts % (Manual) Lymphocytes % (Manual) Seg Neutrophils # Man Monocytes # (Manual) PT INR POC ABG pH 7.314 L POC ABG pCO2 64.6 H POC ABG pO2 244 H VBG pH 7.282 L Sodium Chloride BUN Creatinine Glucose POC Glucose Calcium Alkaline Phosphatase 31 L CK-MB (CK-2) CK-MB (CK-2) Rel Index Total Protein 6.0 L Ur Specific Ruth Urine WBC (Auto) Salicylates Acetaminophen Assessment and Plan 53 y/o female with acute on chronic respiratory failure and altered mental state thought secondary to hypercapnea vs true psych disorder. 1. Maintain current vent settings and wean as tolerated 2. Obtain more history if possible 3. Will attempt extubation tomorrow. CCT 31 minutes.
[2018-06-27] MEDS ORDERED: MAXIPIME/NS 2 GM/100 ML 2 GM/100 ML BAG IV ONE (13:22)
[2018-06-27 14:00] LABS: Free T4 (Free Thyroxine) 1.16 ng/dL (0.76-1.46)
[2018-06-27] MEDS ORDERED: PEPCID IV ONE ×2 (15:15→23:00)
[2018-06-27] MEDS: PEPCID IV SCH ×2 (15:20→23:08)
[2018-06-27] MEDS: VANCOMYCIN 750 MG in NACL 0.9% 250ML 250 ML IV SCH (22:42)
[2018-06-27] MEDS: HumaLOG SUB-Q SCH (22:46)
[2018-06-28] MEDS: DIPRIVAN 10 MG/ML 1,000 MG/100 ML BOTTLE IV SCH ×2 (00:08→09:15)
--- NOTE | 2018-06-28 04:07 | XRay Report ---
PROCEDURE: XR CHEST 1V AP TECHNIQUE: A portable upright view the chest was obtained HISTORY: follow up respiratory failure COMPARISONS: 06/27/2018 FINDINGS: The lungs are hyperinflated. There are no infiltrates or effusions. The heart size is normal. The tip of the ET tube is 6.3 cm above the celestine. The NG tube is coursing into the stomach. The skeletal st ructures are unchanged. IMPRESSION: Hyperinflation. No acute infiltrates or effusions.. This document is electronically signed by Trent Turner MD., June 28 2018 04:05:05 AM ET
[2018-06-28 04:34] LABS: Hematocrit 25.8 % (30.3-42.9); Hemoglobin 8.2 gm/dl (10.1-14.3); Mean Corpuscular HGB Conc 32 % (30-34); Mean Corpuscular Volume 86 fl (79-97); Platelet Count 314 K/mm3 (140-440); Red Blood Count 2.99 M/mm3 (3.65-5.03)
[2018-06-28 04:56] LABS: Red Cell Distribution Width 30.4 % (13.2-15.2)
[2018-06-28 05:06] LABS: Alanine Aminotransferase 17 units/L (7-56); Albumin 3.2 g/dL (3.9-5); BUN/Creatinine Ratio 55; Blood Urea Nitrogen 11 mg/dL (7-17); Calcium 7.7 mg/dL (8.4-10.2); Hemolysis Index 4
[2018-06-28] MEDS: MAXIPIME/NS 2 GM/100 ML 2 GM/100 ML BAG IV SCH ×3 (06:29→22:24)
[2018-06-28] MEDS ORDERED: DIPRIVAN 10 MG/ML 1,000 MG/100 ML BOTTLE IV ONE (07:36)
--- NOTE | 2018-06-28 08:52 | Progress Note ---
Assessment and Plan Assessment and plan: Patient is a 53-year-old female with past medical history of schizoaffective disorder, anxiety, COPD with 2 L oxygen dependence, diabetes on insulin, CAD, and hypertension presents via [facility] the EMS who brought her to the hospital with notation that she was having chest pain shortness of breath. Also admission of altered sensorium. According to nursing documentation reviewed since the patient is currently intubated I cannot obtain any history from her the " patient is rambling and speaking of hackers attacking and raping her. Denies chest pain, states she feels like she is having an anxiety attack. Patient appears to be short of breath. Arrived with 2 L NC, patient placed on bipap upon arrival to the room." Per ED documentation, the patient who is known to have a hx of CO2 retention was altered and despite adjustment to BIPAP had increased distress and "More lethargic..... AND Less responsive prompting intubation. Review of other documents shows that the patient was recently evaluated for Diarrhea. The timeline is not clear to me at this time. The patient has had many hospital visits and has an active psych hx and hx of non compliance. Initial labs on admission shows acidosis with PH of 7.222, anemia at 9.9 and leukocytosis at >20 with no fever CTAP: IMPRESSION: 1. No bowel obstruction. 2. Moderate to large amount of stool throughout the large bowel loops and rectum. CT HEAD: IMPRESSION: 1. No acute intracranial abnormality. CXR: IMPRESSION: Mild COPD. No acute consolidation or effusion. Assessment Acute Metabolic Encephalopathy with visual hallucinations, likely secondary to Hypercapenia VS Drugs withdrawals SIRS with no organ dysfunction, Monitor for Developing sepsis Acute on chronic Hypercapenia Respiratory failure now on Mechanical Ventilation Diarrhea -POA. 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 The high probability of a clinically significant, sudden or life threatening deterioration of the [pulmonary] system(s) required my full and direct attention, intervention and personal management. The aggregate critical care time was [45] minutes. This time is in addition to time spent performing report ed procedures but includes the following: [x] Data Review and interpretation [x] Patient assessment and monitoring of vital signs [x] Documentation [x] Medication orders and management History Interval history: Patient seen and examined this am, noted to be wide awake, following commands, wants the tube out, points to her throat in reference to pain. No adverse event reported to me overnight. Hospitalist Physical - Physical exam Narrative exam: VITAL SIGNS: Reviewed. GENERAL: The patient appeared well nourished and normally developed, otherwise on Mechanical ventilatory support. Vital signs as documented. HEAD: No signs of head trauma. EYES: Pupils are equal. EARS: hearing is intact MOUTH: Oropharynx is normal except noted ETT in place. NECK: No adenopathy, no JVD. CHEST: Chest with clear breath sounds bilaterally. No wheezes, rales, or rhonchi. CARDIAC: Regular rate and rhythm. S1 and S2, without murmurs, gallops, or rubs. VASCULAR: No Edema. Peripheral pulses normal and equal in all extremities. ABDOMEN: Soft, non tender and non distended. No rebound or guarding, and no masses palpated. Bowel Sounds normal. MUSCULOSKELETAL: Good range of motion of all major joints. Extremities without clubbing, cyanosis or edema. NEUROLOGIC EXAM: awake, alert, oriented, moves all ext, follows direction PSYCHIATRIC: anxious. SKIN:Some noted echymosis - Constitutional Vitals: Temp Pulse Resp BP Pulse Ox 99.3 F 105 H 17 135/90 95 06/28/18 06:20 06/28/18 08:00 06/28/18 08:00 06/28/18 08:00 06/28/18 08:00 Results - Labs CBC & Chem 7: 06/28/18 04:11 06/28/18 04:11 Labs: Laboratory Last Values WBC 10.2 K/mm3 (4.5-11.0) 06/28/18 04:11 RBC 2.99 M/mm3 (3.65-5.03) L 06/28/18 04:11 Hgb 8.2 gm/dl (10.1-14.3) L 06/28/18 04:11 Hct 25.8 % (30.3-42.9) L D 06/28/18 04:11 MCV 86 fl (79-97) 06/28/18 04:11 MCH 27 pg (28-32) L 06/28/18 04:11 MCHC 32 % (30-34) 06/28/18 04:11 RDW 30.4 % (13.2-15.2) H 06/28/18 04:11 Plt Count 314 K/mm3 (140-440) 06/28/18 04:11 Add Manual Diff Complete 06/27/18 01:28 Total Counted 100 06/27/18 01:28 Seg Neuts % (Manual) 83.0 % (40.0-70.0) H 06/27/18 01:28 Band Neutrophils % 0 % 06/27/18 01:28 Lymphocytes % (Manual) 9.0 % (13.4-35.0) L 06/27/18 01:28 Reactive Lymphs % (Man) 0 % 06/27/18 01:28 Monocytes % (Manual) 6.0 % (0.0-7.3) 06/27/18 01:28 Eosinophils % (Manual) 1.0 % (0.0-4.3) 06/27/18 01:28 Basophils % (Manual) 0 % (0.0-1.8) 06/27/18 01:28 Metamyelocytes % 0 % 06/27/18 01:28 Myelocytes % 1.0 % 06/27/18 01:28 Promyelocytes % 0 % 06/27/18 01:28 Blast Cells % 0 % 06/27/18 01:28 Nucleated RBC % Not Reportable 06/27/18 01:28 Seg Neutrophils # Man 16.6 K/mm3 (1.8-7.7) H 06/27/18 01:28 Band Neutrophils # 0.0 K/mm3 06/27/18 01:28 Lymphocytes # (Manual) 1.8 K/mm3 (1.2-5.4) 06/27/18 01:28 Abs React Lymphs (Man) 0.0 K/mm3 06/27/18 01:28 Monocytes # (Manual) 1.2 K/mm3 (0.0-0.8) H 06/27/18 01:28 Eosinophils # (Manual) 0.2 K/mm3 (0.0-0.4) 06/27/18 01:28 Basophils # (Manual) 0.0 K/mm3 (0.0-0.1) 06/27/18 01:28 Metamyelocytes # 0.0 K/mm3 06/27/18 01:28 Myelocytes # 0.2 K/mm3 06/27/18 01:28 Promyelocytes # 0.0 K/mm3 06/27/18 01:28 Blast Cells # 0.0 K/mm3 06/27/18 01:28 WBC Morphology Not Reportable 06/27/18 01:28 Hypersegmented Neuts Not Reportable 06/27/18 01:28 Hyposegmented Neuts Not Reportable 06/27/18 01:28 Hypogranular Neuts Not Reportable 06/27/18 01:28 Smudge Cells Not Reportable 06/27/18 01:28 Toxic Granulation Not Reportable 06/27/18 01:28 Toxic Vacuolation Not Reportable 06/27/18 01:28 Dohle Bodies Not Reportable 06/27/18 01:28 Pelger-Huet Anomaly Not Reportable 06/27/18 01:28 Musa Rods Not Reportable 06/27/18 01:28 Platelet Estimate Consistent w auto 06/27/18 01:28 Clumped Platelets Not Reportable 06/27/18 01:28 Plt Clumps, EDTA Not Reportable 06/27/18 01:28 Large Platelets Not Reportable 06/27/18 01:28 Giant Platelets Not Reportable 06/27/18 01:28 Platelet Satelliting Not Reportable 06/27/18 01:28 Plt Morphology Comment Not Reportable 06/27/18 01:28 RBC Morphology Not Reportable 06/27/18 01:28 Dimorphic RBCs Not Reportable 06/27/18 01:28 Polychromasia Not Reportable 06/27/18 01:28 Hypochromasia Not Reportable 06/27/18 01:28 Poikilocytosis 1+ 06/27/18 01:28 Anisocytosis 1+ 06/27/18 01:28 Microcytosis Not Reportable 06/27/18 01:28 Macrocytosis Not Reportable 06/27/18 01:28 Spherocytes Not Reportable 06/27/18 01:28 Pappenheimer Bodies Not Reportable 06/27/18 01:28 Sickle Cells Not Reportable 06/27/18 01:28 Target Cells 1+ 06/27/18 01:28 Tear Drop Cells Not Reportable 06/27/18 01:28 Ovalocytes Not Reportable 06/27/18 01:28 Helmet Cells Not Reportable 06/27/18 01:28 [place] Bodies Not Reportable 06/27/18 01:28 [place] Rings Not Reportable 06/27/18 01:28 [place] Cells Not Reportable 06/27/18 01:28 Bite Cells Not Reportable 06/27/18 01:28 Crenated Cell Not Reportable 06/27/18 01:28 Elliptocytes Few 06/27/18 01:28 Acanthocytes (Spur) Not Reportable 06/27/18 01:28 Rouleaux Not Reportable 06/27/18 01:28 Hemoglobin C Crystals Not Reportable 06/27/18 01:28 Schistocytes Not Reportable 06/27/18 01:28 Malaria parasites Not Reportable 06/27/18 01:28 Remi Bodies Not Reportable 06/27/18 01:28 Hem Pathologist Commnt No 06/27/18 01:28 PT 11.1 Sec. (12.2-14.9) L 06/27/18 03:06 INR 0.76 (0.87-1.13) L 06/27/18 03:06 D-Dimer < 135 ng/mlDDU (0-234) 06/27/18 03:06 POC ABG pH 7.450 (7.35-7.45) 06/28/18 04:25 POC ABG pCO2 42.2 (35-45) 06/28/18 04:25 POC ABG pO2 104 (80-105) 06/28/18 04:25 POC ABG HCO3 29.3 (22-26 mml/L) 06/28/18 04:25 POC ABG Total CO2 31 (23-27mmol/L) 06/28/18 04:25 POC ABG O2 Sat 98 06/28/18 04:25 POC ABG Base Excess 5 ((-2) - (+3)mmol/L) 06/28/18 04:25 VBG pH 7.282 (7.320-7.420) L 06/27/18 03:06 FiO2 30 % 06/28/18 04:25 Sodium 137 mmol/L (137-145) 06/28/18 04:11 Potassium 3.7 mmol/L (3.6-5.0) D 06/28/18 04:11 Chloride 101.8 mmol/L (98-107) 06/28/18 04:11 Carbon Dioxide 31 mmol/L (22-30) H 06/28/18 04:11 Anion Gap 8 mmol/L 06/28/18 04:11 BUN 11 mg/dL (7-17) 06/28/18 04:11 Creatinine 0.2 mg/dL (0.7-1.2) L 06/28/18 04:11 Estimated GFR > 60 ml/min 06/28/18 04:11 BUN/Creatinine Ratio 55 % 06/28/18 04:11 Glucose 88 mg/dL (65-100) 06/28/18 04:11 POC Glucose 93 (70-105) 06/28/18 06:21 Lactic Acid 1.50 mmol/L (0.7-2.0) 06/27/18 08:09 Calcium 7.7 mg/dL (8.4-10.2) L 06/28/18 04:11 Total Bilirubin 0.20 mg/dL (0.1-1.2) 06/28/18 04:11 Direct Bilirubin < 0.2 mg/dL (0-0.2) 06/27/18 03:06 Indirect Bilirubin 0.0 mg/dL 06/27/18 03:06 AST 10 units/L (5-40) 06/28/18 04:11 ALT 17 units/L (7-56) 06/28/18 04:11 Alkaline Phosphatase 23 units/L (35-129) L 06/28/18 04:11 Ammonia 56.0 umol/L (25-60) 06/27/18 12:56 Total Creatine Kinase 93 units/L (30-135) 06/27/18 03:06 CK-MB (CK-2) 10.4 ng/mL (0.0-4.0) H 06/27/18 03:06 CK-MB (CK-2) Rel Index 11.1 (0-4) H 06/27/18 03:06 Troponin T < 0.010 ng/mL (0.00-0.029) 06/27/18 07:16 Total Protein 4.6 g/dL (6.3-8.2) L D 06/28/18 04:11 Albumin 3.2 g/dL (3.9-5) L 06/28/18 04:11 Albumin/Globulin Ratio 2.3 % 06/28/18 04:11 Lipase 43 units/L (13-60) 06/27/18 03:06 TSH 0.533 mlU/mL (0.270-4.200) 06/27/18 12:56 Free T4 1.16 ng/dL (0.76-1.46) 06/27/18 12:56 Urine Color Yellow (Yellow) 06/27/18 02:47 Urine Turbidity Clear (Clear) 06/27/18 02:47 Urine pH 5.0 (5.0-7.0) 06/27/18 02:47 Ur Specific [place] 1.032 (1.003-1.030) H 06/27/18 02:47 Urine Protein <15 mg/dl mg/dL (Negative) 06/27/18 02:47 Urine Glucose (UA) Neg mg/dL (Negative) 06/27/18 02:47 Urine Ketones Neg mg/dL (Negative) 06/27/18 02:47 Urine Blood Neg (Negative) 06/27/18 02:47 Urine Nitrite Neg (Negative) 06/27/18 02:47 Urine Bilirubin Neg (Negative) 06/27/18 02:47 Urine Urobilinogen < 2.0 mg/dL (<2.0) 06/27/18 02:47 Ur Leukocyte Esterase Tr (Negative) 06/27/18 02:47 Urine WBC (Auto) 14.0 /HPF (0.0-6.0) H 06/27/18 02:47 Urine RBC (Auto) 3.0 /HPF (0.0-6.0) 06/27/18 02:47 U Epithel Cells (Auto) 2.0 /HPF (0-13.0) 06/27/18 02:47 Urine Mucus Few /HPF 06/27/18 02:47 Salicylates < 0.3 mg/dL (2.8-20.0) L 06/27/18 03:06 Urine Opiates Screen Presumptive negative 06/27/18 02:47 Urine Methadone Screen Presumptive negative 06/27/18 02:47 Acetaminophen < 5.0 ug/mL (10.0-30.0) L 06/27/18 03:06 Ur Barbiturates Screen Presumptive positive 06/27/18 02:47 Ur Phencyclidine Scrn Presumptive negative 06/27/18 02:47 Ur Amphetamines Screen Presumptive negative 06/27/18 02:47 U Benzodiazepines Scrn Presumptive negative 06/27/18 02:47 Urine Cocaine Screen Presumptive negative 06/27/18 02:47 U Marijuana (THC) Screen Presumptive negative 06/27/18 02:47 Drugs of Abuse Note Disclamer 06/27/18 02:47 Plasma/Serum Alcohol < 0.01 % (0-0.07) 06/27/18 03:06 Blood Type A POSITIVE 06/27/18 08:09 Antibody Screen Negative 06/27/18 08:09 Active Medications - Current Medications Current Medications: Generic Name Dose Route Start Last Admin Trade Name Freq PRN Reason Stop Dose Admin Dextrose 50 ml 06/27/18 10:00 D50w (25gm) Syringe IV PRN PRN Hypoglycemia Famotidine 20 mg 06/27/18 15:00 06/27/18 23:08 Pepcid IV 20 mg BID AJITH Administration Hydrophilic Ointment 1 applic 06/27/18 04:20 Vaseline Lip Therapy TP Q2HR PRN Dry Lips Propofol 1,000 mg in 100 mls @ 1.47 mls/hr 06/27/18 05:00 06/28/18 07:38 Diprivan 10 Mg/Ml IV 45 mcg/kg/min TITR AJITH 13.227 mls/hr Titration Protocol 5 MCG/KG/MIN Cefepime HCl 2 gm in 100 mls @ 200 mls/hr 06/27/18 09:30 06/28/18 06:29 Maxipime/Ns 2 Gm/100 Ml IV 200 mls/hr Q8HR AJITH Administration Protocol Sodium Chloride 1,000 mls @ 0 mls/hr 06/27/18 10:00 06/27/18 10:24 Nacl 0.9% 1000 Ml IV 06/28/18 10:01 999 mls/hr ONCE AJITH Administration As Directed Vancomycin HCl 750 mg/ Sodium 265 mls @ 166.667 mls/hr 06/27/18 22:00 06/27/18 22:42 Chloride IV 166.667 mls/hr Q12H AJITH Administration Insulin Human Lispro 0 unit 06/27/18 22:00 06/27/18 22:46 Humalog SUB-Q Not Given QHS AJITH Protocol Multi-Ingred Cream/Lotion/Oil/Oint 1 applic 06/27/18 04:20 Artificial Tears Ophth Oint OU Q4HR PRN Dry Eye(s) Nutrition/Malnutrition Assess - Dietary Evaluation Nutrition/Malnutrition Findings: Nutrition Notes Start: 06/27/18 13:06 Freq: Status: Active Protocol: Document 06/27/18 13:06 EMMETT (Rec: 06/27/18 13:13 [email or web address]) Nutrition Notes Need for Assessment generated from: MD Order Initial or Follow up Assessment Current Diagnosis COPD,Coronary Artery Disease, Diabetes,Hypertension, Respiratory Failure Other Pertinent Diagnosis AMS, Schizoaffective D/O Current Diet NPO Labs/Tests Reviewed Pertinent Medications Propofol at 8.818ml/hr ( provides 233 kcal from fat) Height 5 ft 3 in Weight 48.988 kg [place] Body Weight (kg) 52.27 BMI 19.1 Weight Status Appropriate Subjective/Other Information RD consulted to evaluate nutritional intake. Pt in ED at this time and intubated. No orders for TF yet received. Pt from [facility]. Burn Absent Trauma Absent #1 Nutrition Diagnosis Inadequate oral intake Etiology [place] ventilation As Evidenced by Signs and Symptoms pt NPO Is patient on ventilator? Yes Is Patient Ambulatory and/or Out of Bed No [facility] [phone] Calculation Used for Recommendations [facility] Additional Notes Pro needs 1.2-2g/k-98g/ day Fluid needs 1ml/kcal Nutrition Intervention Change Diet Order: Advance diet when medically feasible Nutrition Support: Start TF if necessary Goal #1 Either advance diet or start EN support to meet nutrient needs Goal #2 Wt maintenance Anticipated Discharge Needs: Unable to identify at this time Follow-Up By: 06/28/18 Additional Comments F/U: TF consult, vent status
[2018-06-28] MEDS: PULMICORT IH SCH ×2 (09:25→20:55)
[2018-06-28] MEDS: DUONEB *Not for PRN Use IH SCH ×3 (09:25→20:55)
[2018-06-28] MEDS: BROVANA NEBU IH SCH ×2 (09:25→20:55)
[2018-06-28] MEDS: SOLU-Medrol IV SCH ×3 (09:37→23:06)
[2018-06-28] MEDS ORDERED: SOLU-Medrol IV SCH (10:00)
--- NOTE | 2018-06-28 10:28 | XRay Report ---
AP ABDOMEN: HISTORY: Diarrhea. The abdominal gas pattern is unremarkable. No masses or organomegaly is identified and there is no gross evidence of free air or fluid. No significant soft tissue calcifications are noted. IMPRESSION: Unremarkable abdomen.
[2018-06-28] MEDS ORDERED: PEPCID IV ONE (10:45)
[2018-06-28] MEDS: VANCOMYCIN 750 MG in NACL 0.9% 250ML 250 ML IV SCH ×2 (10:50→22:24)
[2018-06-28] MEDS: PEPCID IV SCH ×2 (10:50→22:26)
--- NOTE | 2018-06-28 13:50 | Progress Note ---
Assessment and Plan 53 y/o female with acute on chronic respiratory failure and altered mental state thought secondary to hypercapnea vs true psych disorder. 1. Agree with extubation, tolerating well 2. Wean FiO2 for sats >88%, currently on 40% venti-mask 3. Continue steroids at current dosing, however if mood changes given underlying psych history, would drop to 40q12 quickly. 4. Will continue to follow. Subjective Date of service: 06/28/18 Interval history: Called by IMS prior to my arrival that patient is awake and about to self extubate. Morning ABG good on SBT so I asked that they give order for extubation. Currently patient on floor. Stable Objective Vital Signs - 12hr 06/28/18 06/28/18 06/28/18 02:00 02:15 02:30 Temperature Pulse Rate 88 92 H 93 H Pulse Rate [ Bilateral] Respiratory 20 16 13 Rate Respiratory Rate [Bilateral ] Blood Pressure 108/71 115/76 116/80 Blood Pressure [Left] O2 Sat by Pulse 99 98 97 Oximetry 06/28/18 06/28/18 06/28/18 02:45 03:00 03:15 Temperature Pulse Rate 87 91 H 85 Pulse Rate [ Bilateral] Respiratory 20 16 19 Rate Respiratory Rate [Bilateral ] Blood Pressure 104/69 107/73 110/70 Blood Pressure [Left] O2 Sat by Pulse 98 98 99 Oximetry 06/28/18 06/28/18 06/28/18 03:30 03:43 03:45 Temperature Pulse Rate 87 80 Pulse Rate [ Bilateral] Respiratory 21 20 19 Rate Respiratory Rate [Bilateral ] Blood Pressure 105/69 103/67 Blood Pressure [Left] O2 Sat by Pulse 98 98 99 Oximetry 06/28/18 06/28/18 06/28/18 04:00 04:15 04:22 Temperature Pulse Rate 81 86 Pulse Rate [ Bilateral] Respiratory 13 14 Rate Respiratory Rate [Bilateral ] Blood Pressure 105/68 100/68 100/68 Blood Pressure [Left] O2 Sat by Pulse 98 99 99 Oximetry 06/28/18 06/28/18 06/28/18 04:30 04:45 05:00 Temperature Pulse Rate 88 84 86 Pulse Rate [ Bilateral] Respiratory 20 20 20 Rate Respiratory Rate [Bilateral ] Blood Pressure 107/68 98/64 104/68 Blood Pressure [Left] O2 Sat by Pulse 99 99 98 Oximetry 06/28/18 06/28/18 06/28/18 05:15 05:30 05:45 Temperature Pulse Rate 88 83 79 Pulse Rate [ Bilateral] Respiratory 20 20 19 Rate Respiratory Rate [Bilateral ] Blood Pressure 106/70 102/66 119/71 Blood Pressure [Left] O2 Sat by Pulse 98 98 99 Oximetry 06/28/18 06/28/18 06/28/18 06:00 06:15 06:20 Temperature 99.3 F Pulse Rate 104 H 102 H Pulse Rate [ Bilateral] Respiratory 20 15 Rate Respiratory Rate [Bilateral ] Blood Pressure 139/91 129/90 Blood Pressure [Left] O2 Sat by Pulse 92 96 Oximetry 06/28/18 06/28/18 06/28/18 06:30 06:45 07:00 Temperature Pulse Rate 98 H 102 H 101 H Pulse Rate [ Bilateral] Respiratory 17 16 20 Rate Respiratory Rate [Bilateral ] Blood Pressure 134/85 134/83 138/89 Blood Pressure [Left] O2 Sat by Pulse 96 96 97 Oximetry 06/28/18 06/28/18 06/28/18 07:15 07:30 07:33 Temperature Pulse Rate 101 H 114 H 109 H Pulse Rate [ Bilateral] Respiratory 13 17 Rate Respiratory Rate [Bilateral ] Blood Pressure 147/92 155/93 155/93 Blood Pressure [Left] O2 Sat by Pulse 95 94 95 Oximetry 06/28/18 06/28/18 06/28/18 07:45 08:00 08:15 Temperature Pulse Rate 100 H 105 H 108 H Pulse Rate [ Bilateral] Respiratory 22 17 18 Rate Respiratory Rate [Bilateral ] Blood Pressure 144/84 135/90 130/89 Blood Pressure [Left] O2 Sat by Pulse 96 95 95 Oximetry 06/28/18 06/28/18 06/28/18 08:30 08:40 08:45 Temperature Pulse Rate 96 H 112 H Pulse Rate [ Bilateral] Respiratory 21 14 19 Rate Respiratory Rate [Bilateral ] Blood Pressure 130/79 139/95 Blood Pressure [Left] O2 Sat by Pulse 96 93 94 Oximetry 06/28/18 06/28/18 06/28/18 09:00 09:15 09:25 Temperature Pulse Rate 109 H 115 H Pulse Rate [ 112 H Bilateral] Respiratory 20 19 Rate Respiratory 20 Rate [Bilateral ] Blood Pressure 149/90 130/88 Blood Pressure [Left] O2 Sat by Pulse 92 93 Oximetry 06/28/18 06/28/18 06/28/18 09:30 09:40 09:45 Temperature Pulse Rate 108 H 109 H Pulse Rate [ 117 H Bilateral] Respiratory 34 H 18 Rate Respiratory 16 Rate [Bilateral ] Blood Pressure 139/85 130/83 Blood Pressure [Left] O2 Sat by Pulse 100 100 Oximetry 06/28/18 06/28/18 06/28/18 09:52 10:00 10:15 Temperature Pulse Rate 116 H 110 H Pulse Rate [ Bilateral] Respiratory 17 17 Rate Respiratory Rate [Bilateral ] Blood Pressure 130/73 122/69 Blood Pressure [Left] O2 Sat by Pulse 97 92 99 Oximetry 06/28/18 06/28/18 06/28/18 10:30 10:41 10:51 Temperature Pulse Rate 113 H 113 H 113 H Pulse Rate [ Bilateral] Respiratory 22 25 H 23 Rate Respiratory Rate [Bilateral ] Blood Pressure 123/71 123/71 123/67 Blood Pressure [Left] O2 Sat by Pulse 99 99 99 Oximetry 06/28/18 06/28/18 06/28/18 11:00 11:11 11:21 Temperature Pulse Rate 111 H 115 H 111 H Pulse Rate [ Bilateral] Respiratory 22 20 24 Rate Respiratory Rate [Bilateral ] Blood Pressure 126/69 126/69 123/68 Blood Pressure [Left] O2 Sat by Pulse 99 97 98 Oximetry 06/28/18 06/28/18 06/28/18 11:30 11:41 11:51 Temperature Pulse Rate 110 H 113 H 106 H Pulse Rate [ Bilateral] Respiratory 20 23 22 Rate Respiratory Rate [Bilateral ] Blood Pressure 112/67 112/67 115/67 Blood Pressure [Left] O2 Sat by Pulse 98 96 96 Oximetry 06/28/18 06/28/18 06/28/18 12:00 12:05 12:11 Temperature 98.1 F Pulse Rate 110 H 95 H 112 H Pulse Rate [ Bilateral] Respiratory 23 124 H 16 Rate Respiratory Rate [Bilateral ] Blood Pressure 122/71 122/71 Blood Pressure 132/72 [Left] O2 Sat by Pulse 96 90 Oximetry CBC and BMP: 06/28/18 04:11 06/28/18 04:11 ABG, PT/INR, D-dimer: ABG POC ABG pH 7.450 (7.35-7.45) 06/28/18 04:25 POC ABG pCO2 42.2 (35-45) 06/28/18 04:25 POC ABG pO2 104 (80-105) 06/28/18 04:25 POC ABG HCO3 29.3 (22-26 mml/L) 06/28/18 04:25 POC ABG Total CO2 31 (23-27mmol/L) 06/28/18 04:25 POC ABG O2 Sat 98 06/28/18 04:25 PT/INR, D-dimer PT 11.1 Sec. (12.2-14.9) L 06/27/18 03:06 INR 0.76 (0.87-1.13) L 06/27/18 03:06 D-Dimer < 135 ng/mlDDU (0-234) 06/27/18 03:06 Abnormal lab findings: Abnormal Labs 06/27/18 06/27/18 06/27/18 01:28 01:28 02:24 WBC 20.0 H RBC 3.64 L Hgb 9.9 L Hct MCH 27 L RDW 31.3 H Plt Count 469 H Seg Neuts % (Manual) 83.0 H Lymphocytes % (Manual) 9.0 L Seg Neutrophils # Man 16.6 H Monocytes # (Manual) 1.2 H PT INR POC ABG pH POC ABG pCO2 POC ABG pO2 VBG pH Sodium 136 L Chloride 94.8 L Carbon Dioxide BUN 21 H Creatinine 0.2 L D Glucose 130 H POC Glucose 128 H Calcium 8.3 L D Alkaline Phosphatase CK-MB (CK-2) CK-MB (CK-2) Rel Index Total Protein Albumin Ur Specific [place] Urine WBC (Auto) Salicylates Acetaminophen 06/27/18 06/27/18 06/27/18 02:30 02:47 03:06 WBC RBC Hgb Hct MCH RDW Plt Count Seg Neuts % (Manual) Lymphocytes % (Manual) Seg Neutrophils # Man Monocytes # (Manual) PT 11.1 L INR 0.76 L POC ABG pH 7.222 L POC ABG pCO2 POC ABG pO2 VBG pH Sodium Chloride Carbon Dioxide BUN Creatinine Glucose POC Glucose Calcium Alkaline Phosphatase CK-MB (CK-2) CK-MB (CK-2) Rel Index Total Protein Albumin Ur Specific [place] 1.032 H Urine WBC (Auto) 14.0 H Salicylates Acetaminophen 06/27/18 06/27/18 06/27/18 03:06 03:06 03:06 WBC RBC Hgb Hct MCH RDW Plt Count Seg Neuts % (Manual) Lymphocytes % (Manual) Seg Neutrophils # Man Monocytes # (Manual) PT INR POC ABG pH POC ABG pCO2 POC ABG pO2 VBG pH Sodium Chloride Carbon Dioxide BUN Creatinine Glucose POC Glucose Calcium Alkaline Phosphatase CK-MB (CK-2) 10.4 H CK-MB (CK-2) Rel Index 11.1 H Total Protein Albumin Ur Specific [place] Urine WBC (Auto) Salicylates < 0.3 L Acetaminophen < 5.0 L 06/27/18 06/27/18 06/27/18 03:06 03:06 06:49 WBC RBC Hgb Hct MCH RDW Plt Count Seg Neuts % (Manual) Lymphocytes % (Manual) Seg Neutrophils # Man Monocytes # (Manual) PT INR POC ABG pH 7.314 L POC ABG pCO2 64.6 H POC ABG pO2 244 H VBG pH 7.282 L Sodium Chloride Carbon Dioxide BUN Creatinine Glucose POC Glucose Calcium Alkaline Phosphatase 31 L CK-MB (CK-2) CK-MB (CK-2) Rel Index Total Protein 6.0 L Albumin Ur Specific [place] Urine WBC (Auto) Salicylates Acetaminophen 06/27/18 06/28/18 06/28/18 12:11 04:11 04:11 WBC RBC 2.99 L Hgb 8.2 L Hct 25.8 L D MCH 27 L RDW 30.4 H Plt Count Seg Neuts % (Manual) Lymphocytes % (Manual) Seg Neutrophils # Man Monocytes # (Manual) PT INR POC ABG pH POC ABG pCO2 POC ABG pO2 VBG pH Sodium Chloride Carbon Dioxide 31 H BUN Creatinine 0.2 L Glucose POC Glucose 116 H Calcium 7.7 L Alkaline Phosphatase 23 L CK-MB (CK-2) CK-MB (CK-2) Rel Index Total Protein 4.6 L D Albumin 3.2 L Ur Specific [place] Urine WBC (Auto) Salicylates Acetaminophen
[2018-06-28] MEDS: FIORICET PO PRN (17:06)
[2018-06-28] MEDS: HumaLOG SUB-Q SCH (22:33)
[2018-06-29] MEDS: FIORICET PO PRN ×2 (02:24→15:45)
[2018-06-29] MEDS: DUONEB *Not for PRN Use IH SCH ×4 (02:30→22:19)
[2018-06-29] MEDS: MAXIPIME/NS 2 GM/100 ML 2 GM/100 ML BAG IV SCH ×2 (05:20→19:18)
[2018-06-29] MEDS: SOLU-Medrol IV SCH ×3 (05:21→22:52)
[2018-06-29 06:45] LABS: Hemoglobin 8.5 gm/dl (10.1-14.3); Mean Corpuscular HGB Conc 32 % (30-34); Mean Corpuscular Volume 86 fl (79-97); Platelet Count 314 K/mm3 (140-440); Red Blood Count 3.13 M/mm3 (3.65-5.03); Red Cell Distribution Width 30.7 % (13.2-15.2)
[2018-06-29] MEDS: BROVANA NEBU IH SCH ×2 (07:59→22:17)
[2018-06-29] MEDS: PULMICORT IH SCH ×2 (08:00→22:17)
[2018-06-29 09:23] LABS: BUN/Creatinine Ratio 37; Blood Urea Nitrogen 11 mg/dL (7-17); Calcium 8.1 mg/dL (8.4-10.2); Hemolysis Index 19
[2018-06-29] MEDS: PEPCID IV SCH (10:46)
[2018-06-29] MEDS: VANCOMYCIN 750 MG in NACL 0.9% 250ML 250 ML IV SCH (10:47)
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
[2018-06-29] MEDS: HEPARIN SUB-Q SCH ×2 (15:34→22:54)
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
--- NOTE | 2018-06-29 16:45 | Progress Note ---
Assessment and Plan 53 y/o female with acute on chronic respiratory failure and altered mental state thought secondary to hypercapnea vs true psych disorder. 1. Agree with extubation, tolerating well 2. Wean FiO2 for sats >88%, currently on 40% venti-mask. spoke with RT to wean this to nasal cannula enrique. 3. Steroids dropped to q8 at 40, agree with this. 4. Will continue to follow. Follow up Psych recs. Subjective Date of service: 06/29/18 Interval history: No acute events. Still on Venti-mask. Appears comfortable. Objective Vital Signs - 12hr 06/29/18 06/29/18 06/29/18 05:28 08:00 08:24 Temperature 97.4 F L Pulse Rate 77 Pulse Rate [ 94 H 91 H Bilateral] Respiratory 18 Rate Respiratory 22 20 Rate [Bilateral ] Blood Pressure 139/85 O2 Sat by Pulse 99 94 Oximetry 06/29/18 06/29/18 06/29/18 12:03 14:18 14:33 Temperature 97.9 F Pulse Rate 80 Pulse Rate [ 107 H 95 H Bilateral] Respiratory 20 Rate Respiratory 20 20 Rate [Bilateral ] Blood Pressure 124/77 O2 Sat by Pulse 98 Oximetry CBC and BMP: 06/29/18 06:09 06/29/18 06:09 ABG, PT/INR, D-dimer: ABG POC ABG pH 7.450 (7.35-7.45) 06/28/18 04:25 POC ABG pCO2 42.2 (35-45) 06/28/18 04:25 POC ABG pO2 104 (80-105) 06/28/18 04:25 POC ABG HCO3 29.3 (22-26 mml/L) 06/28/18 04:25 POC ABG Total CO2 31 (23-27mmol/L) 06/28/18 04:25 POC ABG O2 Sat 98 06/28/18 04:25 PT/INR, D-dimer PT 11.1 Sec. (12.2-14.9) L 06/27/18 03:06 INR 0.76 (0.87-1.13) L 06/27/18 03:06 D-Dimer < 135 ng/mlDDU (0-234) 06/27/18 03:06 Abnormal lab findings: Abnormal Labs 06/27/18 06/27/18 06/27/18 01:28 01:28 02:24 WBC 20.0 H RBC 3.64 L Hgb 9.9 L Hct MCH 27 L RDW 31.3 H Plt Count 469 H Seg Neuts % (Manual) 83.0 H Lymphocytes % (Manual) 9.0 L Seg Neutrophils # Man 16.6 H Monocytes # (Manual) 1.2 H PT INR POC ABG pH POC ABG pCO2 POC ABG pO2 VBG pH Sodium 136 L Chloride 94.8 L Carbon Dioxide BUN 21 H Creatinine 0.2 L D Glucose 130 H POC Glucose 128 H Calcium 8.3 L D Alkaline Phosphatase CK-MB (CK-2) CK-MB (CK-2) Rel Index Total Protein Albumin Ur Specific [place] Urine WBC (Auto) Salicylates Acetaminophen 06/27/18 06/27/18 06/27/18 02:30 02:47 03:06 WBC RBC Hgb Hct MCH RDW Plt Count Seg Neuts % (Manual) Lymphocytes % (Manual) Seg Neutrophils # Man Monocytes # (Manual) PT 11.1 L INR 0.76 L POC ABG pH 7.222 L POC ABG pCO2 POC ABG pO2 VBG pH Sodium Chloride Carbon Dioxide BUN Creatinine Glucose POC Glucose Calcium Alkaline Phosphatase CK-MB (CK-2) CK-MB (CK-2) Rel Index Total Protein Albumin Ur Specific [place] 1.032 H Urine WBC (Auto) 14.0 H Salicylates Acetaminophen 06/27/18 06/27/18 06/27/18 03:06 03:06 03:06 WBC RBC Hgb Hct MCH RDW Plt Count Seg Neuts % (Manual) Lymphocytes % (Manual) Seg Neutrophils # Man Monocytes # (Manual) PT INR POC ABG pH POC ABG pCO2 POC ABG pO2 VBG pH Sodium Chloride Carbon Dioxide BUN Creatinine Glucose POC Glucose Calcium Alkaline Phosphatase CK-MB (CK-2) 10.4 H CK-MB (CK-2) Rel Index 11.1 H Total Protein Albumin Ur Specific [place] Urine WBC (Auto) Salicylates < 0.3 L Acetaminophen < 5.0 L 06/27/18 06/27/18 06/27/18 03:06 03:06 06:49 WBC RBC Hgb Hct MCH RDW Plt Count Seg Neuts % (Manual) Lymphocytes % (Manual) Seg Neutrophils # Man Monocytes # (Manual) PT INR POC ABG pH 7.314 L POC ABG pCO2 64.6 H POC ABG pO2 244 H VBG pH 7.282 L Sodium Chloride Carbon Dioxide BUN Creatinine Glucose POC Glucose Calcium Alkaline Phosphatase 31 L CK-MB (CK-2) CK-MB (CK-2) Rel Index Total Protein 6.0 L Albumin Ur Specific [place] Urine WBC (Auto) Salicylates Acetaminophen 06/27/18 06/28/18 06/28/18 12:11 04:11 04:11 WBC RBC 2.99 L Hgb 8.2 L Hct 25.8 L D MCH 27 L RDW 30.4 H Plt Count Seg Neuts % (Manual) Lymphocytes % (Manual) Seg Neutrophils # Man Monocytes # (Manual) PT INR POC ABG pH POC ABG pCO2 POC ABG pO2 VBG pH Sodium Chloride Carbon Dioxide 31 H BUN Creatinine 0.2 L Glucose POC Glucose 116 H Calcium 7.7 L Alkaline Phosphatase 23 L CK-MB (CK-2) CK-MB (CK-2) Rel Index Total Protein 4.6 L D Albumin 3.2 L Ur Specific [place] Urine WBC (Auto) Salicylates Acetaminophen 06/28/18 06/28/18 06/29/18 17:10 22:29 06:09 WBC RBC 3.13 L Hgb 8.5 L Hct 27.0 L MCH 27 L RDW 30.7 H Plt Count Seg Neuts % (Manual) Lymphocytes % (Manual) Seg Neutrophils # Man Monocytes # (Manual) PT INR POC ABG pH POC ABG pCO2 POC ABG pO2 VBG pH Sodium Chloride Carbon Dioxide BUN Creatinine Glucose POC Glucose 124 H 301 H Calcium Alkaline Phosphatase CK-MB (CK-2) CK-MB (CK-2) Rel Index Total Protein Albumin Ur Specific [place] Urine WBC (Auto) Salicylates Acetaminophen 06/29/18 06/29/18 06/29/18 06:09 07:40 11:22 WBC RBC Hgb Hct MCH RDW Plt Count Seg Neuts % (Manual) Lymphocytes % (Manual) Seg Neutrophils # Man Monocytes # (Manual) PT INR POC ABG pH POC ABG pCO2 POC ABG pO2 VBG pH Sodium Chloride 97.5 L Carbon Dioxide BUN Creatinine 0.3 L Glucose 145 H POC Glucose 139 H 133 H Calcium 8.1 L Alkaline Phosphatase CK-MB (CK-2) CK-MB (CK-2) Rel Index Total Protein Albumin Ur Specific [place] Urine WBC (Auto) Salicylates Acetaminophen
[2018-06-29] MEDS: RisperDAL PO SCH (22:52)
[2018-06-29] MEDS: HumaLOG SUB-Q SCH (22:52)
[2018-06-29] MEDS: PEPCID PO SCH (22:54)
[2018-06-30] MEDS: FIORICET PO PRN ×3 (00:07→20:37)
[2018-06-30] MEDS: DUONEB *Not for PRN Use IH SCH ×4 (03:40→21:44)
[2018-06-30] MEDS: HEPARIN SUB-Q SCH ×3 (07:02→21:51)
[2018-06-30] MEDS: SOLU-Medrol IV SCH (07:07)
[2018-06-30] MEDS: PULMICORT IH SCH ×2 (08:19→21:43)
[2018-06-30] MEDS: BROVANA NEBU IH SCH ×2 (08:19→21:43)
[2018-06-30 08:26] LABS: Hematocrit 31.6 % (30.3-42.9); Hemoglobin 9.9 gm/dl (10.1-14.3); Mean Corpuscular HGB Conc 31 % (30-34); Mean Corpuscular Volume 87 fl (79-97); Platelet Count 357 K/mm3 (140-440); Red Blood Count 3.65 M/mm3 (3.65-5.03)
[2018-06-30 08:35] LABS: Red Cell Distribution Width 29.9 % (13.2-15.2)
[2018-06-30 08:37] LABS: BUN/Creatinine Ratio 60; Blood Urea Nitrogen 12 mg/dL (7-17); Calcium 8.6 mg/dL (8.4-10.2); Hemolysis Index 10
--- NOTE | 2018-06-30 10:39 | Progress Note ---
Subjective - Reason for Consult Consult date: 06/30/18 Reason for consult: Psychiatry follow-up - Chief Complaint Chief complaint: "I am okay now" 53-year-old female that presents to emergency room with multiple complaints. Psychiatry was consulted to see for psychosis. This patient is known to me. Today the patient is calm and cooperative during the assessment. She stated that she is trying to deal with her feelings. She stated that she hear her voice "sometimes" when she isn't talking. She could not explain what she is hearing when asked. She denies SI/HI's and VH's. She denies any side effects of her medications. Mental Status Exam - Vital signs Last Vital Signs Temp 98.5 F 06/30/18 05:51 Pulse 104 H 06/30/18 08:28 Resp 18 06/30/18 08:28 BP 140/80 06/30/18 05:51 Pulse Ox 97 06/30/18 08:19 - Exam Narrative exam: MSE: Appearance: calm, cooperative Behavior: regular eye contact Speech: regular rate and loud tone Mood: "okay" Affect: congruent to mood Thought Process: circumstantial Thought Content: denies SI/HI's and VH's Motor Activity: sitting up in the bed Cognition: A/O x3 Insight: variable to fair Judgment: variable to fair Assessment and Plan Impression: Schizoaffective DO. Hx of Anxiety DO. Today the patient is calm and cooperative during the assessment. Recommendation/Plan: Reevaluate 1013 in 24 hours. Continue Risperdal 1 mg PO HS for psychosis/mood and Prozac 20 mg PO daily for depression. Discussed possible suicidality/medication induced sandra with the patient reference Prozac. Also, discussed possible metabolic side effects of Risperal with the patient. Dispo: If the patient's 1013 is rescinded, she can follow up with [facility] for outpatient psy services. Will staff with Dr Giles.
[2018-06-30] MEDS: PEPCID PO SCH ×2 (12:09→21:50)
[2018-06-30] MEDS: PROzac PO SCH (12:09)
--- NOTE | 2018-06-30 14:32 | Progress Note ---
Assessment and Plan 53 y/o female with acute on chronic respiratory failure and altered mental state thought secondary to hypercapnea vs true psych disorder. 1. Agree with q12 steroids, would drop to daily starting tomorrow and taper as follows. 40 x1 day, 20 x3days, 10 x3days then stop. 2. Wean FiO2 for sats >88%. Hard to know if exactly if patient has home O2 but I think she does. Subjective Date of service: 06/30/18 Interval history: No acute events. Down to nasal cannula at 3 liters with sat of 97% Objective Vital Signs - 12hr 06/30/18 06/30/18 06/30/18 05:51 08:19 08:28 Temperature 98.5 F Pulse Rate 67 Pulse Rate [ 97 H 104 H Bilateral] Respiratory 18 Rate Respiratory 18 18 Rate [Bilateral ] Blood Pressure 140/80 O2 Sat by Pulse 98 97 Oximetry 06/30/18 06/30/18 12:22 13:13 Temperature 98.3 F Pulse Rate 80 Pulse Rate [ 100 H Bilateral] Respiratory 22 Rate Respiratory 18 Rate [Bilateral ] Blood Pressure 137/83 O2 Sat by Pulse 99 Oximetry CBC and BMP: 06/30/18 07:39 06/30/18 07:39 ABG, PT/INR, D-dimer: ABG POC ABG pH 7.450 (7.35-7.45) 06/28/18 04:25 POC ABG pCO2 42.2 (35-45) 06/28/18 04:25 POC ABG pO2 104 (80-105) 06/28/18 04:25 POC ABG HCO3 29.3 (22-26 mml/L) 06/28/18 04:25 POC ABG Total CO2 31 (23-27mmol/L) 06/28/18 04:25 POC ABG O2 Sat 98 06/28/18 04:25 PT/INR, D-dimer PT 11.1 Sec. (12.2-14.9) L 06/27/18 03:06 INR 0.76 (0.87-1.13) L 06/27/18 03:06 D-Dimer < 135 ng/mlDDU (0-234) 06/27/18 03:06 Abnormal lab findings: Abnormal Labs 06/27/18 06/27/18 06/27/18 01:28 01:28 02:24 WBC 20.0 H RBC 3.64 L Hgb 9.9 L Hct MCH 27 L RDW 31.3 H Plt Count 469 H Seg Neuts % (Manual) 83.0 H Lymphocytes % (Manual) 9.0 L Seg Neutrophils # Man 16.6 H Monocytes # (Manual) 1.2 H PT INR POC ABG pH POC ABG pCO2 POC ABG pO2 VBG pH Sodium 136 L Chloride 94.8 L Carbon Dioxide BUN 21 H Creatinine 0.2 L D Glucose 130 H POC Glucose 128 H Calcium 8.3 L D Alkaline Phosphatase CK-MB (CK-2) CK-MB (CK-2) Rel Index Total Protein Albumin Ur Specific [place] Urine WBC (Auto) Salicylates Acetaminophen 06/27/18 06/27/18 06/27/18 02:30 02:47 03:06 WBC RBC Hgb Hct MCH RDW Plt Count Seg Neuts % (Manual) Lymphocytes % (Manual) Seg Neutrophils # Man Monocytes # (Manual) PT 11.1 L INR 0.76 L POC ABG pH 7.222 L POC ABG pCO2 POC ABG pO2 VBG pH Sodium Chloride Carbon Dioxide BUN Creatinine Glucose POC Glucose Calcium Alkaline Phosphatase CK-MB (CK-2) CK-MB (CK-2) Rel Index Total Protein Albumin Ur Specific [place] 1.032 H Urine WBC (Auto) 14.0 H Salicylates Acetaminophen 06/27/18 06/27/18 06/27/18 03:06 03:06 03:06 WBC RBC Hgb Hct MCH RDW Plt Count Seg Neuts % (Manual) Lymphocytes % (Manual) Seg Neutrophils # Man Monocytes # (Manual) PT INR POC ABG pH POC ABG pCO2 POC ABG pO2 VBG pH Sodium Chloride Carbon Dioxide BUN Creatinine Glucose POC Glucose Calcium Alkaline Phosphatase CK-MB (CK-2) 10.4 H CK-MB (CK-2) Rel Index 11.1 H Total Protein Albumin Ur Specific [place] Urine WBC (Auto) Salicylates < 0.3 L Acetaminophen < 5.0 L 06/27/18 06/27/18 06/27/18 03:06 03:06 06:49 WBC RBC Hgb Hct MCH RDW Plt Count Seg Neuts % (Manual) Lymphocytes % (Manual) Seg Neutrophils # Man Monocytes # (Manual) PT INR POC ABG pH 7.314 L POC ABG pCO2 64.6 H POC ABG pO2 244 H VBG pH 7.282 L Sodium Chloride Carbon Dioxide BUN Creatinine Glucose POC Glucose Calcium Alkaline Phosphatase 31 L CK-MB (CK-2) CK-MB (CK-2) Rel Index Total Protein 6.0 L Albumin Ur Specific [place] Urine WBC (Auto) Salicylates Acetaminophen 06/27/18 06/28/18 06/28/18 12:11 04:11 04:11 WBC RBC 2.99 L Hgb 8.2 L Hct 25.8 L D MCH 27 L RDW 30.4 H Plt Count Seg Neuts % (Manual) Lymphocytes % (Manual) Seg Neutrophils # Man Monocytes # (Manual) PT INR POC ABG pH POC ABG pCO2 POC ABG pO2 VBG pH Sodium Chloride Carbon Dioxide 31 H BUN Creatinine 0.2 L Glucose POC Glucose 116 H Calcium 7.7 L Alkaline Phosphatase 23 L CK-MB (CK-2) CK-MB (CK-2) Rel Index Total Protein 4.6 L D Albumin 3.2 L Ur Specific [place] Urine WBC (Auto) Salicylates Acetaminophen 06/28/18 06/28/18 06/29/18 17:10 22:29 06:09 WBC RBC 3.13 L Hgb 8.5 L Hct 27.0 L MCH 27 L RDW 30.7 H Plt Count Seg Neuts % (Manual) Lymphocytes % (Manual) Seg Neutrophils # Man Monocytes # (Manual) PT INR POC ABG pH POC ABG pCO2 POC ABG pO2 VBG pH Sodium Chloride Carbon Dioxide BUN Creatinine Glucose POC Glucose 124 H 301 H Calcium Alkaline Phosphatase CK-MB (CK-2) CK-MB (CK-2) Rel Index Total Protein Albumin Ur Specific [place] Urine WBC (Auto) Salicylates Acetaminophen 06/29/18 06/29/18 06/29/18 06:09 07:40 11:22 WBC RBC Hgb Hct MCH RDW Plt Count Seg Neuts % (Manual) Lymphocytes % (Manual) Seg Neutrophils # Man Monocytes # (Manual) PT INR POC ABG pH POC ABG pCO2 POC ABG pO2 VBG pH Sodium Chloride 97.5 L Carbon Dioxide BUN Creatinine 0.3 L Glucose 145 H POC Glucose 139 H 133 H Calcium 8.1 L Alkaline Phosphatase CK-MB (CK-2) CK-MB (CK-2) Rel Index Total Protein Albumin Ur Specific [place] Urine WBC (Auto) Salicylates Acetaminophen 06/29/18 06/30/18 06/30/18 21:39 07:39 07:39 WBC RBC Hgb 9.9 L Hct MCH 27 L RDW 29.9 H Plt Count Seg Neuts % (Manual) Lymphocytes % (Manual) Seg Neutrophils # Man Monocytes # (Manual) PT INR POC ABG pH POC ABG pCO2 POC ABG pO2 VBG pH Sodium Chloride Carbon Dioxide BUN Creatinine 0.2 L Glucose 106 H POC Glucose 197 H Calcium Alkaline Phosphatase CK-MB (CK-2) CK-MB (CK-2) Rel Index Total Protein Albumin Ur Specific [place] Urine WBC (Auto) Salicylates Acetaminophen
[2018-06-30] MEDS ORDERED: SOLU-Medrol IV SCH (18:00)
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
[2018-06-30] MEDS: RisperDAL PO SCH (21:50)
[2018-06-30] MEDS: HumaLOG SUB-Q SCH (21:54)
[2018-07-01] MEDS: DUONEB *Not for PRN Use IH SCH ×4 (01:59→20:33)
[2018-07-01] MEDS: HEPARIN SUB-Q SCH ×3 (06:00→21:47)
[2018-07-01] MEDS: FIORICET PO PRN (06:01)
[2018-07-01] MEDS: PULMICORT IH SCH ×2 (09:15→20:33)
[2018-07-01] MEDS: BROVANA NEBU IH SCH ×2 (09:16→20:33)
[2018-07-01] MEDS: DELTASONE PO SCH (10:00)
[2018-07-01] MEDS: PROzac PO SCH (10:29)
[2018-07-01] MEDS: PEPCID PO SCH ×2 (10:29→21:44)
--- NOTE | 2018-07-01 11:35 | Progress Note ---
Assessment and Plan 53 y/o female with acute on chronic respiratory failure and altered mental state thought secondary to hypercapnea vs true psych disorder. 1. Agree with q12 steroids, would drop to daily starting tomorrow and taper as follows. 40 x1 day, 20 x3days, 10 x3days then stop. 2. Wean FiO2 for sats >88%. Patient is on oxygen at home. 2-3 liters. 3. Will see as needed over the weekend. Subjective Date of service: 07/01/18 Interval history: No acute events. Pulm status is stable. Objective Vital Signs - 12hr 07/01/18 07/01/18 05:48 06:01 Temperature 98.1 F Pulse Rate 87 Respiratory 20 20 Rate Blood Pressure 144/93 O2 Sat by Pulse 96 Oximetry CBC and BMP: 06/30/18 07:39 06/30/18 07:39 ABG, PT/INR, D-dimer: ABG POC ABG pH 7.450 (7.35-7.45) 06/28/18 04:25 POC ABG pCO2 42.2 (35-45) 06/28/18 04:25 POC ABG pO2 104 (80-105) 06/28/18 04:25 POC ABG HCO3 29.3 (22-26 mml/L) 06/28/18 04:25 POC ABG Total CO2 31 (23-27mmol/L) 06/28/18 04:25 POC ABG O2 Sat 98 06/28/18 04:25 PT/INR, D-dimer PT 11.1 Sec. (12.2-14.9) L 06/27/18 03:06 INR 0.76 (0.87-1.13) L 06/27/18 03:06 D-Dimer < 135 ng/mlDDU (0-234) 06/27/18 03:06 Abnormal lab findings: Abnormal Labs 06/27/18 06/27/18 06/27/18 01:28 01:28 02:24 WBC 20.0 H RBC 3.64 L Hgb 9.9 L Hct MCH 27 L RDW 31.3 H Plt Count 469 H Seg Neuts % (Manual) 83.0 H Lymphocytes % (Manual) 9.0 L Seg Neutrophils # Man 16.6 H Monocytes # (Manual) 1.2 H PT INR POC ABG pH POC ABG pCO2 POC ABG pO2 VBG pH Sodium 136 L Chloride 94.8 L Carbon Dioxide BUN 21 H Creatinine 0.2 L D Glucose 130 H POC Glucose 128 H Calcium 8.3 L D Alkaline Phosphatase CK-MB (CK-2) CK-MB (CK-2) Rel Index Total Protein Albumin Ur Specific [place] Urine WBC (Auto) Salicylates Acetaminophen 06/27/18 06/27/18 06/27/18 02:30 02:47 03:06 WBC RBC Hgb Hct MCH RDW Plt Count Seg Neuts % (Manual) Lymphocytes % (Manual) Seg Neutrophils # Man Monocytes # (Manual) PT 11.1 L INR 0.76 L POC ABG pH 7.222 L POC ABG pCO2 POC ABG pO2 VBG pH Sodium Chloride Carbon Dioxide BUN Creatinine Glucose POC Glucose Calcium Alkaline Phosphatase CK-MB (CK-2) CK-MB (CK-2) Rel Index Total Protein Albumin Ur Specific [place] 1.032 H Urine WBC (Auto) 14.0 H Salicylates Acetaminophen 06/27/18 06/27/18 06/27/18 03:06 03:06 03:06 WBC RBC Hgb Hct MCH RDW Plt Count Seg Neuts % (Manual) Lymphocytes % (Manual) Seg Neutrophils # Man Monocytes # (Manual) PT INR POC ABG pH POC ABG pCO2 POC ABG pO2 VBG pH Sodium Chloride Carbon Dioxide BUN Creatinine Glucose POC Glucose Calcium Alkaline Phosphatase CK-MB (CK-2) 10.4 H CK-MB (CK-2) Rel Index 11.1 H Total Protein Albumin Ur Specific [place] Urine WBC (Auto) Salicylates < 0.3 L Acetaminophen < 5.0 L 06/27/18 06/27/18 06/27/18 03:06 03:06 06:49 WBC RBC Hgb Hct MCH RDW Plt Count Seg Neuts % (Manual) Lymphocytes % (Manual) Seg Neutrophils # Man Monocytes # (Manual) PT INR POC ABG pH 7.314 L POC ABG pCO2 64.6 H POC ABG pO2 244 H VBG pH 7.282 L Sodium Chloride Carbon Dioxide BUN Creatinine Glucose POC Glucose Calcium Alkaline Phosphatase 31 L CK-MB (CK-2) CK-MB (CK-2) Rel Index Total Protein 6.0 L Albumin Ur Specific [place] Urine WBC (Auto) Salicylates Acetaminophen 06/27/18 06/28/18 06/28/18 12:11 04:11 04:11 WBC RBC 2.99 L Hgb 8.2 L Hct 25.8 L D MCH 27 L RDW 30.4 H Plt Count Seg Neuts % (Manual) Lymphocytes % (Manual) Seg Neutrophils # Man Monocytes # (Manual) PT INR POC ABG pH POC ABG pCO2 POC ABG pO2 VBG pH Sodium Chloride Carbon Dioxide 31 H BUN Creatinine 0.2 L Glucose POC Glucose 116 H Calcium 7.7 L Alkaline Phosphatase 23 L CK-MB (CK-2) CK-MB (CK-2) Rel Index Total Protein 4.6 L D Albumin 3.2 L Ur Specific [place] Urine WBC (Auto) Salicylates Acetaminophen 06/28/18 06/28/18 06/29/18 17:10 22:29 06:09 WBC RBC 3.13 L Hgb 8.5 L Hct 27.0 L MCH 27 L RDW 30.7 H Plt Count Seg Neuts % (Manual) Lymphocytes % (Manual) Seg Neutrophils # Man Monocytes # (Manual) PT INR POC ABG pH POC ABG pCO2 POC ABG pO2 VBG pH Sodium Chloride Carbon Dioxide BUN Creatinine Glucose POC Glucose 124 H 301 H Calcium Alkaline Phosphatase CK-MB (CK-2) CK-MB (CK-2) Rel Index Total Protein Albumin Ur Specific [place] Urine WBC (Auto) Salicylates Acetaminophen 06/29/18 06/29/18 06/29/18 06:09 07:40 11:22 WBC RBC Hgb Hct MCH RDW Plt Count Seg Neuts % (Manual) Lymphocytes % (Manual) Seg Neutrophils # Man Monocytes # (Manual) PT INR POC ABG pH POC ABG pCO2 POC ABG pO2 VBG pH Sodium Chloride 97.5 L Carbon Dioxide BUN Creatinine 0.3 L Glucose 145 H POC Glucose 139 H 133 H Calcium 8.1 L Alkaline Phosphatase CK-MB (CK-2) CK-MB (CK-2) Rel Index Total Protein Albumin Ur Specific [place] Urine WBC (Auto) Salicylates Acetaminophen 06/29/18 06/30/18 06/30/18 21:39 07:39 07:39 WBC RBC Hgb 9.9 L Hct MCH 27 L RDW 29.9 H Plt Count Seg Neuts % (Manual) Lymphocytes % (Manual) Seg Neutrophils # Man Monocytes # (Manual) PT INR POC ABG pH POC ABG pCO2 POC ABG pO2 VBG pH Sodium Chloride Carbon Dioxide BUN Creatinine 0.2 L Glucose 106 H POC Glucose 197 H Calcium Alkaline Phosphatase CK-MB (CK-2) CK-MB (CK-2) Rel Index Total Protein Albumin Ur Specific [place] Urine WBC (Auto) Salicylates Acetaminophen 06/30/18 06/30/18 08:39 16:46 WBC RBC Hgb Hct MCH RDW Plt Count Seg Neuts % (Manual) Lymphocytes % (Manual) Seg Neutrophils # Man Monocytes # (Manual) PT INR POC ABG pH POC ABG pCO2 POC ABG pO2 VBG pH Sodium Chloride Carbon Dioxide BUN Creatinine Glucose POC Glucose 124 H 163 H Calcium Alkaline Phosphatase CK-MB (CK-2) CK-MB (CK-2) Rel Index Total Protein Albumin Ur Specific [place] Urine WBC (Auto) Salicylates Acetaminophen
--- NOTE | 2018-07-01 13:19 | Progress Note ---
Subjective - Reason for Consult Consult date: 07/01/18 Reason for consult: Psychiatry Follow-up - Chief Complaint Chief complaint: "Hello" 53-year-old female that presents to emergency room with multiple complaints. Psychiatry was consulted to see for psychosis. This patient is known to me. Today the patient is calm and cooperative during the assessment. She stated that she slept well last night and have a "handle" of her feelings. She stated, "My feeling can get the best of me sometimes." She stated that she plan to speak with a therapist at [facility] once discharged. She denies SI/HI's and AVH's. She denies any side effects of her medications. Mental Status Exam - Vital signs Last Vital Signs Temp 98.1 F 07/01/18 12:32 Pulse 89 07/01/18 12:32 Resp 22 07/01/18 12:32 BP 144/91 07/01/18 12:32 Pulse Ox 97 07/01/18 12:32 - Exam Narrative exam: MSE: Appearance: calm, cooperative Behavior: regular eye contact Speech: regular rate and loud tone Mood: "okay" Affect: congruent to mood Thought Process: more organized Thought Content: denies SI/HI's and AVH's Motor Activity: sitting up in the bed Cognition: A/O x3 Insight: fair Judgment: fair Assessment and Plan Impression: Schizoaffective DO. Hx of Anxiety DO. Today the patient is calm and cooperative during the assessment. The patient is at her baseline. Recommendation/Plan: Rescind 1013. Continue Risperdal 1 mg PO HS for psychosis/mood and Prozac 20 mg PO daily for depression. Discussed possible suicidality/medication induced sandra with the patient reference Prozac. Also, discussed possible metabolic side effects of Risperal with the patient. Dispo: The patient can follow up with [facility] for outpatient psy services. Will staff with Dr Vincenzo Antonio.
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
[2018-07-01] MEDS: LOPRESSOR PO SCH ×2 (19:31→21:53)
[2018-07-01] MEDS: RisperDAL PO SCH (21:45)
[2018-07-01] MEDS: HumaLOG SUB-Q SCH (21:49)
[2018-07-02] MEDS: DUONEB *Not for PRN Use IH SCH ×2 (02:54→09:24)
[2018-07-02] MEDS: HEPARIN SUB-Q SCH ×3 (06:32→21:19)
[2018-07-02] MEDS: LOPRESSOR PO SCH ×2 (09:09→21:18)
[2018-07-02] MEDS: PEPCID PO SCH ×2 (09:09→21:18)
[2018-07-02] MEDS: DELTASONE PO SCH (09:10)
[2018-07-02] MEDS: PROzac PO SCH (09:10)
[2018-07-02] MEDS: BROVANA NEBU IH SCH ×2 (09:24→20:41)
[2018-07-02] MEDS: PULMICORT IH SCH ×2 (09:24→20:41)
[2018-07-02] MEDS: TYLENOL PO PRN ×2 (14:16→21:17)
[2018-07-02] MEDS: PROVENTIL IH PRN (15:03)
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
[2018-07-02] MEDS: RisperDAL PO SCH (21:18)
[2018-07-02] MEDS: HumaLOG SUB-Q SCH (23:29)
[2018-07-03] MEDS: HEPARIN SUB-Q SCH ×3 (06:21→22:31)
[2018-07-03] MEDS: BROVANA NEBU IH SCH ×2 (07:46→20:20)
[2018-07-03] MEDS: PULMICORT IH SCH ×2 (07:46→20:20)
[2018-07-03] MEDS ORDERED: D50W (25GM) Syringe IV PRN (09:36)
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
[2018-07-03] MEDS ORDERED: LOPRESSOR PO SCH (10:00)
[2018-07-03] MEDS: PEPCID PO SCH ×2 (10:46→22:33)
[2018-07-03] MEDS: PROzac PO SCH (10:46)
[2018-07-03] MEDS: DELTASONE PO SCH (10:46)
[2018-07-03] MEDS: HumaLOG SUB-Q SCH ×3 (12:30→22:00)
[2018-07-03] MEDS: FIORICET PO PRN ×2 (14:46→22:31)
[2018-07-03] MEDS: NORCO 5/325 PO PRN (16:38)
[2018-07-03] MEDS: ACYCLOVIR TP SCH ×2 (19:34→22:30)
[2018-07-03] MEDS: LOPRESSOR PO SCH (22:00)
[2018-07-03] MEDS: RisperDAL PO SCH (22:31)
[2018-07-04] MEDS: HEPARIN SUB-Q SCH ×3 (06:58→23:30)
[2018-07-04] MEDS: ACYCLOVIR TP SCH ×5 (06:59→23:31)
[2018-07-04] MEDS: BROVANA NEBU IH SCH ×2 (07:37→19:54)
[2018-07-04] MEDS: PULMICORT IH SCH ×2 (07:38→19:54)
[2018-07-04] MEDS: NORCO 5/325 PO PRN ×3 (07:49→23:30)
[2018-07-04] MEDS: HumaLOG SUB-Q SCH ×4 (08:30→23:51)
[2018-07-04] MEDS: PEPCID PO SCH ×2 (10:47→23:31)
[2018-07-04] MEDS: DELTASONE PO SCH (10:47)
[2018-07-04] MEDS: PROzac PO SCH (10:47)
[2018-07-04] MEDS: LOPRESSOR PO SCH ×2 (10:53→23:31)
[2018-07-04] MEDS: FIORICET PO PRN (11:42)
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
[2018-07-04] MEDS: PROVENTIL IH PRN (14:27)
[2018-07-04] MEDS: RisperDAL PO SCH (23:31)
[2018-07-05] MEDS: FIORICET PO PRN ×2 (04:07→16:47)
[2018-07-05] MEDS: HEPARIN SUB-Q SCH ×3 (06:29→23:07)
[2018-07-05] MEDS: ACYCLOVIR TP SCH ×5 (06:30→23:08)
[2018-07-05] MEDS: HumaLOG SUB-Q SCH ×4 (07:30→23:09)
[2018-07-05] MEDS: PULMICORT IH SCH ×2 (08:16→22:14)
[2018-07-05] MEDS: BROVANA NEBU IH SCH ×2 (08:16→22:14)
[2018-07-05] MEDS: NORCO 5/325 PO PRN (10:39)
[2018-07-05] MEDS: DELTASONE PO SCH (10:40)
[2018-07-05] MEDS: PEPCID PO SCH ×2 (10:40→23:06)
[2018-07-05] MEDS: PROzac PO SCH (10:40)
[2018-07-05] MEDS: LOPRESSOR PO SCH (10:40)
--- NOTE | 2018-07-05 13:15 | Progress Note ---
Subjective - Reason for Consult Consult date: 07/05/18 Reason for consult: Psychiatry Follow-up - Chief Complaint Chief complaint: "Hello to you" 53-year-old female that presents to emergency room with multiple complaints. Psychiatry was reconsulted to see the patient for psychosis. This patient is known to me. Today the patient is calm and cooperative during the assessment. She was asked about her residence and outpatient psy services. She stated that she reside at [facility] and plan to move [facility] once discharged. She stated that she do not like living at [facility]. She stated that she plan to use [facility] as her outpatient psy services. The patient was able to show me a card reference this behavioral health service. She stated that she will stay compliant with her medications. She denies SI/HI's and AVH's. She denies any side effects of her medications. Mental Status Exam - Vital signs Last Vital Signs Temp 98.1 F 07/05/18 11:04 Pulse 90 07/05/18 11:04 Resp 20 07/05/18 11:04 BP 88/45 07/05/18 11:04 Pulse Ox 94 07/05/18 11:04 - Exam Narrative exam: MSE: Appearance: calm, cooperative Behavior: regular eye contact Speech: regular rate and loud tone Mood: "okay" Affect: congruent to mood Thought Process: logical Thought Content: denies SI/HI's and AVH's Motor Activity: sitting up in the bed Cognition: A/O x3 Insight: appropriate Judgment: appropriate Assessment and Plan Impression: Schizoaffective DO. Hx of Anxiety DO. There's no overt psychosis with this patient. Today the patient is calm and cooperative during the assessment. The patient is at her baseline. Recommendation/Plan: The patient does not meet 1013 criteria at this time. Continue Risperdal 1 mg PO HS for psychosis/mood and Prozac 20 mg PO daily for depression. Discussed possible suicidality/medication induced sandra with the patient reference Prozac. Also, discussed possible metabolic side effects of Risperal with the patient. Psy sign off. Dispo: The patient can follow up [facility] for outpatient psy services. Will staff with Dr Олег Antonio.
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
[2018-07-05] MEDS ORDERED: NACL 0.9% 1000 ML 1,000 ML IV SCH (17:00)
[2018-07-05] MEDS: RisperDAL PO SCH (23:06)
[2018-07-06] MEDS: HEPARIN SUB-Q SCH (05:46)
[2018-07-06] MEDS: ACYCLOVIR TP SCH ×2 (05:46→09:02)
[2018-07-06 08:31] LABS: BUN/Creatinine Ratio 75; Blood Urea Nitrogen 15 mg/dL (7-17); Calcium 8.8 mg/dL (8.4-10.2); Hemolysis Index 12
[2018-07-06] MEDS: HumaLOG SUB-Q SCH ×2 (08:33→12:00)
[2018-07-06] MEDS: BROVANA NEBU IH SCH ×2 (08:40→08:47)
[2018-07-06] MEDS: PULMICORT IH SCH ×2 (08:40→08:48)
[2018-07-06 08:44] LABS: Hematocrit 32.8 % (30.3-42.9); Hemoglobin 10.5 gm/dl (10.1-14.3); Mean Corpuscular HGB Conc 32 % (30-34); Mean Corpuscular Volume 83 fl (79-97); Platelet Count 377 K/mm3 (140-440); Red Blood Count 3.96 M/mm3 (3.65-5.03)
[2018-07-06 08:47] LABS: Red Cell Distribution Width 27.6 % (13.2-15.2)
[2018-07-06] MEDS: PEPCID PO SCH (08:59)
[2018-07-06] MEDS: PROzac PO SCH (08:59)
[2018-07-06] MEDS: DELTASONE PO SCH (08:59)
[2018-07-06] MEDS: FIORICET PO PRN (09:00)
[2018-07-06 09:38] LABS: Anisocytosis 2+; Basophils % (Manual) 0 % (0.0-1.8); Eosinophils % (Manual) 0 % (0.0-4.3); Poikilocytosis 2+; Total Cells Counted 100
[2018-07-06 09:39] LABS: Hypochromasia 1+; Ovalocytes 1+; Platelet Estimate Consistent w Auto; Target Cells 1+
[2018-07-06] MEDS: NORCO 5/325 PO PRN (11:58)
[2018-07-06 14:06] VITALS: BP 126/83
== END 2018-07-06 16:00 | disposition home or self-care (01) | DRG 208 ==
LOC: ED 00:19 → CC1 07:25 → 3A 06-28 10:37
PROVIDERS: ADMIT Internal Medicine; ATTEND Internal Medicine
PROC: 5A1945Z Respiratory Ventilation, 24-96 Consecutive Hours (ICD-10-PCS; principal; 2018-06-27)
PROC: 0BH17EZ Insertion of Endotracheal Airway into Trachea, Via Natural or Artificial Opening (ICD-10-PCS; 2018-06-27)
PROC: 4A033R1 Measurement of Arterial Saturation, Peripheral, Percutaneous Approach (ICD-10-PCS; 2018-06-27)
DX: J96.22 Acute and chronic respiratory failure with hypercapnia (principal); G93.41 Metabolic encephalopathy; R65.10 Systemic inflammatory response syndrome (SIRS) of non-infectious origin without acute organ dysfunction; R19.7 Diarrhea, unspecified; J44.1 Chronic obstructive pulmonary disease with (acute) exacerbation; I25.10 Atherosclerotic heart disease of native coronary artery without angina pectoris; I10 Essential (primary) hypertension; E11.8 Type 2 diabetes mellitus with unspecified complications; E44.0 Moderate protein-calorie malnutrition; F41.9 Anxiety disorder, unspecified; B02.9 Zoster without complications; D63.8 Anemia in other chronic diseases classified elsewhere; F25.0 Schizoaffective disorder, bipolar type; Z99.81 Dependence on supplemental oxygen; Z79.4 Long term (current) use of insulin; Z88.8 Allergy status to other drugs, medicaments and biological substances; Z79.51 Long term (current) use of inhaled steroids; Z79.899 Other long term (current) drug therapy; Z79.84 Long term (current) use of oral hypoglycemic drugs; I25.2 Old myocardial infarction; Z68.1 Body mass index [BMI] 19.9 or less, adult
CPT/HCPCS: 36415; 36600; 70450; 71045; 74018; 74177; 80048; 80053; 80076; 80307; 80320; 81001; 82140; 82550; 82553; 82803; 82805; 82962; 83690; 84439; 84443; 84484; 85007; 85025; 85027; 85379; 85610; 86850; 86900; 86901; 87040; 87086; 93005; 93010; 94002; 94640; 94644; 94760; G0378; G0480; J0692; J1644; J1815; J2543; J2704; J2920; J2930; J3370; J3475; J7030; J7050; J7512; Q9967